=== PATIENT | male | born 1970 | race Caucasian/White ===

== ENCOUNTER 2020-01-17 08:08 | Outpatient (REF) | payer MEDICARE, OTHER, SELFPAY ==
[2020-01-17 09:21] LABS: MANUAL DIFF FLAG NO
[2020-01-17 09:27] LABS: Basophils Absolute Auto 0.1 X10*3/uL (0.0-0.2); Basophils Percent Auto 0.7 % (0-2); Eosinophils Absolute Auto 0.1 X10*3/uL (0.0-0.4); Eosinophils Percent Auto 1.2 % (0-4); Hematocrit 45.5 % (42-52); Hemoglobin 14.3 g/dl (14.0-18.0); Imm Gran Abs Auto 0.02 X10*3/uL (0.00-0.03); Imm Gran Pct Auto 0.3 % (0.0-0.4); Lymphocytes Absolute Auto 2.5 X10*3/uL (1.2-4.9); Mean Corpuscular HGB Conc 31.4 g/dl (31.0-36.0); Mean Corpuscular Hemoglobin 23.9 pg (27.0-33.0); Mean Corpuscular Volume 76.1 fL (80-98); Mean Platelet Volume 11.8 fL (9.4-12.4); Monocytes Absolute Auto 0.7 X10*3/uL (0.1-1.2); Monocytes Percent Auto 9.2 % (2-11); Neutrophils Absolute Auto 4.1 X10*3/uL (2.0-8.3); Neutrophils Percent Auto 55.6 % (45-73); Platelet Count 148 X10*3/uL (160-400); Red Blood Count 5.98 X10*6/uL (4.60-5.80); Red Cell Distribution Width 14.4 % (11.0-16.0); White Blood Count 7.4 X10*3/uL (4.8-10.8)
[2020-01-17 09:39] LABS: Estimated Average Glucose 146 mg/dL; Hemoglobin A1c % 6.7 %
[2020-01-17 10:05] LABS: Alanine Aminotransferase 26 U/L (0-40); Albumin Level 3.7 g/dL (3.5-5.0); Alkaline Phosphatase 98 U/L (39-117); Anion Gap 10 (12-20); Aspartate Amino Transferase 21 U/L (5-37); Bilirubin Total 0.4 mg/dL (0.0-1.0); Blood Urea Nitrogen 13 mg/dL (9-16); Calcium 8.3 mg/dL (8.4-10.2); Carbon Dioxide 27 mmol/L (22-29); Chloride 106 mmol/L (96-108); Cholesterol 117 mg/dL; Estimated Glomerular Filt Rate > 60; Glucose Fasting 132 mg/dL (60-99); HDL Cholesterol 18 mg/dL; Potassium 4.2 mmol/l (3.3-5.1); Sodium 139 mmol/L (135-145); Triglycerides 527 mg/dL
[2020-01-17 10:10] LABS: Creatinine Urine 151.75 mg/dL; Microalbumin Urine < 5.0 mg/L
[2020-01-17 10:22] LABS: TSH reflex Free T4 < 0.01 mIU/mL (0.32-4.0)
[2020-01-17 11:30] LABS: Free T4 (Free Thyroxine) 1.37 ng/dL (0.71-1.85)
== END 2020-01-17 08:09 | disposition home or self-care (01) ==
LOC: HO.LAB 08:08
PROVIDERS: PCP Physician Assistant; Visit Provider Physician Assistant
DX: E03.9 Hypothyroidism, unspecified (principal); E78.5 Hyperlipidemia, unspecified; I10 Essential (primary) hypertension
CPT/HCPCS: 36415; 80053; 80061; 82043; 83036; 84439; 84443; 85025

== ENCOUNTER 2020-01-28 01:08 | Emergency (ER) | payer MEDICARE, OTHER, SELFPAY ==
--- NOTE | 2020-01-28 | XR_ITS ---
EXAMINATION: XR CHEST CLINICAL INFORMATION: Fever. Cough. COMPARISON: 04/21/2019 TECHNIQUE: Frontal view of the chest was obtained. FINDINGS: The lungs are well expanded. There is no focal consolidation, edema, or effusion. Bronchial wall thickening noted. No pneumothorax. The cardiomediastinal silhouette is within normal limits. No acute osseous abnormality. XR/XR chest 1V IMPRESSION: No dense consolidation. Bronchial wall thickening can be seen with a small airways process such as asthma or atypical/viral infection.
[2020-01-28 01:20] VITALS: BP 151/68; PULSE 98; RESP 20; TEMP 38.8; O2SAT 96; BMI 46.2
[2020-01-28] MEDS: Ibuprofen 600 MG TABLET PO (01:54)
[2020-01-28] MEDS: Benzonatate 100 MG CAPSULE PO (01:55)
[2020-01-28] MEDS: Acetaminophen 325 MG TABLET 650 MG PO (01:55)
[2020-01-28 02:01] LABS: Eosinophils Percent Auto 0.2 % (0-4); Imm Gran Abs Auto 0.01 X10*3/uL (0.00-0.03); Imm Gran Pct Auto 0.2 % (0.0-0.4); MANUAL DIFF FLAG SCAN; PLT CLUMP 1; SCAN SMEAR FLAG 1
[2020-01-28 02:03] LABS: Basophils Percent Auto 0.3 % (0-2); Hematocrit 46.1 % (42-52); Lymphocytes Absolute Auto 1.1 X10*3/uL (1.2-4.9); Lymphocytes Percent Auto 18.6 % (20-40); Mean Corpuscular HGB Conc 32.5 g/dl (31.0-36.0); Mean Corpuscular Hemoglobin 24.6 pg (27.0-33.0); Mean Corpuscular Volume 75.6 fL (80-98); Monocytes Absolute Auto 0.4 X10*3/uL (0.1-1.2); Monocytes Percent Auto 7.6 % (2-11); Neutrophils Absolute Auto 4.2 X10*3/uL (2.0-8.3); Neutrophils Percent Auto 73.1 % (45-73); Red Cell Distribution Width 14.2 % (11.0-16.0); White Blood Count 5.8 X10*3/uL (4.8-10.8)
[2020-01-28 02:19] LABS: Platelet Count 95 X10*3/uL (160-400); SLIDE REVIEW VERIFIED
--- NOTE | 2020-01-28 02:19 | ED.URI ---
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 In addition, this patient denies any recent travel and states that he has felt a little short of breath but denies any chest pain / palpitations. Related Data Home Medications Medication Instructions Recorded Confirmed oxygen-air delivery systems #1 01/10/20 01/10/20 alcohol swabs pad TOPICAL 01/25/20 blood sugar diagnostic #10 ea 01/25/20 blood-glucose meter #1 ea 01/25/20 lancets 28 gauge #100 ea 01/25/20 Previous Rx's Medication Instructions Recorded atorvastatin 40 mg tablet 40 mg PO DAILY 90 Days #90 tab 01/10/20 gabapentin 600 mg tablet 600 mg PO TID 90 Days #270 tab 01/10/20 levothyroxine 200 mcg tablet 200 mcg PO DAILY 90 Days #90 tab 01/10/20 losartan 50 mg tablet 50 mg PO DAILY 90 Days #90 tab 01/10/20 meclizine 25 mg tablet 25 mg PO DAILY PRN 30 Days #30 tab 01/10/20 sertraline 100 mg tablet 100 mg PO DAILY 90 Days #90 tab 01/10/20 levothyroxine 137 mcg tablet 137 mcg PO DAILY 30 Days #30 tab 01/26/20 Allergies Allergy/AdvReac Type Severity Reaction Status Date / Time penicillin G Allergy Unknown PENICILLIN Verified 01/28/20 01:27 Penicillins [PCN] Allergy Unknown UNKNOWN Verified 01/28/20 01:27 Review of Systems Review of Systems: Pertinent positives and negatives as stated in HPI and 10 point review of systems is otherwise negative. [facility] Past Medical History Source: nursing notes reviewed Medical History HTN (hypertension) Hypothyroid Surgical History History of cholecystectomy History of hemorrhoidectomy Family History Family History Mother Diabetes Hypertension Father Diabetes Hypertension Maternal Uncle Cancer Maternal Grandmother Stroke Social History Social History Alcohol intake: never Smoking Status: Never smoker Smoked in Last 30 Days: No Use of substances other than those prescribed or required for medical reasons: No Advance Directives: No Advance Directives Information Provided: No Physical Exam Vital Signs: Vital Signs: Vital Signs Temp Pulse Resp BP Pulse Ox 01/28/20 03:03 99.7 F 88 16 100/69 96 01/28/20 01:20 101.8 F H 98 20 151/68 H 96 Body Mass Index 46.2 VITAL SIGNS: Reviewed. GENERAL: Well developed, well nourished, in no acute distress. HEAD: Normocephalic/atraumatic, EYES: PERRLA, EOMI intact without pain, no nystagmus/pallor/icterus noted EARS: Ext canals without abnormality, TMs non-bulging and non-erythematous NOSE: Nares patent bilateral OROPHARYNX: no oral lesions noted, posterior pharynx clear and non-erythematous without noted tonsillar enlargement/erythema/exudates NECK: Supple, no adenopathy LUNGS: Normal breath sounds. No adventitious sounds or accessory muscle use. SpO2<96> CARDIOVASCULAR: Regular rate and rhythm without noted murmurs, no JVD or lower extremity edema. ABDOMEN: Soft, non-tender, non-distended with bowel sounds. No rigidity. No guarding. No palpable masses or hernias noted MUSCULOSKELETAL: No tenderness, deformities, or effusions noted on gross inspection. EXTREMITIES: No cyanosis, clubbing or edema. SKIN: Inspection of the skin reveals no rashes, ulcerations, jaundice, pallor, or petechiae. NEUROLOGIC: Alert and oriented x 4. Strength and sensation to light touch were grossly intact x 4. Course Course Course Narrative: This is a 49-year-old male with history and clinical presentation most consistent with likely viral syndrome highly suspicious on review of lab work and imaging that this may be COVID-19 in etiology. Patient had complete resolution of his fever as well as remaining without evidence of hypoxia. Patient will be instructed to self quarantine until the results of his COVID-19 test are resulted with instructions on appropriate fever control and hydration. MDM - URI/Sore Throat Lab Data Result diagrams: 01/28/20 01:53 01/28/20 01:53 Labs: Lab Results 01/28/20 01/28/20 Range/Units 01:53 01:53 WBC 5.8 (4.8-10.8) X10*3/uL RBC 6.10 H (4.60-5.80) X10*6/uL Hgb 15.0 (14.0-18.0) g/dl Hct 46.1 (42-52) % MCV 75.6 L (80-98) fL MCH 24.6 L (27.0-33.0) pg MCHC 32.5 (31.0-36.0) g/dl RDW 14.2 (11.0-16.0) % Plt Count 95 L D (160-400) X10*3/uL MPV 12.0 (9.4-12.4) fL Immature Gran % (Auto) 0.2 (0.0-0.4) % Neut % (Auto) 73.1 H (45-73) % Lymph % (Auto) 18.6 L (20-40) % [place] % (Auto) 7.6 (2-11) % Eos % (Auto) 0.2 (0-4) % Baso % (Auto) 0.3 (0-2) % Lymph # (Auto) 1.1 L (1.2-4.9) X10*3/uL [place] # (Auto) 0.4 (0.1-1.2) X10*3/uL Eos # (Auto) 0.0 (0.0-0.4) X10*3/uL Baso # (Auto) 0.0 (0.0-0.2) X10*3/uL Abs Immat Gran (auto) 0.01 (0.00-0.03) X10*3/uL Absolute Neuts (auto) 4.2 (2.0-8.3) X10*3/uL Absolute Nucleated RBC 0.000 (0.0-0.012) X10*3/uL Nucleated RBC % (auto) 0.0 (0.0-0.2) /100WBC Smear Tech's Comments VERIFIED Sodium 136 (135-145) mmol/L Potassium 3.9 (3.3-5.1) mmol/l Chloride 104 (96-108) mmol/L Carbon Dioxide 21 L (22-29) mmol/L Anion Gap 15 (12-20) BUN 13 (9-16) mg/dL Creatinine 1.35 (0.5-1.4) mg/dL Estim Creat Clear Calc 80.8 Estimated GFR 56 Random Glucose 183 H (60-115) mg/dL Calcium 7.4 L (8.4-10.2) mg/dL Total Bilirubin 0.7 (0.0-1.0) mg/dL AST 41 H D (5-37) U/L ALT 46 H (0-40) U/L Alkaline Phosphatase 89 (39-117) U/L Total Protein 7.0 (6.5-8.0) g/dL Albumin 3.6 (3.5-5.0) g/dL Discharge Plan Discharge Clinical Impression: Viral illness Patient Disposition: Home, Self-Care Instructions: Viral Syndrome (ED), COVID-19 (Coronavirus Disease 2019) (ED) Additional Instructions: 1. Tylenol 1000 mg, por v?a oral, cada 6 horas seg?n sea necesario para la fiebre y los donnell corporales. No exceda los 4000 mg en 24 horas. 2. ibuprofeno 400 mg, por v?a oral con leche o comida cada 6 horas seg?n sea necesario para la fiebre y los donnell corporales. 3. debe permanecer en cuarentena hasta que le llamen los resultados de la prueba de COVID-19. 4. Utilice quach m?quina para dormir por la noche arron se indica. 5. No dude en volver al servicio de urgencias si experimenta un empeoramiento de la dificultad para respirar. El paciente y / o la christiano reconocen halina comprendido los resultados (seg?n corresponda), el diagn?stico, el plan de tratamiento, la necesidad de seguimiento y los s?ntomas que deber?an impulsar el regreso a la flavio de emergencias. Prescriptions: No Action (DME) blood-glucose meter [FreeStyle Lite Meter] Kit See Rx Instructions .ROUTE .MEDSUPPLY Qty: 1 RF: 0 (DME) FreeStyle Lite Strips Strip See Rx Instructions .ROUTE .MEDSUPPLY Qty: 10 RF: 0 (DME) lancets [FreeStyle Lancets] 28 gauge misc See Rx Instructions .ROUTE .MEDSUPPLY Qty: 100 RF: 0 alcohol swabs [Alcohol Prep Pads] Pads, Medicated topical RF: 0 levothyroxine 137 mcg tablet 137 mcg PO DAILY 30 Days Qty: 30 RF: 2 (DME) oxygen-air delivery systems Device See Rx Instructions .ROUTE .MEDSUPPLY Qty: 1 RF: 0 sertraline 100 mg tablet 100 mg PO DAILY 90 Days Qty: 90 RF: 1 gabapentin 600 mg tablet 600 mg PO TID 90 Days Qty: 270 RF: 0 levothyroxine 200 mcg tablet 200 mcg PO DAILY 90 Days Qty: 90 RF: 1 losartan 50 mg tablet 50 mg PO DAILY 90 Days Qty: 90 RF: 1 atorvastatin 40 mg tablet 40 mg PO DAILY 90 Days Qty: 90 RF: 1 meclizine 25 mg tablet 25 mg PO DAILY PRN (Reason: motion sickness) 30 Days Qty: 30 RF: 1 Referrals: Physician,Unknown [Primary Care Provider] - 2 days (Follow-up for viral syndrome)
[2020-01-28 02:24] LABS: Alanine Aminotransferase 46 U/L (0-40); Albumin Level 3.6 g/dL (3.5-5.0); Alkaline Phosphatase 89 U/L (39-117); Anion Gap 15 (12-20); Aspartate Amino Transferase 41 U/L (5-37); Bilirubin Total 0.7 mg/dL (0.0-1.0); Blood Urea Nitrogen 13 mg/dL (9-16); Calcium 7.4 mg/dL (8.4-10.2); Carbon Dioxide 21 mmol/L (22-29); Chloride 104 mmol/L (96-108); Creatinine Clr Calc Pharmacy 80.8; Estimated Glomerular Filt Rate 56; Glucose Random 183 mg/dL (60-115); Potassium 3.9 mmol/l (3.3-5.1); Sodium 136 mmol/L (135-145)
[2020-01-28 03:03] VITALS: BP 100/69; PULSE 88; RESP 16; TEMP 37.6; O2SAT 96
== END 2020-01-28 03:51 | disposition home or self-care (01) ==
PROVIDERS: Emergency Provider Student in an Organized Health Care Education/Training Program
DX: U07.1 COVID-19 (principal); R50.9 Fever, unspecified; M79.10 Myalgia, unspecified site; Z79.899 Other long term (current) drug therapy
CPT/HCPCS: 36415; 71045; 80053; 85025; 99283; 99284; U0003

== ENCOUNTER 2020-01-30 12:56 | Emergency (ER) | payer MEDICARE, OTHER, SELFPAY ==
[2020-01-30 13:13] VITALS: BP 119/78; BP 160/110; PULSE 76; PULSE 85; RESP 18; TEMP 36.6; O2SAT 97; BMI 46.2
--- NOTE | 2020-01-30 13:19 | ED.URI ---
HPI - URI/Sore Throat General Chief Complaint: Upper Respiratory Symptoms Stated Complaint: WEAK,N/V/D, COVID TEST THURSDAY W/NO RESULT Time Seen by Provider: 01/30/20 13:17 Source: patient Mode of arrival: ambulatory Limitations: no limitations History of Present Illness HPI Narrative: patient was seen with fever and cough 2 days ago but has been sick for the past 4 days. Now with N/V/D. Covid test still pending cxr was normal MD elicited complaint: fever, cough and sore throat Onset (ago): day(s) Severity: mild Associated symptoms: nausea, vomiting and diarrhea Related Data Home Medications Medication Instructions Recorded Confirmed oxygen-air delivery systems #1 01/10/20 01/10/20 alcohol swabs pad TOPICAL 01/25/20 blood sugar diagnostic #10 ea 01/25/20 blood-glucose meter #1 ea 01/25/20 lancets 28 gauge #100 ea 01/25/20 Previous Rx's Medication Instructions Recorded atorvastatin 40 mg tablet 40 mg PO DAILY 90 Days #90 tab 01/10/20 gabapentin 600 mg tablet 600 mg PO TID 90 Days #270 tab 01/10/20 levothyroxine 200 mcg tablet 200 mcg PO DAILY 90 Days #90 tab 01/10/20 losartan 50 mg tablet 50 mg PO DAILY 90 Days #90 tab 01/10/20 meclizine 25 mg tablet 25 mg PO DAILY PRN 30 Days #30 tab 01/10/20 sertraline 100 mg tablet 100 mg PO DAILY 90 Days #90 tab 01/10/20 levothyroxine 137 mcg tablet 137 mcg PO DAILY 30 Days #30 tab 01/26/20 ondansetron HCl [Zofran] 4 mg PO Q8H PRN #20 tab 01/30/20 Allergies Allergy/AdvReac Type Severity Reaction Status Date / Time penicillin G Allergy Unknown PENICILLIN Verified 01/28/20 01:27 Penicillins [PCN] Allergy Unknown UNKNOWN Verified 01/28/20 01:27 Review of Systems Constitutional: Constitutional: Reports no additional constitutional complaints Eyes: Eyes: Reports no additional eye complaints ENT: Denies dizziness Cardiovascular: Cardiovascular: Reports no additional cardiovascular complaints Respiratory: Respiratory: Reports as per HPI Gastrointestinal: Gastrointestinal: Reports no additional gastrointestinal complaints Musculoskeletal: Musculoskeletal: Reports no additional musculoskeletal complaints Integumentary/Breasts: Skin/Breast: Denies rash Neurologic: Reports system reviewed and no additional complaints, except as documented, Denies dizziness and Denies Sensory deficit (Neuro) Psychiatric: Psychiatric: Denies anxiety REPLACED BY [facility] Past Medical History Medical History HTN (hypertension) Hypothyroid Surgical History History of cholecystectomy History of hemorrhoidectomy Family History Family History Mother Diabetes Hypertension Father Diabetes Hypertension Maternal Uncle Cancer Maternal Grandmother Stroke Social History Social History Alcohol intake: never Smoking Status: Never smoker Smoked in Last 30 Days: No Use of substances other than those prescribed or required for medical reasons: No Advance Directives: No Advance Directives Information Provided: Yes Physical Exam Vital Signs: Vital Signs: Vital Signs Temp Pulse Resp BP Pulse Ox 01/30/20 14:07 98.4 F 77 15 120/79 96 01/30/20 13:13 98 F 76 18 119/78 97 Body Mass Index 46.2 Const: General: healthy appearing Nutritional Appearance: average body habitus Orientation/consciousness: oriented to person and patient oriented x3 Limitations: no limitations HENMT: Head: Yes normal to inspection Ears: external ears normal General nose exam: Normal external nose present Mouth: Normal oral and palatal mucosa present and oropharynx normal Throat: Yes posterior oropharynx normal Eyes: General: appearance normal, both eyes and all related structures Neck: Other: supple Neck: Yes normal visual inspection Chest: Chest palpation & inspection: normal inspection of the chest Resp: Other: coughing Auscultation: clear to auscultation bilaterally Cardio: Jugular venous distension: no JVD Rate: regular rate Rhythm: regular rhythm Heart sounds: S1 normal heart sound present and S2 normal heart sound present GI: Inspection: Yes normal to inspection Palpation (GI): Soft to palpation, nontender and No hepatosplenomegaly present Auscultation: normal bowel sounds : General: Yes no CVA tenderness Back/Spine/Pelvis: Back: no CVA tenderness Skin: General skin exam: no rashes or lesions noted Neuro: General: oriented to person and patient oriented x3 Cranial nerves: Yes CN's II-XII intact bilaterally Motor exam (neuro): 5/5 motor strength present throughout Sensory Exam: No Sensory deficit (Neuro) Extrem: General: Yes normal to inspection Psych: Appearance: grossly normal Course Course Course Narrative: tolerated fluids and meds will dc home MDM - URI/Sore Throat MDM Narrative Medical decision making narrative: patient with sequela of coronavirus Discharge Plan Discharge Clinical Impression: 2019 novel coronavirus disease (COVID-19) Patient Disposition: Home, Self-Care Instructions: COVID-19 (Coronavirus Disease 2019) (ED) Additional Instructions: fluids as tolerated, motrin and tylenol for fever and pain, return for worsening shortness of breath Prescriptions: New ondansetron HCl [Zofran] 4 mg tablet 4 mg PO Q8H PRN (Reason: nausea and vomiting) Qty: 20 RF: 0 No Action (DME) blood-glucose meter [FreeStyle Lite Meter] Kit See Rx Instructions .ROUTE .MEDSUPPLY Qty: 1 RF: 0 (DME) FreeStyle Lite Strips Strip See Rx Instructions .ROUTE .MEDSUPPLY Qty: 10 RF: 0 (DME) lancets [FreeStyle Lancets] 28 gauge misc See Rx Instructions .ROUTE .MEDSUPPLY Qty: 100 RF: 0 alcohol swabs [Alcohol Prep Pads] Pads, Medicated topical RF: 0 levothyroxine 137 mcg tablet 137 mcg PO DAILY 30 Days Qty: 30 RF: 2 (DME) oxygen-air delivery systems Device See Rx Instructions .ROUTE .MEDSUPPLY Qty: 1 RF: 0 sertraline 100 mg tablet 100 mg PO DAILY 90 Days Qty: 90 RF: 1 gabapentin 600 mg tablet 600 mg PO TID 90 Days Qty: 270 RF: 0 levothyroxine 200 mcg tablet 200 mcg PO DAILY 90 Days Qty: 90 RF: 1 losartan 50 mg tablet 50 mg PO DAILY 90 Days Qty: 90 RF: 1 atorvastatin 40 mg tablet 40 mg PO DAILY 90 Days Qty: 90 RF: 1 meclizine 25 mg tablet 25 mg PO DAILY PRN (Reason: motion sickness) 30 Days Qty: 30 RF: 1 Referrals: Physician,Unknown [Primary Care Provider] - 2 days
[2020-01-30 14:07] VITALS: BP 120/79; PULSE 77; PULSE 80; RESP 15; TEMP 36.9; O2SAT 96; O2SAT 97
[2020-01-30] MEDS: Ibuprofen 800 MG TABLET PO (14:20)
== END 2020-01-30 15:30 | disposition home or self-care (01) ==
PROVIDERS: Emergency Provider Emergency Medicine
DX: U07.1 COVID-19 (principal); R05 Cough; Z20.828 Contact with and (suspected) exposure to other viral communicable diseases; Z79.899 Other long term (current) drug therapy
CPT/HCPCS: 99283; 99284

== ENCOUNTER 2020-02-08 13:57 | Outpatient (REF) | payer MEDICARE, OTHER, SELFPAY ==
--- NOTE | 2020-02-08 14:01 | MM_ITS ---
EXAMINATION: MM DIAGNOSTIC DIGITAL BREAST TOMOSYNTHESIS, BILATERAL US DIAGNOSTIC ULTRASOUND BREAST, RIGHT CLINICAL INFORMATION: 49-year-old male with right breast pain and palpable nodularity anterior breast. No prior breast imaging. No nipple discharge. COMPARISON: None (current study represents initial baseline exam). TECHNIQUE: Digital breast tomosynthesis is performed in both the craniocaudal and mediolateral oblique views along with computer-aided detection (CAD). Synthesized 2D images are generated from the tomosynthesis. Symptom markers placed over area of patient symptoms. Ultrasound right breast is targeted to the area of clinical concern anterior breasts. Grayscale imaging and color Doppler are performed without and with harmonics. FINDINGS: There are scattered areas of fibroglandular density (ACR BI-RADS breast composition Category b). The left breast is predominantly fatty with unremarkable stromal markings. There is some mild gynecomastia central right breast in area of patient symptoms. There is no mass or architectural abnormality. No abnormal calcifications. Incidental intramammary node is present posterior upper outer right breast. There is no skin thickening or coarsening of the stromal markings. Ultrasound right breast demonstrates no cystic or solid mass or architectural abnormality. There is no focal duct ectasia. No skin thickening or edema tracking in the soft tissue planes. Results are discussed with the patient at time of visit using an principal solutions architect. MM/MM diagnostic mammo BI IMPRESSION: 1. Mild asymmetric gynecomastia on right. Left breast unremarkable. 2. Unremarkable targeted right breast ultrasound. ASSESSMENT: BI-RADS 2: Benign RECOMMENDATION: Patient should be managed based on the clinical impression. If clinically indicated, further evaluation may be considered with surgical consult. Decision to proceed with biopsy should be based on clinical grounds and degree of clinical concern.
--- NOTE | 2020-02-08 15:06 | US_ITS ---
EXAMINATION: MM DIAGNOSTIC DIGITAL BREAST TOMOSYNTHESIS, BILATERAL US DIAGNOSTIC ULTRASOUND BREAST, RIGHT CLINICAL INFORMATION: 49-year-old male with right breast pain and palpable nodularity anterior breast. No prior breast imaging. No nipple discharge. COMPARISON: None (current study represents initial baseline exam). TECHNIQUE: Digital breast tomosynthesis is performed in both the craniocaudal and mediolateral oblique views along with computer-aided detection (CAD). Synthesized 2D images are generated from the tomosynthesis. Symptom markers placed over area of patient symptoms. Ultrasound right breast is targeted to the area of clinical concern anterior breasts. Grayscale imaging and color Doppler are performed without and with harmonics. FINDINGS: There are scattered areas of fibroglandular density (ACR BI-RADS breast composition Category b). The left breast is predominantly fatty with unremarkable stromal markings. There is some mild gynecomastia central right breast in area of patient symptoms. There is no mass or architectural abnormality. No abnormal calcifications. Incidental intramammary node is present posterior upper outer right breast. There is no skin thickening or coarsening of the stromal markings. Ultrasound right breast demonstrates no cystic or solid mass or architectural abnormality. There is no focal duct ectasia. No skin thickening or edema tracking in the soft tissue planes. Results are discussed with the patient at time of visit using an bilingual interpreter. US/US breast RT limited IMPRESSION: 1. Mild asymmetric gynecomastia on right. Left breast unremarkable. 2. Unremarkable targeted right breast ultrasound. ASSESSMENT: BI-RADS 2: Benign RECOMMENDATION: Patient should be managed based on the clinical impression. If clinically indicated, further evaluation may be considered with surgical consult. Decision to proceed with biopsy should be based on clinical grounds and degree of clinical concern.
== END 2020-02-08 13:58 | disposition home or self-care (01) ==
LOC: HO.MAMMO 13:57
PROVIDERS: Visit Provider Physician Assistant
DX: N64.4 Mastodynia (principal)
CPT/HCPCS: 76642; 77066

== ENCOUNTER → 2020-02-28 08:36 | Outpatient (BNVA) | payer MEDICARE, OTHER, SELFPAY | PROVIDERS: PCP Physician Assistant; Visit Provider Internal Medicine Gastroenterology | DX: K59.09 Other constipation (principal); Z12.11 Encounter for screening for malignant neoplasm of colon; Z86.010 Personal history of colon polyps; Z79.899 Other long term (current) drug therapy | CPT/HCPCS: 99202 ==

== ENCOUNTER 2020-04-05 10:29 | Outpatient (REF) | payer MEDICARE, SELFPAY ==
--- NOTE | 2020-04-05 10:42 | XR_ITS ---
EXAMINATION: XR CHEST CLINICAL INFORMATION: R53.83 - Other fatigue COMPARISON: Chest radiographs 01/28/2020, 04/21/2019 TECHNIQUE: 2 views of the chest were obtained. FINDINGS: The lungs are clear. The heart is normal in size. There is no vascular congestion, airspace consolidation, groundglass opacity, or effusion. The hilar and mediastinal contours are normal. No visible acute bony abnormality. XR/XR chest 2V IMPRESSION: Unremarkable examination.
[2020-04-05 10:52] LABS: PLT CLUMP 1
[2020-04-05 10:54] LABS: Hematocrit 46.7 % (42-52); Hemoglobin 15.1 g/dl (14.0-18.0); Mean Corpuscular HGB Conc 32.3 g/dl (31.0-36.0); Mean Corpuscular Hemoglobin 25.5 pg (27.0-33.0); Mean Corpuscular Volume 78.8 fL (80-98); Mean Platelet Volume 11.8 fL (9.4-12.4); Platelet Count 127 X10*3/uL (160-400); Red Blood Count 5.93 X10*6/uL (4.60-5.80); Red Cell Distribution Width 16.7 % (11.0-16.0); White Blood Count 7.7 X10*3/uL (4.8-10.8)
[2020-04-05 11:14] LABS: Anion Gap 11 (12-20); Blood Urea Nitrogen 13 mg/dL (9-16); Calcium 8.6 mg/dL (8.4-10.2); Carbon Dioxide 28 mmol/L (22-29); Chloride 105 mmol/L (96-108); Estimated Glomerular Filt Rate 59; Glucose Random 156 mg/dL (60-115); Iron 67 mcg/dL (45-160); Percent Iron Saturation 25 % (15-50); Potassium 4.5 mmol/l (3.3-5.1); Sodium 139 mmol/L (135-145); Total Iron Binding Capacity 273 mcg/dL (228-428); Unsaturated Iron Binding 206 ug/dL
== END 2020-04-05 10:30 | disposition home or self-care (01) ==
LOC: HO.LAB 10:29
PROVIDERS: Visit Provider Physician Assistant
DX: G93.3 Postviral and related fatigue syndromes (principal); I10 Essential (primary) hypertension; D50.9 Iron deficiency anemia, unspecified; R53.83 Other fatigue; R06.02 Shortness of breath
CPT/HCPCS: 36415; 71046; 80048; 83540; 85027

== ENCOUNTER 2020-04-19 08:28 | Outpatient (REF) | payer MEDICARE, OTHER, SELFPAY ==
--- NOTE | 2020-04-19 08:53 | XR_ITS ---
EXAMINATION: XR LUMBOSACRAL SPINE CLINICAL INFORMATION: M54.16 - Radiculopathy, lumbar region COMPARISON: None TECHNIQUE: Three views of the lumbosacral spine. FINDINGS: There is normal lumbar segmentation with 5 nonrib-bearing lumbar vertebrae of normal height and normal lumbar lordosis. There is no lumbar vertebral compression, spondylolisthesis, or destructive process. There are partially bridging anterior osteophytes L2-L3 and L4-L5. Borderline degenerative disc changes L4-L5. The SI joints and visualized sacrum are unremarkable. XR/XR lumbar spine 2-3V IMPRESSION: 1. Borderline degenerative disc changes L4-L5 with partially bridging anterior osteophyte. 2. Partially bridging anterior osteophyte L2-L3.
[2020-04-19 09:43] LABS: Alanine Aminotransferase 27 U/L (0-40); Albumin Level 4.1 g/dL (3.5-5.0); Alkaline Phosphatase 106 U/L (39-117); Anion Gap 11 (12-20); Aspartate Amino Transferase 21 U/L (5-37); Bilirubin Total 0.5 mg/dL (0.0-1.0); Blood Urea Nitrogen 11 mg/dL (9-16); Calcium 8.4 mg/dL (8.4-10.2); Carbon Dioxide 28 mmol/L (22-29); Chloride 104 mmol/L (96-108); Cholesterol 130 mg/dL; Estimated Glomerular Filt Rate 59; Glucose Fasting 138 mg/dL (60-99); HDL Cholesterol 20 mg/dL; Potassium 4.4 mmol/l (3.3-5.1); Sodium 139 mmol/L (135-145); TSH reflex Free T4 0.07 mIU/mL (0.32-4.0); Triglycerides 538 mg/dL
[2020-04-19 10:52] LABS: Free T4 (Free Thyroxine) 1.22 ng/dL (0.71-1.85); Prostate Specific Antigen Scr 1.23 ng/mL (<0.05-4.0)
[2020-04-19 11:18] LABS: Estimated Average Glucose 154 mg/dL
== END 2020-04-19 08:29 | disposition home or self-care (01) ==
LOC: HO.LAB 08:28
PROVIDERS: PCP Physician Assistant; Visit Provider Physician Assistant
DX: M54.16 Radiculopathy, lumbar region (principal); E78.2 Mixed hyperlipidemia; E03.9 Hypothyroidism, unspecified; Z12.5 Encounter for screening for malignant neoplasm of prostate
CPT/HCPCS: 36415; 72100; 80053; 80061; 83036; 84153; 84439; 84443

== ENCOUNTER 2020-04-20 09:21 | Day surgery (SDC) | payer MEDICARE, OTHER, SELFPAY ==
[2020-04-11 20:15] VITALS: BMI 47.4
--- NOTE | 2020-04-19 09:50 | P.CONAN_ITS ---
Documented by User: Rula Portillo 04/19/20 09:54 HPI - Anesthesia Eval Consult details Narrative: 50yo M for Colonoscopy [facility] Past Medical History Medical History HTN (hypertension) Hypothyroid Pre-diabetes Sleep apnea with use of continuous positive airway pressure (CPAP) Family History Family History Mother Diabetes Hypertension Father Diabetes Hypertension Maternal Uncle Cancer Maternal Grandmother Stroke Surgical History Surgical History History of cholecystectomy History of colonoscopy History of hemorrhoidectomy Hx of endoscopy Social History Social History Alcohol intake: never Smoking Status: Never smoker Use of substances other than those prescribed or required for medical reasons: No Advance Directives: No Advance Directives Information Provided: No Advance Directives on File: No Meds Allergies Allergy/AdvReac Type Severity Reaction Status Date / Time Penicillins Allergy Unknown Rash Verified 04/17/20 17:36 Home Medications Medication Instructions Recorded Confirmed Type oxygen-air delivery systems #1 01/10/20 04/17/20 History alcohol swabs pad TOPICAL 01/25/20 04/17/20 History blood sugar diagnostic #10 ea 01/25/20 04/17/20 History blood-glucose meter #1 ea 01/25/20 04/17/20 History lancets 28 gauge #100 ea 01/25/20 04/17/20 History gabapentin 600 mg tablet 600 mg PO DAILY 04/17/20 04/17/20 History Exam Exam Date and Time: April 19, 2020 0951 Height,Weight and Vital Signs: Height 5 ft 5 in Weight 129.274 kg Pertinent Lab Results Pertinent Lab Results: Laboratory Tests 04/05/20 04/19/20 10:40 08:37 WBC 7.7 Hgb 15.1 Hct 46.7 Plt Count 127 L D Sodium 139 Potassium 4.4 Chloride 104 Carbon Dioxide 28 BUN 11 Creatinine 1.29 Assessment and Plan Assessment Anesthesia Assessment: Chart Reviewed Documented by User: Sharon Alan 04/20/20 09:46 [facility] Past Medical History Medical History HTN (hypertension) Hypothyroid Pre-diabetes Sleep apnea with use of continuous positive airway pressure (CPAP) Family History Family History Mother Diabetes Hypertension Father Diabetes Hypertension Maternal Uncle Cancer Maternal Grandmother Stroke Surgical History Surgical History History of cholecystectomy History of colonoscopy History of hemorrhoidectomy Hx of endoscopy Social History Social History Alcohol intake: never Smoking Status: Never smoker Use of substances other than those prescribed or required for medical reasons: No Advance Directives: No Advance Directives Information Provided: No Advance Directives on File: No Meds Allergies Allergy/AdvReac Type Severity Reaction Status Date / Time Penicillins Allergy Unknown Rash Verified 04/17/20 17:36 Home Medications Medication Instructions Recorded Confirmed Type oxygen-air delivery systems #1 01/10/20 04/17/20 History alcohol swabs pad TOPICAL 01/25/20 04/17/20 History blood sugar diagnostic #10 ea 01/25/20 04/17/20 History blood-glucose meter #1 ea 01/25/20 04/17/20 History lancets 28 gauge #100 ea 01/25/20 04/17/20 History gabapentin 600 mg tablet 600 mg PO DAILY 04/17/20 04/17/20 History Exam Airway Mallampati Class: III (Very full neck) TM Dist: >3cm Neck ROM: Full Loose/Missing/Broken Teeth: No Heart: RRR Lungs: CTA Assessment and Plan Assessment Anesthesia Assessment: Anesthesia Plan Discussed Final Anesthetic Review NPO: Yes ASA Class: III Final Preanesthetic Review: Meds/Allgs Chart Reviewed, Consent Obtained/Reviewed and Anes Risks/Benef Reviewed Patient Risk: Intermediate Procedure Risk: Low Anesthetic Plan Anesthetic Plan: MAC: Disposition: Standard PACU
[2020-04-20 09:28] VITALS: BP 132/85; PULSE 79; RESP 18; TEMP 36.6; O2SAT 97
[2020-04-20] MEDS: Lactated Ringers 1,000 ML 100 ML IVCONT (09:57)
--- NOTE | 2020-04-20 11:27 | P.OP_ITS ---
Operative Note Operative Note Date of Service: 04/20/20 Narrative: Pre-op diagnosis: Colon cancer screening, chronic constipation, history of colon polyps Post-op diagnosis: other (Colon polyps, cecal nodule, diverticulosis, hemorrhoids) Procedure: COLONOSCOPY TILL CECUM WITH BIOPSIES AND SNARE POLYPECTOMY Consent: Indications for the procedure and potential complications of bleeding, perforation, reaction to medications and missed diagnosis were discussed with the patient and informed consent was obtained. Instrument: Olympus PCF H 190 L variable stiffness pediatric colonoscope Monitoring: Vital signs and clinical assessment, intermittent blood pressure monitoring, continuous EKG monitoring, Pulse oximetry and Carbon Dioxide monitoring were done throughout the procedure. Colon withdrawl time was 25 minutes. Procedure: The patient was placed in the left lateral decubitis position and pre-procedure medications were administered. After a digital rectal examination of the ano-rectum, the video colonoscope was inserted into the rectum and advanced through the colon to the cecum. The colonoscope was slowly withdrawn in a retrograde panoramic fashion and the colon mucosa was carefully examined including a retroflexed view of the rectum. Findings and interventions are described below. Procedure Difficulty: Without difficulty - colon was long and tortuous and there was some loop formation. Findings: Terminal Ileum: Not evaluated Cecum: A 1.5 cms benign appearing nodule in the area of the appendicular orifice - biopsied. Ascending Colon: Normal Transverse Colon: 10-12 mm sessile polyp removed with a cold snare and a 5-6 mm sessile polyp removed with a cold biopsy. Descending Colon: Moderate diverticulosis Sigmoid Colon: Moderate diverticulosis Rectum: Normal Ano-rectum: Moderate internal hemorrhoids Colon preparation: Good after some irrigation Impression and Post Procedure Diagnosis: Colonoscopy Findings: Two polyps removed A 1.5 cms benign appearing nodule in the area of appendicular orifice - biopsied. Moderate diverticulosis seen in the left colon Moderate hemorrhoids on retroflexed exam. Plan: Await pathology results Patient has an appointment on 05/07/20 in the GI Clinic with JACOB Hannah. Repeat Colonoscopy interval based on path results - in 3-5 years if polyps are adenomatous and 10 years if polyps are hyperplastic. Above findings were reviewed with the patient and colon polyps and diverticulosis handouts were given in the discharge area Surgeon: Marcos Alvarenga MD Anesthesia: MAC (PUBLIC SAFETY TELECOMMUNICATOR [place]) Project/Production Manager Imaging: Prabhjot Mills Estimated blood loss (mL): 0 Pathology: other (A. Cecal nodule, B. TC polyps x 2) Condition: stable Disposition: PACU
--- NOTE | 2020-04-20 11:28 | P.HPSUR_ITS ---
Pre-Procedural Eval Section B Chief Complaint: hx of colonic polyps Details of Present Illness: Colon cancer screening, history of colon polyps, chronic constipation Relevant Family History (Specify if Yes): No Relevant Social History: None Present Medications: see Short Stay Collaborative assessment Medical History: Significant History (HTN (hypertension) Hypothyroid Pre- diabetes Sleep apnea with use of continuous positive airway pressure (CPAP)) History of Previous Operations: Relevant previous surgery/procedure and date(s) (Upper endoscopy, colonoscopy, cholecystectomy) Allergies: Allergies Allergy/AdvReac Type Severity Reaction Status Date / Time Penicillins Allergy Unknown Rash Verified 04/17/20 17:36 Review of Systems Sugical H&P ROS: Negative: Constitution, Cardiovascular and Gastrointestinal and Yes, Specify: Respiratory (sleep apnea) Exam Surgical H&P Exam: Normal: Heart, Normal: Lungs and Normal: Extremities and Significant Findings: Abdomen (obese) Plan Diagnosis/Plan: Unchanged I have reviewed the history and physical and performed a pertinent physical examination on my patient. No changes have occurred unless specified.
[2020-04-20 12:20] VITALS: BP 120/64; PULSE 92; RESP 20; TEMP 36.4; O2SAT 95
[2020-04-20 12:35] VITALS: BP 109/72; PULSE 79; RESP 20; TEMP 36.4; O2SAT 98
== END 2020-04-20 13:32 | disposition home or self-care (01) ==
PROVIDERS: PCP Physician Assistant; Visit Provider Internal Medicine Gastroenterology
PROC: 0DJD8ZZ Inspection of Lower Intestinal Tract, Via Natural or Artificial Opening Endoscopic (ICD-10-PCS; CPT 45378; principal; 2020-04-20 12:50)
DX: Z12.11 Encounter for screening for malignant neoplasm of colon (principal); Z86.010 Personal history of colon polyps; D12.0 Benign neoplasm of cecum; K63.5 Polyp of colon; K57.30 Diverticulosis of large intestine without perforation or abscess without bleeding; K64.8 Other hemorrhoids; K59.00 Constipation, unspecified; I10 Essential (primary) hypertension; G47.30 Sleep apnea, unspecified; Z79.899 Other long term (current) drug therapy; Z99.89 Dependence on other enabling machines and devices; Z90.49 Acquired absence of other specified parts of digestive tract; Z88.0 Allergy status to penicillin
CPT/HCPCS: 45385; 45380; 88305; J2765

== ENCOUNTER → 2020-05-03 09:35 | Outpatient (BNVA) | payer MEDICARE, OTHER, SELFPAY | PROVIDERS: PCP Physician Assistant; Visit Provider Physician Assistant | DX: Z13.89 Encounter for screening for other disorder (principal) | CPT/HCPCS: Q3014 ==

== ENCOUNTER 2020-06-18 10:00 | Outpatient (RCR) | payer MEDICARE, OTHER, SELFPAY ==
--- NOTE | 2020-05-24 13:24 | MHC.PT.EP ---
[facility] [place] Office [place] Office [place] Office [address] Megan Joel [address] [phone] F: [phone] F: [phone] F: [phone] F: [phone] Physical Therapy Plan of Care Date of Evaluation: 05/24/20 Date of Surgery: Diagnosis: THORACIC INTERVERTEBRAL DISC DISORDER Assessment: 50 YO MALE REF TO PT W EXACERBATION OF CHRONIC THORACOLUMBAR PAIN. Pt NOTES HE IS DISABLED AND HAS INCR PAIN W PROLONGED WALKING/ SITTING/ LIFTING. OBJECTIVELY, Pt HAS LIMITED FLEXIB/ MOBILITY IN SHELIA HIPS AND HS; (+) TISSUE TENSION AND OVERUSE OF SHELIA LUMBAR PS MM, PAIN IN THORACOLUMB SPINE AND BILAT LS BAND/ CURRENTLY (-) SENSORIMOTOR DEFICITS - HE HAS DECR POSTURAL AWARENESS W HYPERLORDOTIC LUMBAR REGION AND WEAK ABDOMINALS W VALSALVA TENDENCIES. Frequency and Duration: The patient will be seen 2x WK x 5 WKS Short Term Goals: DECR Pt'S MID/LBP TO 2-3/10 IN 2 WKS Pt DEMON PROPER TAC AND SELF CORRECT OF HYPERLORDOTIC LUMBAR REGION-> NEUTRAL SPINE, W/O HABITUAL VALSALVA EFFECT, W EXER AND SIMUL POSTURES IN 2 WKS Pt DEMON PROPER BODY MECH W 3:3 SIMUL ADLs IN 3 WKS Mcc Goals: Pt INDEP W HEP FOR HIP/ ABDOM STRENGTHENING AND HIP FLEXIB WELL SELF-SX MGMT STRATEGIES IN 5 WKS Pt DEMON IMPROVED FUNCT MOB WON EVIDENT W IMPROVED OSWESTRY SCORE BY 10 POINTS (33/50 AT EVAL) IN 5 WKS Treatment Plan: Modalities to reduce pain, spasms and effusion. Manual therapy to restore motion and function. Therapeutic exercise to improve strength and flexibility. Neuromuscular re-education for posture and balance. Therapeutic activities to return to functional activities of daily living. Electronically signed by: Susan BradleyPT Please sign and return to therapist. Thank you for your referral.
--- NOTE | 2020-06-25 10:40 | MHC.PT.DC ---
[facility] [place] Office [place] Office [place] Office [address] Megan Joel [address] [phone] F: [phone] F: [phone] F: [phone] F: [phone] Physical Therapy Discharge Report Diagnosis: THORACIC INTERVERTEBRAL DISC DISORDER Date of Surgery: Date of Evaluation: 05/24/20 Date of Discharge: 06/25/20 Treatments to Date: 7 Cancellations to Date: 0 No Shows to Date: 3 Discharge Status: Improved Function Independent with HEP Visit Non-compliance Discharge Summary: Pt WAS PROGRESSING WELL IN PT- HE MADE GAINS WITH OVERALL TRUNK AND LEs FLEXIBLITY, EASED SOFT TISSUE TIGHTNESS, IMPROVED CORE STAB/ PELVIC SYMMETRY, AND IMPROVED STRENGTH. WE EDUC Pt RE IMPROVED NBODY MECH AND POSTURE AND HE DEMON GOOD CARRYOVER W/O ADVERSE EFFECT. HE HAS A THOROUGH HEP- Pt'S SUBJECTIVE PAIN HAS REMAINED ELEV AT 6/10 DESPITE OBJECTIVE PROGRESS. Electronically signed by: Susan Bradley, PT Please sign and return to therapist. Thank you for your referral.
== END 2020-06-25 10:41 | disposition other institution (70) ==
LOC: HO.PTCHIC 10:00
PROVIDERS: PCP Physician Assistant; Visit Provider Physician Assistant
DX: M51.9 Unspecified thoracic, thoracolumbar and lumbosacral intervertebral disc disorder (principal)
CPT/HCPCS: 97110; 97112; 97140; 97162; 97530

== ENCOUNTER 2020-09-18 07:33 | Outpatient (REF) | payer MEDICARE, OTHER, SELFPAY ==
--- NOTE | ~2020-09-18 | XR_ITS ---
EXAMINATION: XR SHOULDER, RIGHT CLINICAL INFORMATION: Right shoulder pain. COMPARISON: Chest radiographs 04/05/2020. TECHNIQUE: Right shoulder is imaged in 4 views. FINDINGS: No fracture, dislocation, or destructive process. The glenohumeral joint appears normal. There are no visible rotator cuff calcifications. There are degenerative changes acromioclavicular joint with joint narrowing and spurring. The acromioclavicular alignment is normal. XR/XR shoulder RT min 2V IMPRESSION: Osteoarthritis acromioclavicular joint. No visible rotator cuff calcifications.
[2020-09-18 08:11] LABS: Hematocrit 45.9 % (42-52); Hemoglobin 14.9 g/dl (14.0-18.0); Mean Corpuscular HGB Conc 32.5 g/dl (31.0-36.0); Mean Corpuscular Hemoglobin 25.8 pg (27.0-33.0); Mean Corpuscular Volume 79.5 fL (80-98); Mean Platelet Volume 12.2 fL (9.4-12.4); Platelet Count 145 X10*3/uL (160-400); Red Blood Count 5.77 X10*6/uL (4.60-5.80); White Blood Count 7.5 X10*3/uL (4.8-10.8)
[2020-09-18 08:45] LABS: Creatinine Urine 129.23 mg/dL; Microalbum/Creatinine Ratio Ur 4.6 ug/mg cr
[2020-09-18 08:56] LABS: Alanine Aminotransferase 27 U/L (0-40); Albumin Level 3.8 g/dL (3.5-5.0); Alkaline Phosphatase 119 U/L (39-117); Anion Gap 12 (12-20); Aspartate Amino Transferase 17 U/L (5-37); Bilirubin Total 0.6 mg/dL (0.0-1.0); Blood Urea Nitrogen 15 mg/dL (9-16); Calcium 8.5 mg/dL (8.4-10.2); Carbon Dioxide 25 mmol/L (22-29); Chloride 102 mmol/L (96-108); Cholesterol 239 mg/dL; Estimated Glomerular Filt Rate 54; Glucose Fasting 350 mg/dL (60-99); HDL Cholesterol 16 mg/dL; Potassium 4.3 mmol/L (3.3-5.1); Sodium 135 mmol/L (135-145); Total Protein 7.1 g/dL (6.5-8.0)
[2020-09-18 09:00] LABS: Triglycerides 1360 mg/dL
[2020-09-18 09:05] LABS: Estimated Average Glucose 269 mg/dL
[2020-09-18 10:23] LABS: Prostate Specific Antigen Scr 1.39 ng/mL (<0.05-4.0)
== END 2020-09-18 07:34 | disposition home or self-care (01) ==
LOC: HO.LAB 07:33
PROVIDERS: PCP Physician Assistant; Visit Provider Physician Assistant
DX: Z12.5 Encounter for screening for malignant neoplasm of prostate (principal); M25.511 Pain in right shoulder; E11.9 Type 2 diabetes mellitus without complications; E78.5 Hyperlipidemia, unspecified; I10 Essential (primary) hypertension; D64.9 Anemia, unspecified; E03.9 Hypothyroidism, unspecified; E55.9 Vitamin D deficiency, unspecified
CPT/HCPCS: 36415; 73030; 80053; 80061; 82043; 83036; 84153; 84443; 85027

== ENCOUNTER 2020-11-14 16:28 | Observation (INO) | payer MEDICARE, OTHER, SELFPAY ==
--- NOTE | ~2020-11-14 | CT_ITS ---
EXAMINATION: CT ABDOMEN AND PELVIS WITH CONTRAST CLINICAL INFORMATION: Periumbilical abdominal pain, erythema, hard warm lump COMPARISON: None TECHNIQUE: Multidetector volumetric images were obtained from the superior aspect of the liver through the pubic symphysis following administration 85 mL of Omnipaque 350 intravenous contrast. Sagittal and coronal reformatted images were obtained on the technologist's workstation. Oral contrast: No This CT examination was performed using dose optimization techniques as appropriate, variously including the following: *Automated exposure control *Adjustment of mA and/or kV according to patient size (this includes techniques or standardized protocols for targeted exams where dose is matched to indication/reason for exam; i.e. extremities or head) *Use of iterative reconstruction technique DLP: 1082 mGy-cm FINDINGS: LUNG BASES: The visualized lung bases are unremarkable. LIVER, GALLBLADDER, AND BILIARY TREE: The liver is enlarged measuring over 22 cm in greatest length and demonstrates decreased attenuation consistent with hepatic steatosis. No focal hepatic lesion or biliary ductal dilatation is present. The gallbladder has been surgically moved. PANCREAS: Unremarkable. SPLEEN: Unremarkable. ADRENAL GLANDS: Unremarkable. KIDNEYS AND URETERS: The kidneys are normal in size, shape, and attenuation. No hydronephrosis, hydroureter, or calculi seen. No perinephric stranding. BLADDER: Unremarkable. GASTROINTESTINAL TRACT: The small and large bowel are unremarkable. The appendix is unremarkable. ABDOMINAL WALL: There is a periumbilical hernia present containing inflamed fat. The defect measures 1.3 cm in length and the herniated greater omentum with inflammatory changes measures 7.0 x 6.5 x 6.6 cm. This is undoubtedly the cause of the hardware performed 1. LYMPH NODES: No retroperitoneal lymphadenopathy. VASCULAR: Unremarkable. PELVIC VISCERA: Prostate and seminal vesicles appear normal OSSEOUS STRUCTURES: Unremarkable. CT/CT abdomen pelvis w con IMPRESSION: 1. Enlarged fatty liver 2. Large periumbilical hernia containing fat which appears inflamed.
[2020-11-14 18:07] VITALS: BP 158/99; PULSE 84; RESP 18; TEMP 37; O2SAT 98; BMI 47.2
[2020-11-14 20:10] VITALS: BP 126/76; PULSE 105; RESP 20; TEMP 36.8; O2SAT 94
[2020-11-14 21:14] VITALS: BP 145/83; PULSE 85; RESP 19; TEMP 36.9; O2SAT 96
[2020-11-14 22:28] LABS: MANUAL DIFF FLAG NO
[2020-11-14 22:29] LABS: Basophils Absolute Auto 0.1 X10*3/uL (0.0-0.2); Basophils Percent Auto 0.6 % (0-2); Eosinophils Absolute Auto 0.1 X10*3/uL (0.0-0.4); Eosinophils Percent Auto 0.6 % (0-4); Hematocrit 43.3 % (42-52); Hemoglobin 13.9 g/dl (14.0-18.0); Imm Gran Abs Auto 0.03 X10*3/uL (0.00-0.03); Imm Gran Pct Auto 0.3 % (0.0-0.4); Lymphocytes Absolute Auto 2.6 X10*3/uL (1.2-4.9); Lymphocytes Percent Auto 24.2 % (20-40); Mean Corpuscular HGB Conc 32.1 g/dl (31.0-36.0); Mean Corpuscular Hemoglobin 25.5 pg (27.0-33.0); Mean Corpuscular Volume 79.3 fL (80-98); Monocytes Absolute Auto 0.7 X10*3/uL (0.1-1.2); Monocytes Percent Auto 6.7 % (2-11); Neutrophils Absolute Auto 7.4 X10*3/uL (2.0-8.3); Neutrophils Percent Auto 67.6 % (45-73); Platelet Count 145 X10*3/uL (160-400); Red Blood Count 5.46 X10*6/uL (4.60-5.80); Red Cell Distribution Width 13.8 % (11.0-16.0); White Blood Count 10.9 X10*3/uL (4.8-10.8)
--- NOTE | 2020-11-14 22:31 | ED_ITS ---
HPI - General Adult General Chief complaint: General Medical Stated complaint: INFECTION Time Seen by Provider: 11/14/20 20:29 Source: patient History of Present Illness HPI narrative: 50-year-old male with a past medical history of hypothyroid, prediabetes, sleep apnea on CPAP, HTN s/p cholecystectomy and hernia repair presenting to the ED complaining of periumbilical abdominal pain, erythema, and palpable hard lump s/p doing the dishes to days ago. Reports erythema spreading. Admits area is warm to touch. Denies direct trauma/falls or injury, nausea, vomiting, diarrhea/constipation, dysuria/hematuria, fever Onset (ago): day(s) Related Data Home Medications Medication Instructions Recorded Confirmed oxygen-air delivery systems #1 01/10/20 11/14/20 Previous Rx's Medication Instructions Recorded atorvastatin 40 mg tablet 40 mg PO DAILY 90 Days #90 tab 06/05/20 gabapentin 600 mg tablet 600 mg PO BID 90 Days #180 tab 06/05/20 losartan 50 mg-hydrochlorothiazide 1 tab PO DAILY #60 tab 09/16/20 12.5 mg tablet docusate sodium 100 mg capsule 100 mg PO BID 15 Days #30 cap 09/17/20 (Colace) levothyroxine 100 mcg tablet 100 mcg PO DAILY 30 Days #30 tab 09/17/20 metformin 500 mg tablet 500 mg PO BID 30 Days #60 tab 09/17/20 Allergies Allergy/AdvReac Type Severity Reaction Status Date / Time Penicillins Allergy Unknown Rash Verified 11/14/20 19:22 Review of Systems Review of Systems: Constitutional: No Fever, No Chills, No Fatigue, No Malaise ENT/Mouth: No Ear Pain, No Nasal Congestion, No sore throat, No Rhinorrhea, No Swallowing Difficulty Eyes: No Eye Pain, No Swelling, No Vision Changes Cardiovascular: No Chest Pain, No SOB Respiratory: No Cough, No Sputum, No Dyspnea Gastrointestinal: No Nausea, No Vomiting, No Diarrhea, No Constipation, + Abdominal pain Genitourinary: No Dysuria, No Urinary Frequency, No Hematuria, No Urgency, No Flank Pain, Skin: No Skin Lesions, No rash Neuro: No Weakness, No Numbness, No Headache Yes all other systems are reviewed and are negative PMFSH Past Medical History Attestation statement: The following information was validated with the patient. Medical History Abdominal pain HTN (hypertension) Hypothyroid Pre-diabetes Sleep apnea with use of continuous positive airway pressure (CPAP) Surgical History History of cholecystectomy History of colonoscopy History of hemorrhoidectomy Hx of endoscopy Family History Family History Mother Diabetes Hypertension Father Diabetes Hypertension Maternal Uncle Cancer Maternal Grandmother Stroke Social History Social History Household Members: Spouse and Children Housing: Apartment Alcohol intake: never Patient Tobacco Use Status: Never used Tobacco e-Cigarette/Vaping Use: Never Used Second Hand Smoke Exposure: No Use of substances other than those prescribed or required for medical reasons: No Advance Directives: No Advance Directives Information Provided: Yes service: No Current occupational status: disabled Physical Exam Vital Signs: Vital Signs: Last Vital Signs Temp 98.4 F 11/14/20 23:07 Pulse 84 11/14/20 23:07 Resp 17 11/14/20 23:07 BP 120/82 11/14/20 23:07 Pulse Ox 96 11/14/20 23:07 Body Mass Index 47.2 Const: General: cooperative and healthy appearing Orientation/consc iousness: patient oriented x3 Limitations: no limitations HENMT: Head: Yes normal to inspection Ears: hearing grossly normal bilaterally General nose exam: Normal external nose present Face and sinus: Yes normal facial exam Eyes: General: appearance normal, both eyes and all related structures EOM: EOMs intact bilaterally Neck: Neck: Yes normal visual inspection Resp: Effort & Inspection: normal respiratory effort and no respiratory distress Cardio: Rate: regular rate GI: Other: + erythema and warmth noted periumbilically with palpable hard mass/lump. No fluctuance/induration. No streaking Inspection: Yes normal to inspection Palpation (GI): Soft to palpation, Tenderness to palpation present (GI) (Periumbilical), no guarding and not rigid : General: Yes no CVA tenderness Back/Spine/Pelvis: Back: no CVA tenderness Skin: Rashes: no rashes Wounds: no wounds Neuro: General: patient oriented x3 Gait exam (Neuro): Normal gait present Extrem: General: Yes normal to inspection Course Course Course Narrative: -2305--mild leukocytosis of 10.9, lactic negative, lower suspicion for incarcerated/strangulated hernia > lipase elevated to 1089 >> ethanol & additional L IVF ordered, patient denies being ETOH user -0027--ethanol negative CT abdomen pelvis w con IMPRESSION: 1.? Enlarged fatty liver 2.? Large periumbilical hernia containing fat which appears inflamed.? >> IV Doxycycline ordered to treat abdominal cellulitis Medical Decision Making [facility] Narrative Medical decision making narrative: 50-year-old male with a past medical history of hypothyroid, prediabetes, sleep apnea on CPAP, HTN s/p cholecystectomy and hernia repair presenting to the ED complaining of periumbilical abdominal pain, erythema, and palpable hard lump s/p doing the dishes to days ago. On exam VSS, NAD, abdomen soft with periumbilical tenderness with palpable lump and erythema/warmth. Concern for intra-abdominal abscess vs ?hernia vs cellulitis. Rule out other infectious etiology Plan: Labs, UA, CT AP, IVF, reassess Lab Data Result diagrams: 11/14/20 22:21 11/14/20 22:21 Labs: Lab Results 11/14/20 11/14/20 11/14/20 Range/Units 22:21 22:21 22:21 WBC 10.9 H (4.8-10.8) X10*3/uL RBC 5.46 (4.60-5.80) X10*6/uL Hgb 13.9 L (14.0-18.0) g/dl Hct 43.3 (42-52) % MCV 79.3 L (80-98) fL MCH 25.5 L (27.0-33.0) pg MCHC 32.1 (31.0-36.0) g/dl RDW 13.8 (11.0-16.0) % Plt Count 145 L (160-400) X10*3/uL MPV 11.0 (9.4-12.4) fL Immature Gran % (Auto) 0.3 (0.0-0.4) % Neut % (Auto) 67.6 (45-73) % Lymph % (Auto) 24.2 (20-40) % [place] % (Auto) 6.7 (2-11) % Eos % (Auto) 0.6 (0-4) % Baso % (Auto) 0.6 (0-2) % Lymph # (Auto) 2.6 (1.2-4.9) X10*3/uL [place] # (Auto) 0.7 (0.1-1.2) X10*3/uL Eos # (Auto) 0.1 (0.0-0.4) X10*3/uL Baso # (Auto) 0.1 (0.0-0.2) X10*3/uL Abs Immat Gran (auto) 0.03 (0.00-0.03) X10*3/uL Absolute Neuts (auto) 7.4 (2.0-8.3) X10*3/uL Absolute Nucleated RBC 0.000 (0.0-0.012) X10*3/uL Nucleated RBC % (auto) 0.0 (0.0-0.2) /100WBC Sodium 140 (135-145) mmol/L Potassium 4.0 (3.3-5.1) mmol/L Chloride 105 (96-108) mmol/L Carbon Dioxide 29 (22-29) mmol/L Anion Gap 10 L (12-20) BUN 19 H (9-16) mg/dL Creatinine 1.38 (0.5-1.4) mg/dL Estim Creat Clear Calc 79.2 Estimated GFR 54 Random Glucose 201 H (60-115) mg/dL Lactic Acid 1.3 (0.5-2.0) mmol/L Calcium 8.7 (8.4-10.2) mg/dL Magnesium 2.0 (1.6-2.6) mg/dL Total Bilirubin 0.6 (0.0-1.0) mg/dL Direct Bilirubin 0.2 (0.0-0.5) mg/dL AST 15 (5-37) U/L ALT 26 (0-40) U/L Alkaline Phosphatase 85 D (39-117) U/L Total Protein 7.0 (6.5-8.0) g/dL Albumin 3.8 (3.5-5.0) g/dL Lipase 1089 H (8-78) U/L Urine Color Urine Appearance Urine pH (5.0-8.0) Ur Specific [place] (1.005-1.025) Urine Protein (NEG-TRACE) MG/DL Urine Glucose (UA) (NEG) MG/DL Urine Ketones (NEG) MG/DL Urine Blood (NEG) Urine Nitrite (NEG) Ur Leukocyte Esterase (NEG) Ethyl Alcohol mg/dL COVID-19 (CARLOS) (Negative) COVID-19 Clin Com 11/14/20 11/14/20 11/14/20 Range/Units 22:21 22:21 23:36 WBC (4.8-10.8) X10*3/uL RBC (4.60-5.80) X10*6/uL Hgb (14.0-18.0) g/dl Hct (42-52) % MCV (80-98) fL MCH (27.0-33.0) pg MCHC (31.0-36.0) g/dl RDW (11.0-16.0) % Plt Count (160-400) X10*3/uL MPV (9.4-12.4) fL Immature Gran % (Auto) (0.0-0.4) % Neut % (Auto) (45-73) % Lymph % (Auto) (20-40) % [place] % (Auto) (2-11) % Eos % (Auto) (0-4) % Baso % (Auto) (0-2) % Lymph # (Auto) (1.2-4.9) X10*3/uL [place] # (Auto) (0.1-1.2) X10*3/uL Eos # (Auto) (0.0-0.4) X10*3/uL Baso # (Auto) (0.0-0.2) X10*3/uL Abs Immat Gran (auto) (0.00-0.03) X10*3/uL Absolute Neuts (auto) (2.0-8.3) X10*3/uL Absolute Nucleated RBC (0.0-0.012) X10*3/uL Nucleated RBC % (auto) (0.0-0.2) /100WBC Sodium (135-145) mmol/L Potassium (3.3-5.1) mmol/L Chloride (96-108) mmol/L Carbon Dioxide (22-29) mmol/L Anion Gap (12-20) BUN (9-16) mg/dL Creatinine (0.5-1.4) mg/dL Estim Creat Clear Calc Estimated GFR Random Glucose (60-115) mg/dL Lactic Acid (0.5-2.0) mmol/L Calcium (8.4-10.2) mg/dL Magnesium (1.6-2.6) mg/dL Total Bilirubin (0.0-1.0) mg/dL Direct Bilirubin (0.0-0.5) mg/dL AST (5-37) U/L ALT (0-40) U/L Alkaline Phosphatase (39-117) U/L Total Protein (6.5-8.0) g/dL Albumin (3.5-5.0) g/dL Lipase (8-78) U/L Urine Color YELLOW Urine Appearance CLEAR Urine pH 6.0 (5.0-8.0) Ur Specific [place] >= 1.030 H (1.005-1.025) Urine Protein NEG (NEG-TRACE) MG/DL Urine Glucose (UA) NEG (NEG) MG/DL Urine Ketones NEG (NEG) MG/DL Urine Blood NEG (NEG) Urine Nitrite NEG (NEG) Ur Leukocyte Esterase NEG (NEG) Ethyl Alcohol < 10 mg/dL COVID-19 (CARLOS) Negative (Negative) COVID-19 Clin Com See Note Discharge Plan Discharge Clinical Impression: Abdominal wall cellulitis Acute pancreatitis Qualifiers: Pancreatitis type: unspecified pancreatitis type Acute pancreatitis complication: unspecified Qualified Code(s): K85.90 - Acute pancreatitis without necrosis or infection, unspecified Patient Disposition: Admitted As Inpatient
[2020-11-14] MEDS: 0.9 % Sodium Chloride 1,000 ML 999 ML IVCONT (22:37)
[2020-11-14] MEDS: Ketorolac Tromethamine 15 MG/ML VIAL IVPUSH (22:38)
[2020-11-14] MEDS: ondansetron HCL 4 MG/2 ML VIAL IVPUSH (22:38)
--- NOTE | 2020-11-14 22:40 | PC.NURSE ---
ivf hung per order, pt medicated for pain and nausea
[2020-11-14 22:42] LABS: Glucose Urine UA NEG (NEG); Leukocyte Esterase Urine NEG (NEG); Nitrite Urine NEG (NEG); Specific Gravity - Urine >= 1.030 (1.005-1.025); Urine Blood NEG (NEG); Urine Ketones NEG (NEG); Urine Protein NEG (NEG-TRACE)
[2020-11-14 22:44] LABS: Appearance Urine CLEAR; Color Urine YELLOW
[2020-11-14 22:59] LABS: Lactic Acid 1.3 mmol/L (0.5-2.0)
[2020-11-14 23:03] LABS: Alanine Aminotransferase 26 U/L (0-40); Albumin Level 3.8 g/dL (3.5-5.0); Alkaline Phosphatase 85 U/L (39-117); Anion Gap 10 (12-20); Aspartate Amino Transferase 15 U/L (5-37); Bilirubin Direct 0.2 mg/dL (0.0-0.5); Bilirubin Total 0.6 mg/dL (0.0-1.0); Blood Urea Nitrogen 19 mg/dL (9-16); Calcium 8.7 mg/dL (8.4-10.2); Carbon Dioxide 29 mmol/L (22-29); Chloride 105 mmol/L (96-108); Creatinine Clr Calc Pharmacy 79.2; Estimated Glomerular Filt Rate 54; Glucose Random 201 mg/dL (60-115); Lipase 1089 U/L (8-78); Sodium 140 mmol/L (135-145)
[2020-11-14 23:07] VITALS: BP 120/82; PULSE 84; RESP 17; TEMP 36.9; O2SAT 96
[2020-11-14] MEDS: iohexoL 350 MG/ML 100 ML INFUS..BTL 85 ML IV (23:32)
[2020-11-14 23:37] LABS: Ethanol < 10 mg/dL
[2020-11-14 23:59] LABS: COVID-19 Test Negative (Negative)
[2020-11-15] VITALS (8 sets, daily range): BP systolic 113–149; BP diastolic 69–90; PULSE 73–83; RESP 16–19; TEMP 36.2–36.7; O2SAT 95–98
[2020-11-15] MEDS: 0.9 % Sodium Chloride 1,000 ML 999 ML IVCONT (00:56)
[2020-11-15] MEDS: Doxycycline Hyclate 100 MG in 0.9 % Sodium Chloride 250 ML 166.67 MG IV ×3 (00:58→21:10)
--- NOTE | 2020-11-15 01:39 | PM.IMHP ---
History of Present Illness Date of Service: 11/15/20 Chief Complaint: Abdominal pain 50-year-old male with history of diabetes mellitus, hypothyroidism, obstructive sleep apnea (uses CPAP), who presented with abdominal pain. History is from the patient, patient's (at bedside), as well as ED notes. Patient endorses that he started having abdominal pain 3 nights ago. Two days ago, the abdominal pain worsened, and he could not sleep well. Yesterday, he noticed that there was a hard area in the middle of his abdomen, with redness that seemed to be worsened. Subsequently, he came to the ED. Otherwise, he denied fever, chills, nausea, vomiting, chest pain, shortness of breath, diarrhea. He denies any trauma to the abdomen. He denies pain with eating. Review of Systems Constitutional: Constitutional: Denies chills, Denies fatigue, Denies fever(s), Denies headache(s), Denies weakness and Denies weight loss Eyes: Eyes: Denies blurry vision, Denies change in vision, Denies diplopia and Denies loss of vision ENT: Denies dysphagia, Denies vertigo, Denies dizziness, Denies headache(s), Denies hearing loss, Denies lip swelling and Denies sore throat Cardiovascular: Cardiovascular: Denies chest pain, Denies leg edema, Denies lightheadedness, Denies palpitations and Denies dyspnea Respiratory: Respiratory: Denies no additional respiratory complaints, Denies cough, Denies dyspnea and Denies wheezing Gastrointestinal: Gastrointestinal: Denies coffee ground emesis, Denies constipation, Denies dysphagia, Denies diarrhea, Denies nausea, Denies vomiting and Reports other (Abdominal wall pain) Genitourinary: Genitourinary: Denies dysuria Musculoskeletal: Musculoskeletal: Denies arthralgias, Denies muscle weakness, Denies numbness and Denies tingling Integumentary/Breasts: Skin/Breast: Denies bleeding lesions, Denies new lesions, Reports erythema (On abdominal wall near umbilicus) and Denies rash Neurologic: Denies vertigo, Denies dizziness, Denies headache(s), Denies loss of vision, Denies numbness, Denies tingling and Denies weakness Psychiatric: Psychiatric: Denies anxiety and Denies depression Endocrine: Endocrine: Denies cold intolerance, Denies fatigue, Denies heat intolerance and Denies palpitations Hematologic/Lymphatic: Hematologic/Lymphatic: Denies easy bleeding, Denies easy bruising and Denies lymphadenopathy Allergic/Immunologic: Allergic/Immunologic: Denies lip swelling and Denies wheezing [facility] Medical History (Updated 11/15/20 @ 01:43 by Agustin Pham MD) Abdominal pain DM2 (diabetes mellitus, type 2) HTN (hypertension) Hypothyroid Pre-diabetes Sleep apnea with use of continuous positive airway pressure (CPAP) Family History Mother Diabetes Hypertension Father Diabetes Hypertension Maternal Uncle Cancer Maternal Grandmother Stroke Family history: reviewed and not pertinent Surgical History History of cholecystectomy History of colonoscopy History of hemorrhoidectomy Hx of endoscopy Social History Household Members: Spouse and Children Housing: Apartment Alcohol intake: never Patient Tobacco Use Status: Never used Tobacco e-Cigarette/Vaping Use: Never Used Second Hand Smoke Exposure: No Use of substances other than those prescribed or required for medical reasons: No Advance Directives: No Advance Directives Information Provided: Yes service: No Current occupational status: disabled Meds Allergies Allergy/AdvReac Type Severity Reaction Status Date / Time Penicillins Allergy Unknown Rash Verified 11/14/20 19:22 Active Medications: Current Medications Generic Name Dose Route Start Last Admin Trade Name Freq PRN Reason Stop Dose Admin Doxycycline Hyclate 100 mg/ 250 mls @ 166.67 mls/hr 11/15/20 00:26 11/15/20 00:58 Sodium Chloride IV 11/15/20 01:55 166.67 mls/hr ONCE ONE Administration Pharmacy Consult 1 each 11/14/20 23:06 Consult Rx Perform Med Rec MISCELLANE ONCE PRN Consult order Home Medications Medication Instructions Recorded Confirmed Last Taken Type oxygen-air delivery systems #1 01/10/20 11/15/20 11/14/20 History Physical Exam Vital Signs and Narrative: Vital Signs: Last Vital Signs Temp 98.4 F 11/14/20 23:07 Pulse 84 11/14/20 23:07 Resp 17 11/14/20 23:07 BP 120/82 11/14/20 23:07 Pulse Ox 96 11/14/20 23:07 Body Mass Index 47.2 Const: General: no acute distress, well developed and alert HENMT: Face and sinus: Yes normal facial exam and Yes face symmetric Mouth: Normal oral and palatal mucosa present and moist mucous membranes Throat: Yes posterior oropharynx normal and Yes tonsils normal Eyes: General: appearance normal, both eyes and all related structures Alignment and Position: alignment normal and position normal Sclerae: sclerae normal Pupils: Equal, round and reactive pupils present EOM: EOMs intact bilaterally Neck: Yes normal visual inspection, Yes full ROM and Yes no lymphadenopathy Lymphatic: no lymphadenopathy noted Resp: Effort & Inspection: normal respiratory effort and able to speak in complete sentences Auscultation: clear to auscultation bilaterally, no crackles, no rales, no rhonchi and no wheezes Cardio: Rate: regular rate Rhythm: regular rhythm Heart sounds: S1 normal heart sound present, S2 normal heart sound present, no murmurs and no rubs GI: Other: There is a 10 -15 cm area on the abdomen(near the umbilicus) that is with erythema, tenderness to palpation, and some calor. Inspection: No distended Palpation (GI): Soft to palpation and nontender Percussion: No tympanic to percussion Auscultation: normal bowel sounds Skin: Other: There is a 10 -15 cm area on the abdomen(near the umbilicus) that is with erythema, tenderness to palpation, and some calor. Trauma: no lacerations or abrasions Wounds: no wounds Neuro: Cranial nerves: Yes CN's II-XII intact bilaterally, Yes Equal, round and reactive pupils present and Yes Bilaterally intact EOM present Extrem: General: Yes full ROM and Yes no pedal edema Psych: Appearance: grossly normal Mental Status: mental status grossly normal Speech and movement: Normal speech and movement present Affect: normal affect Thought process: Normal thought process present Results Labs CBC and Chem 7: 11/14/20 22:21 11/14/20 22:21 Labs: Laboratory Results - last 24 hr 11/14/20 11/14/20 11/14/20 22: 22: 22: MCV 79.3 L MCH 25.5 L MCHC 32.1 RDW 13.8 Plt Count 145 L MPV 11.0 Immature Gran % (Auto) 0.3 Neut % (Auto) 67.6 Lymph % (Auto) 24.2 Carver % (Auto) 6.7 Eos % (Auto) 0.6 Baso % (Auto) 0.6 Lymph # (Auto) 2.6 Carver # (Auto) 0.7 Eos # (Auto) 0.1 Baso # (Auto) 0.1 Abs Immat Gran (auto) 0.03 Absolute Neuts (auto) 7.4 Absolute Nucleated RBC 0.000 Nucleated RBC % (auto) 0.0 Anion Gap 10 L Estim Creat Clear Calc 79.2 Estimated GFR 54 Random Glucose 201 H Lactic Acid 1.3 Calcium 8.7 Magnesium 2.0 Total Bilirubin 0.6 Direct Bilirubin 0.2 AST 15 ALT 26 Alkaline Phosphatase 85 D Total Protein 7.0 Albumin 3.8 Lipase 1089 H Urine Color Urine Appearance Urine pH Ur Specific [place] Urine Protein Urine Glucose (UA) Urine Ketones Urine Blood Urine Nitrite Ur Leukocyte Esterase Ethyl Alcohol COVID-19 (CARLOS) COVID-19 [employer] 11/14/20 11/14/20 11/14/20 22:21 22:21 23:36 MCV MCH MCHC RDW Plt Count MPV Immature Gran % (Auto) Neut % (Auto) Lymph % (Auto) [place]ver % (Auto) Eos % (Auto) Baso % (Auto) Lymph # (Auto) [place]ver # (Auto) Eos # (Auto) Baso # (Auto) Abs Immat Gran (auto) Absolute Neuts (auto) Absolute Nucleated RBC Nucleated RBC % (auto) Anion Gap Estim Creat Clear Calc Estimated GFR Random Glucose Lactic Acid Calcium Magnesium Total Bilirubin Direct Bilirubin AST ALT Alkaline Phosphatase Total Protein Albumin Lipase Urine Color YELLOW Urine Appearance CLEAR Urine pH 6.0 Ur Specific [place] >= 1.030 H Urine Protein NEG Urine Glucose (UA) NEG Urine Ketones NEG Urine Blood NEG Urine Nitrite NEG Ur Leukocyte Esterase NEG Ethyl Alcohol < 10 COVID-19 (CARLOS) Negative COVID-19 Clin Com See Note Imaging Radiologist's Impressions: Impressions Abdomen/Pelvis CT 11/14/20 21:50 IMPRESSION: 1. Enlarged fatty liver 2. Large periumbilical hernia containing fat which appears inflamed. Assessment and Plan (1) Abdominal wall cellulitis: Status: Acute (2) Elevated lipase: Status: Acute (3) Hypothyroidism: Qualifiers: Hypothyroidism type: unspecified Qualified Code(s): E03.9 - Hypothyroidism, unspecified Status: Acute (4) DM2 (diabetes mellitus, type 2): Status: Acute (5) HTN (hypertension): Qualifiers: Hypertension type: essential hypertension Qualified Code(s): I10 - Essential (primary) hypertension Status: Acute (6) HLD (hyperlipidemia): Qualifiers: Hyperlipidemia type: mixed hyperlipidemia Qualified Code(s): E78.2 - Mixed hyperlipidemia Status: Acute (7) Sleep apnea with use of continuous positive airway pressure (CPAP): Status: Acute Abdominal wall cellulitis: -the patient is nontoxic, not septic -continue IV doxycycline 100 mg q.12 hours -the borders of the wall all erythemic area on his abdomen was marked; therefore tomorrow if the patient's erythema is continuing to grow, may need to switch antibiotics to something more potent. Otherwise, if erythema is stable/regressing, can consider transitioning to oral doxycycline and discharging patient Elevated lipase: -patient without symptoms of acute pancreatitis (no pain with eating) -continue diet, if patient starts to exhibit pain with eating, then will need to keep patient NPO Hypothyroidism: -continue home medications Diabetes mellitus type 2: -continue home medications, including metformin Hypertension: -continue home medications Hyperlipidemia: -Continue home medications Obstructive sleep apnea on CPAP: -continue CPAP FEN: Cardiac diet CODE STATUS: FULL CODE DISPO: Admit to Observation Quality Stroke Does the patient have a stroke diagnosis?: No VTE Prior VTE?: No VTE Risk Level:: Medical - moderate - high VTE Device Contraindication: N/A - Device Ordered VTE Drug Contraindication: Treatment Not Indicated
[2020-11-15 07:00] LABS: MANUAL DIFF FLAG NO
[2020-11-15 07:17] LABS: Basophils Absolute Auto 0.1 X10*3/uL (0.0-0.2); Basophils Percent Auto 0.6 % (0-2); Eosinophils Absolute Auto 0.1 X10*3/uL (0.0-0.4); Hemoglobin 13.1 g/dl (14.0-18.0); Imm Gran Abs Auto 0.03 X10*3/uL (0.00-0.03); Imm Gran Pct Auto 0.3 % (0.0-0.4); Lymphocytes Absolute Auto 2.4 X10*3/uL (1.2-4.9); Lymphocytes Percent Auto 25.7 % (20-40); Mean Corpuscular Hemoglobin 25.4 pg (27.0-33.0); Mean Corpuscular Volume 79.5 fL (80-98); Mean Platelet Volume 11.2 fL (9.4-12.4); Monocytes Absolute Auto 0.8 X10*3/uL (0.1-1.2); Monocytes Percent Auto 8.4 % (2-11); Platelet Count 146 X10*3/uL (160-400); Red Blood Count 5.16 X10*6/uL (4.60-5.80); Red Cell Distribution Width 13.7 % (11.0-16.0); White Blood Count 9.3 X10*3/uL (4.8-10.8)
[2020-11-15 07:48] LABS: Anion Gap 10 (12-20); Blood Urea Nitrogen 18 mg/dL (9-16); Calcium 7.8 mg/dL (8.4-10.2); Carbon Dioxide 22 mmol/L (22-29); Chloride 110 mmol/L (96-108); Creatinine Clr Calc Pharmacy 100.2; Estimated Glomerular Filt Rate > 60; Glucose Random 160 mg/dL (60-115); Sodium 138 mmol/L (135-145)
[2020-11-15] MEDS: Losartan Potassium 50 MG TABLET PO (10:09)
[2020-11-15] MEDS: Atorvastatin Calcium 40 MG TABLET PO (10:09)
[2020-11-15] MEDS: Gabapentin 600 MG TABLET PO ×2 (10:09→21:05)
[2020-11-15] MEDS: hydroCHLOROthiazide 12.5 MG TABLET PO (10:09)
[2020-11-15] MEDS: Levothyroxine Sodium 100 MCG TABLET PO (10:09)
[2020-11-15] MEDS: Docusate Sodium 100 MG CAPSULE PO ×2 (10:11→21:05)
--- NOTE | 2020-11-15 12:19 | PC.NURSE ---
report given to floor, pt to transport to unit with tech
[2020-11-15 12:41] LABS: Glucose, Whole Blood 148 mg/dL (60-115)
--- NOTE | 2020-11-15 12:41 | P.CONGS_ITS ---
History of Present Illness Consult details Consult date: 11/15/20 Narrative: 50-year-old male patient with a previous history of diabetes, hypothyroidism, JORGE, hypertension, presenting with complaints of redness above the umbilicus with associated pain and palpable hard lump. He feels the started several days ago after doing the dishes. He now feels the redness is increasing in size and is warm to the touch. He denies a previous history of surgery in this location although he has previously undergone a laparoscopic cholecystectomy with an umbilical incision. He also developed an incisional hernia in a right upper quadrant Mary incision following cholecystectomy. This was repaired at [facility]. Evaluation in the emergency department revealed a mildly elevated WBC. Lipase was noted to be markedly elevated but lactate was normal. CT of the abdomen and pelvis revealed a inflamed umbilical hernia containing fat with no bowel within the hernia. The bowel pattern was normal without evidence of obstruction. Surgical consultation is requested for treatment of the umbilical hernia. Review of Systems Review of Systems: Yes all other systems are reviewed and are negative ENT: Denies dysphagia Gastrointestinal: Gastrointestinal: Reports as per HPI, Reports abdominal pain, Denies bloating, Denies dysphagia, Denies nausea and Denies vomiting Integumentary/Breasts: Skin/Breast: Reports as per HPI [facility] Past Medical History Medical History Abdominal pain DM2 (diabetes mellitus, type 2) HTN (hypertension) Hypothyroid Pre-diabetes Sleep apnea with use of continuous positive airway pressure (CPAP) Family History Family History Mother Diabetes Hypertension Father Diabetes Hypertension Maternal Uncle Cancer Maternal Grandmother Stroke Family history: reviewed and not pertinent Surgical History Surgical History History of cholecystectomy History of colonoscopy History of hemorrhoidectomy Hx of endoscopy Social History Social History Household Members: Spouse and Children Housing: Apartment Alcohol intake: never Patient Tobacco Use Status: Never used Tobacco e-Cigarette/Vaping Use: Never Used Second Hand Smoke Exposure: No Use of substances other than those prescribed or required for medical reasons: No Advance Directives: No Advance Directives Information Provided: Yes service: No Current occupational status: disabled Meds Allergies Allergy/AdvReac Type Severity Reaction Status Date / Time Penicillins Allergy Unknown Rash Verified 11/14/20 19:22 Active Medications: Current Medications Generic Name Dose Route Start Last Admin Trade Name Freq PRN Reason Stop Dose Admin Acetaminophen 650 mg 11/15/20 01:49 Acetaminophen 325 Mg Tablet PO Q6H PRN Pain, Mild (Pain Scale 1-3) Atorvastatin Calcium 40 mg 11/15/20 09:00 11/15/20 10:09 Atorvastatin Calcium 40 Mg Tablet PO 40 mg DAILY TIGIST Administration Dextrose 25 gm 11/15/20 12:16 Dextrose 50 % 25 Gm/50 Ml Vial IVPUSH Q15M PRN per Hypoglycemia Standing Ord. Protocol Docusate Sodium 100 mg 11/15/20 09:00 11/15/20 10:11 Docusate Sodium 100 Mg Capsule PO 100 mg BID TIGIST Administration Gabapentin 600 mg 11/15/20 09:00 11/15/20 10:09 Gabapentin 600 Mg Tablet PO 600 mg BID TIGIST Administration Glucose 15 gm 11/15/20 12:16 Glucose Gel 15 Gm Gel..Gram. PO Q15M PRN per Hypoglycemia Standing Ord. Protocol Hydrochlorothiazide 12.5 mg 11/15/20 09:00 11/15/20 10:09 Hydrochlorothiazide 12.5 Mg Tablet PO 12.5 mg DAILY TIGIST Administration Doxycycline Hyclate 100 mg/ 250 mls @ 166.67 mls/hr 11/15/20 09:00 11/15/20 10:14 Sodium Chloride IV 166.67 mls/hr BID TIGIST Administration Insulin Human Lispro 0 unit 11/15/20 16:30 Insulin Lispro 100 Unit/Ml 3 Ml Vial SUBCUT QIDACHS [facility] Protocol Levothyroxine Sodium 100 mcg 11/15/20 09:00 11/15/20 10:09 Levothyroxine Sodium 100 Mcg Tablet PO 100 mcg DAILY TIGIST Administration Losartan Potassium 50 mg 11/15/20 09:00 11/15/20 10:09 Losartan Potassium 50 Mg Tablet PO 50 mg DAILY TIGIST Administration Pharmacy Consult 1 each 11/14/20 23:06 Consult Rx Perform Med Rec MISCELLANE ONCE PRN Consult order Sodium Chloride 3 ml 11/15/20 08:00 11/15/20 10:14 0.9 % Sodium Chloride Flush 3 Ml Syringe IVFLUSH Not Given QSHIFT [facility] Home Medications Medication Instructions Recorded Confirmed Last Taken Type oxygen-air delivery systems #1 01/10/20 11/15/20 11/14/20 History Physical Exam Vital Signs: Vital Signs: Last Vital Signs Temp 97.6 F 11/15/20 12:30 Pulse 82 11/15/20 12:30 Resp 19 11/15/20 12:30 BP 147/77 H 11/15/20 12:30 Pulse Ox 98 11/15/20 12:30 Body Mass Index 47.2 Const: General: no acute distress and well developed Nutritional Appearance: obese Orientation/consciousness: patient oriented x3 Limitations: no limitations Resp: Effort & Inspection: normal respiratory effort, no audible wheezes and no cough Cardio: Jugular venous distension: no JVD Rate: regular rate Rhythm: regular rhythm GI: Inspection: Yes normal to inspection Palpation (GI): Soft to palpation and Tenderness to palpation present (GI) (Supraumbilical with redness in the skin) Percussion: Yes normal to percussion Auscultation: normal bowel sounds Rectal Exam - Male: Yes deferred Abdomen image: 1. Area of redness and tenderness. No fluctuance 2. Previous umbilical incision 3. Mary incision right upper quadrant Skin: Other: Abdominal redness as noted above General skin exam: no rashes or lesions noted Neuro: General: patient oriented x3 Extrem: General: Yes no clubbing, cyanosis or edema Results Labs Result diagrams: 11/15/20 06:50 11/15/20 06:50 Labs: Abnormal lab results 11/14/20 11/14/20 11/14/20 Range/Units 22:21 22:21 22:21 WBC 10.9 H (4.8-10.8) X10*3/uL Hgb 13.9 L (14.0-18.0) g/dl Hct (42-52) % MCV 79.3 L (80-98) fL MCH 25.5 L (27.0-33.0) pg Plt Count 145 L (160-400) X10*3/uL Chloride (96-108) mmol/L Anion Gap 10 L (12-20) BUN 19 H (9-16) mg/dL Random Glucose 201 H (60-115) mg/dL Calcium (8.4-10.2) mg/dL Lipase 1089 H (8-78) U/L Ur Specific [place] >= 1.030 H (1.005-1.025) 11/15/20 11/15/20 Range/Units 06:50 06:50 WBC (4.8-10.8) X10*3/uL Hgb 13.1 L (14.0-18.0) g/dl Hct 41.0 L (42-52) % MCV 79.5 L (80-98) fL MCH 25.4 L (27.0-33.0) pg Plt Count 146 L (160-400) X10*3/uL Chloride 110 H (96-108) mmol/L Anion Gap 10 L (12-20) BUN 18 H (9-16) mg/dL Random Glucose 160 H (60-115) mg/dL Calcium 7.8 L D (8.4-10.2) mg/dL Lipase (8-78) U/L Ur Specific [place] (1.005-1.025) Short CBC 11/14/20 11/15/20 Range/Units 22:21 06:50 WBC 10.9 H 9.3 (4.8-10.8) X10*3/uL Hgb 13.9 L 13.1 L (14.0-18.0) g/dl Hct 43.3 41.0 L (42-52) % Plt Count 145 L 146 L (160-400) X10*3/uL BMP 11/14/20 11/15/20 22:21 06:50 Sodium 140 138 Potassium 4.0 4.0 Chloride 105 110 H Carbon Dioxide 29 22 BUN 19 H 18 H Creatinine 1.38 1.09 Calcium 8.7 7.8 L D Liver Function 11/14/20 Range/Units 22:21 Total Bilirubin 0.6 (0.0-1.0) mg/dL Direct Bilirubin 0.2 (0.0-0.5) mg/dL AST 15 (5-37) U/L ALT 26 (0-40) U/L Alkaline Phosphatase 85 D (39-117) U/L Albumin 3.8 (3.5-5.0) g/dL Urine 11/14/20 Range/Units 22:21 Urine Color YELLOW Urine Appearance CLEAR Urine pH 6.0 (5.0-8.0) Ur Specific [place] >= 1.030 H (1.005-1.025) Urine Protein NEG (NEG-TRACE) MG/DL Urine Glucose (UA) NEG (NEG) MG/DL All other labs normal. Assessment and Plan (1) Umbilical hernia: Status: Acute 50-year-old male patient with previous abdominal surgeries presenting with an area of redness above the umbilicus found to have a palpable mass in this location and a CT of the abdomen and pelvis which indicate a fat containing umbilical hernia with surrounding inflammation. Patient will require repair of this umbilical hernia possibly with mesh. He would be best to pre treat him with antibiotics to decrease the surrounding erythema prior to placing mesh to decrease the risks of mesh infection. There is no evidence of bowel incarceration at this time. Procedure could either be performed during this admission or as an elective procedure once erythema is improved. Procedures Date of Service Date of Service: 11/15/20
--- NOTE | 2020-11-15 14:39 | P.EN_ITS ---
Event Note Date of Service: 11/15/20 Event Note: This is a 50 year old male Admitted overnight for abdominal wall c ellulitis and umbilical hernia with surrounding inflammation Patient denies any abdominal pain, nausea or vomiting. He has pain with palpation just above umbilicus, palpable mass in this location, no epigastric tenderness Abdominal wall cellulitis: -continue IV doxycycline 100 mg q.[address] showing large periumbilical hernia containing fat which appears inflamed -seen by surgery, will require repair of umbilical hernia inpatient vs elective as outpatient once erythema has improved -recommend to continue IV abx for now Elevated lipase: patient without symptoms of acute pancreatitis (no pain with eating). CT with contrast showing no inflammation of pancreas. ?r/t inflammation from umbilical hernia -continue diet for now -trend lipase Hypothyroidism: -continue home medications Diabetes mellitus type 2: -hold metformin due to recent ct with contrast -SSI, POCs Hypertension: -continue HCTZ, losartan Hyperlipidemia: -Continue statin hypothyroidism -continue Synthroid Obstructive sleep apnea on CPAP: -continue CPAP attending: dr ramirez
[2020-11-15 16:39] LABS: Glucose, Whole Blood 155 mg/dL (60-115)
[2020-11-15] MEDS: Insulin Lispro 100 UNIT/ML 3 ML VIAL SUBCUT ×2 (16:59→21:05)
[2020-11-15] MEDS: 0.9 % Sodium Chloride Flush 3 ML SYRINGE IVFLUSH ×2 (17:00→21:10)
[2020-11-15 20:06] LABS: Glucose, Whole Blood 175 mg/dL (60-115)
[2020-11-16] VITALS: BP 144/76; PULSE 79; RESP 18; TEMP 37.1; O2SAT 98
[2020-11-16 04:00] VITALS: BP 133/60; PULSE 70; RESP 18; TEMP 35.7; O2SAT 97
[2020-11-16 06:44] LABS: Hemoglobin 13.9 g/dl (14.0-18.0); Mean Corpuscular HGB Conc 32.6 g/dl (31.0-36.0); Mean Corpuscular Hemoglobin 25.8 pg (27.0-33.0); Mean Corpuscular Volume 79.2 fL (80-98); PLT CLUMP 1
[2020-11-16 06:45] LABS: Hematocrit 42.6 % (42-52); Mean Platelet Volume 11.4 fL (9.4-12.4); Platelet Count 142 X10*3/uL (160-400); Red Blood Count 5.38 X10*6/uL (4.60-5.80); Red Cell Distribution Width 13.6 % (11.0-16.0); White Blood Count 8.5 X10*3/uL (4.8-10.8)
[2020-11-16 07:17] LABS: Anion Gap 11 (12-20); Blood Urea Nitrogen 17 mg/dL (9-16); Calcium 8.4 mg/dL (8.4-10.2); Carbon Dioxide 23 mmol/L (22-29); Chloride 108 mmol/L (96-108); Creatinine Clr Calc Pharmacy 103.1; Estimated Glomerular Filt Rate > 60; Glucose Random 169 mg/dL (60-115); Lipase 217 U/L (8-78); Potassium 4.1 mmol/L (3.3-5.1); Sodium 138 mmol/L (135-145)
[2020-11-16 08:00] VITALS: BP 114/74; PULSE 69; RESP 17; TEMP 36.9; O2SAT 96
[2020-11-16 08:05] LABS: Glucose, Whole Blood 176 mg/dL (60-115)
[2020-11-16] MEDS: Doxycycline Hyclate 100 MG in 0.9 % Sodium Chloride 250 ML 166.67 MG IV (08:06)
[2020-11-16] MEDS: Insulin Lispro 100 UNIT/ML 3 ML VIAL SUBCUT (08:07)
[2020-11-16 08:08] VITALS: BP 133/60; PULSE 70
[2020-11-16] MEDS: hydroCHLOROthiazide 12.5 MG TABLET PO (08:08)
[2020-11-16] MEDS: Atorvastatin Calcium 40 MG TABLET PO (08:08)
[2020-11-16] MEDS: Levothyroxine Sodium 100 MCG TABLET PO (08:08)
[2020-11-16] MEDS: Losartan Potassium 50 MG TABLET PO (08:08)
[2020-11-16] MEDS: Docusate Sodium 100 MG CAPSULE PO (08:08)
[2020-11-16] MEDS: Gabapentin 600 MG TABLET PO (08:08)
[2020-11-16] MEDS: 0.9 % Sodium Chloride Flush 3 ML SYRINGE IVFLUSH (08:08)
--- NOTE | 2020-11-16 08:49 | P.PNGS_ITS ---
Subjective Subjective Date of Service: 11/16/20 <Kely Vo PA-C - Last Filed: 11/16/20 08:56> 11/16/20 <Larry Jiménez MD - Last Filed: 11/16/20 15:30> Interval history: Pain is a little better this morning but site still sore. <Kely Vo PA-C - Last Filed: 11/16/20 08:56> Physical Exam Vital Signs: Vital Signs: Last Vital Signs Temp 98.5 F 11/16/20 08:00 Pulse 70 11/16/20 08:08 Resp 17 11/16/20 08:00 BP 133/60 11/16/20 08:08 Pulse Ox 96 11/16/20 08:00 Body Mass Index 47.2 <Kely Vo PA-C - Last Filed: 11/16/20 08:56> Const: General: comfortable and no acute distress <CECIL Mancini - Last Filed: 11/16/20 08:56> Orientation/consciousness: patient oriented x3 <Kely Vo PA-C - Last Filed: 11/16/20 08:56> GI: Other: erythema of supraumbilical region essentially resolved, area remains soft but tender; no fluctuance or palpable mass appreciated <Kely Vo PA-C - Last Filed: 11/16/20 08:56> Skin: Other: normal color, warm and dry <Kely Vo PA-C - Last Filed: 11/16/20 08:56> Neuro: General: patient oriented x3 <Kely Vo PA-C - Last Filed: 11/16/20 08:56> Procedures Date of Service Date of Service: 11/16/20 <GRADY Mancini Last Filed: 11/16/20 08:56> Progress Note: A&P Assessment and plan (1) Umbilical hernia: Status: Acute <GRADY Mancini Last Filed: 11/16/20 08:56> (2) Abdominal wall cellulitis: Status: Acute <GRADY Mancini Last Filed: 11/16/20 08:56> Assessment and Plan: 50 year old male admitted with supraumbilical redness associated with palpable lump. He was found to have a large periumbilical fat containing hernia on CT scan and admitted for treatment of the abdominal wall cellulitis, periumbilical hernia. This morning, he feels improved and the erythema has essentially resolved. No palpable fluctuance or mass remains. He is stable for discharge to home with follow up with Dr. Jiménez in office for outpatient hernia repair with mesh. <Kely Vo PA-C - Last Filed: 11/16/20 08:56> 50 year old male admitted with supraumbilical redness associated with palpable lump. He was found to have a large periumbilical fat containing hernia on CT scan and admitted for treatment of the abdominal wall cellulitis, periumbilical hernia. This morning, he feels improved and the erythema has essentially resolved. No palpable fluctuance or mass remains. He is stable for discharge to home with follow up with Dr. Jiménez in office for outpatient hernia repair with mesh. Agree with the above assessment and plan. Patient is much improved with minimal to no residual erythema on examination. He is no longer tender to palpation. He should follow up in the office next week to make arrangements for repair of the incisional hernia. <Larry Jiménez MD - Last Filed: 11/16/20 15:30> Fall Risk Details Current Medications: Current Medications Generic Name Dose Route Start Last Admin Trade Name Freq PRN Reason Stop Dose Admin Acetaminophen 650 mg 11/15/20 01:49 Acetaminophen 325 Mg Tablet PO Q6H PRN Pain, Mild (Pain Scale 1-3) Atorvastatin Calcium 40 mg 11/15/20 09:00 11/16/20 08:08 Atorvastatin Calcium 40 Mg Tablet PO 40 mg DAILY TIGIST Administration Dextrose 25 gm 11/15/20 12:16 Dextrose 50 % 25 Gm/50 Ml Vial IVPUSH Q15M PRN per Hypoglycemia Standing Ord. Protocol Docusate Sodium 100 mg 11/15/20 09:00 11/16/20 08:08 Docusate Sodium 100 Mg Capsule PO 100 mg BID TIGIST Administration Gabapentin 600 mg 11/15/20 09:00 11/16/20 08:08 Gabapentin 600 Mg Tablet PO 600 mg BID TIGIST Administration Glucose 15 gm 11/15/20 12:16 Glucose Gel 15 Gm Gel..Gram. PO Q15M PRN per Hypoglycemia Standing Ord. Protocol Hydrochlorothiazide 12.5 mg 11/15/20 09:00 11/16/20 08:08 Hydrochlorothiazide 12.5 Mg Tablet PO 12.5 mg DAILY TIGIST Administration Doxycycline Hyclate 100 mg/ 250 mls @ 166.67 mls/hr 11/15/20 09:00 11/16/20 08:06 Sodium Chloride IV 166.67 mls/hr BID TIGIST Administration Insulin Human Lispro 0 unit 11/15/20 16:30 11/16/20 08:07 Insulin Lispro 100 Unit/Ml 3 Ml Vial SUBCUT 2 unit QIDACHS TIGSIT Administration Protocol Levothyroxine Sodium 100 mcg 11/15/20 09:00 11/16/20 08:08 Levothyroxine Sodium 100 Mcg Tablet PO 100 mcg DAILY TIGIST Administration Losartan Potassium 50 mg 11/15/20 09:00 11/16/20 08:08 Losartan Potassium 50 Mg Tablet PO 50 mg DAILY TIGIST Administration Pharmacy Consult 1 each 11/14/20 23:06 Consult Rx Perform Med Rec MISCELLANE ONCE PRN Consult order Sodium Chloride 3 ml 11/15/20 08:00 11/16/20 08:08 0.9 % Sodium Chloride Flush 3 Ml Syringe IVFLUSH 3 ml QSHIFT TIGIST Administration <Kely Vo PA-C - Last Filed: 11/16/20 08:56> Time Spent With Patient Time: Total time spent is greater than 50% in coordination of care (as documented) at patient's floor/unit and/or counseling patient: <Kely Vo PA-C - Last Filed: 11/16/20 08:56> Time with patient: less than 15 minutes <GRADY Mancini Last Filed: 11/16/20 08:56> Quality Stroke Does the patient have a stroke diagnosis?: No <Kely Vo PA-C - Last Filed: 11/16/20 08:56> VTE Prior VTE?: No <GRADY Mancini Last Filed: 11/16/20 08:56> VTE Risk Level:: Medical - moderate - high <GRADY Mancini Last Filed: 11/16/20 08:56> VTE Device Contraindication: N/A - Device Ordered <Kely Vo PA-C - Last Filed: 11/16/20 08:56> VTE Drug Contraindication: Treatment Not Indicated <Kely Vo PA-C - Last Filed: 11/16/20 08:56>
--- NOTE | 2020-11-16 10:51 | PM.DS ---
DS: Providers Provider Date of Service: 11/16/20 Date of admission: 11/15/20 01:49 Primary care physician: Gurdeep Bruce PA-C Consults: 11/15/20 10:35 Consult to General Surgery Routine Consulting Provider: Larry Jiménez Reason for consultation: large periumbilical hernia containing fat which appears inflamed Has provider been notified: No DS: Diagnosis Discharge Diagnosis (1) Umbilical hernia: Status: Acute (2) Abdominal wall cellulitis: Status: Acute DS: Medications Discharge Medications Home Medications: Home Medications Medication Instructions Recorded Confirmed oxygen-air delivery systems #1 01/10/20 11/15/20 Previous Rx's Medication Instructions Recorded atorvastatin 40 mg tablet 40 mg PO DAILY 90 Days #90 tab 06/05/20 gabapentin 600 mg tablet 600 mg PO BID 90 Days #180 tab 06/05/20 docusate sodium 100 mg capsule 100 mg PO BID 15 Days #30 cap 09/17/20 (Colace) levothyroxine 100 mcg tablet 100 mcg PO DAILY 30 Days #30 tab 09/17/20 metformin 500 mg tablet 500 mg PO BID 30 Days #60 tab 09/17/20 losartan 50 mg-hydrochlorothiazide 1 tab PO DAILY #60 tab 11/15/20 12.5 mg tablet doxycycline monohydrate 100 mg 100 mg PO BID #14 cap 11/16/20 capsule DS: Summary Hospital Course Hospital Course: Final discharge diagnosis 1. Cellulitis of the abdominal wall 2. Hernia, 3. Elevated lipase 4. Morbid obesity 5. Diabetes mellitus Patient was admitted for cellulitis of the abdominal wall. He was treated with IV doxycycline with basic resolution of his erythema and tenderness. He will be transitioned to oral doxycycline for 7 more days at the time of discharge. Of note patient did have a large ventral hernia without any signs of incarceration/strangulation. He was evaluated by General surgery with whom he will be following up as an outpatient for hernia repair. Lastly, patient had an incidental elevation in lipase but no evidence of pancreatitis on his CT scan. Lipase is down trending at the time of discharge. Time Spent with Patient Time attestation: Total time spent providing and/or coordinating discharge services: Discharge coordination time: Greater than 30 minutes Quality: Stroke Does the patient have a stroke diagnosis?: No Physical Exam Vital Signs: Vital Signs: Last Vital Signs Temp 98.5 F 11/16/20 08:00 Pulse 70 11/16/20 08:08 Resp 17 11/16/20 08:00 BP 133/60 11/16/20 08:08 Pulse Ox 96 11/16/20 08:00 Body Mass Index 47.2 Const: Other: General - no acute distress, appears comfortable Cardiovascular - regular rate and rhythm, S1-S2 Lungs - normal respiratory effort, clear to auscultation bilaterally, no wheezing Abdomen - soft, nontender, no rebound or guarding; erythema resolved Extremities - no edema bilaterally Neuro - awake and alert, no focal deficits DS: Data Data Completed and Pending Labs on day of discharge: Laboratory Results - last 24 hr 11/15/20 11/15/20 11/15/20 12:32 16:35 19:59 WBC RBC Hgb Hct MCV MCH MCHC RDW Plt Count MPV Absolute Nucleated RBC Nucleated RBC % (auto) Sodium Potassium Chloride Carbon Dioxide Anion Gap BUN Creatinine Estim Creat Clear Calc Estimated GFR POC Glucose 148 H 155 H 175 H Random Glucose Calcium Lipase 11/16/20 11/16/20 11/16/20 05:56 05:56 07:46 WBC 8.5 RBC 5.38 Hgb 13.9 L Hct 42.6 MCV 79.2 L MCH 25.8 L MCHC 32.6 RDW 13.6 Plt Count 142 L MPV 11.4 Absolute Nucleated RBC 0.000 Nucleated RBC % (auto) 0.0 Sodium 138 Potassium 4.1 Chloride 108 Carbon Dioxide 23 Anion Gap 11 L BUN 17 H Creatinine 1.06 Estim Creat Clear Calc 103.1 Estimated GFR > 60 POC Glucose 176 H Random Glucose 169 H Calcium 8.4 D Lipase 217 H Discharge Plan Discharge Patient Disposition: Home, Self-Care Referrals: Gurdeep Bruce PA-C [Primary Care Provider] - 1 Week Larry Jiménez MD [Physician] - 1 Week Discharge Medications: New doxycycline monohydrate 100 mg capsule 100 mg PO BID Qty: 14 RF: 0 Continued levothyroxine 100 mcg tablet 100 mcg PO DAILY 30 Days Qty: 30 RF: 2 metformin 500 mg tablet 500 mg PO BID 30 Days Qty: 60 RF: 2 losartan-hydrochlorothiazide 50-12.5 mg tablet 1 tab PO DAILY Qty: 60 RF: 3 (DME) oxygen-air delivery systems Device See Rx Instructions .ROUTE .MEDSUPPLY Qty: 1 RF: 0 gabapentin 600 mg tablet 600 mg PO BID 90 Days Qty: 180 RF: 0 atorvastatin 40 mg tablet 40 mg PO DAILY 90 Days Qty: 90 RF: 1 docusate sodium [Colace] 100 mg capsule 100 mg PO BID 15 Days Qty: 30 RF: 1 Discharge Orders: Discharge Order (Routine); Ordered 11/16/20 Ordered By: Hair Alvarez Diet: advance to usual diet Activity on Discharge: As tolerated Stand Alone Forms: Patient Portal Discharge page Care Plan Goals: To stay healthy and out of the hospital. Health Concerns: Cellulitis Hernia ELevated lipase Plan of Treatment: Take doxycycline for 7 more days follow up with Dr. Jiménez for hernia repair Assessment: 50 yo M admitted for celluitis, hernia. Treated with IV doxy and improved. Has a hernia for which he will f/u in the Gen surg clinic.
[2020-11-16 11:09] VITALS: BP 147/88; PULSE 80; RESP 20; TEMP 36.4; O2SAT 97
--- NOTE | 2020-11-16 11:20 | MHC.CM.PN ---
pt lives c his in their home. he reports that he is independent in his care. his can help him c his needs if he needs it. this will include a ride home at dc. pt denies the need for vna at dc. dc plan is home c no additional svcs. cm to cont. to follow.
== END 2020-11-16 11:25 | disposition home or self-care (01) ==
LOC: HO.ED 11-15 00:37 → HO.EDOVER 11-15 01:56 → HO.S3 11-15 11:26
PROVIDERS: Physician Assistant; Physician Assistant Medical; Admitting Provider Internal Medicine; Emergency Provider Emergency Medicine; PCP Physician Assistant; Visit Provider Family Medicine
DX: L03.311 Cellulitis of abdominal wall (principal); K42.9 Umbilical hernia without obstruction or gangrene; K85.90 Acute pancreatitis without necrosis or infection, unspecified; R74.8 Abnormal levels of other serum enzymes; D72.829 Elevated white blood cell count, unspecified; E11.9 Type 2 diabetes mellitus without complications; I10 Essential (primary) hypertension; E03.9 Hypothyroidism, unspecified; G47.33 Obstructive sleep apnea (adult) (pediatric); E66.01 Morbid (severe) obesity due to excess calories; Z68.42 Body mass index [BMI] 45.0-49.9, adult; Z99.89 Dependence on other enabling machines and devices; Z90.49 Acquired absence of other specified parts of digestive tract; Z88.0 Allergy status to penicillin; Z79.4 Long term (current) use of insulin; Z79.899 Other long term (current) drug therapy
CPT/HCPCS: 36415; 74177; 80048; 80076; 81003; 82077; 82947; 83605; 83690; 83735; 85025; 85027; 87635; 96361; 96365; 96366; 96375; 99218; 99220; 99285; J1885; J2405; Q9967

== ENCOUNTER 2020-11-30 15:25 | Emergency (ER) | payer MEDICARE, OTHER, SELFPAY ==
[2020-11-30 15:34] VITALS: BP 155/88; PULSE 82; RESP 18; TEMP 36.1; O2SAT 97; BMI 46.5
[2020-11-30] MEDS: predniSONE 10 MG TABLET 50 MG PO (17:04)
[2020-11-30] MEDS: Ketorolac Tromethamine 60 MG/2 ML VIAL IM (17:04)
[2020-11-30 17:17] VITALS: BP 146/96; PULSE 69; RESP 18; TEMP 36.4; O2SAT 98
--- NOTE | 2020-11-30 17:45 | ED_ITS ---
HPI - Back Pain/Injury General Chief Complaint: Back Pain/Injury Stated Complaint: back pain Time Seen by Provider: 11/30/20 16:41 Source: patient Mode of arrival: ambulatory Limitations: language barrier ([employer] used) History of Present Illness HPI Narrative: Patient is a 50-year-old [place]an-speaking male a past medical history of diabetes, hypothyroidism, HTN and H LD who presents with low back pain. Patient states he has gotten this pain before, this time it started 4 days ago, denies any trauma which initiated the pain, he states the pain is in his low back that radiates down to his left buttock and down his left leg, he describes the pain as a sharp shooting pain. He denies any loss of control of his bladder or bowels. He did try taking Tylenol with no relief. Related Data Home Medications Medication Instructions Recorded Confirmed oxygen-air delivery systems #1 01/10/20 11/15/20 Previous Rx's Medication Instructions Recorded atorvastatin 40 mg tablet 40 mg PO DAILY 90 Days #90 tab 06/05/20 gabapentin 600 mg tablet 600 mg PO BID 90 Days #180 tab 06/05/20 docusate sodium 100 mg capsule 100 mg PO BID 15 Days #30 cap 09/17/20 (Colace) levothyroxine 100 mcg tablet 100 mcg PO DAILY 30 Days #30 tab 09/17/20 metformin 500 mg tablet 500 mg PO BID 30 Days #60 tab 09/17/20 losartan 50 mg-hydrochlorothiazide 1 tab PO DAILY #60 tab 11/15/20 12.5 mg tablet doxycycline monohydrate 100 mg 100 mg PO BID #14 cap 11/16/20 capsule prednisone 50 mg tablet 50 mg PO DAILY 4 Days #4 tab 11/30/20 Allergies Allergy/AdvReac Type Severity Reaction Status Date / Time Penicillins Allergy Unknown Rash Verified 11/14/20 19:22 Review of Systems Review of Systems: Yes all other systems are reviewed and are negative PMFSH Past Medical History Medical History Abdominal pain DM2 (diabetes mellitus, type 2) HLD (hyperlipidemia) HTN (hypertension) HTN (hypertension) Hypothyroid Hypothyroidism Pre-diabetes Sleep apnea with use of continuous positive airway pressure (CPAP) Umbilical hernia Surgical History History of cholecystectomy History of colonoscopy History of hemorrhoidectomy Hx of endoscopy Family History Family History Mother Diabetes Hypertension Father Diabetes Hypertension Maternal Uncle Cancer Maternal Grandmother Stroke Social History Social History Household Members: Spouse and Children Housing: Apartment Alcohol intake: never Patient Tobacco Use Status: Never used Tobacco e-Cigarette/Vaping Use: Never Used Second Hand Smoke Exposure: No Advance Directives: No Advance Directives Information Provided: No service: No Current occupational status: disabled Physical Exam Vital Signs: Vital Signs: Last Vital Signs Temp 97.6 F 11/30/20 17:17 Pulse 69 11/30/20 17:17 Resp 18 11/30/20 17:17 BP 146/96 H 11/30/20 17:17 Pulse Ox 98 11/30/20 17:17 Body Mass Index 46.5 Const: General: cooperative, healthy appearing, comfortable, no acute distress and well developed Orientation/consciousness: patient oriented x3 Limitations: no limitations HENMT: Head: Yes normal to inspection Eyes: General: appearance normal, both eyes and all related structures Neck: Neck: Yes normal visual inspection and Yes full ROM Resp: Effort & Inspection: normal respiratory effort and able to speak in complete sentences Back/Spine/Pelvis: Thoracic/Lumbar Spine: straight leg raise positive (left side ) Skin: General skin exam: no rashes or lesions noted Neuro: General: patient oriented x3 Extrem: General: Yes normal to inspection Course Course Course Narrative: Patient is a 50-year-old [place]an-speaking male a past medical history of diabetes, hypothyroidism, HTN and H LD who presents with low back pain that radiates down his left leg, sharp shooting pain. Will start patient with 60 mg IM Toradol and 50 mg p.o. prednisone. Reevaluation(s) Reevaluation #1: Patient states the pain is a little bit better but still very painful. Will add lidocaine patches and Tylenol PO then reassess. Time: 17:49 Reevaluation #2: Patient states he has good pain control, will discharge wears Time: 18:59 Discharge Plan Discharge Clinical Impression: Sciatica Patient Disposition: Home, Self-Care Instructions: Sciatica (ED) Additional Instructions: As discussed, I am sending a prescriptions to her pharmacy for prednisone, it will make her blood sugars go up so please eat low sugar and low carb for the next 4 days while you are taking this medication. You lose control of her bladder or bowels, please return to the emergency department as soon as possible. Otherwise, please follow-up with your primary care doctor next week as you may need some physical therapy or further imaging. René se mencion?, estoy enviando roxy receta a quach farmacia de prednisona, jordyn? que quach nivel de az?car en la ferny aumente, as? que coma bajo en az?car y bajo en carbohidratos leisa los pr?ximos 4 d?as mientras livan silvina medicamento. Si pierde el control de quach vejiga o andree intestinos, regrese al departamento de emergencias lo antes posible. De lo contrario, consulte con quach m?dico de atenci?n primaria la pr?xima semana, ya que es posible que necesite fisioterapia o m?s im?genes. Prescriptions: New prednisone 50 mg tablet 50 mg PO DAILY 4 Days Qty: 4 RF: 0 No Action levothyroxine 100 mcg tablet 100 mcg PO DAILY 30 Days Qty: 30 RF: 2 metformin 500 mg tablet 500 mg PO BID 30 Days Qty: 60 RF: 2 losartan-hydrochlorothiazide 50-12.5 mg tablet 1 tab PO DAILY Qty: 60 RF: 3 doxycycline monohydrate 100 mg capsule 100 mg PO BID Qty: 14 RF: 0 (DME) oxygen-air delivery systems Device See Rx Instructions .ROUTE .MEDSUPPLY Qty: 1 RF: 0 gabapentin 600 mg tablet 600 mg PO BID 90 Days Qty: 180 RF: 0 atorvastatin 40 mg tablet 40 mg PO DAILY 90 Days Qty: 90 RF: 1 docusate sodium [Colace] 100 mg capsule 100 mg PO BID 15 Days Qty: 30 RF: 1 Print Language: [place]
[2020-11-30] MEDS: Lidocaine 4 % Patch ADH..PATCH 2 PATCH TRANSDERMA (18:10)
[2020-11-30] MEDS: Acetaminophen 325 MG TABLET 650 MG PO (18:11)
== END 2020-11-30 19:50 | disposition home or self-care (01) ==
PROVIDERS: Emergency Provider Emergency Medicine; PCP Physician Assistant
DX: M54.42 Lumbago with sciatica, left side (principal); E11.9 Type 2 diabetes mellitus without complications; I10 Essential (primary) hypertension; E78.5 Hyperlipidemia, unspecified; Z79.02 Long term (current) use of antithrombotics/antiplatelets; Z79.899 Other long term (current) drug therapy
CPT/HCPCS: 96372; 99284; J1885

== ENCOUNTER 2020-12-10 18:08 | Emergency (ER) | payer MEDICARE, OTHER, SELFPAY ==
--- NOTE | ~2020-12-10 | XR_ITS ---
EXAMINATION: XR LUMBOSACRAL SPINE CLINICAL INFORMATION: Back pain. COMPARISON: 04/19/2020 lumbar spine radiographs., CT scan of the abdomen and pelvis dated 11/14/2020. TECHNIQUE: Three views of the lumbosacral spine. FINDINGS: There is normal lumbar lordosis and spinal alignment. Mild anterior osteophyte formation is again seen at L2-L3 and L4-L5. This is seen to a lesser extent at L3-L4. The vertebral bodies are intact. There is no acute fracture. The facet joints are unremarkable. Surgical clips overlie the right upper quadrant. XR/XR lumbar spine 2-3V IMPRESSION: Mild degenerative changes without significant interval change.
[2020-12-10 19:57] VITALS: BP 145/98; PULSE 81; RESP 16; TEMP 36.6; O2SAT 98; BMI 47.5
[2020-12-10 21:39] VITALS: BP 166/106; PULSE 77; RESP 24; O2SAT 99
[2020-12-10] MEDS: Cyclobenzaprine HCl 10 MG TABLET PO (22:19)
[2020-12-10] MEDS: Ketorolac Tromethamine 15 MG/ML VIAL 30 MG IM (22:19)
[2020-12-10] MEDS: Acetaminophen 325 MG TABLET 650 MG PO (22:19)
--- NOTE | 2020-12-10 22:29 | ED.BACK ---
HPI - Back Pain/Injury General Chief Complaint: Back Pain/Injury Stated Complaint: Back pain Time Seen by Provider: 12/10/20 21:54 Source: patient Mode of arrival: ambulatory History of Present Illness HPI Narrative: 50-year-old male with a past medical history of DM, HLD, HTN, hypothyroid, sleep apnea, umbilical hernia, to the ED complaining of acute on chronic low back pain radiating down left lower extremity x a few weeks. Denies known injury/trauma or falls. Admits was seen and treated in our ED on 11/30 for similar symptoms, reports no improvement in pain. Reports associated numbness/tingling down LLE. Denies urinary incontinence/retention, weakness, fever MD elicited complaint: back pain Related Data Home Medications Medication Instructions Recorded Confirmed oxygen-air delivery systems #1 01/10/20 11/15/20 Previous Rx's Medication Instructions Recorded atorvastatin 40 mg tablet 40 mg PO DAILY 90 Days #90 tab 06/05/20 gabapentin 600 mg tablet 600 mg PO BID 90 Days #180 tab 06/05/20 docusate sodium 100 mg capsule 100 mg PO BID 15 Days #30 cap 09/17/20 (Colace) levothyroxine 100 mcg tablet 100 mcg PO DAILY 30 Days #30 tab 09/17/20 metformin 500 mg tablet 500 mg PO BID 30 Days #60 tab 09/17/20 losartan 50 mg-hydrochlorothiazide 1 tab PO DAILY #60 tab 11/15/20 12.5 mg tablet doxycycline monohydrate 100 mg 100 mg PO BID #14 cap 11/16/20 capsule prednisone 50 mg tablet 50 mg PO DAILY 4 Days #4 tab 11/30/20 diclofenac sodium 50 mg 50 mg PO BID PRN 10 Days #20 tab 12/10/20 tablet,delayed release duloxetine 30 mg capsule,delayed 30 mg PO DAILY 30 Days #30 cap 12/10/20 release (Cymbalta) cyclobenzaprine 5 mg tablet 5 mg PO Q8H PRN 5 Days #14 tab 12/11/20 hydrocodone 5 mg-acetaminophen 325 1 tab PO Q8H PRN 3 Days #9 tab 12/11/20 mg tablet lidocaine 5 % topical patch 1 patch TOPICAL DAILY PRN #30 ea 12/11/20 (Lidoderm) MDD remove after 12 hours naproxen 500 mg tablet 500 mg PO BID PRN 10 Days #20 tab 12/11/20 Allergies Allergy/AdvReac Type Severity Reaction Status Date / Time Penicillins Allergy Unknown Rash Verified 11/14/20 19:22 Review of Systems Review of Systems: Constitutional: No Fever, No Chills ENT/Mouth: No Ear Pain,No Hoarseness, No sore throat Cardiovascular: No Chest Pain, No SOB Respiratory: No Cough Gastrointestinal: No Nausea, No Vomiting, No Abdominal pain Genitourinary: No Dysuria, No Urinary Incontinence/retention Musculoskeletal: + joint pain, No Myalgias, No Joint Swelling Skin: No Skin Lesions, No rash Neuro: No Weakness, No Numbness, No Paresthesias Yes all other systems are reviewed and are negative Neurologic: Denies Sensory deficit (Neuro) [facility] Past Medical History Attestation statement: The following information was validated with the patient. Medical History Abdominal pain DM2 (diabetes mellitus, type 2) HLD (hyperlipidemia) HTN (hypertension) HTN (hypertension) Hypothyroid Hypothyroidism Pre-diabetes Sleep apnea with use of continuous positive airway pressure (CPAP) Umbilical hernia Surgical History History of cholecystectomy History of colonoscopy History of hemorrhoidectomy Hx of endoscopy Family History Family History Mother Diabetes Hypertension Father Diabetes Hypertension Maternal Uncle Cancer Maternal Grandmother Stroke Social History Social History Household Members: Spouse and Children Housing: Apartment Alcohol intake: never Patient Tobacco Use Status: Never used Tobacco e-Cigarette/Vaping Use: Never Used Second Hand Smoke Exposure: No Advance Directives: No service: No Current occupational status: disabled Physical Exam Vital Signs: Vital Signs: Last Vital Signs Temp 97.8 F 12/10/20 19:57 Pulse 88 12/10/20 22:51 Resp 17 12/10/20 22:51 BP 147/92 H 12/10/20 22:51 Pulse Ox 96 12/10/20 22:51 Body Mass Index 47.5 Const: General: cooperative, healthy appearing and no acute distress Orientation/consciousness: patient oriented x3 Limitations: no limitations HENMT: Head: Yes normal to inspection Ears: hearing grossly normal bilaterally General nose exam: Normal external nose present Face and sinus: Yes normal facial exam Eyes: General: appearance normal, both eyes and all related structures EOM: EOMs intact bilaterally Neck: Other: No midline cervical spinous tenderness Neck: Yes normal visual inspection Resp: Effort & Inspection: normal respiratory effort and no respiratory distress Cardio: Rate: regular rate GI: Inspection: Yes normal to inspection Palpation (GI): Soft to palpation, nontender, no guarding and not rigid Back/Spine/Pelvis: Other: No midline thoracic/lumbar spinous tenderness. + left-sided paraspinal/lumbar MSK tenderness to palpation reproducing subjective complaint Skin: Rashes: no rashes Wounds: no wounds Neuro: Other: No saddle anesthesia General: patient oriented x3, gait normal, tone normal and moves all extremities Gait exam (Neuro): Normal gait present Motor exam (neuro): 5/5 motor strength present throughout Sensory Exam: No Sensory deficit (Neuro) Extrem: General: Yes normal to inspection Course Reevaluation(s) Reevaluation #1: XR lumbar spine 2-3V IMPRESSION: Mild degenerative changes without significant interval change >> results discussed with patient with japanese interpreter. Patient denies symptomatic improvement after medications. Will give additional 10 mg Oxycodone and Lidoderm patch prior to discharge Time: 23:17 MDM - Back Pain/Injury MDM Narrative Medical decision making narrative: 50-year-old male with a past medical history of DM, HLD, HTN, hypothyroid, sleep apnea, umbilical hernia, to the ED complaining of acute on chronic low back pain radiating down left lower extremity x a few weeks. On exam hypertensive, tachycardic likely from pain, physical exam as above. No midline spinous tenderness throughout. No red flag symptoms. Patient was previously discharged with prednisone without improvement. Resting x-rays at this time Plan: X-rays, IM Toradol, Flexeril, Tylenol Discharge Plan Discharge Clinical Impression: Sciatica Qualifiers: Laterality: left Qualified Code(s): M54.32 - Sciatica, left side Patient Disposition: Home, Self-Care Instructions: Sciatica (ED), Back Pain (ED) Additional Instructions: Your pain is likely musculoskeletal Flexeril is a muscle relaxer, take at night as it makes you drowsy, do not drive, drink alcohol, or operate machinery while taking it Naproxen as an anti-inflammatory / pain medication, take with food Lidoderm patches are numbing patches, apply to painful area [place] as an opiate pain medication, take only when pain is severe for the next 3 days In addition take Tylenol at home If symptoms persist or worsen, pain becomes unbearable, you developed urinary retention or incontinence, or weakness return to the ED Es probable que quach dolor sea musculoesquel?tonie Flexeril es un relajante muscular, t?peres por la noche ya que le produce somnolencia, no conduzca, no shelley alcohol ni utilice maquinaria mientras lo livan. Naproxeno arron medicamento antiinflamatorio / analg?sico, bibi con alimentos. 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 Si los s?ntomas persisten o empeoran, el dolor se vuelve insoportable, desarroll? retenci?n urinaria o incontinencia o debilidad, regrese al servicio de urgencias Prescriptions: New hydrocodone-acetaminophen 5-325 mg tablet 1 tab PO Q8H PRN (Reason: pain, severe) 3 Days Qty: 9 RF: 0 lidocaine [Lidoderm] 5 % adhesive patch,medicated 1 patch topical DAILY MDD remove after 12 hours PRN (Reason: pain) Qty: 30 RF: 0 naproxen 500 mg tablet 500 mg PO BID PRN (Reason: pain) 10 Days Qty: 20 RF: 0 cyclobenzaprine 5 mg tablet 5 mg PO Q8H PRN (Reason: pain (scale score 7-10)) 5 Days Qty: 14 RF: 0 No Action levothyroxine 100 mcg tablet 100 mcg PO DAILY 30 Days Qty: 30 RF: 2 metformin 500 mg tablet 500 mg PO BID 30 Days Qty: 60 RF: 2 losartan-hydrochlorothiazide 50-12.5 mg tablet 1 tab PO DAILY Qty: 60 RF: 3 diclofenac sodium 50 mg tablet,delayed release (DR/EC) 50 mg PO BID PRN (Reason: pain) 10 Days Qty: 20 RF: 0 duloxetine [Cymbalta] 30 mg capsule,delayed release(DR/EC) 30 mg PO DAILY 30 Days Qty: 30 RF: 0 doxycycline monohydrate 100 mg capsule 100 mg PO BID Qty: 14 RF: 0 prednisone 50 mg tablet 50 mg PO DAILY 4 Days Qty: 4 RF: 0 (DME) oxygen-air delivery systems Device See Rx Instructions .ROUTE .MEDSUPPLY Qty: 1 RF: 0 gabapentin 600 mg tablet 600 mg PO BID 90 Days Qty: 180 RF: 0 atorvastatin 40 mg tablet 40 mg PO DAILY 90 Days Qty: 90 RF: 1 docusate sodium [Colace] 100 mg capsule 100 mg PO BID 15 Days Qty: 30 RF: 1 Referrals: Gurdeep Bruce PA-C [Primary Care Provider] - 2 days Print Language: Khmer
[2020-12-10 22:48] VITALS: RESP 17
[2020-12-10 22:49] VITALS: RESP 17
[2020-12-10 22:51] VITALS: BP 147/92; PULSE 88; RESP 17; O2SAT 96
[2020-12-10] MEDS: oxyCODONE HCl Immed Release 5 MG TABLET 10 MG PO (23:39)
[2020-12-10] MEDS: Lidocaine 4 % Patch ADH..PATCH 1 PATCH TRANSDERMA (23:39)
[2020-12-11 01:03] VITALS: RESP 17
== END 2020-12-11 01:07 | disposition home or self-care (01) ==
PROVIDERS: Emergency Provider Student in an Organized Health Care Education/Training Program; PCP Physician Assistant
DX: M54.32 Sciatica, left side (principal); M54.5 Low back pain; I10 Essential (primary) hypertension; Z79.899 Other long term (current) drug therapy
CPT/HCPCS: 72100; 96372; 99284; J1885

== ENCOUNTER 2021-01-04 11:13 | Outpatient (REF) | payer MEDICARE, OTHER, SELFPAY ==
--- NOTE | ~2021-01-04 | MR_ITS ---
EXAMINATION: MR LUMBAR SPINE WITHOUT CONTRAST CLINICAL INFORMATION: Left leg pain, numbness, weakness. Low back pain. COMPARISON: Lumbar spine radiographs dated 12/10/[address] abdomen/pelvis dated 11/14/2020. TECHNIQUE: MRI of the lumbar spine was obtained using routine sequences without contrast. FINDINGS: VERTEBRAL BODIES AND PARASPINAL STRUCTURES: Normal vertebral body alignment. The lumbar lordosis is maintained. No acute fracture or subluxation. No loss of vertebral body height. Mild loss of intervertebral disc height with disc desiccation at L3-L4 and L4-L5. The remaining intervertebral disks are well hydrated. Tiny endplate osteophytes at L2-L3 through L4-L5. No abnormal marrow signal. No evidence of acute osseous injury. The visualized paraspinal soft tissues are unremarkable. CONUS MEDULLARIS AND CAUDA EQUINA: Normal, terminating at the level of L1. SPINAL LEVELS: T12-L1: No significant disc bulge. No central canal or neural foraminal stenosis. L1-L2: No significant disc bulge. No central canal or neural foraminal stenosis. L2-L3: No significant disc bulge. Bilateral facet arthropathy. No central canal or neural foraminal stenosis. L3-L4: Minimal disc bulge with a shallow right subarticular/extraforaminal disc protrusion with annular fissuring. The protrusion abuts the exiting right L3 nerve root. Bilateral facet arthropathy and thickening of the ligamentum flavum with minimal central canal stenosis as well as mild bilateral neural foraminal stenosis. L4-L5: Shallow disc bulge with a superimposed left subarticular/extraforaminal disc protrusion which contacts and displaces the exiting left L4 nerve root in the neural foramen and extraforaminal space. Associated annular fissuring. Bilateral facet arthropathy and thickening of the ligamentum flavum with mild central canal stenosis as well as [id number] left and mild right neural foraminal stenosis. L5-S1: Minimal disc bulge with bilateral facet arthropathy causing minimal bilateral neural foraminal stenosis. MR/MR lumbar spine wo con IMPRESSION: 1. Shallow disc bulge at L4-L5 with a left subarticular/extraforaminal disc protrusion which contacts and displaces the exiting left L4 nerve root. Bilateral facet arthropathy and thickening of the ligamentum flavum causing [id number] left and mild right neural foraminal stenosis as well as mild central canal stenosis. 2. Minimal disc bulge at L3-L4 with a shallow right subarticular/extraforaminal disc protrusion abutting the exiting right L3 nerve root. Bilateral facet arthropathy and thickening of the ligamentum flavum with minimal central canal stenosis as well as mild bilateral neural foraminal stenosis. 3. Minimal disc bulge at L5-S1 with bilateral facet arthropathy causing minimal bilateral neural foraminal stenosis.
== END 2021-01-04 11:14 | disposition home or self-care (01) ==
LOC: HO.MRI 11:13
PROVIDERS: Visit Provider Physician Assistant
DX: M48.061 Spinal stenosis, lumbar region without neurogenic claudication (principal)
CPT/HCPCS: 72148

== ENCOUNTER → 2021-01-11 10:43 | Outpatient (BNVA) | payer MEDICARE, OTHER, SELFPAY | PROVIDERS: Visit Provider Physician Assistant | DX: M19.011 Primary osteoarthritis, right shoulder (principal) | CPT/HCPCS: 20610; 99202; J1040 ==

== ENCOUNTER → 2021-01-21 15:10 | Outpatient (BNVA) | payer MEDICARE, OTHER, SELFPAY | PROVIDERS: PCP Physician Assistant; Referring Provider Physician Assistant; Visit Provider Surgery | DX: K43.9 Ventral hernia without obstruction or gangrene (principal) | CPT/HCPCS: 99202 ==

== ENCOUNTER 2021-02-18 09:56 | Outpatient (REF) | payer MEDICARE, OTHER, SELFPAY ==
[2021-02-18 10:36] LABS: Hematocrit 43.9 % (42.0-52.0); Hemoglobin 14.3 g/dl (14.0-18.0); Mean Corpuscular HGB Conc 32.6 g/dl (31.0-36.0); Mean Corpuscular Hemoglobin 25.7 pg (27.0-33.0); Mean Corpuscular Volume 78.8 fL (80.0-98.0); Mean Platelet Volume 11.5 fL (9.4-12.4); Platelet Count 165 X10*3/uL (160-400); Red Blood Count 5.57 X10*6/uL (4.60-5.80); Red Cell Distribution Width 14.6 % (11.0-16.0); White Blood Count 8.6 X10*3/uL (4.8-10.8)
[2021-02-18 10:59] LABS: Alanine Aminotransferase 29 U/L (0-40); Alkaline Phosphatase 80 U/L (39-117); Anion Gap 12 (12-20); Aspartate Amino Transferase 17 U/L (5-37); Bilirubin Total 0.5 mg/dL (0.0-1.0); Blood Urea Nitrogen 19 mg/dL (9-16); Calcium 8.9 mg/dL (8.4-10.2); Carbon Dioxide 26 mmol/L (22-29); Chloride 107 mmol/L (96-108); Cholesterol 138 mg/dL; Estimated Glomerular Filt Rate 60; Glucose Fasting 127 mg/dL (60-99); HDL Cholesterol 22 mg/dL; LDL Cholesterol Calculated 39 mg/dl; Potassium 4.4 mmol/L (3.3-5.1); Sodium 141 mmol/L (135-145); Total Protein 7.1 g/dL (6.5-8.0); Triglycerides 386 mg/dL
[2021-02-18 11:04] LABS: Estimated Average Glucose 160 mg/dL; Hemoglobin A1c % 7.2 %
[2021-02-18 11:17] LABS: Creatinine Urine 200.38 mg/dL; Microalbum/Creatinine Ratio Ur 4.4 ug/mg cr
[2021-02-18 11:17] LABS: TSH reflex Free T4 2.45 uIU/mL (0.32-4.0)
== END 2021-02-18 09:57 | disposition home or self-care (01) ==
LOC: HO.LAB 09:56
PROVIDERS: PCP Physician Assistant; Visit Provider Physician Assistant
DX: E11.9 Type 2 diabetes mellitus without complications (principal); I10 Essential (primary) hypertension; M75.101 Unspecified rotator cuff tear or rupture of right shoulder, not specified as traumatic; M12.811 Other specific arthropathies, not elsewhere classified, right shoulder
CPT/HCPCS: 36415; 80053; 80061; 82043; 83036; 84443; 85027

== ENCOUNTER 2021-02-19 08:42 | Emergency (ER) | payer MEDICARE, OTHER, SELFPAY ==
--- NOTE | ~2021-02-19 | CT_ITS ---
EXAMINATION: CT ABDOMEN AND PELVIS WITH CONTRAST CLINICAL INFORMATION: Right lower quadrant pain COMPARISON: None TECHNIQUE: Multidetector volumetric images were obtained from the superior aspect of the liver through the pubic symphysis following administration 85 mL of Omnipaque 350 intravenous contrast. Sagittal and coronal reformatted images were obtained on the technologist's workstation. Oral contrast: No This CT examination was performed using dose optimization techniques as appropriate, variously including the following: *Automated exposure control *Adjustment of mA and/or kV according to patient size (this includes techniques or standardized protocols for targeted exams where dose is matched to indication/reason for exam; i.e. extremities or head) *Use of iterative reconstruction technique DLP: 1333 mGy-cm FINDINGS: LUNG BASES: There is bibasilar dependent atelectasis. LIVER, GALLBLADDER, AND BILIARY TREE: The liver is normal in size, shape, and views attenuation. No focal hepatic lesion or biliary ductal dilatation is present. The gallbladder has been surgically removed. PANCREAS: Unremarkable. SPLEEN: Unremarkable. ADRENAL GLANDS: There are small 1.4 cm enhancing lesion right adrenal gland measuring 81 Hounsfield units. The left adrenal gland is unremarkable. KIDNEYS AND URETERS: The kidneys are normal in size, shape, and attenuation. No hydronephrosis, hydroureter, or calculi seen. No perinephric stranding. BLADDER: The bladder is distended and appears unremarkable. GASTROINTESTINAL TRACT: There is scattered stool and gas seen throughout the colon without distention. The appendix is normal caliber however there is fat stranding seen at the tip of the appendix and adjacent proximal terminal ileum. No mural thickening is seen. Rest the small bowel loops and the colon appears unremarkable. No free air seen. ABDOMINAL WALL: There is small umbilical hernia containing fat with neck 2.8 cm wide. LYMPH NODES: Normal. VASCULAR: Unremarkable. PELVIC VISCERA: No focal abnormality seen. There is no free fluid. No abnormal lymph nodes. OSSEOUS STRUCTURES: There is moderate spondylosis lower dorsal spine spine. CT/CT abdomen pelvis w con IMPRESSION: Mild fat stranding at the tip of the appendix and adjacent terminal ileum. No mural thickening is seen involving terminal ileum. The majority of the appendix appears normal caliber measuring 5 mm in diameter. inflammatory process at the tip of the appendix is suspected. There is no free air or collection seen in the right lower quadrant. Correlate with clinical exam. Small to moderate size umbilical hernia containing fat. Fleischner guidelines were followed.
[2021-02-19 09:04] VITALS: BP 137/71; PULSE 84; RESP 18; TEMP 36.7; O2SAT 96; BMI 46.5
--- NOTE | 2021-02-19 11:23 | ED.ABDPAIN ---
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 Mode of arrival: ambulatory Limitations: no limitations History of Present Illness MD elicited complaint: abdominal pain Pertinent past history: constipation Onset (ago): day(s) (yesterday ) Pain Consistency: constant Location: RLQ Severity: moderate Quality: sharp Radiation: none Migration to: no migration Exacerbating factors: movement Relieving factors: nothing Associated symptoms: denies other symptoms Related Data Home Medications Medication Instructions Recorded Confirmed oxygen-air delivery systems #1 01/10/20 02/18/21 Previous Rx's Medication Instructions Recorded gabapentin 600 mg tablet 600 mg PO BID 90 Days #180 tab 06/05/20 docusate sodium 100 mg capsule 100 mg PO BID 15 Days #30 cap 09/17/20 (Colace) losartan 50 mg-hydrochlorothiazide 1 tab PO DAILY #60 tab 11/15/20 12.5 mg tablet doxycycline monohydrate 100 mg 100 mg PO BID #14 cap 11/16/20 capsule diclofenac sodium 50 mg 50 mg PO BID PRN 10 Days #20 tab 12/10/20 tablet,delayed release cyclobenzaprine 5 mg tablet 5 mg PO Q8H PRN 5 Days #14 tab 12/11/20 hydrocodone 5 mg-acetaminophen 325 1 tab PO Q8H PRN 3 Days #9 tab 12/11/20 mg tablet lidocaine 5 % topical patch 1 patch TOPICAL DAILY PRN #30 ea 12/11/20 (Lidoderm) MDD remove after 12 hours naproxen 500 mg tablet 500 mg PO BID PRN 10 Days #20 tab 12/11/20 atorvastatin 40 mg tablet 40 mg PO DAILY 90 Days #90 tab 02/18/21 duloxetine 30 mg capsule,delayed 30 mg PO DAILY 30 Days #30 cap 02/18/21 release (Cymbalta) hydroxyzine HCl 10 mg tablet 10 mg PO BID PRN 10 Days #20 tab 02/18/21 levothyroxine 100 mcg tablet 100 mcg PO DAILY 30 Days #30 tab 02/18/21 metformin 500 mg tablet 500 mg PO BID 30 Days #60 tab 02/18/21 levofloxacin 500 mg tablet 500 mg PO DAILY 6 Days #6 tab 02/19/21 metronidazole 500 mg tablet 500 mg PO BID 7 Days #14 tab 02/19/21 Allergies Allergy/AdvReac Type Severity Reaction Status Date / Time Penicillins Allergy Unknown Rash Verified 02/19/21 09:04 Review of Systems Review of Systems Constitutional : No Weight loss, No Fever, No Chills ENT/Mouth : No sore throat, No Rhinorrhea Eyes: No Swelling, No Redness Cardiovascular : No Chest Pain, No SOB, NoEdema Respiratory : No Cough, No Sputum, No Wheezing Gastrointestinal : no Nausea, no Vomiting, no Diarrhea, positive abdominal Pain, No Hematochezia, No Melena Genitourinary : No Dysuria, No Urinary Frequency, No Hematuria, No Urgency Musculoskeletal : No joint pain, No Myalgias, No Joint Swelling Skin : No Skin Lesions, No rash Neuro : No Weakness, No Numbness, No Dizziness, No Headache Psych : No Anxiety/Panic, No Depression Heme/Lymph: No Bruising, No Lymphadenopathy Endocrine : No Polyuria, No Polydipsia All other systems reviewed and are negative. Physical Exam Vital Signs: Vital Signs: Last Vital Signs Temp 98.1 F 02/19/21 09:04 Pulse 84 02/19/21 09:04 Resp 18 02/19/21 09:04 BP 137/71 02/19/21 09:04 Pulse Ox 96 02/19/21 09:04 Body Mass Index 46.5 Appearance: Alert. Oriented X3. No acute distress. Eyes: Pupils equal, round and reactive to light. ENT: Pharynx normal. Neck: Normal inspection. Neck supple. CVS: Normal heart rate and rhythm. Pulses normal. Respiratory: No respiratory distress. Breath sounds normal. Abdomen: Soft and obese, moderate RLQ ttp no rebound or guarding Skin: Skin warm and dry. Normal skin color. Normal skin turgor. Extremities: No lower extremity edema. No calf ttp Neuro: Oriented X 3. No motor deficit. No sensory deficit. Course Course Course Narrative: message sent to surgery given RLQ and CT scan Dr. Jiménez to admit pateint has childcare issues plan to DC home after IV abx MDM - Abdominal Pain MDM Narrative Medical decision making narrative: 50 yo male with hx of arthritis, back pain, constipation, DM, constipation here with onset of RLQ pain with no associated symptoms at this time will need labs, UA, IV morphine for pain CT scan for to evaluate for appendicitis/SBO/renal colic. Dispo per results and findings. Differential Diagnosis Differential diagnosis: Likely abdominal pain, acute appendicitis, calculus of kidney, constipation, diverticulitis and small bowel obstruction; Unlikely bowel perforation or mesenteric ischemia Lab Data Result diagrams: 02/19/21 11:59 02/19/21 11:59 Labs: Lab Results 02/19/21 02/19/21 02/19/21 Range/Units 11:22 11:59 11:59 WBC 8.6 (4.8-10.8) X10*3/uL RBC 5.45 (4.60-5.80) X10*6/uL Hgb 14.0 (14.0-18.0) g/dl Hct 43.1 (42.0-52.0) % MCV 79.1 L (80.0-98.0) fL MCH 25.7 L (27.0-33.0) pg MCHC 32.5 (31.0-36.0) g/dl RDW 14.7 (11.0-16.0) % Plt Count 184 (160-400) X10*3/uL MPV 11.2 (9.4-12.4) fL Immature Gran % (Auto) 0.5 H (0.0-0.4) % Neut % (Auto) 63.1 (45-73) % Lymph % (Auto) 26.2 (20-40) % [place] % (Auto) 9.2 (2-11) % Eos % (Auto) 0.5 (0-4) % Baso % (Auto) 0.5 (0-2) % Lymph # (Auto) 2.2 (1.2-4.9) X10*3/uL [place] # (Auto) 0.8 (0.1-1.2) X10*3/uL Eos # (Auto) 0.0 (0.0-0.4) X10*3/uL Baso # (Auto) 0.0 (0.0-0.2) X10*3/uL Abs Immat Gran (auto) 0.04 H (0.00-0.03) X10*3/uL Absolute Neuts (auto) 5.4 (2.0-8.3) x10*3/uL Absolute Nucleated RBC 0.000 (0.0-0.012) X10*3/uL Nucleated RBC % (auto) 0.0 (0.0-0.2) /100WBC Sodium 137 (135-145) mmol/L Potassium 4.1 (3.3-5.1) mmol/L Chloride 106 (96-108) mmol/L Carbon Dioxide 23 (22-29) mmol/L Anion Gap 12 (12-20) BUN 12 (9-16) mg/dL Creatinine 1.11 (0.5-1.4) mg/dL Estim Creat Clear Calc 97.6 Estimated GFR > 60 POC Glucose (60-115) mg/dL Random Glucose 114 (60-115) mg/dL Calcium 8.3 L D (8.4-10.2) mg/dL Magnesium 2.0 (1.6-2.6) mg/dL Total Bilirubin 0.6 (0.0-1.0) mg/dL Direct Bilirubin 0.2 (0.0-0.5) mg/dL AST 18 (5-37) U/L ALT 29 (0-40) U/L Alkaline Phosphatase 71 (39-117) U/L Total Protein 6.7 (6.5-8.0) g/dL Albumin 3.8 (3.5-5.0) g/dL Lipase 21 (8-78) U/L Urine Color YELLOW Urine Appearance CLEAR Urine pH 5.5 (5.0-8.0) Ur Specific [place] >= 1.030 H (1.005-1.025) Urine Protein NEG (NEG-TRACE) MG/DL Urine Glucose (UA) NEG (NEG) MG/DL Urine Ketones NEG (NEG) MG/DL Urine Blood NEG (NEG) Urine Nitrite NEG (NEG) Ur Leukocyte Esterase NEG (NEG) COVID-19 (CARLOS) (Negative) COVID-19 Clin Com 02/19/21 02/19/21 Range/Units 11:59 12:32 WBC (4.8-10.8) X10*3/uL RBC (4.60-5.80) X10*6/uL Hgb (14.0-18.0) g/dl Hct (42.0-52.0) % MCV (80.0-98.0) fL MCH (27.0-33.0) pg MCHC (31.0-36.0) g/dl RDW (11.0-16.0) % Plt Count (160-400) X10*3/uL MPV (9.4-12.4) fL Immature Gran % (Auto) (0.0-0.4) % Neut % (Auto) (45-73) % Lymph % (Auto) (20-40) % [place] % (Auto) (2-11) % Eos % (Auto) (0-4) % Baso % (Auto) (0-2) % Lymph # (Auto) (1.2-4.9) X10*3/uL [place] # (Auto) (0.1-1.2) X10*3/uL Eos # (Auto) (0.0-0.4) X10*3/uL Baso # (Auto) (0.0-0.2) X10*3/uL Abs Immat Gran (auto) (0.00-0.03) X10*3/uL Absolute Neuts (auto) (2.0-8.3) x10*3/uL Absolute Nucleated RBC (0.0-0.012) X10*3/uL Nucleated RBC % (auto) (0.0-0.2) /100WBC Sodium (135-145) mmol/L Potassium (3.3-5.1) mmol/L Chloride (96-108) mmol/L Carbon Dioxide (22-29) mmol/L Anion Gap (12-20) BUN (9-16) mg/dL Creatinine (0.5-1.4) mg/dL Estim Creat Clear Calc Estimated GFR POC Glucose 100 (60-115) mg/dL Random Glucose (60-115) mg/dL Calcium (8.4-10.2) mg/dL Magnesium (1.6-2.6) mg/dL Total Bilirubin (0.0-1.0) mg/dL Direct Bilirubin (0.0-0.5) mg/dL AST (5-37) U/L ALT (0-40) U/L Alkaline Phosphatase (39-117) U/L Total Protein (6.5-8.0) g/dL Albumin (3.5-5.0) g/dL Lipase (8-78) U/L Urine Color Urine Appearance Urine pH (5.0-8.0) Ur Specific [place] (1.005-1.025) Urine Protein (NEG-TRACE) MG/DL Urine Glucose (UA) (NEG) MG/DL Urine Ketones (NEG) MG/DL Urine Blood (NEG) Urine Nitrite (NEG) Ur Leukocyte Esterase (NEG) COVID-19 (CARLOS) Negative (Negative) COVID-19 Clin Com See Note Discharge Plan Discharge Clinical Impression: Abdominal pain Qualifiers: Abdominal location: right lower quadrant Qualified Code(s): R10.31 - Right lower quadrant pain Acute appendicitis Qualifiers: Acute appendicitis type: unspecified acute appendicitis type Qualified Code(s): K35.80 - Unspecified acute appendicitis Patient Disposition: Home, Self-Care Instructions: Abdominal Pain (ED) Additional Instructions: return to ED for any worsening symptoms or concerns Prescriptions: New levofloxacin 500 mg tablet 500 mg PO DAILY 6 Days Qty: 6 RF: 0 metronidazole 500 mg tablet 500 mg PO BID 7 Days Qty: 14 RF: 0 No Action losartan-hydrochlorothiazide 50-12.5 mg tablet 1 tab PO DAILY Qty: 60 RF: 3 diclofenac sodium 50 mg tablet,delayed release (DR/EC) 50 mg PO BID PRN (Reason: pain) 10 Days Qty: 20 RF: 0 hydrocodone-acetaminophen 5-325 mg tablet 1 tab PO Q8H PRN (Reason: pain, severe) 3 Days Qty: 9 RF: 0 lidocaine [Lidoderm] 5 % adhesive patch,medicated 1 patch topical DAILY MDD remove after 12 hours PRN (Reason: pain) Qty: 30 RF: 0 naproxen 500 mg tablet 500 mg PO BID PRN (Reason: pain) 10 Days Qty: 20 RF: 0 cyclobenzaprine 5 mg tablet 5 mg PO Q8H PRN (Reason: pain (scale score 7-10)) 5 Days Qty: 14 RF: 0 doxycycline monohydrate 100 mg capsule 100 mg PO BID Qty: 14 RF: 0 (DME) oxygen-air delivery systems Device See Rx Instructions .ROUTE .MEDSUPPLY Qty: 1 RF: 0 gabapentin 600 mg tablet 600 mg PO BID 90 Days Qty: 180 RF: 0 docusate sodium [Colace] 100 mg capsule 100 mg PO BID 15 Days Qty: 30 RF: 1 hydroxyzine HCl 10 mg tablet 10 mg PO BID PRN (Reason: anxiety ) 10 Days Qty: 20 RF: 1 atorvastatin 40 mg tablet 40 mg PO DAILY 90 Days Qty: 90 RF: 1 duloxetine [Cymbalta] 30 mg capsule,delayed release(DR/EC) 30 mg PO DAILY 30 Days Qty: 30 RF: 3 levothyroxine 100 mcg tablet 100 mcg PO DAILY 30 Days Qty: 30 RF: 2 metformin 500 mg tablet 500 mg PO BID 30 Days Qty: 60 RF: 3 Referrals: Larry Jiménez MD [Physician] - 1 week Stand Alone Forms: Work/School Release Print Language: Cook Islander [facility] Past Medical History Attestation statement: The following information was validated with the patient. Medical History Abdominal pain DM2 (diabetes mellitus, type 2) HLD (hyperlipidemia) HTN (hypertension) HTN (hypertension) Hypothyroid Hypothyroidism Pre-diabetes Sleep apnea with use of continuous positive airway pressure (CPAP) Supraumbilical hernia Umbilical hernia Surgical History History of cholecystectomy History of colonoscopy History of hemorrhoidectomy Hx of endoscopy Family History Family History Mother Diabetes Hypertension Father Diabetes Hypertension Maternal Uncle Cancer Maternal Grandmother Stroke Social History Social History Household Members: Spouse and Children Housing: Apartment Alcohol intake: never Patient Tobacco Use Status: Never used Tobacco e-Cigarette/Vaping Use: Never Used Second Hand Smoke Exposure: No Advance Directives: No service: No Current occupational status: disabled Current occupation: rt handed
[2021-02-19 11:27] LABS: Appearance Urine CLEAR; Color Urine YELLOW; Glucose Urine UA NEG (NEG); Leukocyte Esterase Urine NEG (NEG); Nitrite Urine NEG (NEG); PH 5.5 (5.0-8.0); Specific Gravity - Urine >= 1.030 (1.005-1.025); Urine Blood NEG (NEG); Urine Ketones NEG (NEG); Urine Protein NEG (NEG-TRACE)
[2021-02-19] MEDS: Morphine Sulfate 4 MG/ML CARTRIDGE IVPUSH (12:03)
[2021-02-19] MEDS: ondansetron HCL 4 MG/2 ML VIAL IVPUSH (12:03)
[2021-02-19] MEDS: 0.9 % Sodium Chloride 500 ML IV (12:04)
[2021-02-19 12:08] LABS: MANUAL DIFF FLAG NO
[2021-02-19 12:11] LABS: Basophils Percent Auto 0.5 % (0-2); Eosinophils Percent Auto 0.5 % (0-4); Hematocrit 43.1 % (42.0-52.0); Imm Gran Abs Auto 0.04 X10*3/uL (0.00-0.03); Imm Gran Pct Auto 0.5 % (0.0-0.4); Lymphocytes Absolute Auto 2.2 X10*3/uL (1.2-4.9); Lymphocytes Percent Auto 26.2 % (20-40); Mean Corpuscular HGB Conc 32.5 g/dl (31.0-36.0); Mean Corpuscular Hemoglobin 25.7 pg (27.0-33.0); Mean Corpuscular Volume 79.1 fL (80.0-98.0); Mean Platelet Volume 11.2 fL (9.4-12.4); Monocytes Absolute Auto 0.8 X10*3/uL (0.1-1.2); Monocytes Percent Auto 9.2 % (2-11); Neutrophils Absolute Auto 5.4 x10*3/uL (2.0-8.3); Neutrophils Percent Auto 63.1 % (45-73); Platelet Count 184 X10*3/uL (160-400); Red Blood Count 5.45 X10*6/uL (4.60-5.80); Red Cell Distribution Width 14.7 % (11.0-16.0); White Blood Count 8.6 X10*3/uL (4.8-10.8)
[2021-02-19 12:23] LABS: COVID-19 Test Negative (Negative)
[2021-02-19 12:36] LABS: Glucose, Whole Blood 100 mg/dL (60-115)
[2021-02-19 12:36] LABS: Alanine Aminotransferase 29 U/L (0-40); Albumin Level 3.8 g/dL (3.5-5.0); Alkaline Phosphatase 71 U/L (39-117); Anion Gap 12 (12-20); Aspartate Amino Transferase 18 U/L (5-37); Bilirubin Direct 0.2 mg/dL (0.0-0.5); Bilirubin Total 0.6 mg/dL (0.0-1.0); Blood Urea Nitrogen 12 mg/dL (9-16); Calcium 8.3 mg/dL (8.4-10.2); Carbon Dioxide 23 mmol/L (22-29); Chloride 106 mmol/L (96-108); Creatinine Clr Calc Pharmacy 97.6; Estimated Glomerular Filt Rate > 60; Glucose Random 114 mg/dL (60-115); Lipase 21 U/L (8-78); Potassium 4.1 mmol/L (3.3-5.1); Sodium 137 mmol/L (135-145); Total Protein 6.7 g/dL (6.5-8.0)
[2021-02-19] MEDS: iohexoL 350 MG/ML 100 ML INFUS..BTL IV (13:26)
--- NOTE | 2021-02-19 15:03 | P.CONGS_ITS ---
History of Present Illness Consult details Consult date: 02/19/21 Requesting physician: Kylee Voss Narrative: 50-year-old male patient presenting with complaints of abdominal pain in the right lower quadrant. The pain began yesterday and has persisted in the right lower quadrant. He denies any radiation of the abdominal pain. The pain is associated without nausea or vomiting. He reports a previous history of acute cholecystitis treated in [place] with a week's worth of antibiotics prior to surgery. He apparently had peritonitis associated with the acute cholecystitis. He was fine until yesterday when he began to have the abdominal pain. The pain seems increased with motion. There are no relieving factors. Workup revealed a normal WBC however CT of the abdomen and pelvis revealed a mildly inflamed appendix suggestive of early appendicitis. Review of Systems Constitutional: Constitutional: Denies chills, Denies fever(s), Denies heada dawood(s) and Denies poor appetite ENT: Denies dizziness and Denies headache(s) Cardiovascular: Cardiovascular: Denies chest pain, Denies rapid heart rate, Denies palpitations and Denies slow heart rate Respiratory: Respiratory: Denies chest congestion, Denies cough, Denies pain on inspiration and Denies wheezing Gastrointestinal: Gastrointestinal: Reports abdominal pain, Denies bloating, Denies change in stool character, Denies constipation, Denies diarrhea, Denies nausea, Denies vomiting and Denies hematemesis Musculoskeletal: Musculoskeletal: Denies back pain, Denies arthralgias, Denies joint swelling and Denies numbness Integumentary/Breasts: Skin/Breast: Denies change in pigmentation, Denies erythema and Denies rash Neurologic: Denies dizziness, Denies headache(s) and Denies numbness Psychiatric: Psychiatric: Denies anxiety and Denies depression Endocrine: Endocrine: Denies palpitations Hematologic/Lymphatic: Hematologic/Lymphatic: Denies easy bleeding, Denies easy bruising and Denies lymphadenopathy Allergic/Immunologic: Allergic/Immunologic: Denies wheezing PMFSH Past Medical History Medical History Abdominal pain DM2 (diabetes mellitus, type 2) HLD (hyperlipidemia) HTN (hypertension) HTN (hypertension) Hypothyroid Hypothyroidism Pre-diabetes Sleep apnea with use of continuous positive airway pressure (CPAP) Supraumbilical hernia Umbilical hernia Family History Family History Mother Diabetes Hypertension Father Diabetes Hypertension Maternal Uncle Cancer Maternal Grandmother Stroke Surgical History Surgical History History of cholecystectomy History of colonoscopy History of hemorrhoidectomy Hx of endoscopy Social History Social History Household Members: Spouse and Children Housing: Apartment Alcohol intake: never Patient Tobacco Use Status: Never used Tobacco e-Cigarette/Vaping Use: Never Used Second Hand Smoke Exposure: No Advance Directives: No service: No Current occupational status: disabled Current occupation: rt handed Meds Allergies Allergy/AdvReac Type Severity Reaction Status Date / Time Penicillins Allergy Unknown Rash Verified 02/19/21 09:04 Active Medications: Current Medications Pharmacy Consult (Consult Rx Perform Med Rec) 1 each MISCELLANE ONCE PRN PRN Reason: Consult order Home Medications Medication Instructions Recorded Confirmed Last Taken Type oxygen-air delivery systems #1 01/10/20 02/18/21 11/14/20 History Physical Exam Vital Signs: Vital Signs: Last Vital Signs Temp 98.1 F 02/19/21 09:04 Pulse 84 02/19/21 09:04 Resp 18 02/19/21 09:04 BP 137/71 02/19/21 09:04 Pulse Ox 96 02/19/21 09:04 Body Mass Index 46.5 Const: General: comfortable and no acute distress Nutritional Appearance: well nourished Orientation/consciousness: patient oriented x3 Limitations: no limitations HENMT: Head: Yes normocephalic and Yes atraumatic Ears: hearing grossly normal bilaterally Resp: Effort & Inspection: normal respiratory effort, no audible wheezes, no cough and no respiratory distress GI: Inspection: Yes normal to inspection Palpation (GI): Soft to palpation, Tenderness to palpation present (GI) in the RLQ, no guarding, not rigid and No Rebound tenderness present Percussion: Yes normal to percussion A uscultation: normal bowel sounds Rectal Exam - Male: Yes deferred Skin: General skin exam: no rashes or lesions noted Trauma: no lacerations or abrasions Neuro: General: patient oriented x3 Extrem: General: Yes no clubbing, cyanosis or edema Results Labs Result diagrams: 11/23/21 11:59 02/19/21 11:59 Labs: Abnormal lab results 02/19/21 02/19/21 02/19/21 Range/Units 11:22 11:59 11:59 MCV 79.1 L (80.0-98.0) fL MCH 25.7 L (27.0-33.0) pg Immature Gran % (Auto) 0.5 H (0.0-0.4) % Abs Immat Gran (auto) 0.04 H (0.00-0.03) X10*3/uL Calcium 8.3 L D (8.4-10.2) mg/dL Ur Specific [place] >= 1.030 H (1.005-1.025) Short CBC 02/19/21 Range/Units 11:59 WBC 8.6 (4.8-10.8) X10*3/uL Hgb 14.0 (14.0-18.0) g/dl Hct 43.1 (42.0-52.0) % Plt Count 184 (160-400) X10*3/uL BMP 02/19/21 11:59 Sodium 137 Potassium 4.1 Chloride 106 Carbon Dioxide 23 BUN 12 Creatinine 1.11 Calcium 8.3 L D Liver Function 02/19/21 Range/Units 11:59 Total Bilirubin 0.6 (0.0-1.0) mg/dL Direct Bilirubin 0.2 (0.0-0.5) mg/dL AST 18 (5-37) U/L ALT 29 (0-40) U/L Alkaline Phosphatase 71 (39-117) U/L Albumin 3.8 (3.5-5.0) g/dL Urine 02/19/21 Range/Units 11:22 Urine Color YELLOW Urine Appearance CLEAR Urine pH 5.5 (5.0-8.0) Ur Specific [place] >= 1.030 H (1.005-1.025) Urine Protein NEG (NEG-TRACE) MG/DL Urine Glucose (UA) NEG (NEG) MG/DL All other labs normal. Imaging Abdomen CT scan report/results: image reviewed CT scan - pelvis: image reviewed Assessment and Plan (1) Acute appendicitis: Qualifiers: Acute appendicitis type: unspecified acute appendicitis type Qualified Code(s): K35.80 - Unspecified acute appendicitis Status: Acute 50-year-old male patient presenting with complaints of abdominal pain in the right lower quadrant found to have early appendicitis. The patient is concerned about his 2 daughters at home by themselves and would like to be discharged home. We discussed non operative management of appendicitis including intravenous antibiotics verses surgery (appendectomy). After discussion of the procedure risks and alternatives the patient wishes to try antibiotics. Would like to be discharged home if possible. I suggested receiving dose of antibiotics now and then starting oral antibiotics. He should follow up my office in approximately 1 week. Procedures Date of Service Date of Service: 02/19/21
[2021-02-19] MEDS: levoFLOXacin 500 MG TABLET PO (15:24)
[2021-02-19] MEDS: metroNIDAZOLE 500 MG TABLET PO (15:24)
== END 2021-02-19 15:27 | disposition home or self-care (01) ==
PROVIDERS: Emergency Provider Emergency Medicine; PCP Physician Assistant
DX: K35.80 Unspecified acute appendicitis (principal); R10.31 Right lower quadrant pain; Z79.899 Other long term (current) drug therapy; Z20.822 Contact with and (suspected) exposure to COVID-19
CPT/HCPCS: 36415; 74177; 80048; 80076; 81003; 82947; 83690; 83735; 85025; 87635; 96361; 96374; 96375; 99284; J2270; J2405; Q9967

== ENCOUNTER → 2021-02-28 13:02 | Outpatient (BNVA) | payer MEDICARE, OTHER, SELFPAY | PROVIDERS: PCP Physician Assistant; Visit Provider Physician Assistant | DX: M19.011 Primary osteoarthritis, right shoulder (principal) | CPT/HCPCS: 20605; 99212; J1100 ==

== ENCOUNTER → 2021-04-02 12:50 | Outpatient (BNVA) | payer MEDICARE, SELFPAY | PROVIDERS: PCP Physician Assistant; Visit Provider Nurse Practitioner Family | DX: M47.26 Other spondylosis with radiculopathy, lumbar region (principal) | CPT/HCPCS: 99202 ==

== ENCOUNTER → 2021-06-04 15:20 | Outpatient (BNVA) | payer MEDICARE, SELFPAY | PROVIDERS: PCP Physician Assistant; Visit Provider Physician Assistant | DX: M25.511 Pain in right shoulder (principal); M67.911 Unspecified disorder of synovium and tendon, right shoulder; M75.101 Unspecified rotator cuff tear or rupture of right shoulder, not specified as traumatic; E11.9 Type 2 diabetes mellitus without complications; I10 Essential (primary) hypertension; E03.9 Hypothyroidism, unspecified; E78.5 Hyperlipidemia, unspecified; G47.33 Obstructive sleep apnea (adult) (pediatric); Z88.0 Allergy status to penicillin; Z99.89 Dependence on other enabling machines and devices | CPT/HCPCS: 99212 ==

== ENCOUNTER 2021-07-03 06:23 | Outpatient (REF) | payer MEDICARE, OTHER, SELFPAY | END 2021-07-03 06:24 | disposition home or self-care (01) | LOC: HO.RADIR 06:23 | PROVIDERS: Visit Provider Internal Medicine | DX: Z13.89 Encounter for screening for other disorder (principal) ==

== ENCOUNTER 2021-07-10 18:39 | Emergency (ER) | payer OTHER, MEDICARE, SELFPAY ==
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
--- NOTE | 2021-07-10 20:02 | PC.NURSE ---
no response to triage call at this time
[2021-07-10 20:53] VITALS: BP 153/100; PULSE 77; RESP 18; TEMP 36.3; O2SAT 98; BMI 41.8
[2021-07-11 01:47] VITALS: BP 147/90; PULSE 77; RESP 20; O2SAT 95
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
[2021-07-11] MEDS: Lidocaine 4 % Patch ADH..PATCH 1 PATCH TRANSDERMA (01:56)
[2021-07-11] MEDS: Acetaminophen 325 MG TABLET 975 MG PO (01:56)
[2021-07-11] MEDS: Ketorolac Tromethamine 15 MG/ML VIAL IM (01:58)
[2021-07-11 02:35] VITALS: BP 128/76; PULSE 69; RESP 18; O2SAT 97
== END 2021-07-11 03:51 | disposition home or self-care (01) ==
PROVIDERS: Emergency Provider Student in an Organized Health Care Education/Training Program; PCP Physician Assistant
DX: Z04.1 Encounter for examination and observation following transport accident (principal); M54.2 Cervicalgia; M25.512 Pain in left shoulder; M25.511 Pain in right shoulder
CPT/HCPCS: 71046; 93005; 96372; 99283; 99284; 99285; J1885

== ENCOUNTER 2021-08-15 09:00 | Outpatient (RCR) | payer MEDICARE, OTHER, SELFPAY ==
--- NOTE | 2021-06-13 17:23 | MHC.PT.EP ---
[facility] [place] Office [place] Office [place] Office [address] [phone] F: [phone] F: [phone] F: [phone] F: [phone] Physical Therapy Plan of Care Date of Evaluation: Date of Surgery: Diagnosis: tendonopathy of R shoulder Assessment: Pt is a 51 y/o RHD male referred to PT for tendonopathy of R shoulder who presents with signs and sx consistent with R shoulder dysfunction resulting in decreased tolerance and ability to perform reaching a high shelf, dressing pullovers, reaching neck and back for hygiene/ dressing and carrying objects of weight as well as disturbed sleep secondary to decreased UE strength and ROM, decreased posture, increased tissue tension, TTP of anterior R shoulder, and pain. Pt is deemed an appropriate candidate to receive skilled PT in order to address his physical limitations to improve his functional ability. Frequency and Duration: The patient will be seen 2 x / wk x 6 wks. Short Term Goals: Initiate HEP with evidence of complkiance. Fpc Goals: I with HEP. Treatment Plan: Modalities to reduce pain, spasms and effusion. Manual therapy to restore motion and function. Therapeutic exercise to improve strength and flexibility. Neuromuscular re-education for posture and balance. Therapeutic activities to return to functional activities of daily living. Electronically signed by: Eudardo Miramontes PT, DPT. Please sign and return to therapist. Thank you for your referral.
--- NOTE | 2021-08-15 09:54 | MHC.PT.DC ---
[facility] [place] Office [place] Office [place] Office [address] [phone] F: [phone] F: [phone] F: [phone] F: [phone] Physical Therapy Discharge Report Diagnosis: tendonopathy of R shoulder Date of Surgery: Date of Evaluation: 06/13/21 Date of Discharge: 08/15/21 Treatments to Date: 14 Cancellations to Date: No Shows to Date: Discharge Status: Improved Function Independent with HEP Recommend MD Follow-up Discharge Summary: Juan has been an active participant in his therapy in the clinic with noted home program compliance who reports continued shoulder pain and though improved persists with limited ROM globally. He is DC'd to his home program which he demonstrates independence and is recommended to f/u with his MD. SPADI outcome measure improved from 120/130 to 95/130. Electronically signed by: Eduardo Miramontes PT. Please sign and return to therapist. Thank you for your referral.
== END 2021-08-15 09:54 | disposition home or self-care (01) ==
LOC: HO.PTCHIC 09:00
PROVIDERS: PCP Physician Assistant; Visit Provider Physician Assistant
DX: M67.911 Unspecified disorder of synovium and tendon, right shoulder (principal)
CPT/HCPCS: 97014; 97110; 97140; 97161

== ENCOUNTER 2021-08-21 08:18 | Emergency (ER) | payer MEDICARE, OTHER, SELFPAY ==
--- NOTE | ~2021-08-21 | CT_ITS ---
EXAMINATION: CT ABDOMEN AND PELVIS WITHOUT CONTRAST CLINICAL INFORMATION: Right-sided abdominal pain COMPARISON: Previous CT of the abdomen and pelvis January 2021 TECHNIQUE: Multidetector volumetric imaging was performed from the superior aspect of the liver through the pubic symphysis. Sagittal and coronal reformatted images were obtained on the technologist's workstation. This CT examination was performed using dose optimization techniques as appropriate, variously including the following: *Automated exposure control *Adjustment of mA and/or kV according to patient size (this includes techniques or standardized protocols for targeted exams where dose is matched to indication/reason for exam; i.e. extremities or head) *Use of iterative reconstruction technique DLP: 1000 mGy-cm FINDINGS: LUNG BASES: The visualized lung bases are unremarkable. LIVER, GALLBLADDER, AND BILIARY TREE: The liver is low in attenuation suggestive of fatty infiltration. The gallbladder is been removed. No focal liver lesion or biliary duct dilatation. PANCREAS: Unremarkable. SPLEEN: Unremarkable ADRENAL GLANDS: Stable 1 cm right adrenal lesion. Normal left adrenal gland. KIDNEYS AND URETERS: The kidneys are normal in size, shape, and attenuation. No hydronephrosis, hydroureter, or calculi seen. No perinephric stranding. BLADDER: Not optimally distended but appears unremarkable. GASTROINTESTINAL TRACT: The small and large bowel are unremarkable. The appendix is unremarkable. ABDOMINAL WALL: There is a large umbilical hernia containing fat. There is evidence of previous right lateral abdominal wall or spigelian hernia repair. LYMPH NODES: Normal. VASCULAR: Unremarkable. PELVIC VISCERA: Prostate gland is slightly enlarged measuring 4 x 5.4 cm in AP and transverse dimension. OSSEOUS STRUCTURES: There are degenerative changes of the spine and hip joints. CT/CT abdomen pelvis wo con IMPRESSION: Fatty liver. Large umbilical hernia containing fat. Fleischner guidelines were followed.
[2021-08-21 08:26] VITALS: BP 124/79; PULSE 105; RESP 20; TEMP 36.3; O2SAT 96; BMI 46.5
--- NOTE | 2021-08-21 08:30 | ECG_ITS ---
Test Reason : dizziness Blood Pressure : / mmHG Vent. Rate : 104 BPM Atrial Rate : 104 BPM P-R Int : 126 ms QRS Dur : 074 ms QT Int : 330 ms P-R-T Axes : 021 035 024 degrees QTc Int : 433 ms Sinus tachycardia Low voltage QRS Borderline ECG When compared with ECG of 10-JUL-2021 21:35, No significant change was found Referred By: Generic ED Physician Electronically Signed By:Rodger Covington
[2021-08-21 08:43] LABS: MANUAL DIFF FLAG NO
[2021-08-21 08:44] LABS: Basophils Percent Auto 0.5 % (0-2); Eosinophils Percent Auto 0.4 % (0-4); Hematocrit 45.9 % (42.0-52.0); Imm Gran Abs Auto 0.01 X10*3/uL (0.00-0.03); Imm Gran Pct Auto 0.1 % (0.0-0.4); Lymphocytes Percent Auto 11.8 % (20-40); Mean Corpuscular HGB Conc 32.7 g/dl (31.0-36.0); Mean Corpuscular Hemoglobin 25.8 pg (27.0-33.0); Mean Corpuscular Volume 78.9 fL (80.0-98.0); Mean Platelet Volume 11.5 fL (9.4-12.4); Monocytes Absolute Auto 0.8 X10*3/uL (0.1-1.2); Monocytes Percent Auto 10.1 % (2-11); Neutrophils Absolute Auto 6.3 x10*3/uL (2.0-8.3); Neutrophils Percent Auto 77.1 % (45-73); Platelet Count 151 X10*3/uL (160-400); Red Blood Count 5.82 X10*6/uL (4.60-5.80); Red Cell Distribution Width 14.6 % (11.0-16.0); White Blood Count 8.2 X10*3/uL (4.8-10.8)
[2021-08-21 09:12] LABS: Appearance Urine CLEAR; Color Urine YELLOW; Glucose Urine UA NEG (NEG); Leukocyte Esterase Urine NEG (NEG); Nitrite Urine NEG (NEG); PH 5.5 (5.0-8.0); Specific Gravity - Urine >= 1.030 (1.005-1.025); Urine Blood NEG (NEG); Urine Ketones 5 MG/DL (NEG); Urine Protein NEG (NEG-TRACE)
[2021-08-21 09:13] LABS: Alanine Aminotransferase 36 U/L (0-40); Albumin Level 3.9 g/dL (3.5-5.0); Alkaline Phosphatase 88 U/L (39-117); Anion Gap 13 (12-20); Aspartate Amino Transferase 17 U/L (5-37); Bilirubin Total 0.7 mg/dL (0.0-1.0); Blood Urea Nitrogen 18 mg/dL (9-16); Carbon Dioxide 23 mmol/L (22-29); Chloride 108 mmol/L (96-108); Creatinine Clr Calc Pharmacy 73.9; Estimated Glomerular Filt Rate 51; Glucose Random 140 mg/dL (60-115); Potassium 4.6 mmol/L (3.3-5.1); Sodium 139 mmol/L (135-145); Total Protein 7.1 g/dL (6.5-8.0)
[2021-08-21] MEDS: 0.9 % Sodium Chloride 1,000 ML 999 ML IV (11:04)
[2021-08-21] MEDS: Morphine Sulfate 4 MG/ML CARTRIDGE IVPUSH (11:05)
[2021-08-21] MEDS: ondansetron HCL 4 MG/2 ML VIAL IVPUSH (11:05)
[2021-08-21 11:06] VITALS: BP 121/75; PULSE 91; RESP 18; O2SAT 98
--- NOTE | 2021-08-21 11:23 | ED.GENADULT ---
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 Patient reports last night feeling right upper quadrant abdominal pain radiating to the right back/ flank, and that at 03:00 this morning he woke up from sleep feeling very nauseous and vomited. Was febrile at that time. Intermittent dizziness. Patient reports that he has had his gallbladder removed and has had to hernias to the right upper abdomen that have required surgical repair. States that this pain does not feel similar to prior hernias, does not believe he has felt any bulge. Prior to this morning he reports that he has been feeling well. Denies any known sick contacts. Denies upper respiratory symptoms, chest pain, palpitations, shortness of breath, dyspnea on exertion, lower abdominal pain, diarrhea, constipation, bloody or dark stools, dysuria, urinary frequency, urinary retention, hematuria, pedal edema, lower extremity pain or swelling Onset (ago): day(s) Location: abdomen Radiation: flank Severity: moderate Severity scale (1-10): 7 Pain Consistency: intermittent Relieving factors: none Exacerbating factors: none Related Data Home Medications Medication Instructions Recorded Confirmed oxygen-air delivery systems #1 01/10/20 06/05/21 sertraline 50 mg tablet 50 mg PO DAILY 04/23/21 06/05/21 Previous Rx's Medication Instructions Recorded atorvastatin 40 mg tablet 40 mg PO DAILY 90 Days #90 tab 04/02/21 duloxetine 30 mg capsule,delayed 30 mg PO DAILY 90 Days #90 cap 04/02/21 release (Cymbalta) gabapentin 600 mg tablet 600 mg PO BID 90 Days #180 tab 04/02/21 lidocaine 5 % topical patch 1 patch TOPICAL DAILY PRN #30 ea 04/02/21 (Lidoderm) MDD remove after 12 hours acetaminophen 300 mg-codeine 30 mg 1 tab PO Q8H PRN 4 Days #12 tab 04/23/21 tablet docusate sodium 100 mg capsule 100 mg PO BID 15 Days #30 cap 04/23/21 (Colace) polyethylene glycol 3350 17 gram 17 g PO DAILY 30 Days #30 ea 04/23/21 oral powder packet (Miralax) diclofenac sodium 75 mg 75 mg PO BID 30 Days #60 tab 06/05/21 tablet,delayed release losartan 50 mg-hydrochlorothiazide 1 tab PO DAILY 90 Days #90 tab 06/19/21 12.5 mg tablet metformin 1,000 mg tablet 1,000 mg PO BID 90 Days #180 tab 06/19/21 levothyroxine 100 mcg tablet 100 mcg PO DAILY 90 Days #90 tab 07/10/21 topiramate 25 mg tablet (Topamax) 25 mg PO DAILY #30 tab 07/11/21 ondansetron 4 mg disintegrating 4 mg PO Q8H PRN #7 tab 08/21/21 tablet Allergies Allergy/AdvReac Type Severity Reaction Status Date / Time Penicillins Allergy Unknown Rash Verified 07/10/21 20:58 Review of Systems Review of Systems: Constitutional : No Weight loss, No Fever, No Chills ENT/Mouth :? No sore throat, No Rhinorrhea Eyes: No Swelling, No Redness Cardiovascular : No Chest Pain, No SOB, No Edema Respiratory : No Cough, No Sputum, No Wheezing Gastrointestinal : Positive Nausea, Positive Vomiting, no Diarrhea, positive abdominal pain, No Hematochezia, No Melena Genitourinary : No Dysuria, No Urinary Frequency, No Hematuria, No Urgency? Musculoskeletal : No joint pain, No Myalgias, No Joint Swelling Skin : No Skin Lesions, No rash Neuro : No Weakness, No Numbness, No Dizziness, No Headache Psych : No Anxiety/Panic, No Depression Heme/Lymph: No Bruising, No Lymphadenopathy Endocrine : No Polyuria, No Polydipsia Yes all other systems are reviewed and are negative [facility], [facility] Past Medical History Attestation statement: The following information was validated with the patient. Source: old records reviewed Medical History Abdominal pain DM2 (diabetes mellitus, type 2) HLD (hyperlipidemia) HTN (hypertension) Hx of appendicitis Hypothyroidism Pre-diabetes Sleep apnea with use of continuous positive airway pressure (CPAP) Supraumbilical hernia Umbilical hernia Surgical History History of cholecystectomy History of colonoscopy History of hemorrhoidectomy Hx of endoscopy Family History Family History Mother Diabetes Hypertension Father Diabetes Hypertension Maternal Uncle Cancer Maternal Grandmother Stroke Social History Social History Household Members: Spouse and Children Housing: Apartment Alcohol intake: never Patient Tobacco Use Status: Never used Tobacco e-Cigarette/Vaping Use: Never Used Second Hand Smoke Exposure: No Use of substances other than those prescribed or required for medical reasons: No Advance Directives: No Advance Directives Information Provided: No service: No Current occupational status: disabled Current occupation: rt handed Physical Exam ED Vital Signs: Vital Signs - 24 hr 08/21/21 08:26 08/21/21 11:06 08/21/21 14:27 Temperature 97.4 F 98.8 F Pulse Rate 105 H 91 83 Respiratory Rate 20 18 14 Blood Pressure 124/79 121/75 95/52 L Pulse Oximetry 96 98 97 BMI result Body Mass Index 46.5 Vital signs have been reviewed as normal and appeared to be correct. Blood pressure normal.? Heart rate normal.? Respiration rate normal. Temperature normal.? Oxygen saturation normal. Appearance: Alert.?Oriented to person, place and time. No acute distress.?Normal affect. Eyes: Pupils equal, round and reactive to light.? ENT: Pharynx normal.?? Neck: Normal inspection.? Neck supple.?? CVS: Heart sounds normal. Normal heart rate and rhythm.? Pulses normal.?? Respiratory: No respiratory distress.? Lung sounds clear to auscultation bilaterally?? Abdomen: Soft and non-tender. no rigidity. No guarding. Normoactive bowel sounds. No pulsatile mass.?? Skin: Skin warm and dry.? Normal skin color.? Extremities: No lower extremity edema.? Neuro: Moves all extremities spontaneously. Sensation intact bilaterally. CN II-XII intact. No focal neuro deficits. Ambulates with normal steady gait. Course Course Course Narrative: Patient is a 51-year-old male with past medical history of obesity, type 2 diabetes, hypertension, sleep apnea on CPAP, hyperlipidemia, hypothyroidism, history of appendectomy, history of cholecystectomy presenting for evaluation of sudden onset of right upper abdominal pain radiating to the right back/ flank with associated nausea and vomiting this morning and tactile fever. He began to feel dizzy earlier while at home therefore he contacted his significant other at work and was brought to the emergency department. Abdominal exam is benign. No upper respiratory symptoms, shortness of breath or difficulty breathing, no hypoxia or tachypnea and lung sounds are clear. Patient declines having COVID- 19 or influenza testing. He is overall well-appearing, hemodynamically stable. Will obtain CBC to evaluate for leukocytosis/ anemia, CMP to evaluate for abnormal electrolytes /abnormal renal function/ abnormal hepatic function, Chest x-ray to evaluate for consolidation/ infiltrate/ mass/ pulmonary congestion. Urinalysis to evaluate for infection Reevaluation(s) Reevaluation #1: CBC is overall unremarkable. Noted to have NACHO BUN 18, creatinine 1.45, transaminases normal, Patient received 1 L normal saline IV fluids, will repeat BMP. Urinalysis without sign of infection microscopic hematuria. CT Reveals a fatty liver, no biliary duct dilation, no hydronephrosis or renal calculi seen, and a large umbilical hernia containing fat. prior CT from January 2021 reveals a small umbilical hernia containing fat as well. Patient received normal saline 1 L IV fluids, Zofran 4 mg IV, morphine 4 mg IV. At this time is without any abdominal pain. He is requesting to be discharged. Time: 11:56 Reevaluation #2: Repeat BMP is normal, BUN creatinine 16 and 1.2 for more consistent with baseline labs. Discussed findings with patient, advised outpatient follow-up with primary care provider within 1-2 days, discussed reasons that he should return back to the emergency department, all questions were answered, he was discharged home in stable condition. Time: 14:30 Medical Decision Making Medical Records Medical records reviewed: Yes I reviewed the patient's medical records. Lab Data Lab results reviewed: Yes I reviewed the patient's lab results. Result diagrams: 08/21/21 08:37 08/21/21 13:47 Labs: Lab Results 08/21/21 08/21/21 08/21/21 Range/Units 08:37 08:37 09:03 WBC 8.2 (4.8-10.8) X10*3/uL RBC 5.82 H (4.60-5.80) X10*6/uL Hgb 15.0 (14.0-18.0) g/dl Hct 45.9 (42.0-52.0) % MCV 78.9 L (80.0-98.0) fL MCH 25.8 L (27.0-33.0) pg MCHC 32.7 (31.0-36.0) g/dl RDW 14.6 (11.0-16.0) % Plt Count 151 L (160-400) X10*3/uL MPV 11.5 (9.4-12.4) fL Immature Gran % (Auto) 0.1 (0.0-0.4) % Neut % (Auto) 77.1 H (45-73) % Lymph % (Auto) 11.8 L (20-40) % [place] % (Auto) 10.1 (2-11) % Eos % (Auto) 0.4 (0-4) % Baso % (Auto) 0.5 (0-2) % Lymph # (Auto) 1.0 L (1.2-4.9) X10*3/uL [place] # (Auto) 0.8 (0.1-1.2) X10*3/uL Eos # (Auto) 0.0 (0.0-0.4) X10*3/uL Baso # (Auto) 0.0 (0.0-0.2) X10*3/uL Abs Immat Gran (auto) 0.01 (0.00-0.03) X10*3/uL Absolute Neuts (auto) 6.3 (2.0-8.3) x10*3/uL Absolute Nucleated RBC 0.000 (0.0-0.012) X10*3/uL Nucleated RBC % (auto) 0.0 (0.0-0.2) /100WBC Sodium 139 (135-145) mmol/L Potassium 4.6 (3.3-5.1) mmol/L Chloride 108 (96-108) mmol/L Carbon Dioxide 23 (22-29) mmol/L Anion Gap 13 (12-20) BUN 18 H (9-16) mg/dL Creatinine 1.45 H (0.5-1.4) mg/dL Estim Creat Clear Calc 73.9 Estimated GFR 51 Random Glucose 140 H (60-115) mg/dL Calcium 9.0 D (8.4-10.2) mg/dL Total Bilirubin 0.7 (0.0-1.0) mg/dL AST 17 (5-37) U/L ALT 36 (0-40) U/L Alkaline Phosphatase 88 D (39-117) U/L Total Protein 7.1 (6.5-8.0) g/dL Albumin 3.9 (3.5-5.0) g/dL Urine Color YELLOW Urine Appearance CLEAR Urine pH 5.5 (5.0-8.0) Ur Specific [place] >= 1.030 H (1.005-1.025) Urine Protein NEG (NEG-TRACE) MG/DL Urine Glucose (UA) NEG (NEG) MG/DL Urine Ketones 5 (NEG) MG/DL Urine Blood NEG (NEG) Urine Nitrite NEG (NEG) Ur Leukocyte Esterase NEG (NEG) 08/21/21 Range/Units 13:47 WBC (4.8-10.8) X10*3/uL RBC (4.60-5.80) X10*6/uL Hgb (14.0-18.0) g/dl Hct (42.0-52.0) % MCV (80.0-98.0) fL MCH (27.0-33.0) pg MCHC (31.0-36.0) g/dl RDW (11.0-16.0) % Plt Count (160-400) X10*3/uL MPV (9.4-12.4) fL Immature Gran % (Auto) (0.0-0.4) % Neut % (Auto) (45-73) % Lymph % (Auto) (20-40) % [place] % (Auto) (2-11) % Eos % (Auto) (0-4) % Baso % (Auto) (0-2) % Lymph # (Auto) (1.2-4.9) X10*3/uL [place] # (Auto) (0.1-1.2) X10*3/uL Eos # (Auto) (0.0-0.4) X10*3/uL Baso # (Auto) (0.0-0.2) X10*3/uL Abs Immat Gran (auto) (0.00-0.03) X10*3/uL Absolute Neuts (auto) (2.0-8.3) x10*3/uL Absolute Nucleated RBC (0.0-0.012) X10*3/uL Nucleated RBC % (auto) (0.0-0.2) /100WBC Sodium 140 (135-145) mmol/L Potassium 4.1 (3.3-5.1) mmol/L Chloride 112 H (96-108) mmol/L Carbon Dioxide 22 (22-29) mmol/L Anion Gap 10 L (12-20) BUN 16 (9-16) mg/dL Creatinine 1.24 (0.5-1.4) mg/dL Estim Creat Clear Calc 86.4 Estimated GFR > 60 Random Glucose 93 (60-115) mg/dL Calcium 7.9 L D (8.4-10.2) mg/dL Total Bilirubin (0.0-1.0) mg/dL AST (5-37) U/L ALT (0-40) U/L Alkaline Phosphatase (39-117) U/L Total Protein (6.5-8.0) g/dL Albumin (3.5-5.0) g/dL Urine Color Urine Appearance Urine pH (5.0-8.0) Ur Specific [place] (1.005-1.025) Urine Protein (NEG-TRACE) MG/DL Urine Glucose (UA) (NEG) MG/DL Urine Ketones (NEG) MG/DL Urine Blood (NEG) Urine Nitrite (NEG) Ur Leukocyte Esterase (NEG) Imaging Data CT scan - abdomen: Radiologist's impression: FINDINGS: LUNG BASES: The visualized lung bases are unremarkable.? LIVER, GALLBLADDER, AND BILIARY TREE: The liver is low in attenuation suggestive of fatty infiltration. The gallbladder is been removed. No focal liver lesion or biliary duct dilatation. PANCREAS: Unremarkable.? SPLEEN: Unremarkable? ADRENAL GLANDS: Stable 1 cm right adrenal lesion. Normal left adrenal gland. KIDNEYS AND URETERS: The kidneys are normal in size, shape, and attenuation. No hydronephrosis, hydroureter, or calculi seen. No perinephric stranding. ? BLADDER: Not optimally distended but appears unremarkable.? GASTROINTESTINAL TRACT: The small and large bowel are unremarkable. The appendix is unremarkable.? ABDOMINAL WALL: There is a large umbilical hernia containing fat. There is evidence of previous right lateral abdominal wall or spigelian hernia repair.? LYMPH NODES: Normal. VASCULAR: Unremarkable. PELVIC VISCERA: Prostate gland is slightly enlarged measuring 4 x 5.4 cm in AP and transverse dimension. OSSEOUS STRUCTURES: There are degenerative changes of the spine and hip joints.? CT/CT abdomen pelvis wo con IMPRESSION: Fatty liver. Large umbilical hernia containing fat.? Discharge Plan Discharge Clinical Impression: Abdominal pain Patient Disposition: Home, Self-Care Instructions: Abdominal Pain (ED) Additional Instructions: you had a CT scan of your abdomen today which was normal. Your urine does not show any sign of infection. Given given a new prescription for Zofran to use as needed for nausea. Please contact your primary care provider to schedule a follow-up visit within 1-2 days regarding pain. Return to the emergency department any new or worsening symptoms or concerns. usted tuvo roxy tomograf?a computarizada de dunn abdomen hoy que fue normal. Dunn orina no muestra krystyna?n signo de infecci?n. Se le parisa roxy nueva receta para que Zofran la use seg?n sea necesario para las n?useas. Comun?quese con dunn proveedor de atenci?n primaria para programar roxy visita de seguimiento dentro de 1 a 2 d?as con respecto al dolor. Devuelva al departamento de emergencias cualquier s?ntoma o inquietud nueva o que empeore. Prescriptions: New ondansetron 4 mg tablet,disintegrating 4 mg PO Q8H PRN (Reason: nausea and vomiting) Qty: 7 0RF No Action atorvastatin 40 mg tablet 40 mg PO DAILY 90 Days Qty: 90 1RF duloxetine [Cymbalta] 30 mg capsule,delayed release(DR/EC) 30 mg PO DAILY 90 Days Qty: 90 1RF gabapentin 600 mg tablet 600 mg PO BID 90 Days Qty: 180 1RF lidocaine [Lidoderm] 5 % adhesive patch,medicated 1 patch topical DAILY MDD remove after 12 hours PRN (Reason: pain) Qty: 30 0RF Rx Instructions: leave on most painful area for up to 12 hrs losartan-hydrochlorothiazide 50-12.5 mg tablet 1 tab PO DAILY 90 Days Qty: 90 1RF metformin 1,000 mg tablet 1,000 mg PO BID 90 Days Qty: 180 1RF levothyroxine 100 mcg tablet 100 mcg PO DAILY 90 Days Qty: 90 1RF topiramate [Topamax] 25 mg tablet 25 mg PO DAILY Qty: 30 3RF (DME) oxygen-air delivery systems Device See Rx Instructions .ROUTE .MEDSUPPLY Qty: 1 0RF Rx Instructions: As directed sertraline 50 mg tablet 50 mg PO DAILY 0RF acetaminophen-codeine 300-30 mg tablet 1 tab PO Q8H PRN (Reason: pain) 4 Days Qty: 12 0RF docusate sodium [Colace] 100 mg capsule 100 mg PO BID 15 Days Qty: 30 1RF polyethylene glycol 3350 [Miralax] 17 gram powder in packet 17 g PO DAILY 30 Days Qty: 30 0RF diclofenac sodium 75 mg tablet,delayed release (DR/EC) 75 mg PO BID 30 Days Qty: 60 0RF Referrals: Gurdeep Bruce PA-C [Primary Care Provider] - 2 days Interventions: ED Discharge Assessment Last Done: 08/21/21 15:12 Discharge Date/Time: 08/21/21 15:13 Print Language: Maori
[2021-08-21 14:16] LABS: Anion Gap 10 (12-20); Blood Urea Nitrogen 16 mg/dL (9-16); Calcium 7.9 mg/dL (8.4-10.2); Carbon Dioxide 22 mmol/L (22-29); Chloride 112 mmol/L (96-108); Creatinine Clr Calc Pharmacy 86.4; Estimated Glomerular Filt Rate > 60; Glucose Random 93 mg/dL (60-115); Potassium 4.1 mmol/L (3.3-5.1); Sodium 140 mmol/L (135-145)
[2021-08-21 14:27] VITALS: BP 95/52; PULSE 83; RESP 14; TEMP 37.1; O2SAT 97
--- NOTE | 2021-08-21 15:10 | PC.NURSE ---
call brother carlos @ [phone]
== END 2021-08-21 15:13 | disposition home or self-care (01) ==
PROVIDERS: Nurse Practitioner Family; Emergency Provider Emergency Medicine Emergency Medical Services; PCP Physician Assistant
DX: R10.11 Right upper quadrant pain (principal); R42 Dizziness and giddiness; R11.2 Nausea with vomiting, unspecified; R50.9 Fever, unspecified; M54.50 Low back pain, unspecified; Z79.899 Other long term (current) drug therapy
CPT/HCPCS: 36415; 74176; 80048; 80053; 81003; 85025; 93005; 96361; 96374; 96375; 99284; J2270; J2405

== ENCOUNTER 2021-09-16 11:19 | Outpatient (REF) | payer MEDICARE, OTHER, SELFPAY ==
[2021-09-16 12:40] LABS: Alanine Aminotransferase 20 U/L (0-40); Albumin Level 4.1 g/dL (3.5-5.0); Alkaline Phosphatase 84 U/L (39-117); Anion Gap 11 (12-20); Aspartate Amino Transferase 14 U/L (5-37); Bilirubin Total 0.6 mg/dL (0.0-1.0); Blood Urea Nitrogen 25 mg/dL (9-16); Calcium 8.8 mg/dL (8.4-10.2); Carbon Dioxide 25 mmol/L (22-29); Chloride 109 mmol/L (96-108); Cholesterol 161 mg/dL; Estimated Glomerular Filt Rate 45; Glucose Fasting 123 mg/dL (60-99); HDL Cholesterol 23 mg/dL; Potassium 4.5 mmol/L (3.3-5.1); Sodium 140 mmol/L (135-145); Total Protein 7.1 g/dL (6.5-8.0); Triglycerides 416 mg/dL
[2021-09-16 12:51] LABS: Prostate Specific Antigen Scr 1.56 ng/mL (<0.05-4.0); TSH reflex Free T4 6.27 uIU/mL (0.32-4.0)
[2021-09-16 12:58] LABS: Creatinine Urine 194.96 mg/dL; Microalbum/Creatinine Ratio Ur 2.5 ug/mg cr
[2021-09-16 13:52] LABS: Free T4 (Free Thyroxine) 0.85 ng/dL (0.71-1.85)
== END 2021-09-16 11:20 | disposition home or self-care (01) ==
LOC: HO.LAB 11:19
PROVIDERS: PCP Physician Assistant; Visit Provider Physician Assistant
DX: Z12.5 Encounter for screening for malignant neoplasm of prostate (principal); E11.9 Type 2 diabetes mellitus without complications
CPT/HCPCS: 36415; 80053; 80061; 82043; 84153; 84439; 84443

== ENCOUNTER 2021-10-23 07:05 | Outpatient (REF) | payer MEDICARE, OTHER, SELFPAY ==
[2021-10-23 07:41] LABS: Hematocrit 43.7 % (42.0-52.0); Hemoglobin 13.7 g/dl (14.0-18.0); Mean Corpuscular HGB Conc 31.4 g/dl (31.0-36.0); Mean Corpuscular Hemoglobin 25.3 pg (27.0-33.0); Mean Corpuscular Volume 80.6 fL (80.0-98.0); Mean Platelet Volume 11.7 fL (9.4-12.4); Platelet Count 153 X10*3/uL (160-400); Red Blood Count 5.42 X10*6/uL (4.60-5.80); Red Cell Distribution Width 14.5 % (11.0-16.0); White Blood Count 7.7 X10*3/uL (4.8-10.8)
[2021-10-23 07:59] LABS: Estimated Average Glucose 128 mg/dL; Hemoglobin A1c % 6.1 %
[2021-10-23 08:22] LABS: Alanine Aminotransferase 32 U/L (0-40); Albumin Level 3.9 g/dL (3.5-5.0); Alkaline Phosphatase 81 U/L (39-117); Anion Gap 11 (12-20); Aspartate Amino Transferase 20 U/L (5-37); Bilirubin Total 0.3 mg/dL (0.0-1.0); Blood Urea Nitrogen 27 mg/dL (9-16); Calcium 8.6 mg/dL (8.4-10.2); Carbon Dioxide 26 mmol/L (22-29); Chloride 109 mmol/L (96-108); Cholesterol 126 mg/dL; Estimated Glomerular Filt Rate 48; Glucose Fasting 106 mg/dL (60-99); HDL Cholesterol 24 mg/dL; Potassium 4.1 mmol/L (3.3-5.1); Sodium 142 mmol/L (135-145); Total Protein 6.8 g/dL (6.5-8.0); Triglycerides 402 mg/dL
[2021-10-23 08:41] LABS: Prostate Specific Antigen Scr 1.54 ng/mL (<0.05-4.0); TSH reflex Free T4 3.71 uIU/mL (0.32-4.0)
[2021-10-23 12:19] LABS: Microalbum/Creatinine Ratio Ur 4.6 ug/mg cr
[2021-10-29 13:16] LABS: Triiodothyronine T3 Reverse 16 ng/dL (8-25)
== END 2021-10-23 07:06 | disposition home or self-care (01) ==
LOC: HO.LAB 07:05
PROVIDERS: PCP Physician Assistant; Visit Provider Physician Assistant
DX: Z12.5 Encounter for screening for malignant neoplasm of prostate (principal); E03.9 Hypothyroidism, unspecified; R79.89 Other specified abnormal findings of blood chemistry; E11.9 Type 2 diabetes mellitus without complications
CPT/HCPCS: 36415; 80048; 80053; 80061; 82043; 83036; 84153; 84443; 84482; 85027

== ENCOUNTER 2022-02-03 06:30 | Inpatient (IN) | payer MEDICARE, OTHER, SELFPAY ==
--- NOTE | ~2022-02-03 | CT_ITS ---
EXAMINATION: CT ABDOMEN AND PELVIS WITHOUT CONTRAST CLINICAL INFORMATION: Abdominal pain COMPARISON: 08/21/2021 and 11/14/2020 TECHNIQUE: Multidetector volumetric imaging was performed from the superior aspect of the liver through the pubic symphysis. Sagittal and coronal reformatted images were obtained on the technologist's workstation. This CT examination was performed using dose optimization techniques as appropriate, variously including the following: *Automated exposure control *Adjustment of mA and/or kV according to patient size (this includes techniques or standardized protocols for targeted exams where dose is matched to indication/reason for exam; i.e. extremities or head) *Use of iterative reconstruction technique DLP: 1451 mGy-cm FINDINGS: LUNG BASES: The visualized lung bases are unremarkable. LIVER, GALLBLADDER, AND BILIARY TREE: The liver is normal in size and shape. Diffuse hepatic steatosis. No focal hepatic lesion or biliary ductal dilatation is present. Cholecystectomy. PANCREAS: Unremarkable. SPLEEN: Unremarkable. ADRENAL GLANDS: No change in size of a 1 cm right adrenal nodule. No follow-up required. Left adrenal gland is normal. KIDNEYS AND URETERS: The kidneys are normal in size, shape, and attenuation. No hydronephrosis, hydroureter, or calculi seen. No perinephric stranding. BLADDER: Unremarkable. GASTROINTESTINAL TRACT: The small and large bowel are unremarkable. The appendix is unremarkable. ABDOMINAL WALL: Unchanged omental fat-containing umbilical/paraumbilical hernia. No associated inflammation. Previous right abdominal wall hernia repair. LYMPH NODES: Normal. VASCULAR: Aorta atherosclerotic but normal caliber. PELVIC VISCERA: Mild prostatomegaly. Seminal vesicles unremarkable. OSSEOUS STRUCTURES: No acute or suspicious osseous abnormalities. CT/CT abdomen pelvis wo IV con IMPRESSION: * No acute findings within the abdomen or pelvis to explain the patient's symptomatology. * Diffuse hepatic steatosis. * Unchanged umbilical/periumbilical hernia, without associated inflammation. Fleischner guidelines were followed.
[2022-02-03 06:58] VITALS: BP 126/73; PULSE 82; RESP 18; TEMP 36.6; O2SAT 96; BMI 46.9
[2022-02-03 07:40] VITALS: BP 129/78; PULSE 74; RESP 19; TEMP 36.6; O2SAT 97
--- NOTE | 2022-02-03 07:45 | ED_ITS ---
HPI - General Adult General Chief complaint: General Medical Stated complaint: diarrhea, dizzy Time Seen by Provider: 02/03/22 07:44 Source: patient Mode of arrival: ambulatory Limitations: language barrier History of Present Illness HPI narrative: History obtained by academic affairs specialist. Patient feels lightheaded. In the past he has had vertigo but this feels differently. Patient felt this way for 5 hours. This morning he had vomiting, diarrhea and abdominal pain. After the diarrhea and vomiting he was dizzy and diaphoretic at home. denies fever. No one sick at home, he does not work. No sick contacts. Onset (ago): hour(s) Severity: mild Quality: burning Pain Consistency: intermittent Associated symptoms: diaphoresis, nausea/vomiting and other (diarrhea) Related Data Home Medications Medication Instructions Recorded Confirmed oxygen-air delivery systems ##1 01/10/20 12/18/21 meclizine 12.5 mg tablet 12.5 mg PO BID PRN Dizziness 02/03/22 02/03/22 naproxen 500 mg tablet 500 mg PO BID PRN Pain 02/03/22 02/03/22 sertraline 50 mg tablet 50 mg PO DAILY 02/03/22 02/03/22 Previous Rx's Medication Instructions Recorded atorvastatin 40 mg tablet 40 mg PO DAILY 90 days #90 tabs 04/02/21 duloxetine 30 mg capsule,delayed 30 mg PO DAILY 90 days #90 caps 04/02/21 release (Cymbalta) gabapentin 600 mg tablet 600 mg PO BID 90 days #180 tabs 04/02/21 levothyroxine 125 mcg tablet 125 mcg PO DAILY 90 days #90 tabs 12/18/21 metformin 1,000 mg tablet 1,000 mg PO DAILY 90 days #90 tabs 12/18/21 losartan 50 mg-hydrochlorothiazide 1 tab PO DAILY #30 tabs 02/04/22 12.5 mg tablet Allergies Allergy/AdvReac Type Severity Reaction Status Date / Time Penicillins Allergy Unknown Rash Verified 12/18/21 10:46 Review of Systems Constitutional: Constitutional: Reports no additional constitutional complaints Eyes: Eyes: Reports no additional eye complaints ENT: Denies dizziness Cardiovascular: Cardiovascular: Reports no additional cardiovascular complaints Respiratory: Respiratory: Reports as per HPI Gastrointestinal: Gastrointestinal: Reports no additional gastrointestinal complaints Musculoskeletal: Musculoskeletal: Reports no additional musculoskeletal complaints Integumentary/Breasts: Skin/Breast: Denies rash Neurologic: Reports system reviewed and no additional complaints, except as documented, Denies dizziness and Denies Sensory deficit (Neuro) Psychiatric: Psychiatric: Denies anxiety PMFSH Past Medical History Medical History Abdominal pain DM2 (diabetes mellitus, type 2) HLD (hyperlipidemia) HTN (hypertension) Hx of appendicitis Hypothyroidism Pre-diabetes Sleep apnea with use of continuous positive airway pressure (CPAP) Supraumbilical hernia Umbilical hernia Surgical History History of cholecystectomy History of colonoscopy History of hemorrhoidectomy Hx of endoscopy Family History Family History Mother Diabetes Hypertension Father Diabetes Hypertension Maternal Uncle Cancer Maternal Grandmother Stroke Social History Social History Household Members: Spouse and Children Housing: Apartment Alcohol intake: unknown Patient Tobacco Use Status: Never used Tobacco e-Cigarette/Vaping Use: Never Used Second Hand Smoke Exposure: No Advance Directives Date on File: 02/03/22 service: No Current occupational status: disabled Current occupation: rt handed Cognitive needs: No Hearing needs: No Vision needs: Yes Physical Exam ED Vital Signs: Vital Signs - 24 hr 02/03/22 06:58 02/03/22 07:40 Temperature 97.9 F 98 F Pulse Rate 82 74 Respiratory Rate 18 19 Blood Pressure 126/73 129/78 Pulse Oximetry 96 97 Oxygen Delivery Method Room Air Room Air BMI result Body Mass Index 46.9 Const Other: obese male chronically ill Orientation/consciousness: oriented to person and patient oriented x3 Limitations: language barrier HENMT Head: Yes normal to inspection Ears: external ears normal General nose exam: Normal external nose present Mouth: Normal oral and palatal mucosa present and oropharynx normal Throat: Yes posterior oropharynx normal Eyes General: appearance normal, both eyes and all related structures Neck Neck: Yes normal visual inspection Chest Chest palpation & inspection: normal inspection of the chest Resp Auscultation: clear to auscultation bilaterally Cardio Jugular venous distension: no JVD Rate: regular rate Rhythm: regular rhythm Heart sounds: S1 normal heart sound present and S2 normal heart sound present GI Other: obese diffuse tenderness but soft Palpation (GI): Soft to palpation Auscultation: normal bowel sounds General: Yes no CVA tenderness Back/Spine/Pelvis Back: no CVA tenderness Skin General skin exam: no rashes or lesions noted Neuro General: oriented to person and patient oriented x3 Cranial nerves: Yes CN's II-XII intact bilaterally Motor exam (neuro): 5/5 motor strength present throughout Sensory Exam: No Sensory deficit (Neuro) Extrem General: Yes normal to inspection Psych Appearance: grossly normal Course Course Course Narrative: On the day of admission patient had multiple electrolyte abnormalities and needed admission Medical Decision Making Lab Data Result diagrams: 02/03/22 08:09 02/04/22 07:21 Labs: Lab Results 02/03/22 02/03/22 02/03/22 Range/Units 08:09 08:51 09:51 WBC 12.5 H (4.8-10.8) X10*3/uL RBC 6.51 H D (4.60-5.80) X10*6/uL Hgb 16.5 D (14.0-18.0) g/dl Hct 51.3 (42.0-52.0) % MCV 78.8 L (80.0-98.0) fL MCH 25.3 L (27.0-33.0) pg MCHC 32.2 (31.0-36.0) g/dl RDW 15.2 (11.0-16.0) % Plt Count 154 L (160-400) X10*3/uL MPV 11.8 (9.4-12.4) fL Immature Gran % (Auto) 0.2 (0.0-0.4) % Neut % (Auto) 87.7 H (45-73) % Lymph % (Auto) 5.2 L (20-40) % [place] % (Auto) 6.4 (2-11) % Eos % (Auto) 0.1 (0-4) % Baso % (Auto) 0.4 (0-2) % Lymph # (Auto) 0.7 L (1.2-4.9) X10*3/uL [place] # (Auto) 0.8 (0.1-1.2) X10*3/uL Eos # (Auto) 0.0 (0.0-0.4) X10*3/uL Baso # (Auto) 0.1 (0.0-0.2) X10*3/uL Abs Immat Gran (auto) 0.03 (0.00-0.03) X10*3/uL Absolute Neuts (auto) 10.9 H (2.0-8.3) x10*3/uL Absolute Nucleated RBC 0.000 (0.0-0.012) X10*3/uL Nucleated RBC % (auto) 0.0 (0.0-0.2) /100WBC Sodium TNP Potassium TNP Chloride TNP Carbon Dioxide TNP Anion Gap TNP BUN TNP Creatinine TNP Estim Creat Clear Calc TNP Estimated GFR TNP Random Glucose TNP Calcium TNP Magnesium TNP Total Bilirubin TNP AST TNP ALT TNP Alkaline Phosphatase TNP Total Protein TNP Albumin TNP Lipase TNP Urine Color Yellow Urine Appearance Clear Urine pH 5.5 (5.0-9.0) Ur Specific [place] 1.025 (1.005-1.025) Urine Protein 30 (1+) H (Neg-Trace) mg/dL Urine Glucose (UA) Negative (Negative) mg/dL Urine Ketones Trace (Negative) mg/dL Urine Blood Negative (Negative) Urine Nitrite Negative (Negative) Ur Leukocyte Esterase Small (1+) H (Negative) Urine RBC 0-2 (0-2) /HPF Urine WBC 11-20 H (0-5) /HPF Ur Squamous Epith Cells 0-2 (0-2) /HPF Urine Bacteria None Seen (None Seen) Hyaline Casts 0-2 (0-2) /LPF COVID-19 (CARLOS) (Negative) COVID-19 Clin Com 02/03/22 Range/Units 09:51 WBC (4.8-10.8) X10*3/uL RBC (4.60-5.80) X10*6/uL Hgb (14.0-18.0) g/dl Hct (42.0-52.0) % MCV (80.0-98.0) fL MCH (27.0-33.0) pg MCHC (31.0-36.0) g/dl RDW (11.0-16.0) % Plt Count (160-400) X10*3/uL MPV (9.4-12.4) fL Immature Gran % (Auto) (0.0-0.4) % Neut % (Auto) (45-73) % Lymph % (Auto) (20-40) % [place] % (Auto) (2-11) % Eos % (Auto) (0-4) % Baso % (Auto) (0-2) % Lymph # (Auto) (1.2-4.9) X10*3/uL [place] # (Auto) (0.1-1.2) X10*3/uL Eos # (Auto) (0.0-0.4) X10*3/uL Baso # (Auto) (0.0-0.2) X10*3/uL Abs Immat Gran (auto) (0.00-0.03) X10*3/uL Absolute Neuts (auto) (2.0-8.3) x10*3/uL Absolute Nucleated RBC (0.0-0.012) X10*3/uL Nucleated RBC % (auto) (0.0-0.2) /100WBC Sodium Potassium Chloride Carbon Dioxide Anion Gap BUN Creatinine Estim Creat Clear Calc Estimated GFR Random Glucose Calcium Magnesium Total Bilirubin AST ALT Alkaline Phosphatase Total Protein Albumin Lipase Urine Color Urine Appearance Urine pH (5.0-9.0) Ur Specific [place] (1.005-1.025) Urine Protein (Neg-Trace) mg/dL Urine Glucose (UA) (Negative) mg/dL Urine Ketones (Negative) mg/dL Urine Blood (Negative) Urine Nitrite (Negative) Ur Leukocyte Esterase (Negative) Urine RBC (0-2) /HPF Urine WBC (0-5) /HPF Ur Squamous Epith Cells (0-2) /HPF Urine Bacteria (None Seen) Hyaline Casts (0-2) /LPF COVID-19 (CARLOS) Negative (Negative) COVID-19 Clin Com See Note Discharge Plan Discharge Clinical Impression: Vomiting, Diarrhea, Acute hypokalemia, Hypocalcemia Patient Disposition: Home, Self-Care Interventions: ED Discharge Assessment Last Done: 02/04/22 12:47 Discharge Date/Time: 02/04/22 13:08
[2022-02-03 08:13] LABS: MANUAL DIFF FLAG NO
[2022-02-03 08:14] LABS: Basophils Absolute Auto 0.1 X10*3/uL (0.0-0.2); Basophils Percent Auto 0.4 % (0-2); Eosinophils Percent Auto 0.1 % (0-4); Hematocrit 51.3 % (42.0-52.0); Hemoglobin 16.5 g/dl (14.0-18.0); Imm Gran Abs Auto 0.03 X10*3/uL (0.00-0.03); Imm Gran Pct Auto 0.2 % (0.0-0.4); Lymphocytes Absolute Auto 0.7 X10*3/uL (1.2-4.9); Lymphocytes Percent Auto 5.2 % (20-40); Mean Corpuscular HGB Conc 32.2 g/dl (31.0-36.0); Mean Corpuscular Hemoglobin 25.3 pg (27.0-33.0); Mean Corpuscular Volume 78.8 fL (80.0-98.0); Mean Platelet Volume 11.8 fL (9.4-12.4); Monocytes Absolute Auto 0.8 X10*3/uL (0.1-1.2); Monocytes Percent Auto 6.4 % (2-11); Neutrophils Absolute Auto 10.9 x10*3/uL (2.0-8.3); Neutrophils Percent Auto 87.7 % (45-73); Platelet Count 154 X10*3/uL (160-400); Red Blood Count 6.51 X10*6/uL (4.60-5.80); Red Cell Distribution Width 15.2 % (11.0-16.0); White Blood Count 12.5 X10*3/uL (4.8-10.8)
[2022-02-03] MEDS: 0.9 % Sodium Chloride 500 ML 999 ML IV (08:14)
[2022-02-03] MEDS: Pantoprazole Sodium 40 MG/10 ML VIAL IVPUSH (08:38)
[2022-02-03 09:57] LABS: Appearance Urine Clear; Color Urine Yellow; Glucose Urine UA Negative (Negative); Leukocyte Esterase Urine Small (1+) (Negative); Nitrite Urine Negative (Negative); PH 5.5 (5.0-9.0); Specific Gravity - Urine 1.025 (1.005-1.025); UMIC TRIGGER UACC YES; Urine Blood Negative (Negative); Urine Ketones Trace mg/dL (Negative); Urine Protein 30 (1+) mg/dL (Neg-Trace)
[2022-02-03 09:59] LABS: Bacteria Urine None Seen (None Seen); Hyaline Casts Urine 0-2 /LPF (0-2); RBC Urine 0-2 /HPF (0-2); Squamous Epithelial Cell Urine 0-2 /HPF (0-2); UACC Culture Trigger YES
[2022-02-03] MEDS: Calcium Chloride 1 GM/10 ML SYRINGE IVPUSH (10:05)
[2022-02-03] MEDS: Potassium Chloride/H20 10 MEQ/100 ML PIGGYBACK 100 MEQ IV (10:06)
[2022-02-03 10:11] VITALS: BP 133/70; PULSE 96; RESP 17; O2SAT 97
[2022-02-03 10:14] LABS: COVID-19 Test Negative (Negative); IDNOW Serial# 16C4AD1C
--- NOTE | 2022-02-03 11:35 | PHA.MEDREC ---
Pharmacy Consult ? Medication Reconciliation Pharmacy has completed the medication reconciliation. Med rec was done using an rayon winder. Patient was able to tell me most of his medications with the help of his spouse who was also present. He did note that his losartan/hctz dose was increased to 100/12.5 mg recently.
[2022-02-03] MEDS: Magnesium Sulfate/H2O 2 GM/50 ML PIGGYBACK IV (11:45)
[2022-02-03] MEDS: KCl 20 mEq in 5 % Dex/Lact Rin 20 MEQ/1,000 ML IV.SOLN 125 MEQ IVCONT (11:50)
[2022-02-03 13:10] LABS: Anion Gap 16 (12-20); Blood Urea Nitrogen 21 mg/dL (9-16); Calcium 9.1 mg/dL (8.4-10.2); Carbon Dioxide 20 mmol/L (22-29); Chloride 107 mmol/L (96-108); Creatinine Clr Calc Pharmacy 81.5; Estimated Glomerular Filt Rate 57; Glucose Random 147 mg/dL (60-115); Potassium 4.2 mmol/L (3.3-5.1); Sodium 139 mmol/L (135-145)
--- NOTE | 2022-02-03 13:38 | P.HPHOSP_ITS ---
History of Present Illness Date of Service: 02/03/22 Attending physician on admission: Michelle Henry Chief Complaint: Acute abdominal pain nausea vomiting and diarrhea 51-year-old gentleman with past medical history significant for type 2 diabetes mellitus, hypertension, obstructive sleep apnea status post cholecystectomy history of umbilical hernia presented to [facility] with acute onset of nausea vomiting abdominal pain and diarrhea cord to patient he was doing fine when he went to bed last night had home made beef stew, this morning he woke up with nausea vomiting mostly bilious vomiting with no blood, associated with diffuse mid abdominal pain, with no radiation, and loose watery diarrhea without hematochezia or melena denies associated fever chills he lives at home with and 2 daughters, no family member with similar symptoms he denied recent travel no outside food, no similar symptoms in the past, denies no recent use of antibiotics, no new medications, he is compliant with his home medications in the emergency room workup showed hypokalemia, hypo magnesemia with a magnesium of 0.9, metabolic acidosis, low calcium and low albumin with corrected calcium of 6.4, WBC of 12.5 patient treated in the emergency room with IV magnesium 2 g, IV potassium 10 mEq and IV fluid and admission was called in for electrolyte abnormality and persistent abdominal pain. 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 CVS no chest pain, no palpitation Respiratory no cough, no shortness of breath no urinary frequency, no urgency Yes all other systems are reviewed and are negative [facility] Medical History Abdominal pain DM2 (diabetes mellitus, type 2) HLD (hyperlipidemia) HTN (hypertension) Hx of appendicitis Hypothyroidism Pre-diabetes Sleep apnea with use of continuous positive airway pressure (CPAP) Supraumbilical hernia Umbilical hernia Family History Mother Diabetes Hypertension Father Diabetes Hypertension Maternal Uncle Cancer Maternal Grandmother Stroke Surgical History History of cholecystectomy History of colonoscopy History of hemorrhoidectomy Hx of endoscopy Social History Household Members: Spouse and Children Housing: Apartment Alcohol intake: never Patient Tobacco Use Status: Never used Tobacco Smoked in Last 30 Days: No e-Cigarette/Vaping Use: Never Used Second Hand Smoke Exposure: No Use of substances other than those prescribed or required for medical reasons: No Advance Directives: No Advance Directives Information Provided: Yes service: No Current occupational status: disabled Current occupation: rt handed Cognitive needs: No Hearing needs: No Vision needs: Yes Meds Allergies Allergy/AdvReac Type Severity Reaction Status Date / Time Penicillins Allergy Unknown Rash Verified 12/18/21 10:46 Active Medications: Current Medications Acetaminophen (Acetaminophen 325 Mg Tablet) 650 mg PO Q6H PRN PRN Reason: Pain, Mild (Pain Scale 1-3) Potassium Cl/Dextrose/Lact Ringer's (Kcl 20 Meq In 5 % Dex/Lact Rin) 20 meq in 1,000 mls @ 125 mls/hr IVCONT .Q8H [facility] Last Admin: 02/03/22 11:50 Dose: 125 mls/hr Melatonin (Melatonin 3 Mg Tablet) 6 mg PO BEDTIME PRN PRN Reason: Insomnia Ondansetron HCl (Ondansetron Hcl 4 Mg/2 Ml Vial) 4 mg IVPUSH Q8H PRN PRN Reason: Nausea and Vomiting Pharmacy Consult (Consult Rx Perform Med Rec) 1 each MISCELLANE ONCE PRN PRN Reason: Consult order Sodium Chloride (0.9 % Sodium Chloride Flush 3 Ml Syringe) [facility] Home Medications Medication Instructions Recorded Confirmed Last Taken Type oxygen-air delivery systems ##1 01/10/20 12/18/21 11/14/20 History losartan 100 1 tab PO DAILY 02/03/22 02/03/22 02/02/22 History mg-hydrochlorothiazide 12.5 mg tablet meclizine 12.5 mg tablet 12.5 mg PO BID PRN Dizziness 02/03/22 02/03/22 Unknown History naproxen 500 mg tablet 500 mg PO BID PRN Pain 02/03/22 02/03/22 Unknown History sertraline 50 mg tablet 50 mg PO DAILY 02/03/22 02/03/22 02/02/22 History Physical Exam Vital Signs and Narrative: Vital Signs: Last Vital Signs Temp 98 F 02/03/22 07:40 Pulse 96 02/03/22 10:11 Resp 17 02/03/22 10:11 BP 133/70 02/03/22 10:11 Pulse Ox 97 02/03/22 10:11 O2 Del Method 02/03/22 10:11 BMI result Body Mass Index 46.9 Const: Other: General awake alert x3, in no acute distress. Anicteric sclera Neck supple no JVD. CVS regular rate rhythm, Respiratory lungs clear to auscultation, no respiratory distress, no wheeze, no rhonchi. Gastrointestinal abdomen distended, diffuse mid abdominal tenderness, no rebound, no rigidity, no palpable mass, no hernia Extremities no edema. Neuro nonfocal Skin no rash Psych appropriate affect Results Labs CBC and Chem 7: 02/03/22 08:09 02/03/22 12:45 Labs: Laboratory Results - last 24 hr 02/03/22 02/03/22 02/03/22 08:09 08:51 09:51 MCV 78.8 L MCH 25.3 L MCHC 32.2 RDW 15.2 Plt Count 154 L MPV 11.8 Immature Gran % (Auto) 0.2 Neut % (Auto) 87.7 H Lymph % (Auto) 5.2 L [place] % (Auto) 6.4 Eos % (Auto) 0.1 Baso % (Auto) 0.4 Lymph # (Auto) 0.7 L [place] # (Auto) 0.8 Eos # (Auto) 0.0 Baso # (Auto) 0.1 Abs Immat Gran (auto) 0.03 Absolute Neuts (auto) 10.9 H Absolute Nucleated RBC 0.000 Nucleated RBC % (auto) 0.0 Anion Gap TNP Estim Creat Clear Calc TNP Estimated GFR TNP Random Glucose TNP Calcium TNP Magnesium TNP Total Bilirubin TNP AST TNP ALT TNP Alkaline Phosphatase TNP Total Protein TNP Albumin TNP Lipase TNP Urine Color Yellow Urine Appearance Clear Urine pH 5.5 Ur Specific [place] 1.025 Urine Protein 30 (1+) H Urine Glucose (UA) Negative Urine Ketones Trace Urine Blood Negative Urine Nitrite Negative Ur Leukocyte Esterase Small (1+) H Urine RBC 0-2 Urine WBC 11-20 H Ur Squamous Epith Cells 0-2 Urine Bacteria None Seen Hyaline Casts 0-2 COVID-19 (CARLOS) COVID-19 Clin Com 02/03/22 02/03/22 09:51 12:45 MCV MCH MCHC RDW Plt Count MPV Immature Gran % (Auto) Neut % (Auto) Lymph % (Auto) [place] % (Auto) Eos % (Auto) Baso % (Auto) Lymph # (Auto) [place] # (Auto) Eos # (Auto) Baso # (Auto) Abs Immat Gran (auto) Absolute Neuts (auto) Absolute Nucleated RBC Nucleated RBC % (auto) Anion Gap 16 Estim Creat Clear Calc 81.5 Estimated GFR 57 Random Glucose 147 H D Calcium 9.1 Magnesium Total Bilirubin AST ALT Alkaline Phosphatase Total Protein Albumin Lipase Urine Color Urine Appearance Urine pH Ur Specific [place] Urine Protein Urine Glucose (UA) Urine Ketones Urine Blood Urine Nitrite Ur Leukocyte Esterase Urine RBC Urine WBC Ur Squamous Epith Cells Urine Bacteria Hyaline Casts COVID-19 (CARLOS) Negative COVID-19 Clin Com See Note Imaging Radiologist's Impressions: Impressions Abdomen/Pelvis CT 02/03/22 11:48 IMPRESSION: * No acute findings within the abdomen or pelvis to explain the patient's symptomatology. * Diffuse hepatic steatosis. * Unchanged umbilical/periumbilical hernia, without associated inflammation. Fleischner guidelines were followed. Assessment and Plan (1) Vomiting: Status: Acute (2) Acute hypokalemia: Status: Acute (3) Diarrhea: Status: Acute (4) Hypocalcemia: Status: Acute (5) Hypothyroidism: Qualifiers: Hypothyroidism type: unspecified Qualified Code(s): E03.9 - Hypothyroidism, unspecified Status: Acute (6) Hypomagnesemia: Status: Acute (7) Acidosis: Status: Acute Plan 51-year-old gentleman with past medical history significant for diabetes mellitus type 2, hypothyroidism, hypertension, obstructive sleep apnea, a status post cholecystectomy, hemorrhoidectomy presented to [facility] with acute onset of nausea vomiting abdominal pain and watery diarrhea, associated with multiple electrolyte abnormalities including hypokalemia, hypomagnesemia, elevated chloride, low calcium and low albumin Abdominal pain nausea vomiting and diarrhea Question related to viral gastroenteritis CT abdomen and pelvis obtained that showed no acute pathology, unchanged umbilical hernia, showed diffuse hepatic steatosis Will treat with antiemetics, IV Pepcid, analgesics and IV fluids, keep him NPO except for medications, will gradually advance diet once symptoms improve Multiple electrolyte abnormality including hypokalemia, hypomagnesemia, and hypocalcemia Likely due to GI loss Will replete and repeat labs Hold hydrochlorothiazide Hypocalcemia Corrected calcium 6.4 received 1 dose of calcium in emergency room will repeat calcium level Acidosis With vomiting expect patient to have alkalosis, will repeat labs, if acidemia persist will obtain ABGs, renal function is stable Mood disorder continue home medications Hypothyroidism continue levothyroxine Diabetes Mellitus type 2 Hold metformin patient NPO follow blood sugars and insulin sliding scale Code status full code DVT prophylaxis with compression boots In my clinical opinion patient made to inpatient night stay due to significant electrolyte abnormality associated with nausea vomiting and abdominal pain currently on IV fluids NPO Quality Stroke Does the patient have a stroke diagnosis?: No VTE Prior VTE?: No VTE Risk Level:: Medical - moderate - high VTE Device Contraindication: N/A - Device Ordered VTE Drug Contraindication: Treatment Not Indicated
[2022-02-03 14:11] LABS: Glucose, Whole Blood 153 mg/dL (60-115)
[2022-02-03] MEDS: Lactated Ringers 1,000 ML 100 ML IVCONT (14:32)
[2022-02-03 16:55] VITALS: BP 110/69; PULSE 99; RESP 18; TEMP 36.6; O2SAT 95
[2022-02-03 17:59] LABS: Glucose, Whole Blood 127 mg/dL (60-115)
[2022-02-03 20:23] VITALS: BP 117/62; PULSE 88; RESP 17; TEMP 37.7; O2SAT 95
[2022-02-03 20:58] LABS: Glucose, Whole Blood 151 mg/dL (60-115)
[2022-02-03] MEDS: Gabapentin 600 MG TABLET PO (20:59)
--- NOTE | 2022-02-03 21:50 | MHC.CM.PN ---
IMM 02/03. Met with admitted patient in ED Overflow with bed assignment pending. Pt is Faroese speaking. Appraisal Analyst used. Pt lives with and 2 daughters. Is disabled. Uses CPAP. Has glucometer, but no testing supplies. Encouraged pt to call PCP for refills. Has no services. Medical record states pt had 3 Pfizer vaccinations, pt both patient and state patient only received only 2 Pfizer and no booster. HCP is on file. HCP/ Dominga Hinkle ([phone]). D/C plan: home w/o services. will transport home. CM will follow for discharge planning.
[2022-02-04] MEDS: Lactated Ringers 1,000 ML 100 ML IVCONT ×2 (00:05→09:26)
[2022-02-04 01:25] VITALS: BP 104/63; PULSE 86; RESP 16; TEMP 37; O2SAT 92
[2022-02-04] MEDS: Acetaminophen 325 MG TABLET 650 MG PO (01:47)
[2022-02-04 07:22] LABS: Glucose, Whole Blood 143 mg/dL (60-115)
[2022-02-04 07:34] VITALS: BP 114/73; PULSE 85; RESP 16; TEMP 37.1; O2SAT 98
[2022-02-04] MEDS: 0.9 % Sodium Chloride Flush 3 ML SYRINGE IVFLUSH (08:21)
[2022-02-04] MEDS: Atorvastatin Calcium 40 MG TABLET PO (08:21)
[2022-02-04] MEDS: DULoxetine HCl 30 MG CAPSULE.DR PO (08:22)
[2022-02-04] MEDS: Levothyroxine Sodium 125 MCG TABLET PO (08:22)
[2022-02-04] MEDS: Gabapentin 600 MG TABLET PO (08:22)
[2022-02-04] MEDS: Sertraline HCL 50 MG TABLET PO (08:22)
[2022-02-04] MEDS: Famotidine/PF 20 MG/2 ML VIAL IVPUSH (08:23)
[2022-02-04 11:18] LABS: Anion Gap 15 (12-20); Blood Urea Nitrogen 16 mg/dL (9-16); Calcium 8.3 mg/dL (8.4-10.2); Carbon Dioxide 22 mmol/L (22-29); Chloride 107 mmol/L (96-108); Creatinine Clr Calc Pharmacy 81.5; Estimated Glomerular Filt Rate 57; Glucose Random 144 mg/dL (60-115); Potassium 3.9 mmol/L (3.3-5.1); Sodium 140 mmol/L (135-145)
[2022-02-04 11:50] LABS: Glucose, Whole Blood 133 mg/dL (60-115)
[2022-02-04 11:56] VITALS: BP 124/78; PULSE 80; RESP 16; TEMP 36.6; O2SAT 96
[2022-02-04 12:11] VITALS: BP 118/64; PULSE 71; RESP 16; TEMP 36.8; O2SAT 98
--- NOTE | 2022-02-04 12:22 | MHC.CM.PN ---
pt dcd home no skilled services ordered by
--- NOTE | 2022-02-04 13:39 | PM.DS ---
DS: Providers Provider Date of Service: 02/04/22 Date of admission: 02/03/22 11:30 Primary care physician: Gurdeep Bruce PA-C DS: Diagnosis Discharge Diagnosis (1) Vomiting: Status: Acute (2) Acute hypokalemia: Status: Acute (3) Diarrhea: Status: Acute (4) Hypocalcemia: Status: Acute (5) Hypothyroidism: Status: Acute (6) Hypomagnesemia: Status: Acute (7) Acidosis: Status: Acute DS: Summary Hospital Course Hospital Course: History of presenting illness Date of Service: 02/03/22 Attending physician on admission: Michelle Henry Chief Complaint: Acute abdominal pain nausea vomiting and diarrhea 51-year-old gentleman with past medical history significant for type 2 diabetes mellitus, hypertension, obstructive sleep apnea status post cholecystectomy history of umbilical hernia presented to [facility] with acute onset of nausea vomiting abdominal pain and diarrhea cord to patient he was doing fine when he went to bed last night had home made beef stew, this morning he woke up with nausea vomiting mostly bilious vomiting with no blood, associated with diffuse mid abdominal pain, with no radiation, and loose watery diarrhea without hematochezia or melena denies associated fever chills he lives at home with and 2 daughters, no family member with similar symptoms he denied recent travel no outside food, no similar symptoms in the past, denies no recent use of antibiotics, no new medications, he is compliant with his home medications in the emergency room workup showed hypokalemia, hypo magnesemia with a magnesium of 0.9, metabolic acidosis, low calcium and low albumin with corrected calcium of 6.4, WBC of 12.5 patient treated in the emergency room with IV magnesium 2 g, IV potassium 10 mEq and IV fluid and admission was called in for electrolyte abnormality and persistent abdominal pain. Hospital course 51-year-old gentleman with past medical history significant for diabetes mellitus type 2, hypothyroidism, hypertension, obstructive sleep apnea, a status post cholecystectomy, hemorrhoidectomy presented to [facility] with acute onset of nausea vomiting abdominal pain and watery diarrhea, associated with multiple electrolyte abnormalities including hypokalemia, hypomagnesemia, elevated chloride, low calcium and low albumin Abdominal pain nausea vomiting and diarrhea, patient admitted to medical floor placed on IV fluids, analgesics, antiemetics and was made NPO CT scan of the abdomen and pelvis without contrast showed no acute abnormality likely patient had of viral gastroenteritis, all symptoms resolved patient diet advanced, that he is tolerating well with no recurrent symptoms , he is recommended low-fat, low-calorie diet to reduce weight due to history of umbilical hernia and status post cholecystectomy patient at risk for recurrent abdominal pain. Multiple electrolyte abnormality including hypokalemia, hypomagnesemia, and hypocalcemia, initially felt to be related to GI loss and use of diuretics however repeat lab showed complete normalization, on reviewing With RN, labs were drawn from above this site of IV line therefore blood was diluted and the labs were abnormal so patient did not have electrolytes abnormality Mood disorder continue home medications Hypothyroidism continue levothyroxine Diabetes Mellitus type 2 recommend low-calorie diet, continue home medication Time Spent with Patient Time attestation: Total time spent providing and/or coordinating discharge services: Discharge coordination time: Greater than 30 minutes Quality: Safe Use of Opioids Does Pt have an Active Cancer Diagnosis on the Problem List?: No Quality: Stroke Does the patient have a stroke diagnosis?: No Physical Exam Vital Signs: Vital Signs: Last Vital Signs Temp 98.3 F 02/04/22 12:11 Pulse 71 02/04/22 12:11 Resp 16 02/04/22 12:11 BP 118/64 02/04/22 12:11 Pulse Ox 98 02/04/22 12:11 O2 Del Method 02/04/22 12:11 BMI result Body Mass Index 46.9 DS: Data Data Completed and Pending Labs on day of discharge: Laboratory Results - last 24 hr 02/03/22 02/03/22 02/03/22 14:07 17:55 20:49 Sodium Potassium Chloride Carbon Dioxide Anion Gap BUN Creatinine Estim Creat Clear Calc Estimated GFR POC Glucose 153 H 127 H 151 H Random Glucose Calcium 02/04/22 02/04/22 02/04/22 07:17 07:21 11:45 Sodium 140 Potassium 3.9 Chloride 107 Carbon Dioxide 22 Anion Gap 15 BUN 16 Creatinine 1.32 Estim Creat Clear Calc 81.5 Estimated GFR 57 POC Glucose 143 H 133 H Random Glucose 144 H Calcium 8.3 L D Discharge Plan Discharge Anticipated Discharge Date/Time: 02/04/22 12:06 Patient Disposition: Home, Self-Care Discharge Diagnosis: Nausea vomiting and abdominal pain Referrals: Gurdeep Bruce PA-C [Primary Care Provider] - 1 Week Discharge Medications: New losartan-hydrochlorothiazide 50-12.5 mg tablet 1 tab PO DAILY Qty: 30 0RF Continued atorvastatin 40 mg tablet 40 mg PO DAILY 90 Days Qty: 90 1RF duloxetine [Cymbalta] 30 mg capsule,delayed release(DR/EC) 30 mg PO DAILY 90 Days Qty: 90 1RF gabapentin 600 mg tablet 600 mg PO BID 90 Days Qty: 180 1RF sertraline 50 mg tablet 50 mg PO DAILY meclizine 12.5 mg tablet 12.5 mg PO BID PRN (Reason: Dizziness) naproxen 500 mg Tablet 500 mg PO BID PRN (Reason: Pain) (DME) oxygen-air delivery systems Device See Rx Instructions .ROUTE .MEDSUPPLY Qty: 1 Rx Instructions: As directed metformin 1,000 mg tablet 1,000 mg PO DAILY 90 Days Qty: 90 1RF levothyroxine 125 mcg tablet 125 mcg PO DAILY 90 Days Qty: 90 1RF Discontinued losartan-hydrochlorothiazide 100-12.5 mg Tablet 1 tab PO DAILY Discharge Orders: Discharge Order (Routine); Ordered 02/04/22 Ordered By: Michelle Henry Diet: Diabetic diet Activity on Discharge: As tolerated Stand Alone Forms: Patient Portal Discharge page Care Plan Goals: Abdominal pain nausea vomiting diarrhea resolved history of recurrent episodes of abdominal pain recommended to follow low fat/ low-calorie diet with history of cholecystectomy as well as umbilical hernia strongly recommend to lose weight Health Concerns: Hypertension noted to have soft blood pressure therefore dose losartan/hydrochlorothiazide reduced to 50/12.5 mg recommend to follow blood pressure as outpatient Take all home medications as before Plan of Treatment: Outpatient follow-up with primary care physician call to make an appointment Assessment: As per discharge summary Discharge Date/Time: 02/04/22 12:45
== END 2022-02-04 12:45 | disposition home or self-care (01) | DRG 392 ==
LOC: HO.ED 10:07 → HO.EDOVER 11:38
PROVIDERS: Admitting Provider Hospitalist; Emergency Provider Emergency Medicine; PCP Physician Assistant; Visit Provider Hospitalist
DX: A08.4 Viral intestinal infection, unspecified (principal); E87.20 Acidosis, unspecified; Z68.42 Body mass index [BMI] 45.0-49.9, adult; G47.33 Obstructive sleep apnea (adult) (pediatric); E03.9 Hypothyroidism, unspecified; E83.51 Hypocalcemia; E83.42 Hypomagnesemia; E66.01 Morbid (severe) obesity due to excess calories; I10 Essential (primary) hypertension; E87.6 Hypokalemia; Z20.822 Contact with and (suspected) exposure to COVID-19; Z90.49 Acquired absence of other specified parts of digestive tract; Z88.0 Allergy status to penicillin; Z79.899 Other long term (current) drug therapy
CPT/HCPCS: 36415; 74176; 80048; 80053; 81001; 82947; 83690; 83735; 85025; 87086; 87635; 99285; J3475

== ENCOUNTER 2022-03-05 08:44 | Outpatient (REF) | payer MEDICARE, SELFPAY ==
[2022-03-05 10:03] LABS: Hematocrit 45.6 % (42.0-52.0); Hemoglobin 14.7 g/dl (14.0-18.0); Mean Corpuscular HGB Conc 32.2 g/dl (31.0-36.0); Mean Corpuscular Hemoglobin 25.7 pg (27.0-33.0); Mean Corpuscular Volume 79.6 fL (80.0-98.0); Mean Platelet Volume 12.2 fL (9.4-12.4); Platelet Count 161 X10*3/uL (160-400); Red Blood Count 5.73 X10*6/uL (4.60-5.80); Red Cell Distribution Width 13.9 % (11.0-16.0); White Blood Count 8.7 X10*3/uL (4.8-10.8)
[2022-03-05 10:59] LABS: Alanine Aminotransferase 38 U/L (0-40); Alkaline Phosphatase 94 U/L (39-117); Anion Gap 11 (12-20); Aspartate Amino Transferase 17 U/L (5-37); Bilirubin Total 0.5 mg/dL (0.0-1.0); Blood Urea Nitrogen 24 mg/dL (9-16); Calcium 9.3 mg/dL (8.4-10.2); Carbon Dioxide 29 mmol/L (22-29); Chloride 103 mmol/L (96-108); Cholesterol 208 mg/dL; Estimated Glomerular Filt Rate 52; Glucose Random 159 mg/dL (60-115); HDL Cholesterol 18 mg/dL; Magnesium 1.9 mg/dL (1.6-2.6); Potassium 4.5 mmol/L (3.3-5.1); Sodium 138 mmol/L (135-145); TSH reflex Free T4 3.51 uIU/mL (0.32-4.0); Total Protein 7.2 g/dL (6.5-8.0); Triglycerides 1062 mg/dL
[2022-03-05 11:09] LABS: Creatinine Urine 197.93 mg/dL; Microalbum/Creatinine Ratio Ur 3.5 ug/mg cr
== END 2022-03-05 08:45 | disposition home or self-care (01) ==
LOC: HO.LAB 08:44
PROVIDERS: PCP Physician Assistant; Visit Provider Physician Assistant
DX: E11.9 Type 2 diabetes mellitus without complications (principal); E03.9 Hypothyroidism, unspecified
CPT/HCPCS: 36415; 80053; 80061; 82043; 83735; 84443; 85027

== ENCOUNTER 2022-03-19 12:11 | Outpatient (REF) | payer MEDICARE, SELFPAY ==
[2022-03-19 13:29] LABS: Hematocrit 45.7 % (42.0-52.0); Hemoglobin 14.3 g/dl (14.0-18.0); Mean Corpuscular HGB Conc 31.3 g/dl (31.0-36.0); Mean Corpuscular Volume 79.9 fL (80.0-98.0); Mean Platelet Volume 12.2 fL (9.4-12.4); Platelet Count 170 X10*3/uL (160-400); Red Blood Count 5.72 X10*6/uL (4.60-5.80); Red Cell Distribution Width 14.3 % (11.0-16.0); White Blood Count 7.9 X10*3/uL (4.8-10.8)
[2022-03-19 13:43] LABS: Creatinine Urine 150.98 mg/dL; Microalbum/Creatinine Ratio Ur 3.9 ug/mg cr
[2022-03-19 14:07] LABS: Alanine Aminotransferase 37 U/L (0-40); Alkaline Phosphatase 86 U/L (39-117); Anion Gap 12 (12-20); Aspartate Amino Transferase 22 U/L (5-37); Bilirubin Total 0.7 mg/dL (0.0-1.0); Blood Urea Nitrogen 20 mg/dL (9-16); Calcium 9.6 mg/dL (8.4-10.2); Carbon Dioxide 30 mmol/L (22-29); Chloride 102 mmol/L (96-108); Cholesterol 141 mg/dL; Estimated Glomerular Filt Rate 41; Glucose Fasting 135 mg/dL (60-99); HDL Cholesterol 23 mg/dL; Lipase 21 U/L (8-78); Potassium 3.9 mmol/L (3.3-5.1); Prostate Specific Antigen Scr 3.06 ng/mL (<0.05-4.0); Sodium 140 mmol/L (135-145); TSH reflex Free T4 3.35 uIU/mL (0.32-4.0); Triglycerides 434 mg/dL
== END 2022-03-19 12:12 | disposition home or self-care (01) ==
LOC: HO.LAB 12:11
PROVIDERS: PCP Physician Assistant; Visit Provider Physician Assistant
DX: Z12.5 Encounter for screening for malignant neoplasm of prostate (principal); E78.1 Pure hyperglyceridemia; R79.89 Other specified abnormal findings of blood chemistry; M25.511 Pain in right shoulder; E11.9 Type 2 diabetes mellitus without complications
CPT/HCPCS: 36415; 80053; 80061; 82043; 83690; 84153; 84443; 85027

== ENCOUNTER 2022-06-16 07:33 | Outpatient (REF) | payer MEDICARE, SELFPAY ==
[2022-06-16 10:12] LABS: Anion Gap 13 (12-20); Calcium 8.9 mg/dL (8.4-10.2); Carbon Dioxide 29 mmol/L (22-29); Chloride 101 mmol/L (96-108); Estimated Glomerular Filt Rate 48; Glucose Random 196 mg/dL (60-115); Potassium 4.1 mmol/L (3.3-5.1); Sodium 139 mmol/L (135-145)
[2022-06-16 12:05] LABS: Blood Urea Nitrogen 22 mg/dL (9-16)
== END 2022-06-16 07:34 | disposition home or self-care (01) ==
LOC: HO.LAB 07:33
PROVIDERS: PCP Physician Assistant; Visit Provider Physician Assistant
DX: R79.89 Other specified abnormal findings of blood chemistry (principal)
CPT/HCPCS: 36415; 80048

== ENCOUNTER 2022-06-17 09:24 | Outpatient (REF) | payer MEDICARE, SELFPAY ==
--- NOTE | ~2022-06-17 | XR_ITS ---
EXAMINATION: XR ABDOMEN COMPLETE CLINICAL INDICATION: Diarrhea COMPARISON: None available. TECHNIQUE: 2 views of the abdomen. FINDINGS: The bowel gas pattern is normal with no evidence of ileus or obstruction. No unusual soft tissue calcifications are noted. The bones are unremarkable. There are surgical trell right upper quadrant probably prior hernia repair. Surgical clip in the right upper quadrant from prior cholecystectomy. XR/XR abdomen min 2V IMPRESSION: Nonobstructive bowel gas pattern.
[2022-06-17 10:33] LABS: Hematocrit 46.5 % (42.0-52.0); Mean Corpuscular HGB Conc 32.3 g/dl (31.0-36.0); Mean Corpuscular Hemoglobin 25.2 pg (27.0-33.0); Mean Platelet Volume 12.1 fL (9.4-12.4); Platelet Count 150 X10*3/uL (160-400); Red Blood Count 5.96 X10*6/uL (4.60-5.80); Red Cell Distribution Width 14.2 % (11.0-16.0); White Blood Count 6.8 X10*3/uL (4.8-10.8)
[2022-06-17 10:55] LABS: Appearance Urine Clear; Color Urine Yellow; Glucose Urine UA Negative (Negative); Leukocyte Esterase Urine Negative (Negative); Nitrite Urine Negative (Negative); Urine Blood Negative (Negative); Urine Ketones Negative (Negative); Urine Protein Negative (Neg-Trace)
[2022-06-17 11:53] LABS: Anion Gap 16 (12-20); Blood Urea Nitrogen 18 mg/dL (9-16); Carbon Dioxide 22 mmol/L (22-29); Chloride 105 mmol/L (96-108); Estimated Glomerular Filt Rate 59; Glucose Random 159 mg/dL (60-115); Iron 90 mcg/dL (45-160); Percent Iron Saturation 36 % (15-50); Potassium 4.2 mmol/L (3.3-5.1); Sodium 139 mmol/L (135-145); Total Iron Binding Capacity 253 mcg/dL (228-428); Unsaturated Iron Binding 163 ug/dL
[2022-06-17 12:09] LABS: Folate 10.8 ng/mL (> or = 4.0); Vitamin B12 204 pg/mL (200-900)
== END 2022-06-17 09:25 | disposition home or self-care (01) ==
LOC: HO.XRAY 09:24
PROVIDERS: PCP Physician Assistant; Visit Provider Physician Assistant
DX: R53.83 Other fatigue (principal); E53.8 Deficiency of other specified B group vitamins; R30.0 Dysuria; D50.9 Iron deficiency anemia, unspecified
CPT/HCPCS: 36415; 74019; 80048; 81003; 82607; 82746; 83540; 85027

== ENCOUNTER 2022-07-17 06:06 | Outpatient (REF) | payer MEDICARE, SELFPAY ==
--- NOTE | ~2022-07-17 | CT_ITS ---
EXAMINATION: CT ABDOMEN AND PELVIS WITH CONTRAST CLINICAL INFORMATION: Three-week history of right lower quadrant pain and diarrhea COMPARISON: Previous CT of the abdomen and pelvis most recent January 2022 and x-ray May 2022 TECHNIQUE: Multidetector volumetric images were obtained from the superior aspect of the liver through the pubic symphysis following administration 85 mL of Omnipaque 350 intravenous contrast. Sagittal and coronal reformatted images were obtained on the technologist's workstation. Oral contrast: Yes This CT examination was performed using dose optimization techniques as appropriate, variously including the following: *Automated exposure control *Adjustment of mA and/or kV according to patient size (this includes techniques or standardized protocols for targeted exams where dose is matched to indication/reason for exam; i.e. extremities or head) *Use of iterative reconstruction technique DLP: 1120 mGy-cm FINDINGS: LUNG BASES: The visualized lung bases are unremarkable. LIVER, GALLBLADDER, AND BILIARY TREE: Fatty liver. The gallbladder is been removed. No biliary duct dilatation. PANCREAS: Unremarkable. SPLEEN: Unremarkable. ADRENAL GLANDS: 1 cm enhancing right adrenal nodule. This is stable going back to October 2020 and therefore probably benign. The left adrenal gland is normal. KIDNEYS AND URETERS: The kidneys are normal in size, shape, and attenuation. No hydronephrosis, hydroureter, or calculi seen. No perinephric stranding. BLADDER: Unremarkable. GASTROINTESTINAL TRACT: There is stool throughout the colon questionable for mild constipation. No evidence of obstruction. The small and large bowel are otherwise unremarkable. The appendix is unremarkable. ABDOMINAL WALL: Adjacent umbilical and supraumbilical hernias containing fat. Together these measure 7 cm in sagittal AP and transverse dimension. Evidence of previous right lateral abdominal wall hernia repair with mesh. No recurrent right lateral abdominal wall hernia or fluid collection. LYMPH NODES: Normal. VASCULAR: Unremarkable. PELVIC VISCERA: Slightly enlarged prostate gland measuring 4.7 x 4.7 cm. OSSEOUS STRUCTURES: Degenerative changes of the spine. CT/CT abdomen pelvis w IV con IMPRESSION: Normal-appearing appendix. Mild constipation. Umbilical and supraumbilical hernias containing fat. Postoperative changes following right lateral abdominal wall hernia with mesh. Fatty liver. Fleischner guidelines were followed.
[2022-07-17] MEDS: iohexoL 350 MG/ML 100 ML INFUS..BTL 85 ML IV (10:45)
[2022-07-17] MEDS: Barium Sulfate Oral (Berry) 450 ML ORAL.SUSP 900 ML PO (10:46)
== END 2022-07-17 06:07 | disposition home or self-care (01) ==
LOC: HO.CT 06:06
PROVIDERS: PCP Physician Assistant; Visit Provider Physician Assistant
DX: R10.31 Right lower quadrant pain (principal); R19.7 Diarrhea, unspecified
CPT/HCPCS: 74177; Q9967

== ENCOUNTER 2022-08-20 21:03 | Emergency (ER) | payer MEDICARE, SELFPAY ==
--- NOTE | ~2022-08-20 | XR_ITS ---
EXAMINATION: XR HIP, RIGHT CLINICAL INFORMATION: Pain. COMPARISON: CT abdomen/pelvis 07/17/2022. TECHNIQUE: Two views of the right hip. FINDINGS: Bones and soft tissues are normal. No fracture. Alignment is anatomic. Hip joint space is maintained. XR/XR hip RT min 2V IMPRESSION: Normal right hip.
--- NOTE | ~2022-08-20 | XR_ITS ---
EXAMINATION: XR FEMUR, RIGHT CLINICAL INFORMATION: Pain. COMPARISON: None available. TECHNIQUE: AP and lateral views of the right femur were obtained. FINDINGS: No acute fractures or malalignment. Mild degenerative osteoarthritis of the medial compartment of the right knee. No joint effusion. No unexpected radiopaque foreign bodies. XR/XR femur RT 2V IMPRESSION: No acute fractures or malalignment. Mild degenerative osteoarthritis of the medial compartment of the right knee.
[2022-08-20 21:12] VITALS: BP 119/79; PULSE 84; RESP 18; TEMP 36.1; O2SAT 98; BMI 31.3
--- NOTE | 2022-08-20 23:43 | ED.EXTPRO ---
HPI - Extremity Problem General Chief complaint: Extremity Problem Stated complaint: R Hip and Knee pain/No Inj Time Seen by Provider: 08/20/22 23:03 Source: patient Mode of arrival: ambulatory Limitations: no limitations History of Present Illness HPI Narrative: Patient history of off and on pain in right knee for last few months comes here for similar pain started 2 days ago without any injury pain gets worse on ambulation with slight swelling Related Data Home Medications Medication Instructions Recorded Confirmed oxygen-air delivery systems ##1 01/10/20 06/17/22 Previous Rx's Medication Instructions Recorded atorvastatin 40 mg tablet 40 mg PO DAILY 90 days #90 tabs 04/02/21 duloxetine 30 mg capsule,delayed 30 mg PO DAILY 90 days #90 caps 04/02/21 release (Cymbalta) gabapentin 600 mg tablet 600 mg PO BID 90 days #180 tabs 03/12/22 metformin 1,000 mg tablet 1,000 mg PO DAILY 90 days #90 tabs 03/12/22 naproxen 500 mg tablet 500 mg PO BID PRN Pain 10 days #20 03/13/22 tabs famotidine 20 mg tablet 20 mg PO DAILY 60 days #60 tabs 03/20/22 meclizine 12.5 mg tablet 12.5 mg PO BID PRN Dizziness 30 05/05/22 days #60 tabs fenofibrate 54 mg tablet 54 mg PO DAILY #90 tabs 07/25/22 levothyroxine 125 mcg tablet 125 mcg PO DAILY 90 days #90 tabs 07/25/22 sertraline 50 mg tablet 50 mg PO DAILY 90 days #90 tabs 07/28/22 losartan 50 mg-hydrochlorothiazide 1 tab PO DAILY #30 tabs 08/14/22 12.5 mg tablet tramadol 50 mg tablet 50 mg PO Q6H PRN pain #20 tabs 08/20/22 Allergies Allergy/AdvReac Type Severity Reaction Status Date / Time Penicillins Allergy Unknown Rash Verified 06/17/22 08:41 Review of Systems Review of Systems: Yes all other systems are reviewed and are negative PMFSH Past Medical History Medical History Abdominal pain DM2 (diabetes mellitus, type 2) HLD (hyperlipidemia) HTN (hypertension) Hx of appendicitis Hypothyroidism Hypothyroidism Pre-diabetes Sleep apnea with use of continuous positive airway pressure (CPAP) Supraumbilical hernia Umbilical hernia Surgical History History of cholecystectomy History of colonoscopy History of hemorrhoidectomy Hx of endoscopy Family History Family History Mother Diabetes Hypertension Father Diabetes Hypertension Maternal Uncle Cancer Maternal Grandmother Stroke Social History Social History Household Members: Spouse and Children Housing: Apartment Alcohol intake: unknown Patient Tobacco Use Status: Never used Tobacco Smoked in Last 30 Days: No e-Cigarette/Vaping Use: Never Used Second Hand Smoke Exposure: No Use of substances other than those prescribed or required for medical reasons: No Advance Directives: Yes Advance Directives on File: Yes Advance Directives Date on File: 02/03/22 service: No Current occupational status: disabled Current occupation: rt handed Cognitive needs: No Hearing needs: No Vision needs: Yes Physical Exam Vital Signs: Vital Signs: Last Vital Signs Temp 97 F 08/20/22 21:12 Pulse 84 08/20/22 21:12 Resp 18 08/20/22 21:12 BP 119/79 08/20/22 21:12 Pulse Ox 98 08/20/22 21:12 O2 Del Method Room Air 08/20/22 21:12 BMI result Body Mass Index 31.3 Extrem: Knee images: 1. Diffuse tenderness no effusion good range of movement with pain on extremes of movement Medications Administered Discontinued Medications Generic Name Dose Route Start Last Admin Trade Name Freq PRN Reason Stop Dose Admin Tramadol HCl 50 mg 08/20/22 23:48 08/21/22 00:03 Tramadol Hcl 50 Mg Tablet PO 08/20/22 23:49 50 mg ONCE ONE Administration Medical Decision Making Medical Decision Making MDM Narrative: Patient clinically with ARDS arthritis x-ray showed osteoarthritis of the medial compartment of the right knee Rikki wrap was applied patient was given tramadol advised to follow-up with orthopedics/PCP Discharge Plan Discharge Clinical Impression: Osteoarthritis of right knee Patient Disposition: Home, Self-Care Instructions: Osteoarthritis (ED) Additional Instructions: Wear the Rikki wrap for support Pain medicine as prescribed Follow with PCP Use la venda Rikki para apoyo Medicamentos para el dolor seg?n lo prescrito Seguir con PCP Prescriptions: New tramadol 50 mg tablet 50 mg PO Q6H PRN (Reason: pain) Qty: 20 0RF No Action atorvastatin 40 mg tablet 40 mg PO DAILY 90 Days Qty: 90 1RF duloxetine [Cymbalta] 30 mg capsule,delayed release(DR/EC) 30 mg PO DAILY 90 Days Qty: 90 1RF gabapentin 600 mg tablet 600 mg PO BID 90 Days Qty: 180 1RF metformin 1,000 mg tablet 1,000 mg PO DAILY 90 Days Qty: 90 1RF naproxen 500 mg tablet 500 mg PO BID PRN (Reason: Pain) 10 Days Qty: 20 1RF Hold Instructions: Doctor's Order meclizine 12.5 mg tablet 12.5 mg PO BID PRN (Reason: Dizziness) 30 Days Qty: 60 0RF fenofibrate 54 mg tablet 54 mg PO DAILY Qty: 90 1RF levothyroxine 125 mcg tablet 125 mcg PO DAILY 90 Days Qty: 90 1RF sertraline 50 mg tablet 50 mg PO DAILY 90 Days Qty: 90 2RF losartan-hydrochlorothiazide 50-12.5 mg tablet 1 tab PO DAILY Qty: 30 0RF (DME) oxygen-air delivery systems Device See Rx Instructions .ROUTE .MEDSUPPLY Qty: 1 Rx Instructions: As directed famotidine 20 mg tablet 20 mg PO DAILY 60 Days Qty: 60 0RF Interventions: ED Discharge Assessment Last Done: 08/21/22 00:05 Discharge Date/Time: 08/21/22 00:06 Print Language: Slovenian
[2022-08-21] MEDS: traMADoL HCL 50 MG TABLET PO (00:03)
== END 2022-08-21 00:06 | disposition home or self-care (01) ==
PROVIDERS: Emergency Provider Internal Medicine; PCP Physician Assistant
DX: M17.11 Unilateral primary osteoarthritis, right knee (principal); M25.561 Pain in right knee; E11.9 Type 2 diabetes mellitus without complications; I10 Essential (primary) hypertension; E78.5 Hyperlipidemia, unspecified; Z79.02 Long term (current) use of antithrombotics/antiplatelets; Z79.84 Long term (current) use of oral hypoglycemic drugs; Z79.899 Other long term (current) drug therapy
CPT/HCPCS: 73502; 73552; 99283; 99284

== ENCOUNTER 2022-09-05 23:08 | Emergency (ER) | payer MEDICARE, SELFPAY ==
[2022-09-05 23:09] VITALS: BP 122/64; PULSE 95; RESP 18; TEMP 36.3; O2SAT 95; BMI 46.6
[2022-09-06 00:11] LABS: Glucose, Whole Blood 232 mg/dL (60-115)
[2022-09-06 00:12] LABS: Basophils Absolute Auto 0.1 X10*3/uL (0.0-0.2); Basophils Percent Auto 1.1 % (0-2); Eosinophils Absolute Auto 0.1 X10*3/uL (0.0-0.4); Eosinophils Percent Auto 0.6 % (0-4); Hematocrit 45.1 % (42.0-52.0); Hemoglobin 15.3 g/dl (14.0-18.0); Imm Gran Abs Auto 0.01 X10*3/uL (0.00-0.03); Imm Gran Pct Auto 0.1 % (0.0-0.4); Lymphocytes Absolute Auto 2.9 X10*3/uL (1.2-4.9); MANUAL DIFF FLAG NO; Mean Corpuscular HGB Conc 33.9 g/dl (31.0-36.0); Mean Corpuscular Hemoglobin 25.8 pg (27.0-33.0); Mean Corpuscular Volume 76.2 fL (80.0-98.0); Monocytes Absolute Auto 0.6 X10*3/uL (0.1-1.2); Monocytes Percent Auto 7.4 % (2-11); Neutrophils Absolute Auto 4.9 x10*3/uL (2.0-8.3); Neutrophils Percent Auto 56.8 % (45-73); Platelet Count 152 X10*3/uL (160-400); Red Blood Count 5.92 X10*6/uL (4.60-5.80); Red Cell Distribution Width 13.9 % (11.0-16.0); White Blood Count 8.6 X10*3/uL (4.8-10.8)
--- NOTE | 2022-09-06 00:27 | ECG_ITS ---
Test Reason : DIABETIC Blood Pressure : / mmHG Vent. Rate : 082 BPM Atrial Rate : 082 BPM P-R Int : 124 ms QRS Dur : 076 ms QT Int : 368 ms P-R-T Axes : 025 032 028 degrees QTc Int : 429 ms Normal sinus rhythm Low voltage QRS Borderline ECG When compared with ECG of 21-AUG-2021 08:26, No significant change was found Referred By: Sharon Rosales Electronically Signed By:Rodger Covington
[2022-09-06 00:33] LABS: Anion Gap 13 (12-20); Blood Urea Nitrogen 28 mg/dL (9-16); Calcium 9.7 mg/dL (8.4-10.2); Carbon Dioxide 28 mmol/L (22-29); Chloride 100 mmol/L (96-108); Creatinine Clr Calc Pharmacy 45.6; Estimated Glomerular Filt Rate 30; Glucose Random 261 mg/dL (60-115); Potassium 4.5 mmol/L (3.3-5.1); Sodium 136 mmol/L (135-145)
[2022-09-06 00:35] LABS: Acetone, serum QL Negative (Negative)
--- NOTE | 2022-09-06 00:47 | ED.GENADULT ---
HPI - General Adult General Chief complaint: General Medical Stated complaint: High blood sugar Time Seen by Provider: 09/06/22 00:29 Source: patient, family and healthcare management consultant Mode of arrival: ambulatory History of Present Illness HPI narrative: This is a 52-year-old male with history of high blood pressure, diabetes who presents with concerns of high blood sugar levels for the past 3 days, some associated irritation to the skin fold of his abdomen as well as the tip of his penis, he is continue take his medication at home and endorses that he is had 5-6 nonbloody diarrheal episodes for the past 3 days but denies consuming any contaminated food. Patient denies any abdominal pain, fevers, chills and has been fasting in order to cause his blood sugar to come down. Related Data Home Medications Medication Instructions Recorded Confirmed oxygen-air delivery systems ##1 01/10/20 06/17/22 Previous Rx's Medication Instructions Recorded atorvastatin 40 mg tablet 40 mg PO DAILY 90 days #90 tabs 04/02/21 duloxetine 30 mg capsule,delayed 30 mg PO DAILY 90 days #90 caps 04/02/21 release (Cymbalta) gabapentin 600 mg tablet 600 mg PO BID 90 days #180 tabs 03/12/22 metformin 1,000 mg tablet 1,000 mg PO DAILY 90 days #90 tabs 03/12/22 naproxen 500 mg tablet 500 mg PO BID PRN Pain 10 days #20 03/13/22 tabs famotidine 20 mg tablet 20 mg PO DAILY 60 days #60 tabs 03/20/22 meclizine 12.5 mg tablet 12.5 mg PO BID PRN Dizziness 30 05/05/22 days #60 tabs fenofibrate 54 mg tablet 54 mg PO DAILY #90 tabs 07/25/22 levothyroxine 125 mcg tablet 125 mcg PO DAILY 90 days #90 tabs 07/25/22 sertraline 50 mg tablet 50 mg PO DAILY 90 days #90 tabs 07/28/22 losartan 50 mg-hydrochlorothiazide 1 tab PO DAILY #30 tabs 08/14/22 12.5 mg tablet tramadol 50 mg tablet 50 mg PO Q6H PRN pain #20 tabs 08/20/22 miconazole nitrate 2 % topical 1 appl topical BID #28 grams 09/06/22 cream nystatin 100,000 unit/gram topical 1 appl topical BID #60 grams 09/06/22 powder Allergies Allergy/AdvReac Type Severity Reaction Status Date / Time Penicillins Allergy Unknown Rash Verified 06/17/22 08:41 Review of Systems Review of Systems: Pertinent positives and negatives as stated in [facility] Past Medical History Source: nursing notes reviewed Medical History Abdominal pain DM2 (diabetes mellitus, type 2) HLD (hyperlipidemia) HTN (hypertension) Hx of appendicitis Hypothyroidism Hypothyroidism Pre-diabetes Sleep apnea with use of continuous positive airway pressure (CPAP) Supraumbilical hernia Umbilical hernia Surgical History History of cholecystectomy History of colonoscopy History of hemorrhoidectomy Hx of endoscopy Family History Family History Mother Diabetes Hypertension Father Diabetes Hypertension Maternal Uncle Cancer Maternal Grandmother Stroke Social History Social History Household Members: Spouse and Children Housing: Apartment Alcohol intake: unknown Patient Tobacco Use Status: Never used Tobacco e-Cigarette/Vaping Use: Never Used Second Hand Smoke Exposure: No Advance Directives Date on File: 02/03/22 service: No Current occupational status: disabled Current occupation: rt handed Cognitive needs: No Hearing needs: No Vision needs: Yes Physical Exam ED Vital Signs: Vital Signs - 24 hr 09/05/22 23:09 Temperature 97.3 F Pulse Rate 95 Respiratory Rate 18 Blood Pressure 122/64 Pulse Oximetry 95 Oxygen Delivery Method Room Air BMI result Body Mass Index 46.6 VITAL SIGNS: Reviewed. GENERAL: Well developed, well nourished, in no acute distress. HEAD: Normocephalic/atraumatic EYES: PERRLA, EOMI EARS: Ext canals without abnormality NOSE: Nares patent bilateral OROPHARYNX: no oral lesions noted, posterior pharynx clear NECK: Supple, no adenopathy LUNGS: Normal breath sounds. No adventitious sounds or accessory muscle use. SpO2<95> CARDIOVASCULAR: Regular rate and rhythm without noted murmurs ABDOMEN: Soft, non-tender, non-distended with bowel sounds, yeast infection abdominal pannus. MUSCULOSKELETAL: No tenderness, deformities, or effusions noted on gross inspection. EXTREMITIES: No cyanosis, clubbing or edema. SKIN: Inspection of the skin reveals no rashes NEUROLOGIC: Alert and oriented x 4. Strength and sensation to light touch were grossly intact x 4. Medical Decision Making Medical Decision Making MDM Narrative: 52-year-old male with history and clinical presentation consistent with poorly-controlled diabetes especially given the yeast infection of the abdominal pannus as well as balanitis. Otherwise, he is noted to have an NACHO and will receive 1 L of fluids and then re-evaluation of BMP. Otherwise, all other workup appears to be within normal limits. Given the diarrhea that the patient has and is history of thyroid dysfunction will proceed with obtaining TSH. I suspect that the NACHO his a combination of patient's fasting and 5-6 episodes of diarrhea. Differential Diagnosis Please see the discussion above Lab Data Please see the discussion above 09/06/22 00:06 09/06/22 00:06 Labs: Lab Results 09/06/22 09/06/22 09/06/22 Range/Units 00:02 00:06 00:06 WBC 8.6 (4.8-10.8) X10*3/uL RBC 5.92 H (4.60-5.80) X10*6/uL Hgb 15.3 (14.0-18.0) g/dl Hct 45.1 (42.0-52.0) % MCV 76.2 L (80.0-98.0) fL MCH 25.8 L (27.0-33.0) pg MCHC 33.9 (31.0-36.0) g/dl RDW 13.9 (11.0-16.0) % Plt Count 152 L (160-400) X10*3/uL MPV 12.0 (9.4-12.4) fL Immature Gran % (Auto) 0.1 (0.0-0.4) % Neut % (Auto) 56.8 (45-73) % Lymph % (Auto) 34.0 (20-40) % [place] % (Auto) 7.4 (2-11) % Eos % (Auto) 0.6 (0-4) % Baso % (Auto) 1.1 (0-2) % Lymph # (Auto) 2.9 (1.2-4.9) X10*3/uL [place] # (Auto) 0.6 (0.1-1.2) X10*3/uL Eos # (Auto) 0.1 (0.0-0.4) X10*3/uL Baso # (Auto) 0.1 (0.0-0.2) X10*3/uL Abs Immat Gran (auto) 0.01 (0.00-0.03) X10*3/uL Absolute Neuts (auto) 4.9 (2.0-8.3) x10*3/uL Absolute Nucleated RBC 0.000 (0.0-0.012) X10*3/uL Nucleated RBC % (auto) 0.0 (0.0-0.2) /100WBC Sodium 136 (135-145) mmol/L Potassium 4.5 (3.3-5.1) mmol/L Chloride 100 (96-108) mmol/L Carbon Dioxide 28 (22-29) mmol/L Anion Gap 13 (12-20) BUN 28 H (9-16) mg/dL Creatinine 2.32 H (0.5-1.4) mg/dL Estim Creat Clear Calc 45.6 Estimated GFR 30 POC Glucose 232 H (60-115) mg/dL Random Glucose 261 H (60-115) mg/dL Calcium 9.7 D (8.4-10.2) mg/dL Acetone, Qual Negative (Negative) Independent Interpretation I performed an independent interpretation of an: EKG Interpretation: Normal sinus rhythm, HR-82, no STEMI, WI/QRS/QTC is within normal limits. Discharge Plan Discharge Clinical Impression: Hyperglycemia due to diabetes mellitus, Balanitis, Candidiasis of skin, NACHO (acute kidney injury) Patient Disposition: Still a Patient Instructions: Balanitis (ED), Nutrition Tips for Relief of Diarrhea (ED), Skin Yeast Infection (ED) Additional Instructions: 1. Resume all home medications as prescribed. I strongly recommend you discuss initiating insulin with your primary care provider. 2. Please increase the amount of water that you drink and review the information regarding dietary changes to help firm up your stools. If this does not work please use [id number] Imodium. 3. All with your primary care provider on Thursday morning. Return to the ER for any worsening symptoms. Prescriptions: New nystatin 100,000 unit/gram powder 1 appl topical BID Qty: 60 0RF Rx Instructions: Apply to area on abdomen miconazole nitrate 2 % cream 1 appl topical BID Qty: 28 0RF Rx Instructions: Aplicar en la punta del pene (Apply to tip of penis) No Action atorvastatin 40 mg tablet 40 mg PO DAILY 90 Days Qty: 90 1RF duloxetine [Cymbalta] 30 mg capsule,delayed release(DR/EC) 30 mg PO DAILY 90 Days Qty: 90 1RF gabapentin 600 mg tablet 600 mg PO BID 90 Days Qty: 180 1RF metformin 1,000 mg tablet 1,000 mg PO DAILY 90 Days Qty: 90 1RF naproxen 500 mg tablet 500 mg PO BID PRN (Reason: Pain) 10 Days Qty: 20 1RF Hold Instructions: Doctor's Order meclizine 12.5 mg tablet 12.5 mg PO BID PRN (Reason: Dizziness) 30 Days Qty: 60 0RF fenofibrate 54 mg tablet 54 mg PO DAILY Qty: 90 1RF levothyroxine 125 mcg tablet 125 mcg PO DAILY 90 Days Qty: 90 1RF sertraline 50 mg tablet 50 mg PO DAILY 90 Days Qty: 90 2RF losartan-hydrochlorothiazide 50-12.5 mg tablet 1 tab PO DAILY Qty: 30 0RF tramadol 50 mg tablet 50 mg PO Q6H PRN (Reason: pain) Qty: 20 0RF (DME) oxygen-air delivery systems Device See Rx Instructions .ROUTE .MEDSUPPLY Qty: 1 Rx Instructions: As directed famotidine 20 mg tablet 20 mg PO DAILY 60 Days Qty: 60 0RF Referrals: Gurdeep Bruce PA-C [Primary Care Provider] -
[2022-09-06] MEDS: 0.9 % Sodium Chloride 1,000 ML 999 ML IV (01:12)
[2022-09-06 01:15] VITALS: BP 112/60; PULSE 78; RESP 14; TEMP 37.2; O2SAT 94
[2022-09-06 01:25] LABS: Appearance Urine Clear; Color Urine Yellow; Glucose Urine UA >=1000 mg/dL (Negative); Leukocyte Esterase Urine Negative (Negative); Nitrite Urine Negative (Negative); PH 6.5 (5.0-9.0); Specific Gravity - Urine >= 1.030 (1.005-1.025); UMIC TRIGGER UACC YES; Urine Blood Negative (Negative); Urine Ketones Trace mg/dL (Negative); Urine Protein Negative (Neg-Trace)
[2022-09-06 01:37] LABS: Thyroid Stimulating Hormone 2.73 uIU/mL (0.32-4.0)
[2022-09-06 01:38] LABS: Bacteria Urine None Seen (None Seen); Hyaline Casts Urine 0-2 /LPF (0-2); RBC Urine 0-2 /HPF (0-2); Squamous Epithelial Cell Urine 0-2 /HPF (0-2); WBC Urine 0-5 /HPF (0-5)
[2022-09-06 02:31] LABS: Anion Gap 13 (12-20); Blood Urea Nitrogen 30 mg/dL (9-16); Calcium 8.6 mg/dL (8.4-10.2); Carbon Dioxide 25 mmol/L (22-29); Chloride 103 mmol/L (96-108); Creatinine Clr Calc Pharmacy 52.9; Estimated Glomerular Filt Rate 35; Glucose Random 266 mg/dL (60-115); Potassium 3.8 mmol/L (3.3-5.1); Sodium 137 mmol/L (135-145)
[2022-09-06 05:02] VITALS: BP 114/68; PULSE 73; RESP 16; TEMP 37.2; O2SAT 97
[2022-09-06 06:32] LABS: Anion Gap 13 (12-20); Blood Urea Nitrogen 29 mg/dL (9-16); Carbon Dioxide 25 mmol/L (22-29); Chloride 102 mmol/L (96-108); Creatinine Clr Calc Pharmacy 54.9; Estimated Glomerular Filt Rate 37; Glucose Random 272 mg/dL (60-115); Potassium 4.5 mmol/L (3.3-5.1); Sodium 135 mmol/L (135-145)
[2022-09-06 07:14] VITALS: BP 103/50; PULSE 74; RESP 12; TEMP 36.6; O2SAT 94
--- NOTE | 2022-09-06 08:37 | PC.NURSE ---
IV patent, Pt resting and seems comfortable.
[2022-09-06 10:10] VITALS: BP 99/63; PULSE 71; RESP 12; TEMP 37.2; O2SAT 93
[2022-09-06 10:39] LABS: Glucose, Whole Blood 275 mg/dL (60-115)
== END 2022-09-06 11:12 | disposition home or self-care (01) ==
PROVIDERS: Emergency Medicine; Student in an Organized Health Care Education/Training Program; Emergency Provider Emergency Medicine; PCP Physician Assistant
DX: E11.65 Type 2 diabetes mellitus with hyperglycemia (principal); N48.1 Balanitis; B37.2 Candidiasis of skin and nail; N17.9 Acute kidney failure, unspecified; I10 Essential (primary) hypertension; E78.5 Hyperlipidemia, unspecified; Z79.02 Long term (current) use of antithrombotics/antiplatelets; Z79.899 Other long term (current) drug therapy; Z79.84 Long term (current) use of oral hypoglycemic drugs
CPT/HCPCS: 36415; 80048; 81001; 82009; 82947; 84443; 85025; 93005; 96360; 99284; 99285

== ENCOUNTER 2022-09-07 18:29 | Emergency (ER) | payer MEDICARE, MEDICAID, SELFPAY ==
[2022-09-07 18:30] VITALS: BP 141/87; PULSE 101; RESP 18; TEMP 36.7; O2SAT 99; BMI 45.8
--- NOTE | 2022-09-07 18:33 | ED.GENADULT ---
HPI - General Adult General Chief complaint: Skin/Abscess/Foreign Body Stated complaint: cyst on backside Time Seen by Provider: 09/07/22 22:15 Source: patient and foreign language interpreter Mode of arrival: ambulatory Limitations: language barrier History of Present Illness HPI narrative: 52 yo male with history of HTN, JORGE, DM, hypothyroidism here with complaints of redness and swelling to the mid back. Patient reports that he had a small cyst to his midback for a long time but now it has increased in size, is red and painful. His squeezed the area and got some pus out. No fevers, chills, body aches, vomiting, Related Data Previous Rx's Medication Instructions Recorded atorvastatin 40 mg tablet 40 mg PO DAILY 90 days #90 tabs 04/02/21 duloxetine 30 mg capsule,delayed 30 mg PO DAILY 90 days #90 caps 04/02/21 release (Cymbalta) naproxen 500 mg tablet 500 mg PO BID PRN Pain 10 days #20 03/13/22 tabs famotidine 20 mg tablet 20 mg PO DAILY 60 days #60 tabs 03/20/22 meclizine 12.5 mg tablet 12.5 mg PO BID PRN Dizziness 30 05/05/22 days #60 tabs fenofibrate 54 mg tablet 54 mg PO DAILY #90 tabs 07/25/22 levothyroxine 125 mcg tablet 125 mcg PO DAILY 90 days #90 tabs 07/25/22 sertraline 50 mg tablet 50 mg PO DAILY 90 days #90 tabs 07/28/22 losartan 50 mg-hydrochlorothiazide 1 tab PO DAILY #30 tabs 08/14/22 12.5 mg tablet miconazole nitrate 2 % topical 1 appl topical BID #28 grams 09/06/22 cream nystatin 100,000 unit/gram topical 1 appl topical BID #60 grams 09/06/22 powder clotrimazole 1 % topical cream 1 appl topical BID 30 days #30 09/08/22 grams doxycycline monohydrate 100 mg 100 mg PO BID 10 days #20 caps 09/08/22 capsule dulaglutide 0.75 mg/0.5 mL 0.75 mg (0.5 mL) subcut QWEEK 4 09/08/22 subcutaneous pen injector weeks #2 mL (Trulicity) tramadol 50 mg tablet 50 mg PO Q8H PRN pain 5 days #15 09/08/22 tabs metformin 1,000 mg tablet 1,000 mg PO DAILY 90 days #90 tabs 09/13/22 gabapentin 600 mg tablet 600 mg PO BID 90 days #180 tabs 09/16/22 Allergies Allergy/AdvReac Type Severity Reaction Status Date / Time Penicillins Allergy Unknown Rash Verified 09/08/22 11:12 Review of Systems Review of Systems: Yes all other systems are reviewed and are negative Constitutional: Constitutional: Reports no additional constitutional complaints, Denies body ache(s), Denies chills, Denies fever(s), Denies headache(s) and Denies weakness Eyes: Eyes: Reports no additional eye complaints and Denies change in vision ENT: Reports system reviewed and no additional complaints, except as documented, Denies dizziness, Denies headache(s), Denies nasal congestion, Denies nasal discharge and Denies neck pain Cardiovascular: Cardiovascular: Reports no additional cardiovascular complaints, Denies chest pain, Denies leg edema and Denies dyspnea Respiratory: Respiratory: Reports no additional respiratory complaints, Denies cough and Denies dyspnea Gastrointestinal: Gastrointestinal: Reports no additional gastrointestinal complaints, Denies abdominal pain, Denies diarrhea, Denies nausea and Denies vomiting Genitourinary: Genitourinary: Denies urinary incontinence Musculoskeletal: Musculoskeletal: Reports no additional musculoskeletal complaints, Denies back pain, Denies arthralgias, Denies joint swelling, Denies neck pain, Denies numbness and Denies tingling Integumentary/Breasts: Skin/Breast: Reports system reviewed and no additional complaints, except as docu, Reports swelling, Reports erythema and Denies rash Neurologic: Reports system reviewed and no additional complaints, except as documented, Denies dizziness, Denies headache(s), Denies numbness, Denies tingling and Denies weakness PMFSH Past Medical History Medical History Abdominal pain DM2 (diabetes mellitus, type 2) HLD (hyperlipidemia) HTN (hypertension) Hx of appendicitis Hypothyroidism Hypothyroidism Pre-diabetes Sleep apnea with use of continuous positive airway pressure (CPAP) Supraumbilical hernia Umbilical hernia Surgical History History of cholecystectomy History of colonoscopy History of hemorrhoidectomy Hx of endoscopy Family History Family History Mother Diabetes Hypertension Father Diabetes Hypertension Maternal Uncle Cancer Maternal Grandmother Stroke Social History Social History Household Members: Spouse and Children Housing: Apartment Alcohol intake: unknown Patient Tobacco Use Status: Never used Tobacco e-Cigarette/Vaping Use: Never Used Second Hand Smoke Exposure: No Advance Directives Date on File: 02/03/22 service: No Current occupational status: disabled Current occupation: rt handed Cognitive needs: No Hearing needs: No Vision needs: Yes Physical Exam ED Vital Signs: Vital Signs - 24 hr 09/07/22 18:30 09/07/22 22:59 Temperature 98.0 F Pulse Rate 101 H 97 Respiratory Rate 18 19 Blood Pressure 141/87 H 127/73 Pulse Oximetry 99 94 Oxygen Delivery Method Room Air Room Air BMI result Body Mass Index 45.8 Const General: cooperative, healthy appearing, comfortable and no acute distress Orientation/consciousness: patient oriented x3 Limitations: no limitations HENMT Head: Yes normal to inspection Ears: hearing grossly normal bilaterally Eyes General: appearance normal, both eyes and all related structures Pupils: Equal, round and reactive pupils present Neck Neck: Yes normal visual inspection Chest Chest palpation & inspection: normal inspection of the chest Resp Effort & Inspection: normal respiratory effort Auscultation: clear to auscultation bilaterally Cardio Rate: regular rate Rhythm: regular rhythm Peripheral pulses: Peripheral pulses 2+ throughout GI Inspection: Yes normal to inspection Palpation (GI): Soft to palpation and nontender Back/Spine/Pelvis Back/spine/pelvis image: 1. +medium sized area of induration with tenderness, erythema and warmth Neuro General: patient oriented x3 Cranial nerves: Yes Equal, round and reactive pupils present Course Course Course Narrative: RME: 52 yold male presents to the ED for back pain due to cysts on back. patient denies any trauma to back. has cysts on back that is tender and red. early abscess Medical Decision Making Medical Decision Making [facility] Narrative: 52-year-old male here with a abscess to the left mid back which is quite indurated on exam. Explained to patient it would not be conducive to incision and drainage I would recommend that he use warm compresses, and I will start him on oral antibiotics Differential Diagnosis Differential Diagnoses: The differential diagnosis associated with the presentation includes Abscess, cyst Discharge Plan Discharge Clinical Impression: Infected cyst of skin Patient Disposition: Home, Self-Care Instructions: Cyst (ED) Additional Instructions: warm compresses four times a day Prescriptions: No Action atorvastatin 40 mg tablet 40 mg PO DAILY 90 Days Qty: 90 1RF duloxetine [Cymbalta] 30 mg capsule,delayed release(DR/EC) 30 mg PO DAILY 90 Days Qty: 90 1RF naproxen 500 mg tablet 500 mg PO BID PRN (Reason: Pain) 10 Days Qty: 20 1RF Hold Instructions: Doctor's Order meclizine 12.5 mg tablet 12.5 mg PO BID PRN (Reason: Dizziness) 30 Days Qty: 60 0RF fenofibrate 54 mg tablet 54 mg PO DAILY Qty: 90 1RF levothyroxine 125 mcg tablet 125 mcg PO DAILY 90 Days Qty: 90 1RF sertraline 50 mg tablet 50 mg PO DAILY 90 Days Qty: 90 2RF losartan-hydrochlorothiazide 50-12.5 mg tablet 1 tab PO DAILY Qty: 30 0RF metformin 1,000 mg tablet 1,000 mg PO DAILY 90 Days Qty: 90 1RF gabapentin 600 mg tablet 600 mg PO BID 90 Days Qty: 180 2RF nystatin 100,000 unit/gram powder 1 appl topical BID Qty: 60 0RF Rx Instructions: Apply to area on abdomen miconazole nitrate 2 % cream 1 appl topical BID Qty: 28 0RF Rx Instructions: Aplicar en la punta del pene (Apply to tip of penis) famotidine 20 mg tablet 20 mg PO DAILY 60 Days Qty: 60 0RF doxycycline monohydrate 100 mg capsule 100 mg PO BID 10 Days Qty: 20 0RF tramadol 50 mg tablet 50 mg PO Q8H PRN (Reason: pain) 5 Days Qty: 15 0RF Trulicity 0.75 mg/0.5 mL pen injector 0.75 mg subcut QWEEK 28 Days Qty: 2 3RF clotrimazole 1 % cream 1 appl topical BID 30 Days Qty: 30 0RF Interventions: ED Discharge Assessment Last Done: 09/07/22 23:00 Discharge Date/Time: 09/07/22 23:00
[2022-09-07 22:59] VITALS: BP 127/73; PULSE 97; RESP 19; O2SAT 94
== END 2022-09-07 23:00 | disposition home or self-care (01) ==
PROVIDERS: Emergency Provider Internal Medicine; PCP Physician Assistant
DX: L02.212 Cutaneous abscess of back [any part, except buttock and flank] (principal); L72.8 Other follicular cysts of the skin and subcutaneous tissue; M54.50 Low back pain, unspecified; Z79.899 Other long term (current) drug therapy
CPT/HCPCS: 99282; 99283

== ENCOUNTER 2023-01-04 20:37 | Emergency (ER) | payer MEDICARE, SELFPAY ==
[2023-01-04 20:46] VITALS: BP 147/81; PULSE 89; RESP 16; TEMP 36.7; O2SAT 98; BMI 42.4
[2023-01-05 02:27] VITALS: BP 137/79; PULSE 73; RESP 18; TEMP 36.6; O2SAT 96
[2023-01-05 06:21] VITALS: BP 126/86; PULSE 67; RESP 19; TEMP 36.6; O2SAT 96
--- NOTE | 2023-01-05 06:25 | MHC.EDTECH ---
No order for urine put in. As a precaution, had patient give a simple when he had to go to the bathroom. Urine cup and tubes on cart labeled with Patient label.
--- NOTE | 2023-01-05 06:36 | ED.CHESTPAIN ---
HPI - Chest Pain General Chief Complaint: Chest Pain Stated Complaint: Back pain Time Seen by Provider: 01/05/23 06:36 Source: patient and RN notes reviewed Mode of arrival: ambulatory Limitations: no limitations History of Present Illness HPI narrative: 52 year old male with pmhx significant for HTN, hypothyroidism, GERD, JORGE, DDD, anxiety, DMT2 presenting to the ED today with substernal chest pain worse with breathing occurring suddenly while at rest yesterday. Pain described as a dull aching sensation that is more intense with deep breathing. No radiation. Currently rates it a 7/10. Additionally reports upper back pain to the mid-right back beginning yesterday. He rates this pain a 9/10. Pain radiates to his left lower extremity to the knee and is worse with movement of the back. Endorses chronic degenerative disc disease and states this feels similar. Additionally endorses a numbness/ weakness to LLE that begins in his left foot and extends to his left knee. Denies difficulty with ambulation. Denies fall, trauma, injury. Endorses diagnosis of diabetes 6 months ago. Currently managed with metformin a 1000 mg daily. Denies recent illness or sick contacts. Denies history of DVT. Denies personal or familial cardiac history. Denies history of renal stones. Denies recent car rides, travel, surgeries. Denies headache, fever, chills, cough, SOB, diaphoresis, N/V, abdominal pain, diarrhea, constipation, saddle paresthesias, bowel or bladder incontinence or retention, hematuria, dysuria or LE pain/swelling. Denies IVDU. Related Data Previous Rx's Medication Instructions Recorded atorvastatin 40 mg tablet 40 mg PO DAILY 90 days #90 tabs 04/02/21 duloxetine 30 mg capsule,delayed 30 mg PO DAILY 90 days #90 caps 04/02/21 release (Cymbalta) naproxen 500 mg tablet 500 mg PO BID PRN Pain 10 days #20 03/13/22 tabs famotidine 20 mg tablet 20 mg PO DAILY 60 days #60 tabs 03/20/22 meclizine 12.5 mg tablet 12.5 mg PO BID PRN Dizziness 30 05/05/22 days #60 tabs sertraline 50 mg tablet 50 mg PO DAILY 90 days #90 tabs 07/28/22 miconazole nitrate 2 % topical 1 appl topical BID #28 grams 09/06/22 cream nystatin 100,000 unit/gram topical 1 appl topical BID #60 grams 09/06/22 powder clotrimazole 1 % topical cream 1 appl topical BID 30 days #30 09/08/22 grams tramadol 50 mg tablet 50 mg PO Q8H PRN pain 5 days #15 09/08/22 tabs gabapentin 600 mg tablet 600 mg PO BID 90 days #180 tabs 09/16/22 semaglutide 0.25 mg or 0.5 mg (2 0.25 mg (0.368 mL) subcut QWEEK 4 09/24/22 mg/3 mL) subcutaneous pen injector weeks #1.6 mL (Ozempic) levothyroxine 125 mcg tablet 125 mcg PO DAILY 90 days #90 tabs 09/29/22 losartan 50 mg-hydrochlorothiazide 1 tab PO DAILY #30 tabs 10/23/22 12.5 mg tablet metformin 1,000 mg tablet 1,000 mg PO BID #200 tabs 11/04/22 fenofibrate 54 mg tablet 54 mg PO DAILY #100 tabs 12/27/22 cyclobenzaprine 10 mg tablet 10 mg PO BEDTIME PRN muscle spasm 01/05/23 #10 tabs lidocaine 5 % topical patch 1 patch topical DAILY #15 ea 01/05/23 (Lidoderm) Allergies Allergy/AdvReac Type Severity Reaction Status Date / Time Penicillins Allergy Unknown Rash Verified 09/24/22 10:11 Review of Systems Review of Systems: Constitutional: No fever, chills, fatigue, night sweats, weight changes ENT/Mouth: No ear pain, hearing loss, nasal congestion, sinus pain, rhinorrhea, sore throat Eyes: No eye pain, swelling, redness, vision changes, discharge Cardio: + chest pain, No palpitations, GARCIA, orthopnea, peripheral edema Pulm: No SOB, cough, sputum, wheezing, dyspnea, hemoptysis GI: No nausea, vomiting, hematemesis, abdominal pain, diarrhea, constipation, hematochezia, melena : No irregular bleeding, dysuria, frequency, urgency, hesitancy, hematuria, flank pain, urinary flow changes, urinary incontinence or retention MSK: + back pain, No neck pain, joint pain, myalgias Skin: No lesions, rashes Neuro: No weakness, + numbness, No paresthesias, LOC, dizziness, headache All other systems reviewed and are negative. [facility] Past Medical History Attestation statement: The following information was validated with the patient. Source: old records reviewed and nursing notes reviewed Medical History BPPV (benign paroxysmal positional vertigo) Hypothyroidism Hx of appendicitis Supraumbilical hernia Umbilical hernia Umbilical hernia DM2 (diabetes mellitus, type 2) Abdominal pain Pre-diabetes Sleep apnea with use of continuous positive airway pressure (CPAP) HLD (hyperlipidemia) HTN (hypertension) Hypothyroidism Surgical History Hx of endoscopy History of colonoscopy History of hemorrhoidectomy History of cholecystectomy Family History Family History Mother Diabetes Hypertension Father Diabetes Hypertension Maternal Uncle Cancer Maternal Grandmother Stroke Social History Social History Household Members: Spouse and Children Housing: Apartment Alcohol intake: unknown Patient Tobacco Use Status: Never used Tobacco Smoked in Last 30 Days: No e-Cigarette/Vaping Use: Never Used Second Hand Smoke Exposure: No Use of substances other than those prescribed or required for medical reasons: No Advance Directives: Yes Advance Directives on File: Yes Advance Directives Date on File: 02/03/22 service: No Current occupational status: disabled Current occupation: rt handed Cognitive needs: No Hearing needs: No Vision needs: Yes Physical Exam Vital Signs: Vital Signs: Last Vital Signs Temp 98.1 F 01/05/23 10:35 Pulse 80 01/05/23 10:35 Resp 13 01/05/23 10:35 BP 130/74 01/05/23 10:35 Pulse Ox 95 01/05/23 10:35 O2 Del Method Room Air 01/05/23 10:35 BMI result Body Mass Index 42.4 Vital signs stable Const: General: cooperative, comfortable, no acute distress, alert and awake; No anxious or diaphoretic Nutritional Appearance: obese Orientation/consciousness: patient oriented x3 Limitations: no limitations HEENT: Head: Yes normal to inspection Ears: hearing grossly normal bilaterally General nose exam: Normal external nose present Mouth: moist mucous membranes Eyes: General: appearance normal, both eyes and all related structures Conjunctivae: conjunctivae normal Sclerae: sclerae normal Corneas: corneas normal Pupils: Equal, round and reactive pupils present EOM: EOMs intact bilaterally Neck: Neck: Yes normal visual inspection, Yes no lymphadenopathy, Yes trachea midline and Yes no JVD Chest: Chest palpation & inspection: normal inspection of the chest, normal palpation of entire chest wall, no crepitus, no masses, no tenderness and No rash Resp: Effort & Inspection: normal respiratory effort, able to speak in complete sentences and no respiratory distress Auscultation: clear to auscultation bilaterally Cardio: Rate: regular rate Rhythm: regular rhythm Heart sounds: S1 normal heart sound present and S2 normal heart sound present Peripheral pulses: Peripheral pulses 2+ throughout GI: Inspection: Yes normal to inspection Palpation (GI): Soft to palpation, nontender, no guarding and No Rebound tenderness present : General: Yes no CVA tenderness Back/Spine/Pelvis: Other: No midline spinous tenderness. + right thoracic and lumbar paraspinous tenderness to palpation. No deformity or step-offs. Back: no CVA tenderness Skin: General skin exam: no rashes or lesions noted Neuro: Other: Strength 5/5 intact throughout.? No saddle anesthesia.? Sensation intact to light touch however slightly decreased over the left lower extremity from the anterior knee to the toes. PT/DP pulses 2+ bilaterally. 2+ patellar and Achilles tendon reflexes bilaterally. Neurovascularly intact distally.? Ambulating with steady gait. General: patient oriented x3, gait normal and moves all extremities Cranial nerves: Yes CN's II-XII intact bilaterally and Yes Equal, round and reactive pupils present Deep tendon reflexes (DTR's): Right patellar reflex intensity grade: 2+, Left patellar reflex intensity grade: 2+, Right ankle reflex intensity grade: 2+ and Left ankle reflex intensity grade: 2+ Extrem: General: Yes normal to inspection and Yes full ROM Course Course Course Narrative: 0716-- CBC without leukocytosis or anemia. Chronically elevated BUN appearing to be patient's baseline. Troponin negative x1. No acute electrolyte abnormalities requiring intervention. No urinary tract infection. Chest x-ray showing hypoexpanded lungs without consolidations or infiltrate > no pneumonia. EKG showing NRS with a rate of 75 BPM, with a low-voltage QRS (likely secondary to obesity), no ischemic changes, without significant change from previous EKG on 09/06/2022. > D-dimer has been ordered to rule out VTE. Lipase, BNP, CRP/ESR ordered. X-ray lumbar and thoracic spine ordered. > Lidoderm patch, Flexeril and Tylenol administered 935-- D-dimer negative > no VTE. CRP/ESR WNL. BNP WNL. Lipase WNL. X-ray thoracic and lumbar spine without acute fracture, showing mild-moderate chronic degenerative changes. > given pts unremarkable cardiac workup and reproducible chest wall tenderness, this is likely costochondritis. > back pain is most consistent with musculoskeletal pain + chronic degenerative changes > will send patient home with Flexeril and Lidoderm patches. 1000-- Patient reports improvement in back pain. Discussed unremarkable lab workup and imaging findings. Had a discussion with patient regarding disposition. States that he feels comfortable being discharged home with the medications that he received in the ED today + close PCP follow-up. Advised patient that his left lower extremity numbness is likely due to his diabetes and requires further f/u with PCP. Patient expresses understanding. Advised patient to take ibuprofen as needed at home to help with inflammation. > discussed strict return precautions. All questions answered at this time. Patient tells me that he will not be driving home and that his will be driving him home as he has taken Flexeril in ED. Patient agreeable with this disposition and ambulating with steady gait. Patient stable for discharge home. Medications Administered Discontinued Medications Generic Name Dose Route Start Last Admin Trade Name Freq PRN Reason Stop Dose Admin Acetaminophen 975 mg 01/05/23 07:17 01/05/23 09:41 Acetaminophen 325 Mg Tablet PO 01/05/23 07:18 975 mg ONCE ONE Administration Cyclobenzaprine HCl 5 mg 01/05/23 07:04 01/05/23 09:41 Cyclobenzaprine Hcl 5 Mg Tablet PO 01/05/23 07:05 5 mg ONCE ONE Administration Sodium Chloride 1,000 mls @ 999 mls/hr 01/05/23 07:15 01/05/23 09:42 Ns IV 01/05/23 08:15 Not Given .Q1H1M TIGIST Lidocaine 1 patch 01/05/23 07:04 01/05/23 09:41 Lidocaine 4 % Patch Adh..Patch TRANSDERMA 01/05/23 07:05 1 patch ONCE ONE Administration Protocol Medical Decision Making Medical Decision Making MDM Narrative: 52 year old male with pmhx signficiant for HTN, hypothyroidism, GERD, JORGE, DDD, anxiety, DMT2 presenting to the ED today with substernal chest pain worse with breathing and upper back pain x1 day. Nontoxic appearing, in NAD. VSS. RRR, lungs CTA b/l, reproducible anterior chest wall tenderness. No midline spinous or paraspinal muscle tenderness. No step-off or deformity. Strength 5/5 intact throughout.?Sensation intact to light touch however slightly decreased over the left lower leg from the knee to the toes. PT/DP pulses 2+ bilaterally. Patellar and Achilles tendon reflexes intact bilaterally. NV intact distally.?Clinical concern for costochondritis vs pleuritis vs anxiety vs MSK sprain/strain vs ACS vs PE vs GERD. Unlikely ACS, arrhythmia, pleural effusion, will pericarditis, pericardial effusion, cardiac etamponad, dissection, pancreatitis, gastritis. Suspicion for lumbar/ thoracic sprain/ strain vs acute on chronic DDD vs herniated disc, vs sciatic vs nephrolithiasis vs renal colic. Unlikely UTI, cauda equina, epidural abscess, or cord compression. Clinical concern for diabetic neuropathy. Unlikely guillain barre syndrome, NV compromise, arterial occlusion, DVT, osteoarthritis, threat to limb, or compartment syndrome. Labs, EKG, CXR, EKG, UA obtained by overnight provider. Will add D-dimer, x-ray thoracic/lumbar spine and pain control. Differential Diagnosis Differential Diagnoses: The differential diagnosis associated with the presentation includes As above. Admission/Observation Not indicated. Lab Data [facility] Lab Attestation statement: I reviewed the patient's lab results. As above. 01/04/23 21:01 01/04/23 21:01 Labs: Lab Results 01/04/23 01/05/23 01/05/23 Range/Units 21:01 06:37 07:03 WBC 8.0 (4.8-10.8) X10*3/uL RBC 5.50 (4.60-5.80) X10*6/uL Hgb 14.1 (14.0-18.0) g/dl Hct 43.9 (42.0-52.0) % MCV 79.8 L (80.0-98.0) fL MCH 25.6 L (27.0-33.0) pg MCHC 32.1 (31.0-36.0) g/dl RDW 14.1 (11.0-16.0) % Plt Count 150 L (160-400) X10*3/uL MPV 11.4 (9.4-12.4) fL Immature Gran % (Auto) 0.3 (0.0-0.4) % Neut % (Auto) 63.0 (45-73) % Lymph % (Auto) 26.9 (20-40) % Kemper % (Auto) 8.1 (2-11) % Eos % (Auto) 0.9 (0-4) % Baso % (Auto) 0.8 (0-2) % Lymph # (Auto) 2.2 (1.2-4.9) X10*3/uL Kemper # (Auto) 0.7 (0.1-1.2) X10*3/uL Eos # (Auto) 0.1 (0.0-0.4) X10*3/uL Baso # (Auto) 0.1 (0.0-0.2) X10*3/uL Abs Immat Gran (auto) 0.02 (0.00-0.03) X10*3/uL Absolute Neuts (auto) 5.0 (2.0-8.3) x10*3/uL Absolute Nucleated RBC 0.000 (0.0-0.012) X10*3/uL Nucleated RBC % (auto) 0.0 (0.0-0.2) /100WBC ESR (0-15) MM/HR D-Dimer High Sensitivty < 150 NG/ML Sodium 142 (135-145) mmol/L Potassium 4.5 (3.3-5.1) mmol/L Chloride 112 H (96-108) mmol/L Carbon Dioxide 19 L (22-29) mmol/L Anion Gap 16 (12-20) BUN 30 H (9-16) mg/dL Creatinine 1.36 (0.5-1.4) mg/dL Estim Creat Clear Calc 73.8 Estimated GFR 55 Random Glucose 94 (60-115) mg/dL Calcium 8.5 (8.4-10.2) mg/dL Magnesium (1.6-2.6) mg/dL Total Bilirubin 0.4 (0.0-1.0) mg/dL AST 18 (5-37) U/L ALT 28 (0-40) U/L Alkaline Phosphatase 71 (39-117) U/L Troponin I High Sens < 2.7 (<3.5-35.0) ng/L C-Reactive Protein (< or = 0.50) mg/dL B-Natriuretic Peptide (<100) pg/mL Total Protein 6.9 (6.5-8.0) g/dL Albumin 3.9 (3.5-5.0) g/dL Lipase (8-78) U/L Urine Color Yellow Urine Appearance Clear Urine pH 5.5 (5.0-9.0) Ur Specific Louann 1.025 (1.005-1.025) Urine Protein Negative (Neg-Trace) mg/dL Urine Glucose (UA) Negative (Negative) mg/dL Urine Ketones Negative (Negative) mg/dL Urine Blood Negative (Negative) Urine Nitrite Negative (Negative) Ur Leukocyte Esterase Negative (Negative) 01/05/23 Range/Units 08:37 WBC (4.8-10.8) X10*3/uL RBC (4.60-5.80) X10*6/uL Hgb (14.0-18.0) g/dl Hct (42.0-52.0) % MCV (80.0-98.0) fL MCH (27.0-33.0) pg MCHC (31.0-36.0) g/dl RDW (11.0-16.0) % Plt Count (160-400) X10*3/uL MPV (9.4-12.4) fL Immature Gran % (Auto) (0.0-0.4) % Neut % (Auto) (45-73) % Lymph % (Auto) (20-40) % Kemper % (Auto) (2-11) % Eos % (Auto) (0-4) % Baso % (Auto) (0-2) % Lymph # (Auto) (1.2-4.9) X10*3/uL Kemper # (Auto) (0.1-1.2) X10*3/uL Eos # (Auto) (0.0-0.4) X10*3/uL Baso # (Auto) (0.0-0.2) X10*3/uL Abs Immat Gran (auto) (0.00-0.03) X10*3/uL Absolute Neuts (auto) (2.0-8.3) x10*3/uL Absolute Nucleated RBC (0.0-0.012) X10*3/uL Nucleated RBC % (auto) (0.0-0.2) /100WBC ESR 5 (0-15) MM/HR D-Dimer High Sensitivty NG/ML Sodium (135-145) mmol/L Potassium (3.3-5.1) mmol/L Chloride (96-108) mmol/L Carbon Dioxide (22-29) mmol/L Anion Gap (12-20) BUN (9-16) mg/dL Creatinine (0.5-1.4) mg/dL Estim Creat Clear Calc Estimated GFR Random Glucose (60-115) mg/dL Calcium (8.4-10.2) mg/dL Magnesium 2.2 (1.6-2.6) mg/dL Total Bilirubin (0.0-1.0) mg/dL AST (5-37) U/L ALT (0-40) U/L Alkaline Phosphatase (39-117) U/L Troponin I High Sens (<3.5-35.0) ng/L C-Reactive Protein 0.31 (< or = 0.50) mg/dL B-Natriuretic Peptide 77 (<100) pg/mL Total Protein (6.5-8.0) g/dL Albumin (3.5-5.0) g/dL Lipase 16 (8-78) U/L Urine Color Urine Appearance Urine pH (5.0-9.0) Ur Specific Louann (1.005-1.025) Urine Protein (Neg-Trace) mg/dL Urine Glucose (UA) (Negative) mg/dL Urine Ketones (Negative) mg/dL Urine Blood (Negative) Urine Nitrite (Negative) Ur Leukocyte Esterase (Negative) Independent Interpretation I performed an independent interpretation of an: EKG (EKG showing NSR with a rate of 75 BPM and were with a low-voltage QRS, no ischemic changes, no significant change from previous EKG on 09/06/2022.) and Plain X-Ray Interpretation: Chest x-ray showing hypoexpanded lungs without consolidations or infiltrate. Thoracic and lumbar x-rays without acute fracture, agree with radiologist's interpretation. Radiology Impression Discussion of test interpretation with radiology: I have reviewed the radiologist's reading. (XR chest 1V IMPRESSION: Hypoexpanded lungs. No acute intrathoracic disease.) Radiologist Impression: XR chest 1V IMPRESSION: Hypoexpanded lungs. No acute intrathoracic disease. XR thoracic spine 3V IMPRESSION:Hypertrophic and spondylotic changes throughout the thoracic spine but no fracture or bone lesion. XR lumbar spine 2-3V IMPRESSION: No acute abnormality. No evidence of lumbar vertebral compression fracture. [id number] discovertebral degenerative change with mild right lateral listhesis at L4-L5. Otherwise, lumbar vertebra have normal alignment. External Record Review External record reviewed: Inpatient record Prescription Management I considered prescription management with: Pain Medication Chronic Conditions Patient?s care impacted by: Diabetes and Hypertension Critical Care Time Critical Care Time Critical Care Time: No Discharge Plan Discharge Clinical Impression: Musculoskeletal back pain, Diabetic neuropathy, Costochondritis Patient Disposition: Home, Self-Care Instructions: Costochondritis (ED), Diabetic Peripheral Neuropathy (ED), Back Pain (ED) Additional Instructions: Your cardiac workup today was normal. Your EKG was normal. The x-ray of your chest did not show pneumonia. The fact that your chest pain is worse with breathing and with touching the chest, your symptoms are consistent with costochondritis (inflammation of the cartilage within the ribs). You may take ibuprofen for this as needed. The x-ray of the lower thoracic and lumbar spine did not show acute fracture however did show degenerative changes within the spine. Your pain improved with medications today. Your pain is likely musculoskeletal. Avoid bending, lifting, or twisting. Use ice several times per day for 20 minutes at a time for the next 48 hours and then change to heat. Flexeril is a muscle relaxer. Take this at night as it makes you drowsy. Do not drive, drink alcohol, or operate machinery while taking it. Do not take this with tramadol. Lidoderm patches are numbing patches. Apply to painful areas. In addition you may take Tylenol at home. Follow up with your primary care provider as needed You have also been provided a referral to an orthopedic surgeon and pain management. You can call them to make a follow-up appointment. They will not call you. If your pain worsens, if you develop new numbness, tingling, weakness, loss of bowel or bladder function call 911 or return to the ER immediately for evaluation. The decreased sensation to your lower left leg/foot is likely diabetic neuropathy. Please follow-up with your primary care physician as this may warrant further workup. Dunn examen card?aco de hoy fue normal. Dunn electrocardiograma fue normal. La radiograf?a de dunn t?rax no mostr? neumon?a. El hecho de que dunn dolor en el pecho empeore al respirar y al tocarse el pecho, andree s?ntomas son consistentes con la costocondritis (inflamaci?n del cart?hannah dentro de las costillas). Puede bibi ibuprofeno para esto seg?n sea necesario. La radiograf?a de la columna tor?cica y lumbar inferior no mostr? fractura aguda, ceasar s? cambios degenerativos dentro de la columna. Dunn dolor mejor? con medicamentos hoy. Es probable que dunn dolor sea musculoesquel?tonie. Evite doblarse, levantarse o torcerse. Use hielo varias veces al d?a leisa 20 minutos a la vez leisa las siguientes 48 horas y luego c?mbielo a calor. Flexeril es un relajante muscular. T?peres por la noche ya que le produce rodríguez?o. No conduzca, shelley alcohol ni opere maquinaria mientras lo est? tomando. No tome esto con tramadol. Los parches de Lidoderm son parches adormecedores. Aplicar en las zonas dolorosas. Adem?s puede bibi Tylenol en casa. Gokul un seguimiento con dunn proveedor de atenci?n primaria seg?n sea necesario Tambi?n se le ryan proporcionado roxy derivaci?n a un cirujano ortop?dico y tratamiento del dolor. Puede llamarlos para programar roxy todd de seguimiento. No te llamar?n. Si dunn dolor empeora, si desarrolla nuevo entumecimiento, hormigueo, debilidad, p?rdida de la funci?n intestinal o vesical, llame al 911 o regrese a la flavio de emergencias de inmediato para roxy evaluaci?n. La disminuci?n de la sensaci?n en la parte inferior de la pierna/pie christofer probablemente se deba a roxy neuropat?a diab?surinder. Gokul un seguimiento con dunn m?dico de atenci?n primaria, ya que esto puede requerir m?s estudios. Prescriptions: New lidocaine [Lidoderm] 5 % adhesive patch,medicated 1 patch topical DAILY Qty: 15 0RF Rx Instructions: leave on most painful area for up to 12 hrs cyclobenzaprine 10 mg tablet 10 mg PO BEDTIME PRN (Reason: muscle spasm) Qty: 10 0RF No Action atorvastatin 40 mg tablet 40 mg PO DAILY 90 Days Qty: 90 1RF duloxetine [Cymbalta] 30 mg capsule,delayed release(DR/EC) 30 mg PO DAILY 90 Days Qty: 90 1RF naproxen 500 mg tablet 500 mg PO BID PRN (Reason: Pain) 10 Days Qty: 20 1RF Hold Instructions: Doctor's Order meclizine 12.5 mg tablet 12.5 mg PO BID PRN (Reason: Dizziness) 30 Days Qty: 60 0RF sertraline 50 mg tablet 50 mg PO DAILY 90 Days Qty: 90 2RF gabapentin 600 mg tablet 600 mg PO BID 90 Days Qty: 180 2RF levothyroxine 125 mcg tablet 125 mcg PO DAILY 90 Days Qty: 90 1RF losartan-hydrochlorothiazide 50-12.5 mg tablet 1 tab PO DAILY Qty: 30 0RF metformin 1,000 mg tablet 1,000 mg PO BID Qty: 200 2RF fenofibrate 54 mg tablet 54 mg PO DAILY Qty: 100 2RF nystatin 100,000 unit/gram powder 1 appl topical BID Qty: 60 0RF Rx Instructions: Apply to area on abdomen miconazole nitrate 2 % cream 1 appl topical BID Qty: 28 0RF Rx Instructions: Aplicar en la punta del pene (Apply to tip of penis) famotidine 20 mg tablet 20 mg PO DAILY 60 Days Qty: 60 0RF Ozempic 0.25 mg or 0.5 mg (2 mg/3 mL) pen injector 0.25 mg subcut QWEEK 28 Days Qty: 1.6 1RF Rx Instructions: for 4 weeks tramadol 50 mg tablet 50 mg PO Q8H PRN (Reason: pain) 5 Days Qty: 15 0RF clotrimazole 1 % cream 1 appl topical BID 30 Days Qty: 30 0RF Referrals: [facility]geons [Provider Group] [facility] Pain Management [Provider Group] Gurdeep Bruce PA-C [Primary Care Provider] - Stand Alone Forms: Work/School Release Interventions: LWBS Worksheet Last Done: 01/04/23 23:01 ED Discharge Assessment Last Done: 01/05/23 10:43 Discharge Date/Time: 01/05/23 10:52
[2023-01-05 08:42] VITALS: BP 110/72; PULSE 65; RESP 14; TEMP 36.5; O2SAT 96
[2023-01-05 10:35] VITALS: BP 130/74; PULSE 80; RESP 13; TEMP 36.7; O2SAT 95
== END 2023-01-05 10:52 | disposition home or self-care (01) ==
PROVIDERS: Emergency Provider Emergency Medicine; PCP Physician Assistant
DX: R07.89 Other chest pain (principal); M54.50 Low back pain, unspecified; R06.02 Shortness of breath; M54.6 Pain in thoracic spine; M94.0 Chondrocostal junction syndrome [Tietze]; E11.40 Type 2 diabetes mellitus with diabetic neuropathy, unspecified; Z79.899 Other long term (current) drug therapy
CPT/HCPCS: 36415; 71045; 72072; 72100; 80053; 81003; 83690; 83735; 83880; 84484; 85025; 85379; 85652; 86140; 93005; 99284; 99285

== ENCOUNTER 2023-01-23 22:55 | Emergency (ER) | payer MEDICARE, MEDICAID, SELFPAY ==
[2023-01-23 22:56] VITALS: BP 146/86; PULSE 105; RESP 16; TEMP 36.8; O2SAT 95; BMI 42.1
[2023-01-23 23:16] LABS: Basophils Absolute Auto 0.1 X10*3/uL (0.0-0.2); Basophils Percent Auto 0.6 % (0-2); Eosinophils Percent Auto 0.2 % (0-4); Hematocrit 47.8 % (42.0-52.0); Hemoglobin 15.4 g/dl (14.0-18.0); Imm Gran Abs Auto 0.03 X10*3/uL (0.00-0.03); Imm Gran Pct Auto 0.3 % (0.0-0.4); Lymphocytes Absolute Auto 1.3 X10*3/uL (1.2-4.9); Lymphocytes Percent Auto 11.7 % (20-40); MANUAL DIFF FLAG NO; Mean Corpuscular HGB Conc 32.2 g/dl (31.0-36.0); Mean Corpuscular Hemoglobin 25.2 pg (27.0-33.0); Mean Corpuscular Volume 78.1 fL (80.0-98.0); Mean Platelet Volume 11.9 fL (9.4-12.4); Monocytes Absolute Auto 1.1 X10*3/uL (0.1-1.2); Monocytes Percent Auto 9.6 % (2-11); Neutrophils Absolute Auto 8.9 x10*3/uL (2.0-8.3); Neutrophils Percent Auto 77.6 % (45-73); Platelet Count 166 X10*3/uL (160-400); Red Blood Count 6.12 X10*6/uL (4.60-5.80); White Blood Count 11.4 X10*3/uL (4.8-10.8)
--- NOTE | 2023-01-23 23:29 | ED_ITS ---
HPI - General Adult General Chief complaint: GI Bleed Stated complaint: Fever/Sore throat/Rectum pain Time Seen by Provider: 01/23/23 23:29 Source: patient, family and dough catcher History of Present Illness HPI narrative: A 50-year-old male Hypertension, GERD, hyperlipidemia, presents for evaluation of rectal pain. Patient has a history of hemorrhoids, status post surgical revision in 2012. Patient states over the past several days he was having difficulty moving his bowels. This in turn caused his hemorrhoids to flare up. He has tried preparation in the past. He has not tried any medications today. He denies any abdominal pain. He denies any diarrhea. In addition, the patient is complaining of sore throat which began earlier today. He denies any fevers chills vomiting. No sick contacts. He has not tried any medication for this. Related Data Previous Rx's Medication Instructions Recorded atorvastatin 40 mg tablet 40 mg PO DAILY 90 days #90 tabs 04/02/21 duloxetine 30 mg capsule,delayed 30 mg PO DAILY 90 days #90 caps 04/02/21 release (Cymbalta) naproxen 500 mg tablet 500 mg PO BID PRN Pain 10 days #20 03/13/22 tabs famotidine 20 mg tablet 20 mg PO DAILY 60 days #60 tabs 03/20/22 meclizine 12.5 mg tablet 12.5 mg PO BID PRN Dizziness 30 05/05/22 days #60 tabs sertraline 50 mg tablet 50 mg PO DAILY 90 days #90 tabs 07/28/22 miconazole nitrate 2 % topical 1 appl topical BID #28 grams 09/06/22 cream nystatin 100,000 unit/gram topical 1 appl topical BID #60 grams 09/06/22 powder clotrimazole 1 % topical cream 1 appl topical BID 30 days #30 09/08/22 grams tramadol 50 mg tablet 50 mg PO Q8H PRN pain 5 days #15 09/08/22 tabs gabapentin 600 mg tablet 600 mg PO BID 90 days #180 tabs 09/16/22 semaglutide 0.25 mg or 0.5 mg (2 0.25 mg (0.368 mL) subcut QWEEK 4 09/24/22 mg/3 mL) subcutaneous pen injector weeks #1.6 mL (Ozempic) levothyroxine 125 mcg tablet 125 mcg PO DAILY 90 days #90 tabs 09/29/22 losartan 50 mg-hydrochlorothiazide 1 tab PO DAILY #30 tabs 10/23/22 12.5 mg tablet metformin 1,000 mg tablet 1,000 mg PO BID #200 tabs 11/04/22 fenofibrate 54 mg tablet 54 mg PO DAILY #100 tabs 12/27/22 cyclobenzaprine 10 mg tablet 10 mg PO BEDTIME PRN muscle spasm 01/05/23 #10 tabs lidocaine 5 % topical patch 1 patch topical DAILY #15 ea 01/05/23 (Lidoderm) hydrocortisone 2.5 % topical cream 1 appl LA DAILY #30 grams 01/24/23 with perineal applicator (Proctosol HC) polyethylene glycol 3350 17 17 g PO DAILY #119 grams 01/24/23 gram/dose oral powder (Miralax) Allergies Allergy/AdvReac Type Severity Reaction Status Date / Time Penicillins Allergy Unknown Rash Verified 09/24/22 10:11 Review of Systems 2 Constitutional: Constitutional: Denies chills and Denies fatigue Respiratory: Respiratory: Denies cough Gastrointestinal: Gastrointestinal: Denies abdominal pain Genitourinary: Genitourinary: Denies flank pain Endocrine: Endocrine: Denies fatigue PMFSH Past Medical History Medical History BPPV (benign paroxysmal positional vertigo) Hypothyroidism Hx of appendicitis Supraumbilical hernia Umbilical hernia Umbilical hernia DM2 (diabetes mellitus, type 2) Abdominal pain Pre-diabetes Sleep apnea with use of continuous positive airway pressure (CPAP) HLD (hyperlipidemia) HTN (hypertension) Hypothyroidism Surgical History Hx of endoscopy History of colonoscopy History of hemorrhoidectomy History of cholecystectomy Family History Family History Mother Diabetes Hypertension Father Diabetes Hypertension Maternal Uncle Cancer Maternal Grandmother Stroke Social History Social History Household Members: Spouse and Children Housing: Apartment Alcohol intake: unknown Patient Tobacco Use Status: Never used Tobacco Smoked in Last 30 Days: No e-Cigarette/Vaping Use: Never Used Second Hand Smoke Exposure: No Use of substances other than those prescribed or required for medical reasons: No Advance Directives: Yes Advance Directives on File: Yes Advance Directives Date on File: 02/03/22 service: No Current occupational status: disabled Current occupation: rt handed Cognitive needs: No Hearing needs: No Vision needs: Yes Physical Exam ED Vital Signs: Vital Signs - 24 hr 01/23/23 22:56 01/23/23 23:35 Temperature 98.3 F 99.2 F Pulse Rate 105 H 101 H Respiratory Rate 16 16 Blood Pressure 146/86 H 128/77 Pulse Oximetry 95 97 Oxygen Delivery Method Room Air Room Air BMI result Body Mass Index 42.1 Const Other: Patient is awake alert, speaks full clear sentences. HENMT Other: Pupils are equal round reactive to light. Changes to the left sclera which are chronic in nature, unchanged. Nares are patent. Oropharynx is moist. There is no erythema. No COSMETIC DENTIST. Speaks full clear sentences Resp Effort & Inspection: normal respiratory effort Auscultation: clear to auscultation bilaterally Cardio Rate: regular rate Rhythm: regular rhythm GI Other: Rectal exam demonstrates multiple external hemorrhoids, non thrombosed. There is a single, 1 cm firm hemorrhoid at the 9 o'clock position. Normal rectal tone. No perianal tenderness or induration Medical Decision Making Medical Decision Making [facility] Narrative: 52-year-old male history of hypertension, hemorrhoids, GERD, presents with hemorrhoids. Hemodynamically stable. Will treat patient's hemorrhoids. Patient also reporting sore throat however no evidence on exam. Patient feels comfortable with discharge home. He will continue to monitor symptoms, and symptomatic treatment. MiraLax to help with bowel movements as well as Anusol. Differential Diagnosis Differential Diagnoses: The differential diagnosis associated with the presentation includes Perianal abscess Hemorrhoids Constipation Rectal fistula Viral syndrome Pharyngitis Sinusitis Dyspepsia Lab Data [facility] Lab Attestation statement: I reviewed the patient's lab results. Patient with known renal disease 01/23/23 23:11 01/23/23 23:11 Labs: Lab Results 01/23/23 Range/Units 23:11 WBC 11.4 H (4.8-10.8) X10*3/uL RBC 6.12 H (4.60-5.80) X10*6/uL Hgb 15.4 (14.0-18.0) g/dl Hct 47.8 (42.0-52.0) % MCV 78.1 L (80.0-98.0) fL MCH 25.2 L (27.0-33.0) pg MCHC 32.2 (31.0-36.0) g/dl RDW 14.0 (11.0-16.0) % Plt Count 166 (160-400) X10*3/uL MPV 11.9 (9.4-12.4) fL Immature Gran % (Auto) 0.3 (0.0-0.4) % Neut % (Auto) 77.6 H (45-73) % Lymph % (Auto) 11.7 L (20-40) % [place] % (Auto) 9.6 (2-11) % Eos % (Auto) 0.2 (0-4) % Baso % (Auto) 0.6 (0-2) % Lymph # (Auto) 1.3 (1.2-4.9) X10*3/uL [place] # (Auto) 1.1 (0.1-1.2) X10*3/uL Eos # (Auto) 0.0 (0.0-0.4) X10*3/uL Baso # (Auto) 0.1 (0.0-0.2) X10*3/uL Abs Immat Gran (auto) 0.03 (0.00-0.03) X10*3/uL Absolute Neuts (auto) 8.9 H (2.0-8.3) x10*3/uL Absolute Nucleated RBC 0.000 (0.0-0.012) X10*3/uL Nucleated RBC % (auto) 0.0 (0.0-0.2) /100WBC Sodium 140 (135-145) mmol/L Potassium 4.6 (3.3-5.1) mmol/L Chloride 105 (96-108) mmol/L Carbon Dioxide 25 (22-29) mmol/L Anion Gap 15 (12-20) BUN 25 H (9-16) mg/dL Creatinine 1.54 H (0.5-1.4) mg/dL Estim Creat Clear Calc 64.9 Estimated GFR 47 Random Glucose 107 (60-115) mg/dL Calcium 9.8 D (8.4-10.2) mg/dL Total Bilirubin 0.7 (0.0-1.0) mg/dL Direct Bilirubin 0.2 (0.0-0.5) mg/dL AST 171 H (5-37) U/L ALT 59 H (0-40) U/L Alkaline Phosphatase 70 (39-117) U/L Total Protein 7.5 (6.5-8.0) g/dL Albumin 4.2 (3.5-5.0) g/dL Lipase 23 (8-78) U/L Discharge Plan Discharge Clinical Impression: External hemorrhoids Patient Disposition: Home, Self-Care Instructions: Hemorrhoids (ED) Additional Instructions: Your liver tests were slightly elevated today. This should be rechecked by your primary care provider. Drink plenty of fluids. MiraLax as directed to help with bowel movements. Start with 1 tsp in 8 oz of water daily for several days. Increased to twice daily if no change in bowel movements. If you start to develop loose stools, began to decrease frequency. Anusol as directed. Follow-up with your primary care provider. Call this week to schedule a follow- up appointment. Return to the emergency department if you have any worsening of symptoms, or any concerns. Get well soon! Prescriptions: New hydrocortisone [Proctosol HC] 2.5 % cream with perineal applicator 1 appl LA DAILY Qty: 30 0RF polyethylene glycol 3350 [Miralax] 17 gram/dose powder 17 g PO DAILY Qty: 119 0RF No Action atorvastatin 40 mg tablet 40 mg PO DAILY 90 Days Qty: 90 1RF duloxetine [Cymbalta] 30 mg capsule,delayed release(DR/EC) 30 mg PO DAILY 90 Days Qty: 90 1RF naproxen 500 mg tablet 500 mg PO BID PRN (Reason: Pain) 10 Days Qty: 20 1RF Hold Instructions: Doctor's Order meclizine 12.5 mg tablet 12.5 mg PO BID PRN (Reason: Dizziness) 30 Days Qty: 60 0RF sertraline 50 mg tablet 50 mg PO DAILY 90 Days Qty: 90 2RF gabapentin 600 mg tablet 600 mg PO BID 90 Days Qty: 180 2RF levothyroxine 125 mcg tablet 125 mcg PO DAILY 90 Days Qty: 90 1RF losartan-hydrochlorothiazide 50-12.5 mg tablet 1 tab PO DAILY Qty: 30 0RF metformin 1,000 mg tablet 1,000 mg PO BID Qty: 200 2RF fenofibrate 54 mg tablet 54 mg PO DAILY Qty: 100 2RF nystatin 100,000 unit/gram powder 1 appl topical BID Qty: 60 0RF Rx Instructions: Apply to area on abdomen miconazole nitrate 2 % cream 1 appl topical BID Qty: 28 0RF Rx Instructions: Aplicar en la punta del pene (Apply to tip of penis) lidocaine [Lidoderm] 5 % adhesive patch,medicated 1 patch topical DAILY Qty: 15 0RF Rx Instructions: leave on most painful area for up to 12 hrs cyclobenzaprine 10 mg tablet 10 mg PO BEDTIME PRN (Reason: muscle spasm) Qty: 10 0RF famotidine 20 mg tablet 20 mg PO DAILY 60 Days Qty: 60 0RF Ozempic 0.25 mg or 0.5 mg (2 mg/3 mL) pen injector 0.25 mg subcut QWEEK 28 Days Qty: 1.6 1RF Rx Instructions: for 4 weeks tramadol 50 mg tablet 50 mg PO Q8H PRN (Reason: pain) 5 Days Qty: 15 0RF clotrimazole 1 % cream 1 appl topical BID 30 Days Qty: 30 0RF
[2023-01-23 23:33] LABS: Alanine Aminotransferase 59 U/L (0-40); Albumin Level 4.2 g/dL (3.5-5.0); Alkaline Phosphatase 70 U/L (39-117); Anion Gap 15 (12-20); Aspartate Amino Transferase 171 U/L (5-37); Bilirubin Direct 0.2 mg/dL (0.0-0.5); Bilirubin Total 0.7 mg/dL (0.0-1.0); Blood Urea Nitrogen 25 mg/dL (9-16); Calcium 9.8 mg/dL (8.4-10.2); Carbon Dioxide 25 mmol/L (22-29); Chloride 105 mmol/L (96-108); Creatinine Clr Calc Pharmacy 64.9; Estimated Glomerular Filt Rate 47; Glucose Random 107 mg/dL (60-115); Lipase 23 U/L (8-78); Potassium 4.6 mmol/L (3.3-5.1); Sodium 140 mmol/L (135-145); Total Protein 7.5 g/dL (6.5-8.0)
[2023-01-23 23:35] VITALS: BP 128/77; PULSE 101; RESP 16; TEMP 37.3; O2SAT 97
--- NOTE | 2023-01-23 23:36 | PC.NURSE ---
Pt ca&ox4, no signs of distress. Pt reports 10/10 rectal pain d/t hx of hemorrhoids. Pt reports small amounts of blood on toilet paper when he wipes. Pt reports a sore throat and cough that started today. Provider notified that pts temp is 99.2 and also c/o sore throat and cough. Provider cancelled UA. Plan of care ongoing.
== END 2023-01-24 00:25 | disposition home or self-care (01) ==
PROVIDERS: Emergency Provider Emergency Medicine; PCP Physician Assistant
DX: K64.4 Residual hemorrhoidal skin tags (principal); E11.9 Type 2 diabetes mellitus without complications; I10 Essential (primary) hypertension; E78.5 Hyperlipidemia, unspecified; Z79.02 Long term (current) use of antithrombotics/antiplatelets; Z79.899 Other long term (current) drug therapy; Z79.84 Long term (current) use of oral hypoglycemic drugs
CPT/HCPCS: 36415; 80048; 80076; 83690; 85025; 99283; 99284

== ENCOUNTER 2023-01-29 14:29 | Outpatient (AMB) | payer MEDICARE, SELFPAY ==
[2023-01-29 14:37] VITALS: BP 116/78; PULSE 84; O2SAT 98; BMI 41.9
--- NOTE | 2023-01-29 14:37 | MHC.PC.OV ---
Vital Signs 01/29/23 14:37 Height 5 ft 5 in Weight 252 lb BMI 41.9 BP 116/78 Blood Pressure Location Lt brachial Position Sitting Pulse 84 Pulse Oximetry (%) 98 Oxygen Delivery Method Room Air Intake Visit Reasons: 3 month f/u Medications Regulatory Affairs Internship Required: Yes Regulatory Affairs Internship Language: Slovak Accompanied by: Self / Same As Patient Allergies Penicillins Allergy (Unknown, Verified 09/24/22 10:11) Rash Tobacco use date assessed: 09/24/22 HPI 3 month f/u Medications HPI Details Patient is a 52-year-old male here today follow-up visit. Patient is Slovak-speaking only thus used a remote manager freelance. Past medical history significant for type 2 diabetes, obesity, lumbar disc disease. . Concern--> reports having rectal pain due to his hemorrhoids. Has small amount of bleeding. He recently went to the ER for this and was prescribed MiraLax. Has had hemorrhoidectomy surgery in the past, though unfortunately hemorrhoids had return.. Will give him Colace, advised on Sitz baths and using rectal cream. Will give him pain medication for temporary use due to his severe rectal pain. .. CHRONIC MEDICAL CONDITIONS--> Renal sufficiency:? Noted a decrease in GFR and elevation in creatinine since hospitalization? for dehydration. Advised to increase his water intake and avoid all nephrotoxins especially NSAIDs, patient agrees and understands.?? Will consider Nephrology evaluation. Diabetes:? Today's A1c of 5.9. Use on metformin a 1000 b.i.d.. Has been more active going to the gym several times a week. Reports he has not been able to afford Trulicity or Ozempic and has not met taking the medication. .. Obesity:? Has been able to lose weight since being more physically active at the gym. He does understand his BMI is well over 40..? .? He is willing to speak with weight service delivery management consultant . Fatty liver disease: Noted elevations in his liver enzymes likely related to his fatty liver disease. He denies any excessive aspirin use or excessive drinking. Will continue to follow consider decreasing atorvastatin if elevations in his liver enzymes continue. Hypertension:? Blood pressure acceptable today in office.? He reports that home blood pressures have been stable.? Continues on losartan -hydrochlorothiazide with good effect. .. Hypothyroidism: Patient continues on levothyroxine 125 mcg. Will recheck TSH to assure normal. .. Lumbar spine disc disease :? Patient continues to have lumbar spine pain to which she reports using a lumbar brace which has helped.? Otherwise has been using topical lidocaine, gabapentin without much relief.? He has done physical therapy in the past which helps somewhat. He did have a cortisone injections lumbar spine quite a while ago which was helpful. He would like to follow-up with a education manager about getting another cortisone injection in his lumbar spine. [facility] Medical History (Updated 02/02/23 @ 07:54 by Gurdeep Bruce PA-C) Tendinopathy of right shoulder Post viral syndrome BPPV (benign paroxysmal positional vertigo) Hypothyroidism Hx of appendicitis Supraumbilical hernia Umbilical hernia Umbilical hernia DM2 (diabetes mellitus, type 2) Abdominal pain Pre-diabetes Sleep apnea with use of continuous positive airway pressure (CPAP) HLD (hyperlipidemia) HTN (hypertension) Hypothyroidism Surgical History Hx of endoscopy History of colonoscopy History of hemorrhoidectomy History of cholecystectomy Family History Mother Diabetes Hypertension Father Diabetes Hypertension Maternal Uncle Cancer Maternal Grandmother Stroke Social History Household Members: Spouse and Children Housing: Apartment Alcohol intake: unknown Patient Tobacco Use Status: Never used Tobacco e-Cigarette/Vaping Use: Never Used Second Hand Smoke Exposure: No Advance Directives Date on File: 02/03/22 service: No Current occupational status: disabled Current occupation: rt handed Cognitive needs: No Hearing needs: No Vision needs: Yes Questionnaire Thrive Questionnaire Date Thrive assessed: 06/17/22 ZACHERY-7 AMB Questionnaire ZACHERY-7 Date ZACHERY - 7 assessed: 06/17/22 Source: Developed by Drs. Josue Arndt, Sneha Elias, Tarun Umana and colleagues, with an educational marissa from [employer]. Review of Systems Const Denies headache(s) Eyes Denies loss of vision ENT Denies vertigo, Denies dizziness, Denies headache(s) and Denies sore throat Card Denies chest pain, Denies leg edema and Denies lightheadedness Resp Denies cough, Denies hemoptysis and Denies wheezing GI Denies abdominal pain, Denies melena, Denies constipation, Denies diarrhea and Denies vomiting Denies dysuria, Denies urinary frequency and Denies urinary urgency Musc Denies arthralgias, Denies joint swelling, Denies numbness and Denies tingling Neuro Denies Abnormal speech present, Denies behavioral changes, Denies vertigo, Denies dizziness, Denies headache(s), Denies loss of vision, Denies memory loss, Denies numbness and Denies tingling Psych Denies anxiety, Denies behavioral changes, Denies depression, Denies memory loss and Denies panic attacks Luis/Lymph Denies easy bleeding and Denies easy bruising Aller/Immun Denies wheezing Physical exam (Primary Care) Vital Signs: Last Vital Signs Pulse 84 01/29/23 14:37 BP 116/78 01/29/23 14:37 Pulse Ox 98 01/29/23 14:37 Oxygen Delivery Method Room Air 01/29/23 14:37 BMI result Body Mass Index 41.9 BMI Assessment/Plan discussion: High Tobacco/Smoking Status: Tobacco use Status Tobacco use date assessed 09/24/22 01/29/23 14:41 Patient Tobacco Use Status Never used Tobacco 01/29/23 14:41 e-Cigarette/Vaping Use Never Used 01/29/23 14:41 Thrive Assessment: Date of Thrive Assessment Date Thrive assessed 06/17/22 01/29/23 14:41 Const Other: Obese General: no acute distress, alert and awake Nutritional Appearance: well nourished Orientation/consciousness: oriented to person, oriented to place and oriented to time HENMT Ears: TM's normal bilaterally General nose exam: Normal nasal mucous membranes and turbinates present Eyes Conjunctivae: conjunctivae normal Sclerae: sclerae normal Pupils: Equal, round and reactive pupils present Neck Neck: Yes no lymphadenopathy and Yes no JVD Thyroid: Thyroid normal Carotids: no bruits Resp Effort & Inspection: normal respiratory effort and not tachypneic Auscultation: no crackles, no rales, no rhonchi and no wheezes Cardio Rate: regular rate Rhythm: regular rhythm Heart sounds: no murmurs and normal S1 and S2 GI Palpation (GI): Soft to palpation, nontender, no hepatomegaly and no splenomegaly Auscultation: normal bowel sounds Skin General skin exam: no rashes or lesions noted and dry skin Neuro General: oriented to person, oriented to place and oriented to time Cranial nerves: Yes Equal, round and reactive pupils present Speech: No Abnormal speech present Gait exam (Neuro): Normal gait present Motor exam (neuro): no tremor noted Extrem Right upper extremity: full ROM Left upper extremity: full ROM Right lower extremity: full ROM; no edema Left lower extremity: full ROM; no edema Psych Mental Status: mental status grossly normal Speech and movement: Normal speech and movement present Affect: normal affect Attitude: cooperative Thought process: Normal thought process present Office Procedures Flu Questionnaire Does the patient have a severe egg allergy?: No Does the patient have severe life threatening allergies?: No Does the patient have a fever or illness today?: No Has the patient ever had Guillain-[place] Syndrome?: No Has the patient ever had any past reaction to a flu shot?: No Immunizations flu vacc [id number] 6mos up(PF) 60 mcg(15 mcgx4)/0.5 mL IM syringe Performing Provider: Gurdeep Bruce PA-C Performing Location: [facility] Administered by: FREDDY Melissa on 01/29/23 14:54 Dose Route Admin Location Dispensed Lot Number Expiration Date NDC Auto Suspension [employer] Steering Mechanic 0.5 mL IM Left Deltoid 0.5 mL [id number] 09/27/23 [id number] [employer] VIS Given Date VIS Provided VIS Publication Date 01/29/23 Single Vaccine 20 Eligibility Eligibility Date Funding Source Not [facility] Eligible 01/29/23 Private Assessment and Plan Assessment & Plan (1) DMII (diabetes mellitus, type 2): Code(s): E11.9 - Type 2 diabetes mellitus without complications Qualifiers: Diabetes mellitus complication detail: with nephropathy Diabetes mellitus complication status: with kidney complications Diabetes mellitus chcf insulin use: without buttermilk drier operator use Qualified Code(s): E11.21 - Type 2 diabetes mellitus with diabetic nephropathy Plan: Patient's type 2 diabetes well controlled Continues on metformin a 1000 b.i.d. Has not been able to afford Trulicity thus will transition to Ozempic. Goal A1c to be below 7.0 (2) Obese: Code(s): E66.9 - Obesity, unspecified Qualifiers: Body mass index: BMI 45.0-49.9 Obesity classification: adult class 3 (BMI >= 40) Obesity type: due to excess calories Serious obesity comorbidity presence: with serious comorbidity Qualified Code(s): E66.01 - Morbid (severe) obesity due to excess calories; Z68.42 - Body mass index [BMI] 45.0-49.9, adult Plan: Patient's BMI remains above 30 will work on being more physically active and adapting to better eating habits to reduce his weight (3) Acute hemorrhoid: Code(s): K64.9 - Unspecified hemorrhoids Plan: As per HPI patient has been suffering with symptomatic hemorrhoids. Has had a chronic history of this and he has even had a hemorrhoidectomy in the past which was unsuccessful. Advised on use stool softening agent, Sitz baths and rectal cream. Will supply patient with short-term use of pain medication for his severe rectal pain. (4) Hypertriglyceridemia: Code(s): E78.1 - Pure hyperglyceridemia Plan: Continues on statin therapy, most recent lipid panel showing elevated triglycerides though have been better since fibrate. Goal LDL to remain below 100 (5) HTN (hypertension): Code(s): I10 - Essential (primary) hypertension Qualifiers: Hypertension type: essential hypertension Qualified Code(s): I10 - Essential (primary) hypertension Plan: Patient's blood pressure acceptable today in office. Will continue current antihypertensive medication. Goal blood pressure be below 140/90 (6) Hypothyroidism: Code(s): E03.9 - Hypothyroidism, unspecified Qualifiers: Hypothyroidism type: unspecified Qualified Code(s): E03.9 - Hypothyroidism, unspecified Plan: Patient continues on levothyroxine 125 mcg. Most recent TSH has been stable. Will continue following TSH to assure normal. (7) JORGE (obstructive sleep apnea): Code(s): G47.33 - Obstructive sleep apnea (adult) (pediatric) Plan: Continues at night the CPAP machine with good effect on sleep. (8) Fatty liver: Code(s): K76.0 - Fatty (change of) liver, not elsewhere classified Plan: Patient's most recent liver enzymes elevated likely secondary to his fatty liver disease. Has been working on losing weight. Will continue to follow liver enzymes (9) Lumbar radiculopathy: Code(s): M54.16 - Radiculopathy, lumbar region Plan: Patient continues to have lower lumbar spine pain with radiculopathy. This has been existing condition that flares at time to time. He would like to see is back specialist for another cortisone injection which has helped him in the past. Does use tramadol on a p.r.n. basis for pain scales of 8-10. Orders: Orders Influenza [id number] Immunization 01/29/23 Z23 - Encounter for immunization Microalbumin, Random (w Creat) 01/29/23 I10 - Essential (primary) hypertension Comprehensive [place]. Panel Fast 01/29/23 E11.21 - Type 2 diabetes mellitus with diabetic nephropathy AMB Hemoglobin A1c 01/29/23 E11.9 - Type 2 diabetes mellitus without complications Lipid Panel 01/29/23 E78.1 - Pure hyperglyceridemia Referrals Physiatry Referral M54.16 - Radiculopathy, lumbar region Bariatric Surgery Referral E66.01 - Morbid (severe) obesity due to excess calories, Z68.42 - Body mass index [BMI] 45.0-49.9, adult Medications: New docusate sodium (Colace) 100 mg PO BID 30 days 60 caps 3RF K64.9 - Unspecified hemorrhoids Changed From famotidine 20 mg PO DAILY 60 days 60 tabs 0RF K21.9 - Gastro-esophageal reflux disease without esophagitis To famotidine 20 mg PO DAILY 90 days 90 tabs 1RF K21.9 - Gastro-esophageal reflux disease without esophagitis From metformin 1,000 mg PO BID 200 tabs 2RF E11.9 - Type 2 diabetes mellitus without complications To metformin 1,000 mg PO BID 90 days 180 tabs 1RF E11.9 - Type 2 diabetes mellitus without complications From losartan-hydrochlorothiazide 50-12.5 mg 1 tab PO DAILY 30 tabs 0RF I10 - Essential (primary) hypertension To losartan-hydrochlorothiazide 50-12.5 mg 1 tab PO DAILY 90 days 90 tabs 2RF I10 - Essential (primary) hypertension Refilled atorvastatin 40 mg PO DAILY 90 days 90 tabs 1RF E03.9 - Hypothyroidism, unspecified duloxetine (Cymbalta) 30 mg PO DAILY 90 days 90 caps 1RF M48.061 - Spinal stenosis, lumbar region without neurogenic claudication gabapentin 600 mg PO BID 90 days 180 tabs 2RF M54.16 - Radiculopathy, lumbar region sertraline 50 mg PO DAILY 90 days 90 tabs 2RF F41.9 - Anxiety disorder, unspecified tramadol 50 mg PO Q8H 5 days PRN 15 tabs 0RF pain L02.91 - Cutaneous abscess, unspecified levothyroxine 125 mcg PO DAILY 90 days 90 tabs 1RF E03.9 - Hypothyroidism, unspecified Coding Level of Care Code Est Pt Level 4 (93397) Diagnoses Type 2 diabetes mellitus with diabetic nephropathy, without long-term current use of insulin E11.21 Diabetes mellitus complication detail: with nephropathy Diabetes mellitus complication status: with kidney complications Diabetes mellitus chcf insulin use: without buttermilk drier operator use Class 3 severe obesity due to excess calories with serious comorbidity and body mass index (BMI) of 45.0 to 49.9 in adult E66.01; Z68.42 Body mass index: BMI 45.0-49.9 Obesity classification: adult class 3 (BMI >= 40) Obesity type: due to excess calories Serious obesity comorbidity presence: with serious comorbidity Acute hemorrhoid K64.9 Hypertriglyceridemia E78.1 Essential hypertension I10 Hypertension type: essential hypertension Hypothyroidism, unspecified type E03.9 Hypothyroidism type: unspecified JORGE (obstructive sleep apnea) G47.33 Fatty liver K76.0 Lumbar radiculopathy M54.16
== END 2023-01-29 15:12 | disposition home or self-care (01) ==
PROVIDERS: PCP Physician Assistant; Visit Provider Physician Assistant
DX: E11.9 Type 2 diabetes mellitus without complications (principal)
CPT/HCPCS: 83036; 90471; 90686; 99214

== ENCOUNTER 2023-03-10 09:02 | Outpatient (REF) | payer MEDICARE, SELFPAY ==
[2023-03-10 10:08] LABS: Alanine Aminotransferase 14 U/L (0-40); Alkaline Phosphatase 71 U/L (39-117); Anion Gap 14 (12-20); Aspartate Amino Transferase 15 U/L (5-37); Bilirubin Total 0.5 mg/dL (0.0-1.0); Blood Urea Nitrogen 24 mg/dL (9-16); Calcium 9.2 mg/dL (8.4-10.2); Carbon Dioxide 24 mmol/L (22-29); Chloride 109 mmol/L (96-108); Cholesterol 159 mg/dL (<200); Estimated Glomerular Filt Rate 47; Glucose Fasting 122 mg/dL (60-99); Glucose Random 121 mg/dL (60-115); HDL Cholesterol 27 mg/dL (>40); LDL Cholesterol Calculated 109 mg/dL (<100); Potassium 4.8 mmol/L (3.3-5.1); Sodium 142 mmol/L (135-145); Total Protein 7.5 g/dL (6.5-8.0); Triglycerides 119 mg/dL (<150)
[2023-03-10 12:16] LABS: Creatinine Urine 312.62 mg/dL; Microalbum/Creatinine Ratio Ur 2.2 ug/mg cr (<30)
[2023-03-17 13:39] LABS: Testosterone, Free 53.1 pg/mL (35.0-155.0); Testosterone, Total 374 ng/dL (250-1100)
== END 2023-03-10 09:03 | disposition home or self-care (01) ==
LOC: HO.LAB 09:02
PROVIDERS: PCP Physician Assistant; Visit Provider Physician Assistant
DX: R79.89 Other specified abnormal findings of blood chemistry (principal); E78.1 Pure hyperglyceridemia; I10 Essential (primary) hypertension; R68.82 Decreased libido
CPT/HCPCS: 36415; 80048; 80053; 80061; 82043; 82570; 84402; 84403

== ENCOUNTER 2023-05-04 10:58 | Outpatient (AMB) | payer MEDICARE, SELFPAY ==
[2023-05-04 11:12] VITALS: PULSE 65; O2SAT 98; BMI 40.9
--- NOTE | 2023-05-04 11:12 | MHC.PC.OV ---
Vital Signs 05/04/23 11:12 Height 5 ft 5 in Weight 246 lb BMI 40.9 Blood Pressure Location Lt brachial Position Sitting Pulse 65 Pulse Source Pulse Oximeter Pulse Oximetry (%) 98 Oxygen Delivery Method Room Air Intake Visit Reasons: f/u DMII- HLD- HTN Intake Note: The patient is present due to feeling dizzy and experiencing blurry vision. Blood pressure medications may need adjustment due to his new weight. Ana from [facility] is also suggesting a referral to Ophthalmology for the vision changes. Additionally, the patient mentioned needing a new glucometer as his current one is no longer functional. Credit Administrator Required: Yes Credit Administrator Language: French Accompanied by: Self / Same As Patient Allergies Penicillins Allergy (Unknown, Verified 05/04/23 11:33) Rash Medication List - Last Reconciled 05/04/23 by Gurdeep Bruce PA-C atorvastatin 80 mg PO DAILY 90 days clotrimazole 1% 1 appl topical BID 30 days cyclobenzaprine 10 mg PO BEDTIME PRN docusate sodium (Colace) 100 mg PO BID 30 days duloxetine (Cymbalta) 30 mg PO DAILY 90 days famotidine 20 mg PO DAILY 90 days fenofibrate 54 mg PO DAILY gabapentin 600 mg PO BID 90 days hydrocortisone 2.5% (Proctosol HC) 1 appl SC DAILY levothyroxine 125 mcg PO DAILY 90 days lidocaine 5% (Lidoderm) 1 patch topical DAILY losartan-hydrochlorothiazide 50-12.5 mg 1 tab PO DAILY 90 days meclizine 12.5 mg PO BID PRN 30 days metformin 1,000 mg PO BID 90 days miconazole nitrate 2% 1 appl topical BID naproxen 500 mg PO BID PRN 10 days nystatin 1 appl topical BID polyethylene glycol 3350 (Miralax) 17 grams PO DAILY semaglutide (Ozempic) 0.25 mg (0.368 mL) subcut QWEEK 4 weeks sertraline 50 mg PO DAILY 90 days tramadol 50 mg PO Q8H PRN 5 days Tobacco use date assessed: 05/04/23 Dental Screening Dental Screen Date: 05/04/23 Did you have a dental visit in the last 12 months?: Yes Did you have a dental problem in the last 6 months where you did not have access to dental care?: No Was dental information given to patient?: Patient has dentist HPI f/u DMII- HLD- HTN HPI Details Patient is a 53-year-old male here today follow-up visit. 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 Past medical history significant for type 2 diabetes, obesity, lumbar disc disease. . Concern--> reports over last several weeks feeling somewhat dizzy and lightheaded. Has lost significant amount weight intentionally and feels he may need an adjustment in his blood pressure medication. .. CHRONIC MEDICAL CONDITIONS--> Renal sufficiency:? Noted a decrease in GFR and elevation in creatinine since hospitalization? for dehydration. Advised to increase his water intake and avoid all nephrotoxins especially NSAIDs, patient agrees and understands.?? Will consider Nephrology evaluation. Diabetes:? Today's A1c of 5.8. Use on metformin a 1000 b.i.d.. Has been more active going to the gym several times a week. PLAN: Will decrease his metformin to 500 b.i.d to help reduce occurrence of hypoglycemia .. Obesity:? Has been able to lose weight since being more physically active at the gym. He does understand his BMI is well over 40..? .? He is willing to speak with weight configuration management analyst . Fatty liver disease: Noted elevations in his liver enzymes likely related to his fatty liver disease. He denies any excessive aspirin use or excessive drinking. Will continue to follow consider decreasing atorvastatin if elevations in his liver enzymes continue. Hypertension:? Blood pressure acceptable today in office.? He reports that home blood pressures have been stable.? PLAN: Will discontinue hydrochlorothiazide due to patient's reports of intermittent dizziness. .. Hypothyroidism: Patient continues on levothyroxine 125 mcg. Will recheck TSH to assure normal. Laboratory Tests 09/16/21 03/20/22 09/06/22 10:37 10:18 00:06 WBC RBC 5.92 H Hgb 15.3 Fasting Glucose Hgb A1c (Clinic) 6.7 H 6.7 H AST Cholesterol LDL Cholesterol, C alc Total Testosterone Urine Microalbumin 09/24/22 01/23/23 01/23/23 09:45 23:11 23:11 WBC 11.4 H RBC 6.12 H Hgb 15.4 Fasting Glucose Hgb A1c (Clinic) 10.5 H AST 171 H Cholesterol LDL Cholesterol, C alc Total Testosterone Urine Microalbumin 01/29/23 03/10/23 03/10/23 14:46 09:21 09:25 WBC RBC Hgb Fasting Glucose 122 H Hgb A1c (Clinic) 5.9 AST Cholesterol 159 LDL Cholesterol, C alc 109 H Total Testosterone 374 Urine Microalbumin 7.0 05/04/23 11:28 WBC RBC Hgb Fasting Glucose Hgb A1c (Clinic) 5.8 AST Cholesterol LDL Cholesterol, C alc Total Testosterone Urine Microalbumin PFSH Medical History (Updated 05/04/23 @ 11:46 by Gurdeep Bruce PA-C) Tendinopathy of right shoulder Post viral syndrome BPPV (benign paroxysmal positional vertigo) Hypothyroidism Hx of appendicitis Supraumbilical hernia Umbilical hernia Umbilical hernia DM2 (diabetes mellitus, type 2) Abdominal pain Pre-diabetes Sleep apnea with use of continuous positive airway pressure (CPAP) HLD (hyperlipidemia) HTN (hypertension) Hypothyroidism Surgical History Hx of endoscopy History of colonoscopy History of hemorrhoidectomy History of cholecystectomy Family History Mother Diabetes Hypertension Father Diabetes Hypertension Maternal Uncle Cancer Maternal Grandmother Stroke Social History Household Members: Spouse and Children Housing: Apartment Alcohol intake: unknown Patient Tobacco Use Status: Never used Tobacco e-Cigarette/Vaping Use: Never Used Second Hand Smoke Exposure: No Advance Directives Date on File: 02/03/22 service: No Current occupational status: disabled Current occupation: rt handed Cognitive needs: No Hearing needs: No Vision needs: Yes Questionnaire PHQ-9 Over the last 2 weeks, how often have you been bothered by any of the following problems? 1. Little interest or pleasure in doing things: several days 2. Feeling down, depressed, or hopeless: several days 3. Trouble falling or staying asleep, or sleeping too much: several days 4. Feeling tired or having little energy: nearly every day 5. Poor appetite or overeating: several days 6. Feeling bad about yourself - or that you are a failure or have let yourself or your family down: not at all 7. Trouble concentrating on things, such as reading the newspaper or watching television: several days 8. Moving or speaking so slowly that other people could have noticed. Or the opposite - being so fidgety or restless that you have been moving around a lot more than usual: several days 9. Thoughts that you would be better off or of hurting yourself in some way: not at all Total score: 9 Depression Screening Interpretation: Positive Depression Screening Follow-up: Existing condition and In treatment Depression Screening Done: Yes 41915 - PHQ-9 Billing: Yes Source: Developed by Drs. Josue Arndt, Sneha Elias, Tarun Umana and colleagues, with an educational marissa from [employer]. Thrive Questionnaire Date Thrive assessed: 05/04/23 I am a: Patient What is your living situation today?: I have a steady place to live Within the past 12 months, did the food you bought not last and you didn't have the money to get more?: Never true Within the past 12 months, did you worry whether your food would run out before you got money to buy more?: Never true Do you have trouble paying for medicines?: No Do you have trouble getting transportation to medical appointments?: No Do you have trouble paying your heating and electricity bill?: No Do you have trouble taking care of your child, family member or friend?: No Do you have trouble with day-to-day activities such as bathing, preparing meals, shopping, managing finances, etc.?: No Are you currently unemployed and looking for a job?: No Are you interested in more education?: No Please select the resources that you would like help with: None Currently or been in a relationship where the following occur: no concerns reported THRIVE Score: 0 AUDIT C Alcohol Use Questionnaire (AUDIT-C) 1. How often do you have a drink containing alcohol?: Never 3. How often do you have six or more drinks on one occasion?: Never Total Score: 0 ZACHERY-7 AMB Questionnaire ZACHERY-7 Date ZACHERY - 7 assessed: 05/04/23 Feeling nervous, anxious, or on edge: 0 = Not at all Not being able to stop or control worryin = Not at all Worrying too much about different things: 0 = Not at all Trouble relaxin = Not at all Being so restless that it is hard to sit still: 0 = Not at all Becoming easily annoyed or irritable: 0 = Not at all Feeling afraid as if something awful might happen: 0 = Not at all Total ZACHERY-7 score (0-4 normal; 5-9 mild; 10-14 moderate; 15-21 severe): 0 Source: Developed by Drs. Josue Arndt, Sneha Elias, Tarun Umana and colleagues, with an educational marissa from [employer]. ZACHERY-7 Assessment Billing ZACHERY-7 Assessment Tool: ZACHERY-7 Assessment 06403 Review of Systems Const Denies headache(s) Eyes Denies loss of vision ENT Denies vertigo, Denies dizziness, Denies headache(s) and Denies sore throat Card Denies chest pain, Denies leg edema and Denies lightheadedness Resp Denies cough, Denies hemoptysis and Denies wheezing GI Denies abdominal pain, Denies melena, Denies constipation, Denies diarrhea and Denies vomiting Denies dysuria, Denies urinary frequency and Denies urinary urgency Musc Denies arthralgias, Denies joint swelling, Denies numbness and Denies tingling Neuro Denies Abnormal speech present, Denies behavioral changes, Denies vertigo, Denies dizziness, Denies headache(s), Denies loss of vision, Denies memory loss, Denies numbness and Denies tingling Psych Denies anxiety, Denies behavioral changes, Denies depression, Denies memory loss and Denies panic attacks Luis/Lymph Denies easy bleeding and Denies easy bruising Aller/Immun Denies wheezing Physical exam (Primary Care) Vital Signs: Last Vital Signs Pulse 65 05/04/23 11:12 Pulse Ox 98 05/04/23 11:12 Oxygen Delivery Method Room Air 05/04/23 11:12 BMI result Body Mass Index 40.9 Tobacco/Smoking Status: Tobacco use Status Tobacco use date assessed 05/04/23 05/04/23 11:25 Patient Tobacco Use Status Never used Tobacco 05/04/23 11:13 e-Cigarette/Vaping Use Never Used 05/04/23 11:13 PHQ-9: PHQ-9 Score PHQ-9: Total score 9 05/04/23 11:37 Depression Screening Interpretation: Positive Depression Screening Follow-up: Existing condition and In treatment Thrive Assessment: Date of Thrive Assessment Date Thrive assessed 05/04/23 05/04/23 11:28 Currently or been in a relationship where the following occur: no concerns reported Const Other: Morbidly obese General: healthy appearing, no acute distress, alert and awake Nutritional Appearance: well nourished Orientation/consciousness: oriented to person, oriented to place and oriented to time HENMT Ears: TM's normal bilaterally General nose exam: Normal nasal mucous membranes and turbinates present Eyes Conjunctivae: conjunctivae normal Sclerae: sclerae normal Pupils: Equal, round and reactive pupils present Neck Neck: Yes no lymphadenopathy and Yes no JVD Thyroid: Thyroid normal Carotids: no bruits Resp Effort & Inspection: normal respiratory effort and not tachypneic Auscultation: no crackles, no rales, no rhonchi and no wheezes Cardio Rate: regular rate Rhythm: regular rhythm Heart sounds: no murmurs and normal S1 and S2 GI Palpation (GI): Soft to palpation, nontender, no hepatomegaly and no splenomegaly Auscultation: normal bowel sounds Skin General skin exam: no rashes or lesions noted and dry skin Neuro General: oriented to person, oriented to place and oriented to time Cranial nerves: Yes Equal, round and reactive pupils present Speech: No Abnormal speech present Gait exam (Neuro): Normal gait present Motor exam (neuro): no tremor noted Extrem Right upper extremity: full ROM Left upper extremity: full ROM Right lower extremity: full ROM; no edema Left lower extremity: full ROM; no edema Psych Mental Status: mental status grossly normal Speech and movement: Normal speech and movement present Affect: normal affect Attitude: cooperative Thought process: Normal thought process present Results AMB Hemoglobin A1c AMB Hemoglobin A1c 5.8 % Last Edit by FREDDY Melissa on 05/04/23 11:29 Results Reviewed Results Reviewed: Laboratory Last Values Hgb A1c (Clinic) 5.8 % (4.0-6.0) 05/04/23 11:28 Assessment and Plan Assessment & Plan (1) DMII (diabetes mellitus, type 2): Code(s): E11.9 - Type 2 diabetes mellitus without complications Qualifiers: Diabetes mellitus complication detail: with nephropathy Diabetes mellitus complication status: with kidney complications Diabetes mellitus prison insulin use: without prison use Qualified Code(s): E11.21 - Type 2 diabetes mellitus with diabetic nephropathy Plan: Patient's type 2 diabetes well controlled . Patient's A1c today at 5.8. Does report he needs a new glucometer has his has broken. Also has been having intermittent dizziness and lightheadedness and wonders if this is low blood sugars. Will reduce metformin to 500 b.i.d. to reduce hypoglycemic events. Goal A1c to be below 7.0 (2) Obese: Code(s): E66.9 - Obesity, unspecified Qualifiers: Body mass index: BMI 45.0-49.9 Obesity classification: adult class 3 (BMI >= 40) Obesity type: due to excess calories Serious obesity comorbidity presence: with serious comorbidity Qualified Code(s): E66.01 - Morbid (severe) obesity due to excess calories; Z68.42 - Body mass index [BMI] 45.0-49.9, adult Plan: Has been able to reduce his weight. Patient's BMI remains above 30 will work on being more physically active and adapting to better eating habits to reduce his weight (3) Hypertriglyceridemia: Code(s): E78.1 - Pure hyperglyceridemia Plan: Continues on statin therapy, most recent lipid panel showing elevated triglycerides though have been better since fibrate. Goal LDL to remain below 100 (4) HTN (hypertension): Code(s): I10 - Essential (primary) hypertension Qualifiers: Hypertension type: essential hypertension Qualified Code(s): I10 - Essential (primary) hypertension Plan: Patient's blood pressure acceptable today in office. Will discontinue hydrochlorothiazide due to patient's reports of dizziness and lightheadedness. Advised to continue monitoring blood pressure at home. Goal blood pressure be below 140/90 (5) Hypothyroidism: Code(s): E03.9 - Hypothyroidism, unspecified Qualifiers: Hypothyroidism type: unspecified Qualified Code(s): E03.9 - Hypothyroidism, unspecified Plan: Patient continues on levothyroxine 125 mcg. Most recent TSH has been stable. Will continue following TSH to assure normal. (6) JORGE (obstructive sleep apnea): Code(s): G47.33 - Obstructive sleep apnea (adult) (pediatric) Plan: Continues at night the CPAP machine with good effect on sleep. (7) Fatty liver: Code(s): K76.0 - Fatty (change of) liver, not elsewhere classified Plan: Patient's most recent liver enzymes elevated likely secondary to his fatty liver disease. Has been working on losing weight. Will continue to follow liver enzymes (8) Thoracic spine pain: Code(s): M54.6 - Pain in thoracic spine Plan: Reports bilateral paraspinous thoracic spine pain. Pain seems mostly musculoskeletal. Will supply patient with muscle relaxer (9) Tinea unguium: Code(s): B35.1 - Tinea unguium (10) Excess skin of abdomen: Code(s): L98.7 - Excessive and redundant skin and subcutaneous tissue Plan: Due to his weight loss he has noted excess skin over his abdomen and has fungal skin infections in his skin folds. Will supply patient with fungal powder. He is interested in seeing a plastic surgeon for an abdominoplasty though BMI still remains elevated. He will continue to work on weight loss Orders: Orders XR thoracic spine 3V 05/04/23 M54.6 - Pain in thoracic spine Comprehensive [place]. Panel Fast 3 Months E11.21 - Type 2 diabetes mellitus with diabetic nephropathy TSH reflex Free T4 3 Months E03.9 - Hypothyroidism, unspecified AMB Hemoglobin A1c 05/04/23 E11.9 - Type 2 diabetes mellitus without complications Complete Blood Count no Diff 3 Months E11.21 - Type 2 diabetes mellitus with diabetic nephropathy Prostate Specific Antigen Scr 3 Months E11.21 - Type 2 diabetes mellitus with diabetic nephropathy, Z12.5 - Encounter for screening for malignant neoplasm of prostate Microalbumin, Random (w Creat) 3 Months I10 - Essential (primary) hypertension Medications: New losartan 50 mg PO DAILY 90 days 90 tabs 1RF I10 - Essential (primary) hypertension baclofen 10 mg PO BEDTIME 14 days 14 tabs 0RF M54.6 - Pain in thoracic spine blood sugar diagnostic (FreeStyle Lite Strips) check blood ugar once per day 100 ea 3RF E11.21 - Type 2 diabetes mellitus with diabetic nephropathy, E11.9 - Type 2 diabetes mellitus without complications blood-glucose meter (FreeStyle Cropsey Lite kit) As directed 1 ea 0RF E11.21 - Type 2 diabetes mellitus with diabetic nephropathy lancets (FreeStyle Lancets) As directed 100 ea 3RF E11.21 - Type 2 diabetes mellitus with diabetic nephropathy, E11.9 - Type 2 diabetes mellitus without complications Changed From nystatin Apply to area on abdomen 1 appl topical BID 60 grams 0RF B35.1 - Tinea unguium To nystatin Apply to area on abdomen 1 appl topical BID 30 days 60 grams 3RF B35.1 - Tinea unguium From metformin 1,000 mg PO BID 90 days 180 tabs 1RF E11.9 - Type 2 diabetes mellitus without complications To metformin 500 mg (1/2 x 1,000 mg) PO BID 90 days 90 tabs 1RF E11.9 - Type 2 diabetes mellitus without complications From fenofibrate 54 mg PO DAILY 100 tabs 2RF E78.1 - Pure hyperglyceridemia To fenofibrate 54 mg PO DAILY 90 days 90 tabs 1RF E78.1 - Pure hyperglyceridemia Refilled clotrimazole 1% 1 appl topical BID 30 days 30 grams 0RF E11.9 - Type 2 diabetes mellitus without complications, N48.1 - Balanitis docusate sodium (Colace) 100 mg PO BID 30 days 60 caps 3RF K64.9 - Unspecified hemorrhoids atorvastatin 80 mg PO DAILY 90 days 90 tabs 1RF E78.1 - Pure hyperglyceridemia famotidine 20 mg PO DAILY 90 days 90 tabs 1RF K21.9 - Gastro-esophageal reflux disease without esophagitis duloxetine (Cymbalta) 30 mg PO DAILY 90 days 90 caps 1RF M48.061 - Spinal stenosis, lumbar region without neurogenic claudication gabapentin 600 mg PO BID 90 days 180 tabs 1RF M54.16 - Radiculopathy, lumbar region levothyroxine 125 mcg PO DAILY 90 days 90 tabs 1RF E03.9 - Hypothyroidism, unspecified metformin 1,000 mg PO BID 90 days 180 tabs 1RF E11.9 - Type 2 diabetes mellitus without complications sertraline 50 mg PO DAILY 90 days 90 tabs 2RF F41.9 - Anxiety disorder, unspecified Discontinued cyclobenzaprine Discontinued Reason: Doctor's Order 10 mg PO BEDTIME PRN 10 tabs 0RF muscle spasm semaglutide (Ozempic) for 4 weeks Discontinued Reason: Doctor's Order 0.25 mg (0.368 mL) subcut QWEEK 4 weeks 1.6 mL 1RF E11.9 - Type 2 diabetes mellitus without complications losartan-hydrochlorothiazide 50-12.5 mg Discontinued Reason: Doctor's Order 1 tab PO DAILY 90 days 90 tabs 2RF I10 - Essential (primary) hypertension Coding Level of Care Code Est Pt Level 4 (70095) Diagnoses Type 2 diabetes mellitus with diabetic nephropathy, without long-term current use of insulin E11.21 Diabetes mellitus complication detail: with nephropathy Diabetes mellitus complication status: with kidney complications Diabetes mellitus prison insulin use: without rn long term care use Class 3 severe obesity due to excess calories with serious comorbidity and body mass index (BMI) of 45.0 to 49.9 in adult E66.01; Z68.42 Body mass index: BMI 45.0-49.9 Obesity classification: adult class 3 (BMI >= 40) Obesity type: due to excess calories Serious obesity comorbidity presence: with serious comorbidity Hypertriglyceridemia E78.1 Essential hypertension I10 Hypertension type: essential hypertension Hypothyroidism, unspecified type E03.9 Hypothyroidism type: unspecified JORGE (obstructive sleep apnea) G47.33 Fatty liver K76.0 Thoracic spine pain M54.6 Tinea unguium B35.1 Excess skin of abdomen L98.7 Additional Codes ZACHERY-7 Assessment Billing - ZACHERY-7 Assessment Tool: ZACHERY-7 Assessment [id number] ([id number])
== END 2023-05-04 12:00 | disposition home or self-care (01) ==
PROVIDERS: PCP Physician Assistant; Visit Provider Physician Assistant
DX: E11.9 Type 2 diabetes mellitus without complications (principal)
CPT/HCPCS: 83036; 99214

== ENCOUNTER 2023-06-08 10:51 | Outpatient (AMB) | payer MEDICARE, MEDICAID, SELFPAY ==
--- NOTE | 2023-06-08 11:19 | A.OFFVIS_ITS ---
Intake Intake Visit Reasons: poor urinary stream Intake Note: NEW Patient presents today to established treatment for poor urinary stream Meds- None Allergies to Antibiotic- Penicillins Blood Thinner- None Post Void Residual: 21ml Lens Dotter Required: No Accompanied by: Self / Same As Patient Allergies Penicillins Allergy (Unknown, Verified 06/08/23 11:21) Rash Medication List - Last Reconciled 06/08/23 by Jimy Armenta MD atorvastatin 80 mg PO DAILY 90 days baclofen 10 mg PO BEDTIME 14 days blood sugar diagnostic (VivoTextTouch Ultra Test strips) Testing once a day as needed blood-glucose meter ([employer] Ultra2 Meter) As directed clotrimazole 1% 1 appl topical BID 30 days fenofibrate 54 mg PO DAILY 90 days gabapentin 600 mg PO BID 90 days hydrocortisone 2.5% (Proctosol HC) 1 appl [place] DAILY lancets (FreeStyle Lancets) As directed levothyroxine 125 mcg PO DAILY 90 days lidocaine 5% (Lidoderm) 1 patch topical DAILY losartan 50 mg PO DAILY 90 days meclizine 12.5 mg PO BID PRN 30 days metformin 500 mg (1/2 x 1,000 mg) PO BID 90 days naproxen 500 mg PO BID PRN 10 days polyethylene glycol 3350 (Miralax) 17 grams PO DAILY sertraline 50 mg PO DAILY 90 days tramadol 50 mg PO Q8H PRN 5 days HPI HPI Comments History of Present Illness Details 53-year-old male with history of diabete s. Here as a new patient evaluation with complaints Poor urinary stream. He denies dysuria or gross hematuria. Up 2-3 times at night to urinate. Urinalysis negative leukocytes negative blood. Bladder scan PVR [address] imaging 07/17/2022 kidneys within normal limits. Plan tamsulosin 0.4 mg daily. PSA screening. [facility] Medical History Tendinopathy of right shoulder Post viral syndrome BPPV (benign paroxysmal positional vertigo) Hypothyroidism Hx of appendicitis Supraumbilical hernia Umbilical hernia Umbilical hernia DM2 (diabetes mellitus, type 2) Abdominal pain Pre-diabetes Sleep apnea with use of continuous positive airway pressure (CPAP) HLD (hyperlipidemia) HTN (hypertension) Hypothyroidism Surgical History Hx of endoscopy History of colonoscopy History of hemorrhoidectomy History of cholecystectomy Family History Mother Diabetes Hypertension Father Diabetes Hypertension Maternal Uncle Cancer Maternal Grandmother Stroke Social History Household Members: Spouse and Children Housing: Apartment Alcohol intake: unknown Patient Tobacco Use Status: Never used Tobacco e-Cigarette/Vaping Use: Never Used Second Hand Smoke Exposure: No Advance Directives Date on File: 02/03/22 service: No Current occupational status: disabled Current occupation: rt handed Cognitive needs: No Hearing needs: No Vision needs: Yes Review of Systems Const All systems reviewed & are unremarkable except as noted in HPI and below Reports no additional complaints Eyes Reports no additional complaints ENT Reports no additional complaints Card Denies dyspnea Resp Denies cough and Denies dyspnea GI Reports no additional complaints Musc Reports no additional complaints Skin/Breast Denies rash and Denies unusual bruising Neuro Reports no additional complaints Psych Reports no additional complaints Endo Reports no additional complaints Luis/Lymph Reports no additional complaints Aller/Immun Reports no additional complaints Physical Exam Const General: healthy appearing, no acute distress and well developed Orientation/consciousness: patient oriented x3 HEENT Head: Yes normocephalic and Yes atraumatic Eyes Conjunctivae: conjunctivae normal Neck Neck: Yes normal visual inspection Chest Chest palpation & inspection: normal inspection of the chest Resp Effort & Inspection: normal respiratory effort Cardio Rate: regular rate GI Inspection: Yes normal to inspection Palpation (GI): Soft to palpation Skin General skin exam: no rashes or lesions noted Neuro General: patient oriented x3 Extrem General: No pedal edema Psych Appearance: grossly normal Affect: normal affect Office Procedures Post Void Residual Post Residual Void Post Void Residual (PVR): 21 38551-[id number] Void Residual by ultrasound Results AMB Urinalysis, Automated UA Leukoctes 0 Tatiana/uL Last Edit by Chitra Mancia, [facility] on 06/08/23 11 :25 UA Nitrite Negative Last Edit by Chitra Mancia, [facility] on 06/08/23 11: 25 UA Urobilinogen 0.2 mg/dL Last Edit by Chitra Mancia, [facility] on 4 11:25 UA Protein 0 mg/dL Last Edit by Chitra Mancia, [facility] on 06/08/23 11:25 UA pH 5.0 Last Edit by Chitra Mancia, [facility] on 06/08/23 11:25 UA Blood 0 Cesar/uL Last Edit by Chitra Mancia, [facility] on 06/08/23 11:25 UA Specific [place] 1.020 Last Edit by Chitra Mancia, [facility] on 11:25 UA Ketone Negative Last Edit by Chitra Mancia, [facility] on 06/08/23 11:2 5 UA Bilirubin 0 mg/dL Last Edit by Chitra Mancia, [facility] on 06/08/23 11: 25 UA Glucose 0 mg/dL Last Edit by Chitra Mancia, [facility] on 06/08/23 11:25 Results Reviewed Results Reviewed: Laboratory Last Values Urine pH (Auto) 5.0 06/08/23 11:24 Specific [place] (Auto) 1.020 06/08/23 11:24 Urine Protein (Auto) 0 mg/dL 06/08/23 11:24 Glucose (UA)(Auto) 0 mg/dL 06/08/23 11:24 Urine Ketones (Auto) Negative 06/08/23 11:24 Urine Blood (Auto) 0 Cesar/uL 06/08/23 11:24 Urine Nitrite (Auto) Negative 06/08/23 11:24 Urine Bilirubin (Auto) 0 mg/dL 06/08/23 11:24 Urine Urobilinogen (Auto) 0.2 mg/dL 06/08/23 11:24 Leukocyte Esterase (Auto) 0 Tatiana/uL 06/08/23 11:24 Date of Service: 07/17/22 EXAMINATION: CT ABDOMEN AND PELVIS WITH CONTRAST CLINICAL INFORMATION: Three-week history of right lower quadrant pain and diarrhea COMPARISON: Previous CT of the abdomen and pelvis most recent January 2022 and x-ray May 2022 TECHNIQUE: Multidetector volumetric images were obtained from the superior aspect of the liver through the pubic symphysis following administration 85 mL of Omnipaque 350 intravenous contrast. Sagittal and coronal reformatted images were obtained on the technologist's workstation. Oral contrast: Yes This CT examination was performed using dose optimization techniques as appropriate, variously including the following: *Automated exposure control *Adjustment of mA and/or kV according to patient size (this includes techniques or standardized protocols for targeted exams where dose is matched to indication/reason for exam; i.e. extremities or head) *Use of iterative reconstruction technique DLP: 1120 mGy-cm FINDINGS: LUNG BASES: The visualized lung bases are unremarkable. LIVER, GALLBLADDER, AND BILIARY TREE: Fatty liver. The gallbladder is been removed. No biliary duct dilatation. PANCREAS: Unremarkable. SPLEEN: Unremarkable. ADRENAL GLANDS: 1 cm enhancing right adrenal nodule. This is stable going back to October 2020 and therefore probably benign. The left adrenal gland is normal. KIDNEYS AND URETERS: The kidneys are normal in size, shape, and attenuation. No hydronephrosis, hydroureter, or calculi seen. No perinephric stranding. BLADDER: Unremarkable. GASTROINTESTINAL TRACT: There is stool throughout the colon questionable for mild constipation. No evidence of obstruction. The small and large bowel are otherwise unremarkable. The appendix is unremarkable. ABDOMINAL WALL: Adjacent umbilical and supraumbilical hernias containing fat. Together these measure 7 cm in sagittal AP and transverse dimension. Evidence of previous right lateral abdominal wall hernia repair with mesh. No recurrent right lateral abdominal wall hernia or fluid collection. LYMPH NODES: Normal. VASCULAR: Unremarkable. PELVIC VISCERA: Slightly enlarged prostate gland measuring 4.7 x 4.7 cm. OSSEOUS STRUCTURES: Degenerative changes of the spine. IMPRESSION: Normal-appearing appendix. Mild constipation. Umbilical and supraumbilical hernias containing fat. Postoperative changes following right lateral abdominal wall hernia with mesh. Fatty liver. Assessment & Plan Assessment & Plan (1) BPH loc w urin obs/LUTS: Code(s): N40.1 - Benign prostatic hyperplasia with lower urinary tract symptoms (2) Weak urine stream: Code(s): R39.12 - Poor urinary stream Plan Tamsulosin 0.4 mg at bedtime Orders: Orders AMB Post Void Residual by ultrasound 06/08/23 R33.9 - Retention of urine, unspecified PSA,Total (Free>4and<10) 08/24/23 Z12.5 - Encounter for screening for malignant neoplasm of prostate AMB Urinalysis Automated 06/08/23 R33.9 - Retention of urine, unspecified Patient Instructions: The patient had an opportunity to ask questions regarding treatment plan. All questions were answered. Imaging, Laboratory studies and physical exam results were discussed and reviewed in detail. No major barriers to understanding were identified. The patient expressed understanding and agreement with the above treatment plan. The patient is aware they should contact our office by phone for worsening of their current condition or the appearance of new symptoms. Compliance is encouraged with any medications and followup testing that is ordered. It is a privilege to be allowed the opportunity to participate in the urologic care of your patient. If you have any questions or concerns regarding treatment for the above conditions please do not hesitate to contact me. The office telephone contact is [phone]. This note is constructed in part using voice recognition software. While every effort has been made to ensure accuracy mathematician research errors may have been included. Yours sincerely, Jimy Armenta MD Coding Level of Care Code New Pt Level 3 (13950) Diagnoses BPH loc w urin obs/LUTS N40.1 Weak urine stream R39.12 CPT Codes Post Residual Void - PVR CPT Code: 62169-Jvdf Void Residual by ultrasound ([id number])
== END 2023-06-08 12:19 | disposition home or self-care (01) ==
PROVIDERS: PCP Physician Assistant; Visit Provider Urology
DX: N40.1 Benign prostatic hyperplasia with lower urinary tract symptoms (principal); R39.12 Poor urinary stream
CPT/HCPCS: 99203

== ENCOUNTER → 2023-06-08 10:51 | Outpatient (BNVA) | payer MEDICARE, OTHER, SELFPAY | PROVIDERS: PCP Physician Assistant; Visit Provider Urology | DX: N40.1 Benign prostatic hyperplasia with lower urinary tract symptoms (principal); R39.12 Poor urinary stream | CPT/HCPCS: 51798; 81003; 99202 ==

== ENCOUNTER 2023-08-03 06:54 | Outpatient (REF) | payer MEDICARE, MEDICAID, SELFPAY ==
[2023-08-03 07:52] LABS: Hematocrit 48.6 % (42.0-52.0); Hemoglobin 15.5 g/dl (14.0-18.0); Mean Corpuscular HGB Conc 31.9 g/dl (31.0-36.0); Mean Corpuscular Hemoglobin 25.1 pg (27.0-33.0); Mean Corpuscular Volume 78.6 fL (80.0-98.0); Mean Platelet Volume 11.4 fL (9.4-12.4); Platelet Count 143 X10*3/uL (160-400); Red Blood Count 6.18 X10*6/uL (4.60-5.80); Red Cell Distribution Width 15.2 % (11.0-16.0); White Blood Count 7.8 X10*3/uL (4.8-10.8)
[2023-08-03 08:28] LABS: Alanine Aminotransferase 22 U/L (0-40); Alkaline Phosphatase 70 U/L (39-117); Anion Gap 15 (12-20); Aspartate Amino Transferase 16 U/L (5-37); Bilirubin Total 0.5 mg/dL (0.0-1.0); Blood Urea Nitrogen 21 mg/dL (9-16); Calcium 9.6 mg/dL (8.4-10.2); Carbon Dioxide 26 mmol/L (22-29); Chloride 107 mmol/L (96-108); Cholesterol 168 mg/dL (<200); Estimated Glomerular Filt Rate 50; Glucose Fasting 114 mg/dL (60-99); Glucose Random 114 mg/dL (60-115); HDL Cholesterol 33 mg/dL (>40); LDL Cholesterol Calculated 110 mg/dL (<100); Potassium 4.6 mmol/L (3.3-5.1); Sodium 143 mmol/L (135-145); Total Protein 7.2 g/dL (6.5-8.0); Triglycerides 128 mg/dL (<150)
[2023-08-03 08:40] LABS: Creatinine Urine 217.67 mg/dL; Microalbumin Urine < 5.0 mg/L
[2023-08-03 08:46] LABS: TSH reflex Free T4 6.17 uIU/mL (0.32-4.0)
[2023-08-03 08:50] LABS: Prostate Specific Antigen Scr 2.71 ng/mL (<0.05-4.0)
[2023-08-03 09:58] LABS: Free T4 (Free Thyroxine) 1.05 ng/dL (0.71-1.85)
== END 2023-08-03 06:55 | disposition home or self-care (01) ==
LOC: HO.LAB 06:54
PROVIDERS: PCP Physician Assistant; Visit Provider Physician Assistant
DX: E11.21 Type 2 diabetes mellitus with diabetic nephropathy (principal); E78.1 Pure hyperglyceridemia; Z12.5 Encounter for screening for malignant neoplasm of prostate; R53.83 Other fatigue; I10 Essential (primary) hypertension; E03.9 Hypothyroidism, unspecified
CPT/HCPCS: 36415; 80048; 80053; 80061; 82043; 82570; 84153; 84439; 84443; 85027

== ENCOUNTER 2023-08-04 11:19 | Outpatient (AMB) | payer MEDICARE, OTHER, SELFPAY ==
[2023-08-04 11:32] VITALS: BP 102/78; PULSE 78; O2SAT 98; BMI 41.6
--- NOTE | 2023-08-04 11:32 | MHC.PC.OV ---
Vital Signs 08/04/23 11:32 Height 5 ft 5 in Weight 250 lb 4 oz BMI 41.6 BP 102/78 Blood Pressure Location Lt brachial Position Sitting Pulse 78 Pulse Source Pulse Oximeter Pulse Oximetry (%) 98 Oxygen Delivery Method Room Air Intake Visit Reasons: f/u DMII Senior Trial Attorney Required: Yes Senior Trial Attorney Language: Citizen Of [place] Accompanied by: Self / Same As Patient Allergies Penicillins Allergy (Unknown, Verified 08/04/23 11:44) Rash hydrochlorothiazide Adverse Reaction (Intermediate, Verified 08/05/23 07:22) Dizziness Medication List - Last Reconciled 08/04/23 by Gurdeep Bruce PA-C atorvastatin 80 mg PO DAILY baclofen 10 mg PO BEDTIME 14 days blood sugar diagnostic (vitaMedMDTouch Ultra Test strips) Testing once a day as needed blood-glucose meter ([employer] Ultra2 Meter) As directed clotrimazole 1% 1 appl topical BID 30 days fenofibrate 54 mg PO DAILY 90 days gabapentin 600 mg PO BID 90 days hydrocortisone 2.5% (Proctosol HC) 1 appl [place] DAILY lancets (FreeStyle Lancets) As directed levothyroxine 125 mcg PO DAILY 90 days lidocaine 5% (Lidoderm) 1 patch topical DAILY losartan 50 mg PO DAILY 90 days meclizine 12.5 mg PO BID PRN 30 days metformin 500 mg (1/2 x 1,000 mg) PO BID 90 days naproxen 500 mg PO BID PRN 10 days polyethylene glycol 3350 (Miralax) 17 grams PO DAILY sertraline 50 mg PO DAILY 90 days tamsulosin (Flomax) 0.4 mg PO BEDTIME tramadol 50 mg PO Q8H PRN 5 days Tobacco use date assessed: 05/04/23 Dental Screening Dental Screen Date: 05/04/23 HPI f/u DMII HPI Details Patient is a 53-year-old male here today follow-up visit. Patient is Citizen [place]-speaking only thus used a remote certified scrum master. Past medical history significant for type 2 diabetes, obesity, lumbar disc disease. . Concern--> patient reports he continues to have lower lumbar spine pain with sciatica. He is done physical therapy in the past which was somewhat helpful though continues to have pain. He does use lidocaine patches, and tramadol as a p.r.n.. He is interested in pain management referral for pain reduction modality. .. CHRONIC MEDICAL CONDITIONS--> CKD stage 3:? Noted a decrease in GFR and elevation in creatinine since hospitalization? for dehydration. Advised to increase his water intake and avoid all nephrotoxins especially NSAIDs, patient agrees and understands.?? Will consider Nephrology evaluation. Diabetes:? Today's A1c of 5.4. We have reduced his metformin to 500 b.i.d.. He denies any hypoglycemic events... Has been more active going to the gym several times a week. .. Obesity:? Has been able to lose weight since being more physically active at the gym. He does understand his BMI is well over 40..? . Fatty liver disease: Noted elevations in his liver enzymes likely related to his fatty liver disease. He denies any excessive aspirin use or excessive drinking. Will continue to follow consider decreasing atorvastatin if elevations in his liver enzymes continue. Hypertension:? Blood pressure acceptable today in office.? He reports that home blood pressures have been stable.? .. Hypothyroidism: Patient continues on levothyroxine 125 mcg. Most recent TSh elevated at 6.1 PLAN: Will increase his levothyroxine dose and recheck TSH in 6 weeks. Laboratory Tests 01/23/23 03/10/23 05/04/23 23:11 09:25 11:28 RBC Hgb Creatinine 1.54 H 1.54 H Fasting Glucose Hgb A1c (Clinic) 5.8 Cholesterol LDL Cholesterol, C alc TSH 08/03/23 07:13 RBC 6.18 H Hgb 15.5 Creatinine 1.46 H Fasting Glucose 114 H Hgb A1c (Clinic) Cholesterol 168 LDL Cholesterol, C alc 110 H TSH 6.17 H PFSH Medical History Tendinopathy of right shoulder Post viral syndrome BPPV (benign paroxysmal positional vertigo) Hypothyroidism Hx of appendicitis Supraumbilical hernia Umbilical hernia Umbilical hernia DM2 (diabetes mellitus, type 2) Abdominal pain Pre-diabetes Sleep apnea with use of continuous positive airway pressure (CPAP) HLD (hyperlipidemia) HTN (hypertension) Hypothyroidism Surgical History Hx of endoscopy History of colonoscopy History of hemorrhoidectomy History of cholecystectomy Family History Mother Diabetes Hypertension Father Diabetes Hypertension Maternal Uncle Cancer Maternal Grandmother Stroke Social History Household Members: Spouse and Children Housing: Apartment Alcohol intake: unknown Patient Tobacco Use Status: Never used Tobacco e-Cigarette/Vaping Use: Never Used Second Hand Smoke Exposure: No Advance Directives Date on File: 02/03/22 service: No Current occupational status: disabled Current occupation: rt handed Cognitive needs: No Hearing needs: No Vision needs: Yes Questionnaire Thrive Questionnaire Date Thrive assessed: 05/04/23 ZACHERY-7 AMB Questionnaire ZACHERY-7 Date ZACHERY - 7 assessed: 05/04/23 Source: Developed by Drs. Josue Arndt, Sneha Elias, Tarun Umana and colleagues, with an educational marissa from [employer]. Review of Systems Const Denies headache(s) Eyes Denies loss of vision ENT Denies vertigo, Denies dizziness, Denies headache(s) and Denies sore throat Card Denies chest pain, Denies leg edema and Denies lightheadedness Resp Denies cough, Denies hemoptysis and Denies wheezing GI Denies abdominal pain, Denies melena, Denies constipation, Denies diarrhea and Denies vomiting Denies dysuria, Denies urinary frequency and Denies urinary urgency Musc Denies arthralgias, Denies joint swelling, Denies numbness and Denies tingling Neuro Denies Abnormal speech present, Denies behavioral changes, Denies vertigo, Denies dizziness, Denies headache(s), Denies loss of vision, Denies memory loss, Denies numbness and Denies tingling Psych Denies anxiety, Denies behavioral changes, Denies depression, Denies memory loss and Denies panic attacks Luis/Lymph Denies easy bleeding and Denies easy bruising Aller/Immun Denies wheezing Physical exam (Primary Care) Vital Signs: Last Vital Signs Pulse 78 08/04/23 11:32 BP 102/78 08/04/23 11:32 Pulse Ox 98 08/04/23 11:32 Oxygen Delivery Method Room Air 08/04/23 11:32 BMI result Body Mass Index 41.6 Tobacco/Smoking Status: Tobacco use Status Tobacco use date assessed 05/04/23 08/04/23 11:33 Patient Tobacco Use Status Never used Tobacco 08/04/23 11:33 e-Cigarette/Vaping Use Never Used 08/04/23 11:33 Thrive Assessment: Date of Thrive Assessment Date Thrive assessed 05/04/23 08/04/23 11:33 Const General: healthy appearing, no acute distress, alert and awake Nutritional Appearance: well nourished Orientation/consciousness: oriented to person, oriented to place and oriented to time HENMT Ears: TM's normal bilaterally General nose exam: Normal nasal mucous membranes and turbinates present Eyes Conjunctivae: conjunctivae normal Sclerae: sclerae normal Pupils: Equal, round and reactive pupils present Neck Neck: Yes no lymphadenopathy and Yes no JVD Thyroid: Thyroid normal Carotids: no bruits Resp Effort & Inspection: normal respiratory effort and not tachypneic Auscultation: no crackles, no rales, no rhonchi and no wheezes Cardio Rate: regular rate Rhythm: regular rhythm Heart sounds: no murmurs and normal S1 and S2 GI Palpation (GI): Soft to palpation, nontender, no hepatomegaly and no splenomegaly Auscultation: normal bowel sounds Skin General skin exam: no rashes or lesions noted and dry skin Neuro General: oriented to person, oriented to place and oriented to time Cranial nerves: Yes Equal, round and reactive pupils present Speech: No Abnormal speech present Gait exam (Neuro): Normal gait present Motor exam (neuro): no tremor noted Extrem Right upper extremity: full ROM Left upper extremity: full ROM Right lower extremity: full ROM; no edema Left lower extremity: full ROM; no edema Psych Mental Status: mental status grossly normal Speech and movement: Normal speech and movement present Affect: normal affect Attitude: cooperative Thought process: Normal thought process present Assessment and Plan Assessment & Plan (1) DMII (diabetes mellitus, type 2): Code(s): E11.9 - Type 2 diabetes mellitus without complications Qualifiers: Diabetes mellitus complication detail: with nephropathy Diabetes mellitus complication status: with kidney complications Diabetes mellitus termite exterminator insulin use: without termite exterminator use Qualified Code(s): E11.21 - Type 2 diabetes mellitus with diabetic nephropathy Plan: Patient's type 2 diabetes well controlled . Patient's A1c today at 5.4. . Also has been having intermittent dizziness and lightheadedness and wonders if this is low blood sugars. We have reduced his metformin metformin to 500 b.i.d.. Goal A1c to be below 7.0 (2) Obese: Code(s): E66.9 - Obesity, unspecified Qualifiers: Body mass index: BMI 45.0-49.9 Obesity classification: adult class 3 (BMI >= 40) Obesity type: due to excess calories Serious obesity comorbidity presence: with serious comorbidity Qualified Code(s): E66.01 - Morbid (severe) obesity due to excess calories; Z68.42 - Body mass index [BMI] 45.0-49.9, adult Plan: Has been able to reduce his weight. Patient's BMI remains above 30 will work on being more physically active and adapting to better eating habits to reduce his weight (3) Hypertriglyceridemia: Code(s): E78.1 - Pure hyperglyceridemia Plan: Continues on statin therapy, most recent lipid panel showing elevated triglycerides though have been better since fibrate. LDL still remains suboptimally high (110). He will continue working on lifestyle and dietary modifications. Goal LDL to remain below 100 (4) HTN (hypertension): Code(s): I10 - Essential (primary) hypertension Qualifiers: Hypertension type: essential hypertension Qualified Code(s): I10 - Essential (primary) hypertension Plan: Patient's blood pressure acceptable today in office. Advised to continue monitoring blood pressure at home. Goal blood pressure be below 140/90 (5) Hypothyroidism: Code(s): E03.9 - Hypothyroidism, unspecified Qualifiers: Hypothyroidism type: unspecified Qualified Code(s): E03.9 - Hypothyroidism, unspecified Plan: Patient continues on levothyroxine 125 mcg. Most recent TSH has been stable. Will continue following TSH to assure normal. Orders: Orders CT NG by PCR 08/04/23 Z20.2 - Contact with and (suspected) exposure to infections with a predominantly sexual mode of transmission AMB Hemoglobin A1c 08/04/23 E11.21 - Type 2 diabetes mellitus with diabetic nephropathy Syphilis Screen 08/04/23 M54.16 - Radiculopathy, lumbar region, Z11.3 - Encounter for screening for infections with a predominantly sexual mode of transmission HIV Ab/Ag 08/04/23 M54.16 - Radiculopathy, lumbar region, Z11.3 - Encounter for screening for infections with a predominantly sexual mode of transmission TSH reflex Free T4 6 Weeks E03.9 - Hypothyroidism, unspecified Referrals Pain Management Referral M54.16 - Radiculopathy, lumbar region Medications: New levothyroxine 150 mcg PO DAILY 30 days 30 tabs 3RF E03.9 - Hypothyroidism, unspecified Changed From meclizine 12.5 mg PO BID 30 days PRN 60 tabs 0RF Dizziness M54.16 - Radiculopathy, lumbar region To meclizine 12.5 mg PO BID 90 days 180 tabs 1RF Dizziness M54.16 - Radiculopathy, lumbar region Discontinued levothyroxine Discontinued Reason: Doctor's Order 125 mcg PO DAILY 90 days 90 tabs 1RF E03.9 - Hypothyroidism, unspecified Patient Instructions: Goal: A1c to remain below 7.0 Barrier: Adherence to physical activity and healthy eating habits. Coding Level of Care Code Est Pt Level 4 (87702) Diagnoses Type 2 diabetes mellitus with diabetic nephropathy, without long-term current use of insulin E11.21 Diabetes mellitus complication detail: with nephropathy Diabetes mellitus complication status: with kidney complications Diabetes mellitus termite exterminator insulin use: without termite exterminator use Class 3 severe obesity due to excess calories with serious comorbidity and body mass index (BMI) of 45.0 to 49.9 in adult E66.01; Z68.42 Body mass index: BMI 45.0-49.9 Obesity classification: adult class 3 (BMI >= 40) Obesity type: due to excess calories Serious obesity comorbidity presence: with serious comorbidity Hypertriglyceridemia E78.1 Essential hypertension I10 Hypertension type: essential hypertension Hypothyroidism, unspecified type E03.9 Hypothyroidism type: unspecified
== END 2023-08-04 12:02 | disposition home or self-care (01) ==
PROVIDERS: PCP Physician Assistant; Visit Provider Physician Assistant
DX: E11.21 Type 2 diabetes mellitus with diabetic nephropathy (principal); E66.01 Morbid (severe) obesity due to excess calories; Z68.42 Body mass index [BMI] 45.0-49.9, adult; E78.1 Pure hyperglyceridemia; I10 Essential (primary) hypertension; E03.9 Hypothyroidism, unspecified
CPT/HCPCS: 99214

== ENCOUNTER 2023-09-10 09:25 | Outpatient (REF) | payer MEDICARE, MEDICAID, SELFPAY ==
[2023-09-10 10:44] LABS: PSA,Total (Free>4and<10) 2.75 ng/mL (0.00-4.00)
== END 2023-09-10 09:26 | disposition home or self-care (01) ==
LOC: HO.LAB 09:25
PROVIDERS: PCP Physician Assistant; Visit Provider Urology
DX: Z12.5 Encounter for screening for malignant neoplasm of prostate (principal)
CPT/HCPCS: 36415; 84153

== ENCOUNTER 2023-09-24 11:19 | Outpatient (AMB) | payer MEDICARE, MEDICAID, SELFPAY ==
--- NOTE | 2023-09-24 11:25 | A.OFFVIS_ITS ---
Vital Signs 09/24/23 11:30 Height 5 ft 5 in Weight 256 lb 6 oz BMI 42.7 BP 119/68 Blood Pressure Location Lt brachial Position Sitting Pulse 76 Pulse Source Pulse Oximeter Pulse Oximetry (%) 99 Oxygen Delivery Method Room Air Intake Visit Reasons: CHRONIC LOW BACK PAIN Intake Note: Pain today 10/06 Cnc Operator Machinist Required: Yes Cnc Operator Machinist Language: Clamshell Operator Name: Maximino # [id number] Accompanied by: Self / Same As Patient Allergies Penicillins Allergy (Unknown, Verified 09/24/23 11:31) Rash hydrochlorothiazide Adverse Reaction (Intermediate, Verified 09/24/23 11:31) Dizziness HPI Comments Details: Patient is a pleasant 53 years old presents today with low back pain which has been long standing for more than 10-12 years for him. He reports axial low back pain with most movements and also pain radiating into left anterior thigh and lateral [place]or[place] and inner calf with numbness and tingling in both feet. Patient was initially seen in our office in March 2021 by Renetta MUSA with plans for left L4-L5 TFESI injection but was no show. [facility] patient underwent Bilateral L4 TFESI on 10/29/[address] Martinez. Patient reports this injection provided him good pain relief for over 3 months. He is interested to proceed with interventional treatments to address his axial and radicular symptoms. Pain affects his daily activities and functioning, mobility, sleep, mood, and social interactions. Patient states pain increases with walking, bending, movements and prolonged sitting. Pain is partially relieved with rest, heat therapy, stretching, gabapentin, muscle relaxant, NSAIDs and lidocaine patches. Denies any fever, abdominal or groin pain, weakness, foot drop, bladder or bowel dysfunction or saddle anesthesia. PRIOR 04/02/21 Renetta MUSA: Juan is a pleasant 51-year-old male presents to the office with complaints of low back pain. He states his pain has been present for many years, without any inciting events, and has been more exacerbated over the past 2 months. He states the pain travels across the low back and radiates down the left leg to the ankle with associated weakness. He reports numbness from the knee to the ankle. He reports pain onset was gradual, constant and rates the pain a 6-8/10. He states the pain is interfering with sleep, activities of daily living and they cannot function normally. The patient reports the pain in terms of tissue damage as stabbing and sore. He has tried flexeril, gabapentin, cymbalta, NSAIDS as well as lidocaine patches with minimal effect. His pain is exacerbated by prolonged standing as well as transitioning from a bending to standing position. He recently completed 10 sessions of physical therapy and was discharged due to non progression. He denies any lumbar surgery but has undergone multiple injections in [place] and reports receiving an injection at [place]. He believes he had five nerve blocks for lumbar pain and two injections for cervical pain which provided relief for about 2-3 months. He states his last injection was about 3 years ago. He had a recent MRI, this report is dictated below. His past medical history is significant for diabetes with reported A1c of 7.2%. He also has upcoming surgery with Dr. Hinkle and to repair an umbilical hernia next week. [facility] History Tendinopathy of right shoulder Post viral syndrome BPPV (benign paroxysmal positional vertigo) Hypothyroidism Hx of appendicitis Supraumbilical hernia Umbilical hernia Umbilical hernia DM2 (diabetes mellitus, type 2) Abdominal pain Pre-diabetes Sleep apnea with use of continuous positive airway pressure (CPAP) HLD (hyperlipidemia) HTN (hypertension) Hypothyroidism Surgical History Hx of endoscopy History of colonoscopy History of hemorrhoidectomy History of cholecystectomy Family History Mother Diabetes Hypertension Father Diabetes Hypertension Maternal Uncle Cancer Maternal Grandmother Stroke Social History Household Members: Spouse and Children Housing: Apartment Alcohol intake: unknown Patient Tobacco Use Status: Never used Tobacco e-Cigarette/Vaping Use: Never Used Second Hand Smoke Exposure: No Advance Directives Date on File: 02/03/22 service: No Current occupational status: disabled Current occupation: rt handed Cognitive needs: No Hearing needs: No Vision needs: Yes Review of Systems Const All systems reviewed & are unremarkable except as noted in HPI and below Physical Exam Vital Signs: Last Vital Signs Pulse 76 09/24/23 11:30 BP 119/68 09/24/23 11:30 Pulse Ox 99 09/24/23 11:30 Oxygen Delivery Method Room Air 09/24/23 11:30 BMI result Body Mass Index 42.7 General: Appears afebrile. Alert and oriented. Mood and affect appropriate. Follows and participates in conversation appropriately. Respiratory effort is unlabored. No cough. Able to transition from sit to stand unassisted. Ambulates with cane. Ambulates with bilaterally normal heel strike and toe off. Cardio Peripheral pulses: Peripheral pulses 2+ throughout (no appreciable rhythmic abnormalities) General: Yes no CVA tenderness Back/Spine/Pelvis Other: Limited lumbar spine ROM. Can flex forward to 65-70 degrees and extend to 10 degrees before experiencing lumbar pain. Demonstrates 5/5 strength of quadriceps bilaterally as well as flexion/dorsiflexion of bilateral feet against resistance. 2+ pedal pulses bilaterally. Straight leg rise with dorsiflexion + left, equivocal on the right. DTR intact and symmetrical. Rashi test negative. Facet loading test + bilaterally. No groin pain with I/E hip rotations bilaterally. Decreased sensation throughout anterior thigh and lateral aspect of the LLE. Valsalva maneuver is negative. Back: no CVA tenderness Cervical Spine: cervical ROM normal, cervical muscular tenderness and No Cervical spine tenderness Thoracic/Lumbar Spine: thoracic and lumbar spine normal to inspection, No Thoracic/lumbar spine scar(s), Lasegue's sign positive on the left and localized, pain with thoraco-lumbar ROM, No paraspinal muscle tenderness, thoraco-lumbar ROM limited, No thoracic spinal tenderness and lumbar spinal tenderness Pelvis: no buttock tenderness Sacroiliac joints: bilaterally nontender Extrem General: Yes capillary refill normal, Yes no clubbing, cyanosis or edema and Yes no calf tenderness Results Reviewed Results Reviewed: XR LUMBOSACRAL SPINE 01/05/23 CLINICAL INFORMATION: Lower back pain. COMPARISON: Lumbar spine MRI from 01/04/2021 FINDINGS: Mild dextrocurvature of the lumbar spine and approximately 0.3 cm of degenerative right lateral listhesis of L4 on L5. Otherwise, lumbar vertebra have normal height and alignment. Findings include degenerative narrowing of disc space and small vertebral osteophytes at L4-L5. Also, osteophyte formation is present at other levels of the visualized lower thoracic and lumbar spine. There appears to be mild facet arthropathy at L3-4, L4-5 and L5-S1. Sacrum and sacroiliac joints are unremarkable. No evidence of focal lytic or osteoblastic lesion. Cholecystectomy clips in the right upper quadrant of the abdomen. Metallic tacks from mesh placement seen over right abdominal wall. IMPRESSION: * No acute abnormality. No evidence of lumbar vertebral compression fracture. * [id number]-ah-[id number] discovertebral degenerative change with mild right lateral listhesis at L4-L5. Otherwise, lumbar vertebra have normal alignment. XR THORACIC SPINE 01/05/23 CLINICAL INFORMATION: Upper back pain FINDINGS: Vertebral body height and alignment are maintained. Hypertrophic spondylotic changes are evident throughout the thoracic spine, with multilevel bridging osteophyte formation. No fracture or subluxation is detected. The paraspinal soft tissues image normally. IMPRESSION: 1. Hypertrophic and spondylotic changes throughout the thoracic spine but no fracture or bone lesion. MR LUMBAR SPINE WITHOUT CONTRAST 01/04/21 CLINICAL INFORMATION: Left leg pain, numbness, weakness. Low back pain. COMPARISON: Lumbar spine radiographs dated 12/10/[address] abdomen/pelvis dated 11/14/2020. TECHNIQUE: MRI of the lumbar spine was obtained using routine sequences without contrast. FINDINGS: VERTEBRAL BODIES AND PARASPINAL STRUCTURES: Normal vertebral body alignment. The lumbar lordosis is maintained. No acute fracture or subluxation. No loss of vertebral body height. Mild loss of intervertebral disc height with disc desiccation at L3-L4 and L4-L5. The remaining intervertebral disks are well hydrated. Tiny endplate osteophytes at L2-L3 through L4-L5. No abnormal marrow signal. No evidence of acute osseous injury. The visualized paraspinal soft tissues are unremarkable. CONUS MEDULLARIS AND CAUDA EQUINA: Normal, terminating at the level of L1. SPINAL LEVELS: T12-L1: No significant disc bulge. No central canal or neural foraminal stenosis. L1-L2: No significant disc bulge. No central canal or neural foraminal stenosis. L2-L3: No significant disc bulge. Bilateral facet arthropathy. No central canal or neural foraminal stenosis. L3-L4: Minimal disc bulge with a shallow right subarticular/extraforaminal disc protrusion with annular fissuring. The protrusion abuts the exiting right L3 nerve root. Bilateral facet arthropathy and thickening of the ligamentum flavum with minimal central canal stenosis as well as mild bilateral neural foraminal stenosis. L4-L5: Shallow disc bulge with a superimposed left subarticular/extraforaminal disc protrusion which contacts and displaces the exiting left L4 nerve root in the neural foramen and extraforaminal space. Associated annular fissuring. Bilateral facet arthropathy and thickening of the ligamentum flavum with mild central canal stenosis as well as [id number] left and mild right neural foraminal stenosis. L5-S1: Minimal disc bulge with bilateral facet arthropathy causing minimal bilateral neural foraminal stenosis. IMPRESSION: 1. Shallow disc bulge at L4-L5 with a left subarticular/extraforaminal disc protrusion which contacts and displaces the exiting left L4 nerve root. Bilateral facet arthropathy and thickening of the ligamentum flavum causing [id number] left and mild right neural foraminal stenosis as well as mild central canal stenosis. 2. Minimal disc bulge at L3-L4 with a shallow right subarticular/extraforaminal disc protrusion abutting the exiting right L3 nerve root. Bilateral facet arthropathy and thickening of the ligamentum flavum with minimal central canal stenosis as well as mild bilateral neural foraminal stenosis. 3. Minimal disc bulge at L5-S1 with bilateral facet arthropathy causing minimal bilateral neural foraminal stenosis. Assessment & Plan Assessment & Plan (1) Left lumbar radiculopathy: Code(s): M54.16 - Radiculopathy, lumbar region Category: Medical (2) Lumbar disc disease: Code(s): M51.9 - Unspecified thoracic, thoracolumbar and lumbosacral intervertebral disc disorder Category: Medical (3) Chronic low back pain: Code(s): M54.50 - Low back pain, unspecified; G89.29 - Other chronic pain Category: Medical (4) Lumbar spondylosis: Code(s): M47.816 - Spondylosis without myelopathy or radiculopathy, lumbar region Category: Medical Plan Patient's symptoms are persistent with left lumbar radiculopathies and axial low back pain. Patient is interested to address both symptoms with diagnostic and therapeutic injections. Patient reports left leg pain is more bothersome at this time than axial low back pain. We will proceed with left L4-L5 transforaminal epidural steroid with local and fluoroscopy as initial steps for radicular pain. Expectations, risks and benefits were reviewed. Most recent A1C=5.2 (5.8 on 05/04/23). Patient is aware of hyperglycemic effects of steroids and is aware to monitor blood sugars closely after the injection. For ongoing axial low back pain will tentatively plan for diagnostic bilateral L3-L4 DR L5 medial branch blocks with local and fluoroscopy. If he has significant relief from the diagnostic blocks for her axial low back pain, will consider either Sprint PNS or RFA depending on his preference. All questions were answered and patient is in agreement of plan. Follow-up after injections and sooner as needed. Coding Level of Care Code Est Pt Level 4 (22880) Diagnoses Left lumbar radiculopathy M54.16 Lumbar disc disease M51.9 Chronic low back pain M54.50; G89.29 Lumbar spondylosis M47.816
[2023-09-24 11:30] VITALS: BP 119/68; PULSE 76; O2SAT 99; BMI 42.7
== END 2023-09-24 11:50 | disposition home or self-care (01) ==
PROVIDERS: PCP Physician Assistant; Referring Provider Physician Assistant; Visit Provider Nurse Practitioner Family
DX: M54.16 Radiculopathy, lumbar region (principal); M51.9 Unspecified thoracic, thoracolumbar and lumbosacral intervertebral disc disorder; M54.50 Low back pain, unspecified; G89.29 Other chronic pain; M47.816 Spondylosis without myelopathy or radiculopathy, lumbar region
CPT/HCPCS: 99214

== ENCOUNTER → 2023-09-24 11:19 | Outpatient (BNVA) | payer MEDICARE, MEDICAID, SELFPAY | PROVIDERS: PCP Physician Assistant; Referring Provider Physician Assistant; Visit Provider Nurse Practitioner Family | DX: M54.16 Radiculopathy, lumbar region (principal); M51.9 Unspecified thoracic, thoracolumbar and lumbosacral intervertebral disc disorder; M54.50 Low back pain, unspecified; M47.816 Spondylosis without myelopathy or radiculopathy, lumbar region; G89.29 Other chronic pain | CPT/HCPCS: 99212 ==

== ENCOUNTER 2023-10-08 12:54 | Outpatient (AMB) | payer MEDICARE, MEDICAID, SELFPAY ==
--- NOTE | 2023-10-08 13:14 | A.OFFVIS_ITS ---
Intake Visit Reasons: lab results Intake Note: Patient is present for lab results Urology Medication:tamsulosin Antibiotic Allergy:penicillin Blood Thinner:none Today's PVR: 22ML'S Multiple Drum Sander Helper Required: Yes Multiple Drum Sander Helper Name: [id number]--Rsyks Information Interpreted: non-clinical & clinical Allergies Penicillins Allergy (Unknown, Verified 10/08/23 13:16) Rash hydrochlorothiazide Adverse Reaction (Intermediate, Verified 10/08/23 13:16) Dizziness Medication List - Last Reconciled 10/08/23 by Jimy Armenta MD atorvastatin 80 mg PO DAILY baclofen 10 mg PO BEDTIME 14 days blood sugar diagnostic (OneTouch Ultra Test strips) Testing once a day as needed blood-glucose meter (centroseTouch Ultra2 Meter) As directed clotrimazole 1% 1 appl topical BID 30 days fenofibrate 54 mg PO DAILY 90 days gabapentin 600 mg PO BID 90 days hydrocortisone 2.5% (Proctosol HC) 1 appl MO DAILY lancets (FreeStyle Lancets) As directed levothyroxine 150 mcg PO DAILY 30 days lidocaine 5% (Lidoderm) 1 patch topical DAILY losartan 50 mg PO DAILY 90 days meclizine 12.5 mg PO BID 90 days metformin 500 mg (1/2 x 1,000 mg) PO BID 90 days naproxen 500 mg PO BID PRN 10 days polyethylene glycol 3350 (Miralax) 17 grams PO DAILY sertraline 50 mg PO DAILY 90 days tadalafil (Cialis) 5 mg PO DAILY tamsulosin (Flomax) 0.4 mg PO BEDTIME tramadol 50 mg PO Q8H PRN 5 days HPI Comments Details: 10/08/23--here for follow-up prescribed tamsulosin for weak urinary stream. Had PSA screening reviewed results with him. He is complaining of erectile dysfunction. Comorbidity diabetes. Generic Cialis sent to pharmacy 5 mg daily. Will check testosterone and pertinent labs. PSA--08/03/2023--2.71 ng/mL Urinalysis negative. Review of chart: 06/08/23--53-year-old male with history of diabetes. Here as a new patient evaluation with complaints Poor urinary stream. He denies dysuria or gross hematuria. Up 2-3 times at night to urinate. Urinalysis negative leukocytes negative blood. Bladder scan PVR [address] imaging 07/17/2022 kidneys within normal limits. Plan tamsulosin 0.4 mg daily. PSA screening. [facility] Medical History Tendinopathy of right shoulder Post viral syndrome BPPV (benign paroxysmal positional vertigo) Hypothyroidism Hx of appendicitis Supraumbilical hernia Umbilical hernia Umbilical hernia DM2 (diabetes mellitus, type 2) Abdominal pain Pre-diabetes Sleep apnea with use of continuous positive airway pressure (CPAP) HLD (hyperlipidemia) HTN (hypertension) Hypothyroidism Surgical History Hx of endoscopy History of colonoscopy History of hemorrhoidectomy History of cholecystectomy Family History Mother Diabetes Hypertension Father Diabetes Hypertension Maternal Uncle Cancer Maternal Grandmother Stroke Social History Household Members: Spouse and Children Housing: Apartment Alcohol intake: unknown Patient Tobacco Use Status: Never used Tobacco e-Cigarette/Vaping Use: Never Used Second Hand Smoke Exposure: No Advance Directives Date on File: 02/03/22 service: No Current occupational status: disabled Current occupation: rt handed Cognitive needs: No Hearing needs: No Vision needs: Yes Review of Systems Const All systems reviewed & are unremarkable except as noted in HPI and below Reports no additional complaints Eyes Reports no additional complaints ENT Reports no additional complaints Card Reports no additional complaints Resp Reports no additional complaints GI Reports no additional complaints Reports as per HPI Musc Reports no additional complaints Skin/Breast Reports system reviewed and no additional complaints, except as documented Neuro Reports no additional complaints Psych Reports no additional complaints Endo Reports no additional complaints Luis/Lymph Reports no additional complaints Aller/Immun Reports no additional complaints Results AMB Urinalysis, Automated UA Leukoctes 0 Tatiana/uL Last Edit by FREDDY Garza on 10/08/23 13:30 UA Nitrite Negative Last Edit by FREDDY Garza on 10/08/23 13:30 UA Urobilinogen 0.2 mg/dL Last Edit by FREDDY Garza on 10/08/23 13:3 0 UA Protein 15 mg/dL Last Edit by FREDDY Garza on 10/08/23 13:30 UA pH 6.0 Last Edit by FREDDY Garza on 10/08/23 13:30 UA Blood 0 Cesar/uL Last Edit by FREDDY Garza on 10/08/23 13:30 UA Specific [place] 1.020 Last Edit by FREDDY Garza on 10/08/23 13: 30 UA Ketone Negative Last Edit by FREDDY Garza on 10/08/23 13:30 UA Bilirubin 0 mg/dL Last Edit by FREDDY Garza on 10/08/23 13:30 UA Glucose 0 mg/dL Last Edit by FREDDY Garza on 10/08/23 13:30 Results Reviewed Results Reviewed: Laboratory Last Values Urine pH (Auto) 6.0 10/08/23 13:29 Specific [place] (Auto) 1.020 10/08/23 13:29 Urine Protein (Auto) 15 mg/dL 10/08/23 13:29 Glucose (UA)(Auto) 0 mg/dL 10/08/23 13:29 Urine Ketones (Auto) Negative 10/08/23 13:29 Urine Blood (Auto) 0 Cesar/uL 10/08/23 13:29 Urine Nitrite (Auto) Negative 10/08/23 13:29 Urine Bilirubin (Auto) 0 mg/dL 10/08/23 13:29 Urine Urobilinogen (Auto) 0.2 mg/dL 10/08/23 13:29 Leukocyte Esterase (Auto) 0 Tatiana/uL 10/08/23 13:29 Date of Service: 07/17/22 EXAMINATION: CT ABDOMEN AND PELVIS WITH CONTRAST CLINICAL INFORMATION: Three-week history of right lower quadrant pain and diarrhea COMPARISON: Previous CT of the abdomen and pelvis most recent January 2022 and x-ray May 2022 TECHNIQUE: Multidetector volumetric images were obtained from the superior aspect of the liver through the pubic symphysis following administration 85 mL of Omnipaque 350 intravenous contrast. Sagittal and coronal reformatted images were obtained on the technologist's workstation. Oral contrast: Yes This CT examination was performed using dose optimization techniques as appropriate, variously including the following: *Automated exposure control *Adjustment of mA and/or kV according to patient size (this includes techniques or standardized protocols for targeted exams where dose is matched to indication/reason for exam; i.e. extremities or head) *Use of iterative reconstruction technique DLP: 1120 mGy-cm FINDINGS: LUNG BASES: The visualized lung bases are unremarkable. LIVER, GALLBLADDER, AND BILIARY TREE: Fatty liver. The gallbladder is been removed. No biliary duct dilatation. PANCREAS: Unremarkable. SPLEEN: Unremarkable. ADRENAL GLANDS: 1 cm enhancing right adrenal nodule. This is stable going back to October 2020 and therefore probably benign. The left adrenal gland is normal. KIDNEYS AND URETERS: The kidneys are normal in size, shape, and attenuation. No hydronephrosis, hydroureter, or calculi seen. No perinephric stranding. BLADDER: Unremarkable. GASTROINTESTINAL TRACT: There is stool throughout the colon questionable for mild constipation. No evidence of obstruction. The small and large bowel are otherwise unremarkable. The appendix is unremarkable. ABDOMINAL WALL: Adjacent umbilical and supraumbilical hernias containing fat. Together these measure 7 cm in sagittal AP and transverse dimension. Evidence of previous right lateral abdominal wall hernia repair with mesh. No recurrent right lateral abdominal wall hernia or fluid collection. LYMPH NODES: Normal. VASCULAR: Unremarkable. PELVIC VISCERA: Slightly enlarged prostate gland measuring 4.7 x 4.7 cm. OSSEOUS STRUCTURES: Degenerative changes of the spine. IMPRESSION: Normal-appearing appendix. Mild constipation. Umbilical and supraumbilical hernias containing fat. Postoperative changes following right lateral abdominal wall hernia with mesh. Fatty liver. Assessment & Plan Assessment & Plan (1) BPH loc w urin obs/LUTS: Code(s): N40.1 - Benign prostatic hyperplasia with lower urinary tract symptoms Category: Medical (2) Weak urine stream: Code(s): R39.12 - Poor urinary stream Category: Medical (3) Low testosterone: Code(s): R79.89 - Other specified abnormal findings of blood chemistry Category: Medical (4) Erectile dysfunction: Code(s): N52.9 - Male erectile dysfunction, unspecified Category: Medical (5) Diabetes: Code(s): E11.9 - Type 2 diabetes mellitus without complications Category: Medical Plan Tamsulosin 0.4 mg at bedtime, Cialis 5 mg daily, Testosterone, and pertinent labs FU telehealth to review labs otherwise 6 month fu. Orders: Orders Testosterone, Free/Total Today R79.89 - Other specified abnormal findings of blood chemistry Estradiol Ultra Sensitive Today R79.89 - Other specified abnormal findings of blood chemistry AMB Urinalysis Automated Today Z13.9 - Encounter for screening, unspecified Follicle Stimulating Hormone Today R7. - Other specified abnormal findings of blood chemistry Lutenizing Hormone Today R79. - Other specified abnormal findings of blood chemistry Glucose Fasting Today R79.89 - Other specified abnormal findings of blood chemistry Prolactin Today R79. - Other specified abnormal findings of blood chemistry Medications: New tadalafil (Cialis) [id number] [facility] [id number] Member [id number] 5 mg PO DAILY 30 tabs 5RF Patient Instructions: The patient had an opportunity to ask questions regarding treatment plan. The patient expressed understanding and agreement with the above treatment plan. The patient is aware they should contact our office by phone for worsening of their current condition or the appearance of new symptoms. Compliance is encouraged with any medications and followup testing that is ordered. It is a privilege to be allowed the opportunity to participate in the urologic care of your patient. If you have any questions or concerns regarding treatment for the above conditions please do not hesitate to contact me. The office telephone contact is [phone]. This note is constructed in part using voice recognition software. While every effort has been made to ensure accuracy archaeologist errors may have been included. Yours sincerely, Jimy Armenta MD Coding Level of Care Code Est Pt Level 4 (09805) Diagnoses BPH loc w urin obs/LUTS N40.1 Weak urine stream R39.12 Low testosterone R79.89 Erectile dysfunction N52.9 Diabetes E11.9
== END 2023-10-08 14:18 | disposition home or self-care (01) ==
PROVIDERS: PCP Physician Assistant; Visit Provider Urology
DX: N40.1 Benign prostatic hyperplasia with lower urinary tract symptoms (principal); R39.12 Poor urinary stream; R79.89 Other specified abnormal findings of blood chemistry; N52.9 Male erectile dysfunction, unspecified; E11.9 Type 2 diabetes mellitus without complications; Z13.9 Encounter for screening, unspecified
CPT/HCPCS: 99214

== ENCOUNTER → 2023-10-08 12:54 | Outpatient (BNVA) | payer MEDICARE, MEDICAID, SELFPAY | PROVIDERS: PCP Physician Assistant; Visit Provider Urology | DX: N40.1 Benign prostatic hyperplasia with lower urinary tract symptoms (principal); N52.9 Male erectile dysfunction, unspecified; R39.12 Poor urinary stream; R79.89 Other specified abnormal findings of blood chemistry; E11.9 Type 2 diabetes mellitus without complications | CPT/HCPCS: 81003; 99212 ==

== ENCOUNTER 2023-10-14 08:37 | Outpatient (REF) | payer MEDICARE, MEDICAID, SELFPAY ==
[2023-10-14 09:56] LABS: Glucose Fasting 127 mg/dL (60-99)
[2023-10-15 18:23] LABS: Follicle Stimulating Hormone 5.7 mIU/mL (1.4-12.8); Lutenizing Hormone 3.9 mIU/mL (1.5-9.3); Prolactin 7.7 ng/mL (2.0-18.0)
[2023-10-20 19:43] LABS: Testosterone, Free 67.1 pg/mL (35.0-155.0); Testosterone, Total 414 ng/dL (250-1100)
[2023-10-20 22:34] LABS: Estradiol Ultra Sensitive 32 pg/mL (< OR = 29)
== END 2023-10-14 08:38 | disposition home or self-care (01) ==
LOC: HO.LAB 08:37
PROVIDERS: Absent Provider Physician Assistant; PCP Physician Assistant; Visit Provider Urology
DX: R79.89 Other specified abnormal findings of blood chemistry (principal)
CPT/HCPCS: 36415; 82670; 82947; 83001; 83002; 84146; 84402; 84403

== ENCOUNTER 2023-10-31 00:48 | Emergency (ER) | payer MEDICARE, MEDICAID, SELFPAY ==
--- NOTE | ~2023-10-31 | XR_ITS ---
EXAMINATION: XR CHEST CLINICAL INFORMATION: Chest pain, dyspnea COMPARISON: 01/04/2023 TECHNIQUE: 2 views of the chest were obtained. FINDINGS: Lung volumes are symmetric. No focal consolidation is seen. No evidence of pneumothorax, pleural effusion, or pulmonary edema. The cardiomediastinal contour is unremarkable. XR/XR chest 2V IMPRESSION: No acute cardiopulmonary findings.
--- NOTE | 2023-10-31 00:49 | ECG_ITS ---
Test Reason : chest pain Blood Pressure : / mmHG Vent. Rate : 066 BPM Atrial Rate : 066 BPM P-R Int : 130 ms QRS Dur : 076 ms QT Int : 396 ms P-R-T Axes : 030 017 023 degrees QTc Int : 415 ms Normal sinus rhythm Low voltage QRS Borderline ECG When compared with ECG of 04-JAN-2023 21:02, No significant change was found Referred By: Generic ED Physician Electronically Signed By:Rodger Covington
[2023-10-31 00:58] VITALS: BP 125/73; PULSE 70; RESP 16; TEMP 36.1; O2SAT 96; BMI 40.7
[2023-10-31 01:08] LABS: MANUAL DIFF FLAG NO
[2023-10-31 01:09] LABS: Glucose, Whole Blood 139 mg/dL (60-115)
[2023-10-31 01:09] LABS: Basophils Absolute Auto 0.1 X10*3/uL (0.0-0.2); Eosinophils Absolute Auto 0.1 X10*3/uL (0.0-0.4); Eosinophils Percent Auto 1.3 % (0-4); Hematocrit 45.1 % (42.0-52.0); Hemoglobin 15.2 g/dl (14.0-18.0); Imm Gran Abs Auto 0.02 X10*3/uL (0.00-0.03); Imm Gran Pct Auto 0.2 % (0.0-0.4); Lymphocytes Absolute Auto 3.4 X10*3/uL (1.2-4.9); Lymphocytes Percent Auto 34.1 % (20-40); Mean Corpuscular HGB Conc 33.7 g/dl (31.0-36.0); Mean Corpuscular Hemoglobin 26.2 pg (27.0-33.0); Mean Corpuscular Volume 77.8 fL (80.0-98.0); Mean Platelet Volume 11.8 fL (9.4-12.4); Monocytes Absolute Auto 0.8 X10*3/uL (0.1-1.2); Monocytes Percent Auto 8.1 % (2-11); Neutrophils Absolute Auto 5.5 x10*3/uL (2.0-8.3); Neutrophils Percent Auto 55.3 % (45-73); Platelet Count 159 X10*3/uL (160-400); Red Cell Distribution Width 14.4 % (11.0-16.0); White Blood Count 9.9 X10*3/uL (4.8-10.8)
[2023-10-31 01:23] LABS: Alanine Aminotransferase 24 U/L (0-40); Albumin Level 3.9 g/dL (3.5-5.0); Alkaline Phosphatase 88 U/L (39-117); Anion Gap 15 (12-20); Aspartate Amino Transferase 25 U/L (5-37); Bilirubin Total 0.4 mg/dL (0.0-1.0); Blood Urea Nitrogen 27 mg/dL (9-16); Calcium 9.8 mg/dL (8.4-10.2); Carbon Dioxide 24 mmol/L (22-29); Chloride 106 mmol/L (96-108); Creatinine Clr Calc Pharmacy 69.6; Estimated Glomerular Filt Rate 49; Glucose Random 123 mg/dL (60-115); Potassium 4.2 mmol/L (3.3-5.1); Sodium 141 mmol/L (135-145); Total Protein 7.9 g/dL (6.5-8.0)
[2023-10-31 01:27] LABS: Troponin-I High Sensitivity 3.8 ng/L (<3.5-35.0)
[2023-10-31 02:26] LABS: Thyroid Stimulating Hormone 1.47 uIU/mL (0.32-4.0)
--- NOTE | 2023-10-31 05:14 | ED.CHESTPAIN ---
HPI - Chest Pain General Chief Complaint: Chest Pain Stated Complaint: palpitations/? high sugar-diabetic Time Seen by Provider: 10/31/23 05:13 History of Present Illness ED Provider: Gelacio VALLE narrative: The patient is a 53-year-old male with type 2 diabetes and other medical issues who comes to the emergency room for evaluation of chest symptoms began on , a day and a half ago. He says that on he started to have a sense of intermittent racing of his heart associated with intermittent shortness of breath. He continued to have these symptoms on Thursday until finally coming to the emergency room very early this morning on Thursday. He has had no fever, sweats, chills. No cough or sputum. He currently has only minimal chest pain. No significant shortness of breath at the moment. No pain with breathing. No abdominal pain. No vomiting. Related Data Previous Rx's ?Medication ?Instructions ?Recorded naproxen 500 mg tablet 500 mg PO BID PRN Pain 10 days #20 03/13/22 tabs lidocaine 5 % topical patch 1 patch topical DAILY #15 ea 01/05/23 (Lidoderm) hydrocortisone 2.5 % topical cream 1 appl AR DAILY #30 grams 01/24/23 with perineal applicator (Proctosol HC) polyethylene glycol 3350 17 17 g PO DAILY #119 grams 01/24/23 gram/dose oral powder (Miralax) tramadol 50 mg tablet 50 mg PO Q8H PRN pain 5 days #15 01/29/23 tabs baclofen 10 mg tablet 10 mg PO BEDTIME 14 days #14 tabs 05/04/23 blood sugar diagnostic (OneTouch #100 ea 05/04/23 Ultra Test strips) blood-glucose meter (OneTouch #1 ea 05/04/23 Ultra2 Meter) clotrimazole 1 % topical cream 1 appl topical BID 30 days #30 05/04/23 grams lancets 28 gauge (FreeStyle #100 ea 05/04/23 Lancets) losartan 50 mg tablet 50 mg PO DAILY 90 days #90 tabs 05/04/23 sertraline 50 mg tablet 50 mg PO DAILY 90 days #90 tabs 05/04/23 tamsulosin 0.4 mg capsule (Flomax) 0.4 mg PO BEDTIME #90 caps 07/06/23 gabapentin 600 mg tablet 600 mg PO BID 90 days #180 tabs 07/09/23 metformin 1,000 mg tablet 500 mg (1/2 x 1,000 mg) PO BID 90 07/15/23 days #90 tabs atorvastatin 80 mg tablet 80 mg PO DAILY #100 tabs 07/27/23 levothyroxine 150 mcg tablet 150 mcg PO DAILY 30 days #30 tabs 08/04/23 meclizine 12.5 mg tablet 12.5 mg PO BID Dizziness 90 days 08/04/23 #180 tabs fenofibrate 54 mg tablet 54 mg PO DAILY 90 days #90 tabs 09/11/23 tadalafil 5 mg tablet (Cialis) 5 mg PO DAILY #30 tabs 10/08/23 Allergies Allergy/AdvReac Type Severity Reaction Status Date / Time Penicillins Allergy Unknown Rash Verified 10/31/23 00:59 hydrochlorothiazide AdvReac Intermediate Dizziness Verified 10/31/23 00:59 Review of Systems Review of Systems: Yes all other systems are reviewed and are negative PMFSH Past Medical History Medical History Tendinopathy of right shoulder Post viral syndrome BPPV (benign paroxysmal positional vertigo) Hypothyroidism Hx of appendicitis Supraumbilical hernia Umbilical hernia Umbilical hernia DM2 (diabetes mellitus, type 2) Abdominal pain Pre-diabetes Sleep apnea with use of continuous positive airway pressure (CPAP) HLD (hyperlipidemia) HTN (hypertension) Hypothyroidism Surgical History Hx of endoscopy History of colonoscopy History of hemorrhoidectomy History of cholecystectomy Family History Family History Mother Diabetes Hypertension Father Diabetes Hypertension Maternal Uncle Cancer Maternal Grandmother Stroke Social History Social History Household Members: Spouse and Children Housing: Apartment Alcohol intake: unknown Patient Tobacco Use Status: Never used Tobacco Smoked in Last 30 Days: No e-Cigarette/Vaping Use: Never Used Second Hand Smoke Exposure: No Use of substances other than those prescribed or required for medical reasons: No Advance Directives: Yes Advance Directives on File: Yes Advance Directives Date on File: 02/03/22 Do you have a plan to hurt others: No Plan service: No Current occupational status: disabled Current occupation: rt handed Cognitive needs: No Hearing needs: No Vision needs: Yes Physical Exam Vital Signs: Vital Signs: Last Vital Signs Temp 98.4 F 10/31/23 06:44 Pulse 68 10/31/23 06:44 Resp 13 10/31/23 06:44 BP 139/81 10/31/23 06:44 Pulse Ox 94 10/31/23 06:44 O2 Del Method Room Air 10/31/23 06:44 BMI result Body Mass Index 40.7 Const: Other: The patient is awake, alert, pleasant, cooperative. He is a elena 53-year-old. He does not appear in any distress. HEENT: Other: Face is symmetrical. Mucous membranes moist. Eyes: Other: Pupils are round equal, conjunctivae clear Neck: Neck: Yes no JVD Resp: Effort & Inspection: normal respiratory effort Auscultation: clear to auscultation bilaterally Cardio: Rate: regular rate Rhythm: regular rhythm Heart sounds: S1 normal heart sound present and S2 normal heart sound present GI: Other: Abdomen is soft and nontender Skin: Other: Skin is dry and unremarkable Neuro: Other: The patient is awake and alert, pleasant and cooperative. Mental status is normal. Cranial nerves are grossly intact. He moves his extremities normally and appropriately. He seems grossly neurologically intact. Extrem: Other: No calf swelling or tenderness, no asymmetry, no edema Medical Decision Making Medical Decision Making MDM Narrative: The patient is a 53-year-old male with type 2 diabetes who presents with approximately 36 hours of chest pains and shortness of breath and palpitations. He has an unremarkable EKG. He has a negative chest x-ray. He has 2 negative troponins. Undetectable D-dimer. Other labs are unremarkable. I do not think there is any evidence of an acute coronary syndrome or a pulmonary embolism. Clinically the patient looks well. I do not have a suspicion for any other significantly dangerous process. I suspect he may be somewhat deconditioned. I think he may be discharged to follow up with his regular doctor. Lab Data 10/31/23 01:03 10/31/23 01:03 Labs: Lab Results 10/31/23 10/31/23 10/31/23 Range/Units 00:56 01:03 05:46 WBC 9.9 (4.8-10.8) X10*3/uL RBC 5.80 (4.60-5.80) X10*6/uL Hgb 15.2 (14.0-18.0) g/dl Hct 45.1 (42.0-52.0) % MCV 77.8 L (80.0-98.0) fL MCH 26.2 L (27.0-33.0) pg MCHC 33.7 (31.0-36.0) g/dl RDW 14.4 (11.0-16.0) % Plt Count 159 L (160-400) X10*3/uL MPV 11.8 (9.4-12.4) fL Immature Gran % (Auto) 0.2 (0.0-0.4) % Neut % (Auto) 55.3 (45-73) % Lymph % (Auto) 34.1 (20-40) % [place] % (Auto) 8.1 (2-11) % Eos % (Auto) 1.3 (0-4) % Baso % (Auto) 1.0 (0-2) % Lymph # (Auto) 3.4 (1.2-4.9) X10*3/uL [place] # (Auto) 0.8 (0.1-1.2) X10*3/uL Eos # (Auto) 0.1 (0.0-0.4) X10*3/uL Baso # (Auto) 0.1 (0.0-0.2) X10*3/uL Abs Immat Gran (auto) 0.02 (0.00-0.03) X10*3/uL Absolute Neuts (auto) 5.5 (2.0-8.3) x10*3/uL Absolute Nucleated RBC 0.000 (0.0-0.012) X10*3/uL Nucleated RBC % (auto) 0.0 (0.0-0.2) /100WBC D-Dimer High Sensitivty < 150 NG/ML Sodium 141 (135-145) mmol/L Potassium 4.2 (3.3-5.1) mmol/L Chloride 106 (96-108) mmol/L Carbon Dioxide 24 (22-29) mmol/L Anion Gap 15 (12-20) BUN 27 H (9-16) mg/dL Creatinine 1.49 H (0.5-1.4) mg/dL Estim Creat Clear Calc 69.6 Estimated GFR 49 POC Glucose 139 H (60-115) mg/dL Random Glucose 123 H (60-115) mg/dL Calcium 9.8 (8.4-10.2) mg/dL Magnesium 2.0 (1.6-2.6) mg/dL Total Bilirubin 0.4 (0.0-1.0) mg/dL AST 25 (5-37) U/L ALT 24 (0-40) U/L Alkaline Phosphatase 88 (39-117) U/L Troponin I High Sens 3.8 3.4 (<3.5-35.0) ng/L B-Natriuretic Peptide < 10 (<100) pg/mL Total Protein 7.9 (6.5-8.0) g/dL Albumin 3.9 (3.5-5.0) g/dL TSH 1.47 (0.32-4.0) uIU/mL Independent Interpretation I performed an independent interpretation of an: EKG Interpretation: EKG at 00:50 shows normal sinus rhythm at 66 beats per minute. No definite acute ischemic changes. Discharge Plan Discharge Clinical Impression: Palpitations, Chest pain Patient Disposition: Home, Self-Care Additional Instructions: Your testing in the emergency room today is very reassuring. There is no sign of a heart attack. There is no sign of heart failure. There is no sign of a blood clot in your lungs. Please continue your regular medications. Please follow up soon with your regular doctor to discuss these symptoms further. Return to the emergency room if you feel significantly worse. Prescriptions: No Action naproxen 500 mg tablet 500 mg PO BID PRN (Reason: Pain) 10 Days Qty: 20 1RF Hold Instructions: Doctor's Order (DME) blood-glucose meter [OneTouch Ultra2 Meter] Misc See Rx Instructions .Route Qty: 1 0RF Rx Instructions: As directed (DME) OneTouch Ultra Test Strip See Rx Instructions .Route Qty: 100 3RF Rx Instructions: Testing once a day as needed gabapentin 600 mg tablet 600 mg PO BID 90 Days Qty: 180 2RF metformin 1,000 mg tablet 500 mg PO BID 90 Days Qty: 90 2RF atorvastatin 80 mg tablet 80 mg PO DAILY Qty: 100 2RF fenofibrate 54 mg tablet 54 mg PO DAILY 90 Days Qty: 90 2RF lidocaine [Lidoderm] 5 % adhesive patch,medicated 1 patch topical DAILY Qty: 15 0RF Rx Instructions: leave on most painful area for up to 12 hrs hydrocortisone [Proctosol HC] 2.5 % cream with perineal applicator 1 appl AR DAILY Qty: 30 0RF polyethylene glycol 3350 [Miralax] 17 gram/dose powder 17 g PO DAILY Qty: 119 0RF levothyroxine 150 mcg tablet 150 mcg PO DAILY 30 Days Qty: 30 3RF meclizine 12.5 mg tablet 12.5 mg PO BID 90 Days Qty: 180 1RF tramadol 50 mg tablet 50 mg PO Q8H PRN (Reason: pain) 5 Days Qty: 15 0RF losartan 50 mg tablet 50 mg PO DAILY 90 Days Qty: 90 1RF clotrimazole 1 % cream 1 appl topical BID 30 Days Qty: 30 0RF sertraline 50 mg tablet 50 mg PO DAILY 90 Days Qty: 90 2RF baclofen 10 mg tablet 10 mg PO BEDTIME 14 Days Qty: 14 0RF (DME) lancets [FreeStyle Lancets] 28 gauge misc See Rx Instructions .ROUTE .MEDSUPPLY Qty: 100 3RF Rx Instructions: As directed tamsulosin [Flomax] 0.4 mg capsule 0.4 mg PO BEDTIME Qty: 90 1RF tadalafil [Cialis] 5 mg tablet 5 mg PO DAILY Qty: 30 5RF Rx Instructions: [id number] [facility] [id number] Member [id number] Referrals: Gurdeep Bruce PA-C [Primary Care Provider] - (Palpitations, chest pain, exertional dyspnea) Print Language: Afghan
[2023-10-31 06:13] LABS: B Type Natriuretic Peptide < 10 pg/mL (<100)
[2023-10-31 06:14] LABS: Troponin-I High Sensitivity 3.4 ng/L (<3.5-35.0)
[2023-10-31 06:22] LABS: D Dimer High Sensitivity < 150 NG/ML
[2023-10-31 06:44] VITALS: BP 139/81; PULSE 68; RESP 13; TEMP 36.9; O2SAT 94
[2023-10-31 07:10] VITALS: BP 139/81; PULSE 68; RESP 13; TEMP 36.9; O2SAT 94
== END 2023-10-31 07:11 | disposition home or self-care (01) ==
PROVIDERS: Physician Assistant Medical; Emergency Provider Emergency Medicine; PCP Physician Assistant
DX: R00.2 Palpitations (principal); R07.9 Chest pain, unspecified; R06.02 Shortness of breath; E11.9 Type 2 diabetes mellitus without complications; I10 Essential (primary) hypertension; E78.5 Hyperlipidemia, unspecified; Z79.02 Long term (current) use of antithrombotics/antiplatelets; Z79.899 Other long term (current) drug therapy; Z79.84 Long term (current) use of oral hypoglycemic drugs
CPT/HCPCS: 36415; 71046; 80053; 82947; 83735; 83880; 84443; 84484; 85025; 85379; 93005; 99283; 99285

== ENCOUNTER → 2023-10-31 00:49 | Outpatient (BNV) | payer MEDICARE, MEDICAID, SELFPAY | PROVIDERS: Emergency Provider Emergency Medicine; PCP Physician Assistant; Visit Provider Internal Medicine Cardiovascular Disease | DX: R07.9 Chest pain, unspecified (principal); R94.31 Abnormal electrocardiogram [ECG] [EKG] | CPT/HCPCS: 93010 ==

== ENCOUNTER 2023-11-03 06:25 | Outpatient (REF) | payer MEDICARE, MEDICAID, SELFPAY ==
--- NOTE | ~2023-11-03 | FL_ITS ---
EXAMINATION: XR FLUOROSCOPY WITH IMAGES CLINICAL INFORMATION: Radiculopathy, lumbar region. COMPARISON: Lumbar spine radiographs 01/05/2023. TECHNIQUE: Fluoroscopy provided to: Dr. Portillo Fluoroscopy time: 0.8 minutes DAP: 0.0871 mGycm2 Images: 3 FINDINGS: 3 images demonstrate sequential injection of the left nerve root sleeve of L4. FL/FL guidance in treatment room IMPRESSION: Fluoroscopic guidance. Please refer to the full operative report for details. Electronically signed by: Juliocesar Greene MD 01/01/2024 02:16 PM EDT
== END 2023-11-03 06:26 | disposition home or self-care (01) ==
LOC: CF 06:25
PROVIDERS: Visit Provider Anesthesiology
DX: M51.16 Intervertebral disc disorders with radiculopathy, lumbar region (principal)
CPT/HCPCS: 64483; J3301; Q9967

== ENCOUNTER 2023-11-03 10:21 | Outpatient (AMB) | payer MEDICARE, MEDICAID, SELFPAY ==
--- NOTE | 2023-11-03 10:22 | A.OFFVIS_ITS ---
Vital Signs 11/03/23 10:35 11/03/23 11:26 Height 5 ft 7 in Weight 260 lb BMI 40.7 BP 142/86 H 147/83 H Blood Pressure Location Rt brachial Lt brachial Position Sitting Sitting Respiration 16 16 Pulse 66 61 Pulse Source Pulse Oximeter Pulse Oximeter Pulse Oximetry (%) 97 98 Oxygen Delivery Method Room Air Room Air Comment pre-op Post-Op Intake Visit Reasons: (L) L4-L5 TFESI Design Director Required: Yes Design Director Language: Infectious Disease Technician Name: Spouse Accompanied by: Spouse Allergies Penicillins Allergy (Unknown, Verified 11/03/23 11:26) Rash hydrochlorothiazide Adverse Reaction (Intermediate, Verified 11/03/23 11:26) Dizziness PFSH Medical History Tendinopathy of right shoulder Post viral syndrome BPPV (benign paroxysmal positional vertigo) Hypothyroidism Hx of appendicitis Supraumbilical hernia Umbilical hernia Umbilical hernia DM2 (diabetes mellitus, type 2) Abdominal pain Pre-diabetes Sleep apnea with use of continuous positive airway pressure (CPAP) HLD (hyperlipidemia) HTN (hypertension) Hypothyroidism Surgical History Hx of endoscopy History of colonoscopy History of hemorrhoidectomy History of cholecystectomy Family History Mother Diabetes Hypertension Father Diabetes Hypertension Maternal Uncle Cancer Maternal Grandmother Stroke Social History Household Members: Spouse and Children Housing: Apartment Alcohol intake: unknown Patient Tobacco Use Status: Never used Tobacco e-Cigarette/Vaping Use: Never Used Second Hand Smoke Exposure: No Advance Directives Date on File: 02/03/22 service: No Current occupational status: disabled Current occupation: rt handed Cognitive needs: No Hearing needs: No Vision needs: Yes Physical Exam Vital Signs: Last Vital Signs Pulse 61 11/03/23 11:26 Resp 16 11/03/23 11:26 BP 147/83 H 11/03/23 11:26 Pulse Ox 98 11/03/23 11:26 Oxygen Delivery Method Room Air 11/03/23 11:26 BMI result Body Mass Index 40.7 Assessment & Plan Assessment & Plan (1) Radiculopathy due to lumbar intervertebral disc disorder: Code(s): M51.16 - Intervertebral disc disorders with radiculopathy, lumbar region Category: Medical Plan Transforaminal left L4-5 epidural steroid injection Informed consent was thoroughly explained to the patient before the procedure.? The patient came to the operating room.? He was positioned prone on operating table with a pillow under his abdomen.? Time-out was performed delineating correct site and side of the procedure, nature of the injection, name and date of of the patient. The lower back of the patient was prepped with ChloraPrep and draped with sterile utility towels.? C-arm was brought over the operating field and sq picture of L4 vertebra was demonstrated on the screen.? The left side was chosen as the side of the injection.? Tilting machine ipsilateral to the left at the level of L4 the most prominent picture of the left pedicle was obtained on the screen.? 3 mm below the level of the lowest point of the pedicle projection to the skin small amount of lidocaine 1% 3-4 cc was injected to anesthetize the skin.? After that 5 in 22 gauge [place]ke point needle was inserted through the skin wheal and was advanced to were the L4-5 foramina on anterior posterior , lateral and oblique views intermittently.? When tip of the needle entered foramina projection on AP view injection of the contrast was performed demonstrating epidural and perineural spread of the contrast.? On the lateral view contrast was spread in the epidural fashion. Injection of the life contrast was performed 1st and after that - injection of the treatment medicine 4 cc of lidocaine 1% mixed with Kenalog 40 mg was injected into the foramina.? Injection of the contrast and injection of the treatment medicine was observed live on the screen.? No intrathecal and no intravascular spread of the contrast was noted. After that the procedure was performed in the same very fashion on L4-5 level. Upon completion of the procedure sterile Band-Aids were applied. Patient tolerated procedure well he was taken outside of the operating room where he recovered uneventfully.? He went home without immediate complications. Orders: Orders FL guidance in treatment room Today M54.16 - Radiculopathy, lumbar region Coding Level of Care Code Procedure Only Diagnoses Radiculopathy due to lumbar intervertebral disc disorder M51.16
[2023-11-03 10:35] VITALS: BP 142/86; PULSE 66; RESP 16; O2SAT 97; BMI 40.7
[2023-11-03 11:26] VITALS: BP 147/83; PULSE 61; RESP 16; O2SAT 98
== END 2023-11-03 11:26 | disposition home or self-care (01) ==
LOC: HO.PMCPRC 10:21
PROVIDERS: PCP Physician Assistant; Visit Provider Anesthesiology
DX: M51.16 Intervertebral disc disorders with radiculopathy, lumbar region (principal)
CPT/HCPCS: 64483

== ENCOUNTER 2023-12-04 10:53 | Outpatient (AMB) | payer MEDICARE, MEDICAID, SELFPAY ==
--- NOTE | 2023-12-04 10:54 | MHC.OFFVIS ---
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 Portillo. Patient reports 50% ongoing pain relief for low back and 30-40% left leg pain since procedure with partial improvement in his daily activities, functioning, mobility and sleep. Patient reports increased pain with flexing forward or partial bending and axial rotations. He reports left leg numbness with occasional weakness. Previous lumbar MRI was completed in 2020, we will update his lumbar spine MRI. Patient is also interested to proceed with diagnostic lumbar medial branch blocks to address his axial low back pain. Denies any fever or chills, abdominal or groin pain, bladder or bowel dysfunction or saddle anesthesia. Past Procedures: 11/03/23: Left L4-L5 TFESI-50% back pain relief, 30-40% left leg pain relief PRIOR: Patient is a pleasant 53 years old presents today with low back pain which has been long standing for more than 10-12 years for him. He reports axial low back pain with most movements and also pain radiating into left anterior thigh and lateral [place] and inner calf with numbness and tingling in both feet. Patient was initially seen in our office in March 2021 by Renetta MUSA with plans for left L4-L5 TFESI injection but was no show. [facility] show patient underwent Bilateral L4 TFESI on 10/29/[address] Martinez. Patient reports this injection provided him good pain relief for over 3 months. He is interested to proceed with interventional treatments to address his axial and radicular symptoms. Pain affects his daily activities and functioning, mobility, sleep, mood, and social interactions. Patient states pain increases with walking, bending, movements and prolonged sitting. Pain is partially relieved with rest, heat therapy, stretching, gabapentin, muscle relaxant, NSAIDs and lidocaine patches. Denies any fever, abdominal or groin pain, weakness, foot drop, bladder or bowel dysfunction or saddle anesthesia. PRIOR 04/02/21 Renetta MUSA: Juan is a pleasant 51-year-old male presents to the office with complaints of low back pain. He states his pain has been present for many years, without any inciting events, and has been more exacerbated over the past 2 months. He states the pain travels across the low back and radiates down the left leg to the ankle with associated weakness. He reports numbness from the knee to the ankle. He reports pain onset was gradual, constant and rates the pain a 6-8/10. He states the pain is interfering with sleep, activities of daily living and they cannot function normally. The patient reports the pain in terms of tissue damage as stabbing and sore. He has tried flexeril, gabapentin, cymbalta, NSAIDS as well as lidocaine patches with minimal effect. His pain is exacerbated by prolonged standing as well as transitioning from a bending to standing position. He recently completed 10 sessions of physical therapy and was discharged due to non progression. He denies any lumbar surgery but has undergone multiple injections in [place] and reports receiving an injection at [place] [facility]. He believes he had five nerve blocks for lumbar pain and two injections for cervical pain which provided relief for about 2-3 months. He states his last injection was about 3 years ago. He had a recent MRI, this report is dictated below. His past medical history is significant for diabetes with reported A1c of 7.2%. He also has upcoming surgery with Dr. Hinkle and to repair an umbilical hernia next week. [facility] Medical History Tendinopathy of right shoulder Post viral syndrome BPPV (benign paroxysmal positional vertigo) Hypothyroidism Hx of appendicitis Supraumbilical hernia Umbilical hernia Umbilical hernia DM2 (diabetes mellitus, type 2) Abdominal pain Pre-diabetes Sleep apnea with use of continuous positive airway pressure (CPAP) HLD (hyperlipidemia) HTN (hypertension) Hypothyroidism Surgical History Hx of endoscopy History of colonoscopy History of hemorrhoidectomy History of cholecystectomy Family History Mother Diabetes Hypertension Father Diabetes Hypertension Maternal Uncle Cancer Maternal Grandmother Stroke Social History Household Members: Spouse and Children Housing: Apartment Alcohol intake: unknown Patient Tobacco Use Status: Never used Tobacco e-Cigarette/Vaping Use: Never Used Second Hand Smoke Exposure: No Advance Directives Date on File: 02/03/22 service: No Current occupational status: disabled Current occupation: rt handed Cognitive needs: No Hearing needs: No Vision needs: Yes Review of Systems Const All systems reviewed & are unremarkable except as noted in HPI and below Physical Exam General: Appears afebrile. Alert and oriented. Mood and affect appropriate. Follows and participates in conversation appropriately. Respiratory effort is unlabored. No cough. Able to transition from sit to stand unassisted. Ambulates with bilaterally normal heel strike and toe off, reports unsteady gait on the left due to pain and chronic numbness. General: Yes no CVA tenderness Back/Spine/Pelvis Other: Limited lumbar spine ROM. Can flex forward to 60-70 degrees and extend to 5-10 degrees before experiencing lumbar pain, worse pain with flexion forward and bending. Demonstrates 5/5 right and 4/5 left strength of quadriceps bilaterally as well as flexion/dorsiflexion of bilateral feet against resistance. 2+ pedal pulses bilaterally. Straight leg rise with dorsiflexion + left. Diminished DTRs, symmetrical. Rashi test negative. Facet loading test + bilaterally. No groin pain with I/E hip rotations bilaterally. Decreased sensation throughout anterior thigh and lateral aspect of the LLE. Valsalva maneuver is negative. Back: no CVA tenderness Cervical Spine: cervical ROM normal, cervical muscular tenderness and No Cervical spine tenderness Thoracic/Lumbar Spine: thoracic and lumbar spine normal to inspection, No Thoracic/lumbar spine scar(s), Lasegue's sign positive on the left and diffuse, pain with thoraco-lumbar ROM, paraspinal muscle tenderness, thoraco-lumbar ROM limited, No thoracic spinal tenderness and lumbar spinal tenderness (L4-S1) Pelvis: no buttock tenderness Sacroiliac joints: bilaterally tender to palpation (mild) Extrem General: Yes capillary refill normal, Yes no clubbing, cyanosis or edema and Yes no calf tenderness Results Reviewed Results Reviewed: XR LUMBOSACRAL SPINE 01/05/23 CLINICAL INFORMATION: Lower back pain. COMPARISON: Lumbar spine MRI from 01/04/2021 FINDINGS: Mild dextrocurvature of the lumbar spine and approximately 0.3 cm of degenerative right lateral listhesis of L4 on L5. Otherwise, lumbar vertebra have normal height and alignment. Findings include degenerative narrowing of disc space and small vertebral osteophytes at L4-L5. Also, osteophyte formation is present at other levels of the visualized lower thoracic and lumbar spine. There appears to be mild facet arthropathy at L3-4, L4-5 and L5-S1. Sacrum and sacroiliac joints are unremarkable. No evidence of focal lytic or osteoblastic lesion. Cholecystectomy clips in the right upper quadrant of the abdomen. Metallic tacks from mesh placement seen over right abdominal wall. IMPRESSION: * No acute abnormality. No evidence of lumbar vertebral compression fracture. * [id number] discovertebral degenerative change with mild right lateral listhesis at L4-L5. Otherwise, lumbar vertebra have normal alignment. XR THORACIC SPINE 01/05/23 CLINICAL INFORMATION: Upper back pain FINDINGS: Vertebral body height and alignment are maintained. Hypertrophic spondylotic changes are evident throughout the thoracic spine, with multilevel bridging osteophyte formation. No fracture or subluxation is detected. The paraspinal soft tissues image normally. IMPRESSION: 1. Hypertrophic and spondylotic changes throughout the thoracic spine but no fracture or bone lesion. MR LUMBAR SPINE WITHOUT CONTRAST 01/04/21 CLINICAL INFORMATION: Left leg pain, numbness, weakness. Low back pain. COMPARISON: Lumbar spine radiographs dated 12/10/[address] abdomen/pelvis dated 11/14/2020. TECHNIQUE: MRI of the lumbar spine was obtained using routine sequences without contrast. FINDINGS: VERTEBRAL BODIES AND PARASPINAL STRUCTURES: Normal vertebral body alignment. The lumbar lordosis is maintained. No acute fracture or subluxation. No loss of vertebral body height. Mild loss of intervertebral disc height with disc desiccation at L3-L4 and L4-L5. The remaining intervertebral disks are well hydrated. Tiny endplate osteophytes at L2-L3 through L4-L5. No abnormal marrow signal. No evidence of acute osseous injury. The visualized paraspinal soft tissues are unremarkable. CONUS MEDULLARIS AND CAUDA EQUINA: Normal, terminating at the level of L1. SPINAL LEVELS: T12-L1: No significant disc bulge. No central canal or neural foraminal stenosis. L1-L2: No significant disc bulge. No central canal or neural foraminal stenosis. L2-L3: No significant disc bulge. Bilateral facet arthropathy. No central canal or neural foraminal stenosis. L3-L4: Minimal disc bulge with a shallow right subarticular/extraforaminal disc protrusion with annular fissuring. The protrusion abuts the exiting right L3 nerve root. Bilateral facet arthropathy and thickening of the ligamentum flavum with minimal central canal stenosis as well as mild bilateral neural foraminal stenosis. L4-L5: Shallow disc bulge with a superimposed left subarticular/extraforaminal disc protrusion which contacts and displaces the exiting left L4 nerve root in the neural foramen and extraforaminal space. Associated annular fissuring. Bilateral facet arthropathy and thickening of the ligamentum flavum with mild central canal stenosis as well as [id number] left and mild right neural foraminal stenosis. L5-S1: Minimal disc bulge with bilateral facet arthropathy causing minimal bilateral neural foraminal stenosis. IMPRESSION: 1. Shallow disc bulge at L4-L5 with a left subarticular/extraforaminal disc protrusion which contacts and displaces the exiting left L4 nerve root. Bilateral facet arthropathy and thickening of the ligamentum flavum causing [id number] left and mild right neural foraminal stenosis as well as mild central canal stenosis. 2. Minimal disc bulge at L3-L4 with a shallow right subarticular/extraforaminal disc protrusion abutting the exiting right L3 nerve root. Bilateral facet arthropathy and thickening of the ligamentum flavum with minimal central canal stenosis as well as mild bilateral neural foraminal stenosis. 3. Minimal disc bulge at L5-S1 with bilateral facet arthropathy causing minimal bilateral neural foraminal stenosis. Assessment & Plan Assessment & Plan (1) Left lumbar radiculopathy: Code(s): M54.16 - Radiculopathy, lumbar region Category: Medical (2) Lumbar disc disease: Code(s): M51.9 - Unspecified thoracic, thoracolumbar and lumbosacral intervertebral disc disorder Category: Medical (3) Chronic low back pain: Code(s): M54.50 - Low back pain, unspecified; G89.29 - Other chronic pain Category: Medical (4) Lumbar spondylosis: Code(s): M47.816 - Spondylosis without myelopathy or radiculopathy, lumbar region Category: Medical (5) Degenerative joint disease (DJD) of lumbar spine: Code(s): M47.816 - Spondylosis without myelopathy or radiculopathy, lumbar region Category: Medical Qualifiers: Spinal osteoarthritis complication: with radiculopathy Qualified Code(s): M47.26 - Other spondylosis with radiculopathy, lumbar region (6) Radiculopathy due to lumbar intervertebral disc disorder: Code(s): M51.16 - Intervertebral disc disorders with radiculopathy, lumbar region Category: Medical Plan Patient is one month status post left L4-L5 TFESI with partial leg and back pain improvement. He continues to endorse significant left leg pain with numbness, occasional weakness and discogenic and axial low back pain. Will update his lumbar spine MRI to assess for neural integrity and compression and follow up on previous MRI findings. For ongoing axial low back pain will plan for diagnostic bilateral L3-L4 DR L5 medial branch blocks with local and fluoroscopy. If he has significant relief from the diagnostic blocks for her axial low back pain, will consider either Sprint PNS or RFA depending on his preference. All questions were answered and patient is in agreement of plan. Follow-up after injections/MRI results and sooner as needed. Orders: Orders MR lumbar spine wo con Today M47.26 - Other spondylosis with radiculopathy, lumbar region, M47.816 - Spondylosis without myelopathy or radiculopathy, lumbar region, M51.16 - Intervertebral disc disorders with radiculopathy, lumbar region, M54.16 - Radiculopathy, lumbar region Coding Level of Care Code Est Pt Level 4 (38783) Complex EM visit Add On G2211 Diagnoses Left lumbar radiculopathy M54.16 Lumbar disc disease M51.9 Chronic low back pain M54.50; G89.29 Lumbar spondylosis M47.816 Osteoarthritis of spine with radiculopathy, lumbar region M47.26 Spinal osteoarthritis complication: with radiculopathy Radiculopathy due to lumbar intervertebral disc disorder M51.16
[2023-12-04 11:01] VITALS: BP 135/75; PULSE 77; O2SAT 96; BMI 41.7
== END 2023-12-04 11:12 | disposition home or self-care (01) ==
PROVIDERS: PCP Physician Assistant; Visit Provider Nurse Practitioner Family
DX: M54.16 Radiculopathy, lumbar region (principal); M51.9 Unspecified thoracic, thoracolumbar and lumbosacral intervertebral disc disorder; M54.50 Low back pain, unspecified; G89.29 Other chronic pain; M47.816 Spondylosis without myelopathy or radiculopathy, lumbar region; M47.26 Other spondylosis with radiculopathy, lumbar region; M51.16 Intervertebral disc disorders with radiculopathy, lumbar region
CPT/HCPCS: 99214; G2211

== ENCOUNTER → 2023-12-04 10:53 | Outpatient (BNVA) | payer MEDICARE, MEDICAID, SELFPAY | PROVIDERS: PCP Physician Assistant; Visit Provider Nurse Practitioner Family | DX: M54.50 Low back pain, unspecified (principal); G89.29 Other chronic pain; M47.26 Other spondylosis with radiculopathy, lumbar region; M51.16 Intervertebral disc disorders with radiculopathy, lumbar region; M51.9 Unspecified thoracic, thoracolumbar and lumbosacral intervertebral disc disorder; M79.662 Pain in left lower leg | CPT/HCPCS: 99212 ==

== ENCOUNTER 2023-12-28 10:50 | Outpatient (REF) | payer MEDICARE, MEDICAID, SELFPAY ==
--- NOTE | ~2023-12-28 | MR_ITS ---
EXAMINATION: MR LUMBAR SPINE WITHOUT CONTRAST CLINICAL INFORMATION: Low back pain COMPARISON: MRI lumbar spine January 04, 2021 , CT abdomen pelvis July 17, 2022 TECHNIQUE: MRI of the lumbar spine was obtained using routine sequences without contrast. FINDINGS: Normal lumbar lordosis is preserved. Trace retrolisthesis at L4-L5 greater than L5-S1. Vertebral body heights are maintained. There is no suspicious osseous lesion. Multilevel disc desiccation with new minimal disc height loss at L4-L5. Level by level detail as follows: L1-L2: Mild bilateral facet arthrosis. No spinal canal or neural foraminal stenosis. L2-L3: Trace annular disc bulge with mild bilateral facet arthrosis. No spinal canal or significant neural foraminal stenosis. L3-L4: Annular disc bulge with increased size of left foraminal disc protrusion and new associated annular fissure. Decreased size of right foraminal/extraforaminal disc protrusion. Mild bilateral facet arthrosis. No spinal canal stenosis. Mild bilateral neural foraminal stenosis, increased on the left. L4-L5: Annular disc bulge with decreased size of superiorly migrated left foraminal disc extrusion and mild bilateral facet arthrosis. No spinal canal stenosis. Decreased moderate left neural foraminal stenosis with decreased mass effect along the exiting left L4 nerve. Patent right neural foramen. L5-S1: Annular disc bulge and mild facet arthrosis. No spinal canal stenosis. Stable minimal neural foraminal encroachment. The conus medullaris terminates at the level of L1-L2. The distal spinal cord is normal in appearance. No epidural fluid collection, hematoma, or mass. No significant abnormalities of the paraspinal musculature. Redemonstrated partially imaged right adrenal nodule, as seen on multiple prior abdominopelvic CTs and thought to be benign given multiyear stability. The abdominal aorta is of normal contour and caliber. MR/MR lumbar spine wo con IMPRESSION: 1. At L4-L5, decreased size of superiorly migrated left foraminal disc extrusion resulting in decreased moderate left neural foraminal stenosis and decreased mass effect along the exiting left L4 nerve. 2. At L3-L4, increased size of left foraminal disc protrusion and new associated annular fissure. Decreased size of right foraminal/extraforaminal disc protrusion. Mild bilateral neural foraminal stenosis, increased on the left. 3. Redemonstrated partially imaged right adrenal nodule, as seen on multiple prior abdominopelvic CTs and thought to be benign given multiyear stability. Electronically signed by: Елена Cervantes MD 12/28/2023 01:11 PM EDT RP
== END 2023-12-28 10:51 | disposition home or self-care (01) ==
LOC: HO.MRI 10:50
PROVIDERS: PCP Physician Assistant; Visit Provider Nurse Practitioner Family
DX: M51.16 Intervertebral disc disorders with radiculopathy, lumbar region (principal); M47.816 Spondylosis without myelopathy or radiculopathy, lumbar region; M47.26 Other spondylosis with radiculopathy, lumbar region
CPT/HCPCS: 72148

== ENCOUNTER 2024-01-08 10:55 | Outpatient (AMB) | payer MEDICARE, MEDICAID, SELFPAY ==
--- NOTE | 2024-01-08 10:56 | MHC.OFFVIS ---
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 Denies any recent cough, cold, infection, fever or other significant changes in medical history since last office visit. PRIOR: Patient presents today to assess response to left L4-L5 TFESI on 11/03/[address] Portillo. Patient reports 50% ongoing pain relief for low back and 30-40% left leg pain since procedure with partial improvement in his daily activities, functioning, mobility and sleep. Patient reports increased pain with flexing forward or partial bending and axial rotations. He reports left leg numbness with occasional weakness. Previous lumbar MRI was completed in 2020, we will update his lumbar spine MRI. Patient is also interested to proceed with diagnostic lumbar medial branch blocks to address his axial low back pain. Denies any fever or chills, abdominal or groin pain, bladder or bowel dysfunction or saddle anesthesia. Past Procedures: 11/03/23: Left L4-L5 TFESI-50% back pain relief, 30-40% left leg pain relief PRIOR: Patient is a pleasant 53 years old presents today with low back pain which has been long standing for more than 10-12 years for him. He reports axial low back pain with most movements and also pain radiating into left anterior thigh and lateral enamorado and inner calf with numbness and tingling in both feet. Patient was initially seen in our office in March 2021 by Renetta MUSA with plans for left L4-L5 TFESI injection but was no show. [facility] show patient underwent Bilateral L4 TFESI on 10/29/[address] Martinez. Patient reports this injection provided him good pain relief for over 3 months. He is interested to proceed with interventional treatments to address his axial and radicular symptoms. Pain affects his daily activities and functioning, mobility, sleep, mood, and social interactions. Patient states pain increases with walking, bending, movements and prolonged sitting. Pain is partially relieved with rest, heat therapy, stretching, gabapentin, muscle relaxant, NSAIDs and lidocaine patches. Denies any fever, abdominal or groin pain, weakness, foot drop, bladder or bowel dysfunction or saddle anesthesia. PRIOR 04/02/21 Renetta MUSA: Juan is a pleasant 51-year-old male presents to the office with complaints of low back pain. He states his pain has been present for many years, without any inciting events, and has been more exacerbated over the past 2 months. He states the pain travels across the low back and radiates down the left leg to the ankle with associated weakness. He reports numbness from the knee to the ankle. He reports pain onset was gradual, constant and rates the pain a 6-8/10. He states the pain is interfering with sleep, activities of daily living and they cannot function normally. The patient reports the pain in terms of tissue damage as stabbing and sore. He has tried flexeril, gabapentin, cymbalta, NSAIDS as well as lidocaine patches with minimal effect. His pain is exacerbated by prolonged standing as well as transitioning from a bending to standing position. He recently completed 10 sessions of physical therapy and was discharged due to non progression. He denies any lumbar surgery but has undergone multiple injections in [place] and reports receiving an injection at [place]. He believes he had five nerve blocks for lumbar pain and two injections for cervical pain which provided relief for about 2-3 months. He states his last injection was about 3 years ago. He had a recent MRI, this report is dictated below. His past medical history is significant for diabetes with reported A1c of 7.2%. He also has upcoming surgery with Dr. Hinkle and to repair an umbilical hernia next week. [facility] Medical History Tendinopathy of right shoulder Post viral syndrome BPPV (benign paroxysmal positional vertigo) Hypothyroidism Hx of appendicitis Supraumbilical hernia Umbilical hernia Umbilical hernia DM2 (diabetes mellitus, type 2) Abdominal pain Pre-diabetes Sleep apnea with use of continuous positive airway pressure (CPAP) HLD (hyperlipidemia) HTN (hypertension) Hypothyroidism Surgical History Hx of endoscopy History of colonoscopy History of hemorrhoidectomy History of cholecystectomy Family History Mother Diabetes Hypertension Father Diabetes Hypertension Maternal Uncle Cancer Maternal Grandmother Stroke Social History Household Members: Spouse and Children Housing: Apartment Alcohol intake: unknown Patient Tobacco Use Status: Never used Tobacco e-Cigarette/Vaping Use: Never Used Second Hand Smoke Exposure: No Advance Directives Date on File: 02/03/22 service: No Current occupational status: disabled Current occupation: rt handed Cognitive needs: No Hearing needs: No Vision needs: Yes Review of Systems Const All systems reviewed & are unremarkable except as noted in HPI and below Physical Exam Vital Signs: Last Vital Signs Pulse 61 01/08/24 10:59 BP 134/81 01/08/24 10:59 Pulse Ox 98 01/08/24 10:59 Oxygen Delivery Method Room Air 01/08/24 10:59 BMI result Body Mass Index 41.8 General: Appears afebrile. Morbidly obese. Alert and oriented. Mood and affect appropriate. Follows and participates in conversation appropriately. Respiratory effort is unlabored. No cough. Able to transition from sit to stand unassisted. Ambulates with bilaterally normal heel strike and toe off, reports unsteady gait on the left due to pain and chronic numbness. General: Yes no CVA tenderness Back/Spine/Pelvis Other: Limited lumbar spine ROM. Can flex forward to 65-70 degrees and extend to 5-10 degrees before experiencing lumbar pain, worse pain with flexion forward and bending. Demonstrates 5/5 right and 4/5 left strength of quadriceps bilaterally as well as flexion/dorsiflexion of bilateral feet against resistance. 2+ pedal pulses bilaterally. Straight leg rise with dorsiflexion + left. Diminished DTRs, symmetrical. Rashi test reproduces left lateral hip pain, not back pain. Facet loading test + bilaterally. No groin pain with I/E hip rotations bilaterally. Decreased sensation throughout anterior thigh and lateral aspect of the LLE. Valsalva maneuver is negative. Back: no CVA tenderness Cervical Spine: cervical ROM normal, cervical muscular tenderness and No Cervical spine tenderness Thoracic/Lumbar Spine: thoracic and lumbar spine normal to inspection, No Thoracic/lumbar spine scar(s), Lasegue's sign positive on the left and diffuse, pain with thoraco-lumbar ROM, paraspinal muscle tenderness, thoraco-lumbar ROM limited, No thoracic spinal tenderness and lumbar spinal tenderness (L4-S1) Pelvis: no buttock tenderness Sacroiliac joints: bilaterally tender to palpation (mild) Extrem General: Yes capillary refill normal, Yes no clubbing, cyanosis or edema and Yes no calf tenderness Results Reviewed Results Reviewed: XR LUMBOSACRAL SPINE 01/05/23 CLINICAL INFORMATION: Lower back pain. COMPARISON: Lumbar spine MRI from 01/04/2021 FINDINGS: Mild dextrocurvature of the lumbar spine and approximately 0.3 cm of degenerative right lateral listhesis of L4 on L5. Otherwise, lumbar vertebra have normal height and alignment. Findings include degenerative narrowing of disc space and small vertebral osteophytes at L4-L5. Also, osteophyte formation is present at other levels of the visualized lower thoracic and lumbar spine. There appears to be mild facet arthropathy at L3-4, L4-5 and L5-S1. Sacrum and sacroiliac joints are unremarkable. No evidence of focal lytic or osteoblastic lesion. Cholecystectomy clips in the right upper quadrant of the abdomen. Metallic tacks from mesh placement seen over right abdominal wall. IMPRESSION: * No acute abnormality. No evidence of lumbar vertebral compression fracture. * [id number] discovertebral degenerative change with mild right lateral listhesis at L4-L5. Otherwise, lumbar vertebra have normal alignment. XR THORACIC SPINE 01/05/23 CLINICAL INFORMATION: Upper back pain FINDINGS: Vertebral body height and alignment are maintained. Hypertrophic spondylotic changes are evident throughout the thoracic spine, with multilevel bridging osteophyte formation. No fracture or subluxation is detected. The paraspinal soft tissues image normally. IMPRESSION: 1. Hypertrophic and spondylotic changes throughout the thoracic spine but no fracture or bone lesion. MR LUMBAR SPINE WITHOUT CONTRAST 12/28/23 CLINICAL INFORMATION: Low back pain COMPARISON: MRI lumbar spine January 04, 2021 , CT abdomen pelvis July 17, 2022 TECHNIQUE: MRI of the lumbar spine was obtained using routine sequences without contrast. FINDINGS: Normal lumbar lordosis is preserved. Trace retrolisthesis at L4-L5 greater than L5-S1. Vertebral body heights are maintained. There is no suspicious osseous lesion. Multilevel disc desiccation with new minimal disc height loss at L4-L5. Level by level detail as follows: L1-L2: Mild bilateral facet arthrosis. No spinal canal or neural foraminal stenosis. L2-L3: Trace annular disc bulge with mild bilateral facet arthrosis. No spinal canal or significant neural foraminal stenosis. L3-L4: Annular disc bulge with increased size of left foraminal disc protrusion and new associated annular fissure. Decreased size of right foraminal/extraforaminal disc protrusion. Mild bilateral facet arthrosis. No spinal canal stenosis. Mild bilateral neural foraminal stenosis, increased on the left. L4-L5: Annular disc bulge with decreased size of superiorly migrated left foraminal disc extrusion and mild bilateral facet arthrosis. No spinal canal stenosis. Decreased moderate left neural foraminal stenosis with decreased mass effect along the exiting left L4 nerve. Patent right neural foramen. L5-S1: Annular disc bulge and mild facet arthrosis. No spinal canal stenosis. Stable minimal neural foraminal encroachment. The conus medullaris terminates at the level of L1-L2. The distal spinal cord is normal in appearance. No epidural fluid collection, hematoma, or mass. No significant abnormalities of the paraspinal musculature. Redemonstrated partially imaged right adrenal nodule, as seen on multiple prior abdominopelvic CTs and thought to be benign given multiyear stability. The abdominal aorta is of normal contour and caliber. IMPRESSION: 1. At L4-L5, decreased size of superiorly migrated left foraminal disc extrusion resulting in decreased moderate left neural foraminal stenosis and decreased mass effect along the exiting left L4 nerve. 2. At L3-L4, increased size of left foraminal disc protrusion and new associated annular fissure. Decreased size of right foraminal/extraforaminal disc protrusion. Mild bilateral neural foraminal stenosis, increased on the left. 3. Redemonstrated partially imaged right adrenal nodule, as seen on multiple prior abdominopelvic CTs and thought to be benign given multiyear stability. Assessment & Plan Assessment & Plan (1) Left lumbar radiculopathy: Code(s): M54.16 - Radiculopathy, lumbar region Category: Medical (2) Lumbar disc disease: Code(s): M51.9 - Unspecified thoracic, thoracolumbar and lumbosacral intervertebral disc disorder Category: Medical (3) Chronic low back pain: Code(s): M54.50 - Low back pain, unspecified; G89.29 - Other chronic pain Category: Medical (4) Lumbar spondylosis: Code(s): M47.816 - Spondylosis without myelopathy or radiculopathy, lumbar region Category: Medical Plan Lumbar spine MRI results were discussed with patient and his who assisted with translation today per patient's request. 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 Patient's symptoms are persistent with left lumbar radicular and axial low back pain. He is scheduled for diagnostic lumbar medial branch blocks on 01/19/24. Patient underwent left L4-L5 TFESI previously with minimal pain relief. Given new MRI findings, consistent with patient's exam, we will proceed with left L3-L4 TFESI with local and fluoroscopy for left sided radicular pain. Expectations, risks and benefits were reviewed. Patient is aware of hyperglycemic effects of steroids and is aware to monitor blood sugars closely after the injection. All questions were answered and patient is in agreement of plan. Follow-up after injections and sooner as needed. Coding Level of Care Code Est Pt Level 4 (90588) Complex EM visit Add On G2211 Diagnoses Left lumbar radiculopathy M54.16 Lumbar disc disease M51.9 Chronic low back pain M54.50; G89.29 Lumbar spondylosis M47.816
[2024-01-08 10:59] VITALS: BP 134/81; PULSE 61; O2SAT 98; BMI 41.8
== END 2024-01-08 11:13 | disposition home or self-care (01) ==
PROVIDERS: PCP Physician Assistant; Visit Provider Nurse Practitioner Family
DX: M54.16 Radiculopathy, lumbar region (principal); M51.9 Unspecified thoracic, thoracolumbar and lumbosacral intervertebral disc disorder; M54.50 Low back pain, unspecified; G89.29 Other chronic pain; M47.816 Spondylosis without myelopathy or radiculopathy, lumbar region
CPT/HCPCS: 99214; G2211

== ENCOUNTER → 2024-01-08 10:55 | Outpatient (BNVA) | payer MEDICARE, MEDICAID, SELFPAY | PROVIDERS: PCP Physician Assistant; Visit Provider Nurse Practitioner Family | DX: M54.16 Radiculopathy, lumbar region (principal); M51.9 Unspecified thoracic, thoracolumbar and lumbosacral intervertebral disc disorder; M47.816 Spondylosis without myelopathy or radiculopathy, lumbar region; G89.29 Other chronic pain; Z71.2 Person consulting for explanation of examination or test findings | CPT/HCPCS: 99212 ==

== ENCOUNTER 2024-01-19 06:11 | Outpatient (REF) | payer MEDICARE, MEDICAID, SELFPAY | END 2024-01-19 06:12 | disposition home or self-care (01) | LOC: CF 06:11 | PROVIDERS: Visit Provider Anesthesiology | DX: M47.816 Spondylosis without myelopathy or radiculopathy, lumbar region (principal) | CPT/HCPCS: 64493; 64494; J2003; J2795; Q9967 ==

== ENCOUNTER 2024-01-19 13:34 | Outpatient (AMB) | payer MEDICARE, MEDICAID, SELFPAY ==
--- NOTE | 2024-01-19 13:48 | A.OFFVIS_ITS ---
Vital Signs 01/19/24 14:45 01/19/24 14:46 Height 5 ft 7 in 5 ft 7 in Weight 267 lb 267 lb BMI 41.8 41.8 BP 140/93 H 134/88 Blood Pressure Location Lt brachial Lt brachial Position Sitting Sitting Respiration 17 17 Pulse 76 71 Pulse Source Pulse Oximeter Pulse Oximeter Pulse Oximetry (%) 95 98 Oxygen Delivery Method Room Air Room Air Comment pre-op post-op Intake Visit Reasons: BILATERAL DIAGNOSTIC L3, L4, DRL5 MBB Circular Knitter Helper Required: Yes Circular Knitter Helper Services: Circular Knitter Helper Offered & Declined Allergies Penicillins Allergy (Unknown, Verified 01/19/24 14:47) Rash hydrochlorothiazide Adverse Reaction (Intermediate, Verified 01/19/24 14:47) Dizziness PFSH Medical History Tendinopathy of right shoulder Post viral syndrome BPPV (benign paroxysmal positional vertigo) Hypothyroidism Hx of appendicitis Supraumbilical hernia Umbilical hernia Umbilical hernia DM2 (diabetes mellitus, type 2) Abdominal pain Pre-diabetes Sleep apnea with use of continuous positive airway pressure (CPAP) HLD (hyperlipidemia) HTN (hypertension) Hypothyroidism Surgical History Hx of endoscopy History of colonoscopy History of hemorrhoidectomy History of cholecystectomy Family History Mother Diabetes Hypertension Father Diabetes Hypertension Maternal Uncle Cancer Maternal Grandmother Stroke Social History Household Members: Spouse and Children Housing: Apartment Alcohol intake: unknown Patient Tobacco Use Status: Never used Tobacco e-Cigarette/Vaping Use: Never Used Second Hand Smoke Exposure: No Advance Directives Date on File: 02/03/22 service: No Current occupational status: disabled Current occupation: rt handed Cognitive needs: No Hearing needs: No Vision needs: Yes Physical Exam Vital Signs: Last Vital Signs Pulse 71 01/19/24 14:46 Resp 17 01/19/24 14:46 BP 134/88 01/19/24 14:46 Pulse Ox 98 01/19/24 14:46 Oxygen Delivery Method Room Air 01/19/24 14:46 BMI result Body Mass Index 41.8 Assessment & Plan Assessment & Plan (1) Spondylosis of lumbar region without myelopathy or radiculopathy: Code(s): M47.816 - Spondylosis without myelopathy or radiculopathy, lumbar region Category: Medical Plan Diagnostic medial branch block L3,L4 dorsal ramus L5 bilateral.? ? ?Informed consent was explained to the patient. All questions were explained and? answered.? The patient was taken inside the operating room where she was positioned prone on the operating table. Time-out was performed delineating correct site, side, the nature of the procedure, patient's allergy, . All operating room staff was participating in OR time-out procedure. ? ? The lower back was prepped with ChloraPrep and draped with sterile towels.? C- arm was brought over the operating field and sq picture of L4-, L5 vertebra and S1 AREA were delineated on the screen.? Point of interest were delineated as confluence of superior articular process of L4 and L5 vertebra bilaterally with corresponding transverse processes as well as confluence of the sacral alae bilaterally with superior articular process of S1.? The projection of the point of interest to the skin were injected with the small amount of local anesthetic lidocaine 2% mixed with ropivacaine 0.5% 1-1 approcimately 1 cc.? After that 22 gauge 5 inch spinal needle was driven sequentially to the points of interest in tunnel vision fashion. After needles gently contacted the bone at the point of interests the needle was injected with small amount of the contrast.? The injection of the contrast did not demonstrate any intravascular or intrathecal spread of the contrast.? After that injection of the? ropivacaine 0.5%-1cc was performed at each needle location.??after that the needles were removed and Bandaids were applied. ? Upon completion of the injections? needle was? removed and sterile Band-Aids were applied.? The patient tolerated procedure very well. Orders: Orders FL guidance in treatment room Today M47.816 - Spondylosis without myelopathy or radiculopathy, lumbar region Coding Level of Care Code Procedure Only Diagnoses Spondylosis of lumbar region without myelopathy or radiculopathy M47.816
[2024-01-19 14:45] VITALS: BP 140/93; PULSE 76; RESP 17; O2SAT 95; BMI 41.8
[2024-01-19 14:46] VITALS: BP 134/88; PULSE 71; RESP 17; O2SAT 98; BMI 41.8
== END 2024-01-19 14:38 | disposition home or self-care (01) ==
LOC: HO.PMCPRC 13:34
PROVIDERS: PCP Physician Assistant; Visit Provider Anesthesiology
DX: M47.816 Spondylosis without myelopathy or radiculopathy, lumbar region (principal)
CPT/HCPCS: 64493; 64494

== ENCOUNTER 2024-03-10 08:58 | Outpatient (REF) | payer MEDICARE, MEDICAID, SELFPAY ==
--- NOTE | ~2024-03-10 | XR_ITS ---
EXAMINATION: XR CHEST CLINICAL INFORMATION: R05.9 - Cough, unspecified COMPARISON: October 2023. TECHNIQUE: 2 views of the chest were obtained. FINDINGS: No dominant consolidations or pneumothorax seen. There is a small patchy opacity at the peripheral left base which may reflect a small infiltrate or atelectatic change. Hilar regions and pulmonary vascularity stable. Pleural surfaces are clear. Multilevel thoracic spondylosis. XR/XR chest 2V IMPRESSION: Small patchy opacity at the peripheral left base may reflect a small infiltrate or atelectatic change. Electronically signed by: Harish Valencia MD 03/10/2024 03:25 PM [facility]
[2024-03-10 09:44] LABS: Hematocrit 45.9 % (42.0-52.0); Hemoglobin 14.9 g/dl (14.0-18.0); Mean Corpuscular HGB Conc 32.5 g/dl (31.0-36.0); Mean Corpuscular Hemoglobin 25.3 pg (27.0-33.0); Mean Corpuscular Volume 78.1 fL (80.0-98.0); Mean Platelet Volume 11.3 fL (9.4-12.4); Platelet Count 160 X10*3/uL (160-400); Red Blood Count 5.88 X10*6/uL (4.60-5.80); Red Cell Distribution Width 14.1 % (11.0-16.0)
[2024-03-10 09:51] LABS: Estimated Average Glucose 126 mg/dL; Hemoglobin A1C 154.1947 umol/L
[2024-03-10 10:51] LABS: Syphilis Screen Nonreactive (Nonreactive)
[2024-03-10 11:16] LABS: Alanine Aminotransferase 44 U/L (0-40); Albumin Level 3.8 g/dL (3.5-5.0); Alkaline Phosphatase 73 U/L (39-117); Anion Gap 11 (12-20); Aspartate Amino Transferase 20 U/L (5-37); Bilirubin Total 0.4 mg/dL (0.0-1.0); Blood Urea Nitrogen 21 mg/dL (9-16); Calcium 9.1 mg/dL (8.4-10.2); Carbon Dioxide 27 mmol/L (22-29); Chloride 108 mmol/L (96-108); Estimated Glomerular Filt Rate 54; Glucose Fasting 125 mg/dL (60-99); Sodium 142 mmol/L (135-145); Total Protein 7.2 g/dL (6.5-8.0)
[2024-03-10 11:18] LABS: HIV AB/AG Nonreactive (Nonreactive); HIV Num 1 0.05 S/CO (0.00-0.99)
[2024-03-10 11:33] LABS: TSH reflex Free T4 11.36 uIU/mL (0.32-4.0)
[2024-03-10 12:21] LABS: Free T4 (Free Thyroxine) 0.75 ng/dL (0.71-1.85)
[2024-03-10 15:19] LABS: CT PCR NOT DETECTED (Not Detect.); NG PCR NOT DETECTED (Not Detect.)
== END 2024-03-10 08:59 | disposition home or self-care (01) ==
LOC: HO.LAB 08:58
PROVIDERS: PCP Physician Assistant; Visit Provider Physician Assistant
DX: E11.21 Type 2 diabetes mellitus with diabetic nephropathy (principal); R05.3 Chronic cough; I10 Essential (primary) hypertension; R07.81 Pleurodynia; M54.6 Pain in thoracic spine; E03.9 Hypothyroidism, unspecified; E78.1 Pure hyperglyceridemia; M54.16 Radiculopathy, lumbar region; M51.9 Unspecified thoracic, thoracolumbar and lumbosacral intervertebral disc disorder; G89.29 Other chronic pain; M54.50 Low back pain, unspecified; M47.816 Spondylosis without myelopathy or radiculopathy, lumbar region; R05.9 Cough, unspecified; Z20.2 Contact with and (suspected) exposure to infections with a predominantly sexual mode of transmission
CPT/HCPCS: 71046; 80053; 83036; 84439; 84443; 85027; 86780; 87389; 87491; 87591; 99212

== ENCOUNTER 2024-03-10 09:26 | Outpatient (AMB) | payer MEDICARE, MEDICAID, SELFPAY ==
[2024-03-10 09:39] VITALS: BP 124/88; PULSE 72; O2SAT 96; BMI 43.1
--- NOTE | 2024-03-10 09:39 | MHC.PC.OV ---
Vital Signs 03/10/24 09:39 Height 5 ft 7 in Weight 275 lb 4 oz BMI 43.1 BP 124/88 Blood Pressure Location Lt brachial Position Sitting Pulse 72 Pulse Source Pulse Oximeter Pulse Oximetry (%) 96 Oxygen Delivery Method Room Air Intake Visit Reasons: ED f/U Palpitations, dizziness Intake Note: Patient is here for a routine follow-up for Type 2 Diabetes Mellitus. The patient reports experiencing chest pain radiating to the back over the past two months, which has progressively worsened. The pain is now accompanied by shortness of breath. Chainstitch Elastic Attacher Required: Yes Chainstitch Elastic Attacher Language: Kyrgyz Accompanied by: Self / Same As Patient Allergies Penicillins Allergy (Unknown, Verified 03/10/24 10:40) Rash hydrochlorothiazide Adverse Reaction (Intermediate, Verified 03/10/24 10:40) Dizziness Medication List - Last Reconciled 03/10/24 by Gurdeep Bruce PA-C atorvastatin 80 mg PO DAILY baclofen 10 mg PO BEDTIME 14 days blood sugar diagnostic (OneTouch Ultra Test strips) Testing once a day as needed blood-glucose meter (SamplesaintTouch Ultra2 Meter) As directed clotrimazole 1% 1 appl topical BID 30 days fenofibrate 54 mg PO DAILY 90 days gabapentin 600 mg PO BID 90 days hydrocortisone 2.5% (Proctosol HC) 1 appl MI DAILY lancets (FreeStyle Lancets) As directed levothyroxine 150 mcg PO DAILY 30 days lidocaine 5% (Lidoderm) 1 patch topical DAILY losartan 50 mg PO DAILY 90 days meclizine 12.5 mg PO BID 90 days metformin 500 mg (1/2 x 1,000 mg) PO BID 90 days naproxen 500 mg PO BID PRN 10 days polyethylene glycol 3350 (Miralax) 17 grams PO DAILY sertraline 50 mg PO DAILY 90 days tadalafil (Cialis) 5 mg PO DAILY tamsulosin (Flomax) 0.4 mg PO BEDTIME terbinafine HCl 250 mg PO DAILY 8 weeks tramadol 50 mg PO Q8H PRN 5 days Tobacco use date assessed: 05/04/23 Dental Screening Dental Screen Date: 05/04/23 HPI ED f/U Palpitations, dizziness HPI Details Patient is a 53-year-old male here today follow-up visit. 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 Past medical history significant for type 2 diabetes, obesity, lumbar disc disease. . Concern--> report having chest pain and cough over the last several weeks. He reports it has gotten better recently using [id number] cough cold medication. PLAN: Will send for chest x-ray to evaluate for walking pneumonia .. CHRONIC MEDICAL CONDITIONS--> CKD stage 3:? Noted a decrease in GFR and elevation in creatinine since hospitalization? for dehydration. Advised to increase his water intake and avoid all nephrotoxins especially NSAIDs, patient agrees and understands.?? Will consider Nephrology evaluation. Diabetes:? Today's A1c of 6.0. We have reduced his metformin to 500 b.i.d.. He denies any hypoglycemic events... Has been more active going to the gym several times a week. .. Obesity:? Has been able to lose weight since being more physically active at the gym. He does understand his BMI is well over 40..? . Fatty liver disease: Noted elevations in his liver enzymes likely related to his fatty liver disease. He denies any excessive aspirin use or excessive drinking. Will continue to follow consider decreasing atorvastatin if elevations in his liver enzymes continue. Hypertension:? Blood pressure acceptable today in office.? He reports that home blood pressures have been stable.? [facility] Medical History Tendinopathy of right shoulder Post viral syndrome BPPV (benign paroxysmal positional vertigo) Hypothyroidism Hx of appendicitis Supraumbilical hernia Umbilical hernia Umbilical hernia DM2 (diabetes mellitus, type 2) Abdominal pain Pre-diabetes Sleep apnea with use of continuous positive airway pressure (CPAP) HLD (hyperlipidemia) HTN (hypertension) Hypothyroidism Surgical History Hx of endoscopy History of colonoscopy History of hemorrhoidectomy History of cholecystectomy Family History Mother Diabetes Hypertension Father Diabetes Hypertension Maternal Uncle Cancer Maternal Grandmother Stroke Social History Household Members: Spouse and Children Housing: Apartment Alcohol intake: unknown Patient Tobacco Use Status: Never used Tobacco e-Cigarette/Vaping Use: Never Used Second Hand Smoke Exposure: No Advance Directives Date on File: 02/03/22 service: No Current occupational status: disabled Current occupation: rt handed Cognitive needs: No Hearing needs: No Vision needs: Yes Questionnaire Thrive Questionnaire Date Thrive assessed: 05/04/23 ZACHERY-7 AMB Questionnaire ZACHERY-7 Date ZACHERY - 7 assessed: 05/04/23 Source: Developed by Drs. Josue Arndt, Sneha Elias, Tarun Umana and colleagues, with an educational marissa from [employer]. Review of Systems Const Denies headache(s) Eyes Denies loss of vision ENT Denies vertigo, Denies dizziness, Denies headache(s) and Denies sore throat Card Reports chest pain, Denies leg edema and Denies lightheadedness Resp Reports cough, Denies hemoptysis and Denies wheezing GI Denies abdominal pain, Denies melena, Denies constipation, Denies diarrhea and Denies vomiting Denies dysuria, Denies urinary frequency and Denies urinary urgency Musc Denies arthralgias, Denies joint swelling, Denies numbness and Denies tingling Neuro Denies Abnormal speech present, Denies behavioral changes, Denies vertigo, Denies dizziness, Denies headache(s), Denies loss of vision, Denies memory loss, Denies numbness and Denies tingling Psych Denies anxiety, Denies behavioral changes, Denies depression, Denies memory loss and Denies panic attacks Luis/Lymph Denies easy bleeding and Denies easy bruising Aller/Immun Denies wheezing Physical exam (Primary Care) Vital Signs: Last Vital Signs Pulse 72 03/10/24 09:39 BP 124/88 03/10/24 09:39 Pulse Ox 96 03/10/24 09:39 Oxygen Delivery Method Room Air 03/10/24 09:39 BMI result Body Mass Index 43.1 Tobacco/Smoking Status: Tobacco use Status Tobacco use date assessed 05/04/23 03/10/24 09:44 Patient Tobacco Use Status Never used Tobacco 03/10/24 09:44 e-Cigarette/Vaping Use Never Used 03/10/24 09:44 Thrive Assessment: Date of Thrive Assessment Date Thrive assessed 05/04/23 03/10/24 09:44 Const General: healthy appearing, no acute distress, alert and awake Nutritional Appearance: well nourished Orientation/consciousness: oriented to person, oriented to place and oriented to time HENCT Ears: TM's normal bilaterally General nose exam: Normal nasal mucous membranes and turbinates present Eyes Conjunctivae: conjunctivae normal Sclerae: sclerae normal Pupils: Equal, round and reactive pupils present Neck Neck: Yes no lymphadenopathy and Yes no JVD Thyroid: Thyroid normal Carotids: no bruits Resp Effort & Inspection: normal respiratory effort and not tachypneic Auscultation: no crackles, no rales, no rhonchi and no wheezes Cardio Rate: regular rate Rhythm: regular rhythm Heart sounds: no murmurs and normal S1 and S2 GI Palpation (GI): Soft to palpation, nontender, no hepatomegaly and no splenomegaly Auscultation: normal bowel sounds Skin General skin exam: no rashes or lesions noted and dry skin Neuro General: oriented to person, oriented to place and oriented to time Cranial nerves: Yes Equal, round and reactive pupils present Speech: No Abnormal speech present Gait exam (Neuro): Normal gait present Motor exam (neuro): no tremor noted Extrem Right upper extremity: full ROM Left upper extremity: full ROM Right lower extremity: full ROM; no edema Left lower extremity: full ROM; no edema Psych Mental Status: mental status grossly normal Speech and movement: Normal speech and movement present Affect: normal affect Attitude: cooperative Thought process: Normal thought process present Coding Level of Care Code Est Pt Level 4 (63639) Diagnoses Type 2 diabetes mellitus with diabetic nephropathy, without long-term current use of insulin E11.21 Diabetes mellitus complication detail: with nephropathy Diabetes mellitus complication status: with kidney complications 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 insulin use: without intermodal owner operator truck driver use Chronic cough R05.3 Cough type: chronic Essential hypertension I10 Hypertension type: essential hypertension Pleurodynia R07.81 Chest pain type: pleurodynia Assessment & Plan Assessment & Plan (1) DMII (diabetes mellitus, type 2): Code(s): E11.9 - Type 2 diabetes mellitus without complications Category: Medical Qualifiers: Diabetes mellitus complication detail: with nephropathy Diabetes mellitus complication status: with kidney complications 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 insulin use: without intermodal owner operator truck driver use Qualified Code(s): E11.21 - Type 2 diabetes mellitus with diabetic nephropathy Plan: Patient's type 2 diabetes has been well managed with his current medication regime. Goal A1c to remain below 100 (2) Cough: Code(s): R05.9 - Cough, unspecified Category: Medical Qualifiers: Cough type: chronic Qualified Code(s): R05.3 - Chronic cough Plan: Patient reporting a several week cough and some chest pain. Will check an chest x-ray to evaluate for walking pneumonia (3) HTN (hypertension): Code(s): I10 - Essential (primary) hypertension Category: Medical Qualifiers: Hypertension type: essential hypertension Qualified Code(s): I10 - Essential (primary) hypertension Plan: Patient's blood pressure acceptable today in office, will continues current antihypertensive medication with goal blood pressure to remain below 140/90 (4) Chest pain: Code(s): R07.9 - Chest pain, unspecified Category: Medical Qualifiers: Chest pain type: pleurodynia Qualified Code(s): R07.81 - Pleurodynia Plan: As per HPI patient has noted some chest discomforts over the last several weeks that came along with the cough. Will send for chest x-ray to evaluate for pneumonia. Will also send for cardiac stress testing any cardiac ischemia due to patient's risk for coronary artery disease. Orders: Orders CA stress test 03/10/24 R07.81 - Pleurodynia XR chest 2V 03/10/24 R05.9 - Cough, unspecified Medications: New lancets (Nuvolauch UltraSoft 2 Lancet) As directed 100 ea 2RF E11.9 - Type 2 diabetes mellitus without complications blood pressure monitor As directed 1 ea 0RF I10 - Essential (primary) hypertension Refilled baclofen 10 mg PO BEDTIME 14 tabs 0RF 14 days M54.6 - Pain in thoracic spine levothyroxine 150 mcg PO DAILY 30 tabs 3RF 30 days E03.9 - Hypothyroidism, unspecified blood-glucose meter (SamplesaintTouch Ultra2 Meter) As directed 1 ea 0RF E11.21 - Type 2 diabetes mellitus with diabetic nephropathy atorvastatin 80 mg PO DAILY 100 tabs 2RF E78.1 - Pure hyperglyceridemia losartan 50 mg PO DAILY 90 tabs 3RF 90 days I10 - Essential (primary) hypertension blood sugar diagnostic (SamplesaintTouch Ultra Test strips) Testing once a day as needed 100 ea 3RF E11.21 - Type 2 diabetes mellitus with diabetic nephropathy
== END 2024-03-10 10:38 | disposition home or self-care (01) ==
PROVIDERS: PCP Physician Assistant; Visit Provider Physician Assistant
DX: E11.21 Type 2 diabetes mellitus with diabetic nephropathy (principal); R05.3 Chronic cough; I10 Essential (primary) hypertension; R07.81 Pleurodynia

== ENCOUNTER 2024-03-10 10:25 | Outpatient (AMB) | payer MEDICARE, MEDICAID, SELFPAY ==
--- NOTE | 2024-03-10 10:33 | A.OFFVIS_ITS ---
Vital Signs 03/10/24 10:39 Height 5 ft 7 in Weight 275 lb 2 oz BMI 43.1 BP 153/93 H Blood Pressure Location Lt brachial Position Sitting Pulse 76 Pulse Source Pulse Oximeter Pulse Oximetry (%) 96 Oxygen Delivery Method Room Air Intake Visit Reasons: BILATERAL DIAGNOSTIC L3, L4, DRL5 MBB Intake Note: Pain today 09/06 Heating And Ventilation Engineer Required: Yes Heating And Ventilation Engineer Language: Plastic Surgery Specialist Name: Margaret- #[id number] Accompanied by: Self / Same As Patient Allergies Penicillins Allergy (Unknown, Verified 03/10/24 10:40) Rash hydrochlorothiazide Adverse Reaction (Intermediate, Verified 03/10/24 10:40) Dizziness HPI Comments Details: Patient presents today to assess response to bilateral diagnostic L3-L4 DR L5 MBB on 01/19/[address] Portillo. Patient reports 80% pain relief for 7-8 hours after injections for axial low back pain with partial improvement in his ROM and daily functioning. He continues to endorse left sided radicular pain with radiation into his anterior thigh and partially into his enamorado. We were attempting to reaching out to patient to schedule Left L3-L4 TFESI but were not able to reach him due to phone issues. This will be scheduled today. Denies any recent cough, cold, infection, fever, bladder or bowel dysfunction, saddle anesthesia or other significant changes in medical history since last office visit. Past Procedures: 01/19/24: Diagnostic Bilateral L3-L4 DR L5 MBB-80% pain relief for 7-8 hours 11/03/23: Left L4-L5 TFESI-50% back pain relief, 30-40% left leg pain relief PRIOR: Patient is a pleasant 53 years old presents today with low back pain which has been long standing for more than 10-12 years for him. He reports axial low back pain with most movements and also pain radiating into left anterior thigh and lateral enamorado and inner calf with numbness and tingling in both feet. Patient was initially seen in our office in March 2021 by Renetta MUSA with plans for left L4-L5 TFESI injection but was no show. [facility] underwent Bilateral L4 TFESI on 10/29/[address] Martinez. Patient reports this injection provided him good pain relief for over 3 months. He is interested to proceed with interventional treatments to address his axial and radicular symptoms. Pain affects his daily activities and functioning, mobility, sleep, mood, and social interactions. Patient states pain increases with walking, bending, movements and prolonged sitting. Pain is partially relieved with rest, heat therapy, stretching, gabapentin, muscle relaxant, NSAIDs and lidocaine patches. Denies any fever, abdominal or groin pain, weakness, foot drop, bladder or bowel dysfunction or saddle anesthesia. PRIOR 04/02/21 Renetta MUSA: Juan is a pleasant 51-year-old male presents to the office with complaints of low back pain. He states his pain has been present for many years, without any inciting events, and has been more exacerbated over the past 2 months. He states the pain travels across the low back and radiates down the left leg to the ankle with associated weakness. He reports numbness from the knee to the ankle. He reports pain onset was gradual, constant and rates the pain a 6-8/10. He states the pain is interfering with sleep, activities of daily living and they cannot function normally. The patient reports the pain in terms of tissue damage as stabbing and sore. He has tried flexeril, gabapentin, cymbalta, NSAIDS as well as lidocaine patches with minimal effect. His pain is exacerbated by prolonged standing as well as transitioning from a bending to standing position. He recently completed 10 sessions of physical therapy and was discharged due to non progression. He denies any lumbar surgery but has undergone multiple injections in [place] and reports receiving an injection at [place]. He believes he had five nerve blocks for lumbar pain and two injections for cervical pain which provided relief for about 2-3 months. He states his last injection was about 3 years ago. He had a recent MRI, this report is dictated below. His past medical history is significant for diabetes with reported A1c of 7.2%. He also has upcoming surgery with Dr. Hinkle and to repair an umbilical hernia next week. [facility] Medical History Tendinopathy of right shoulder Post viral syndrome BPPV (benign paroxysmal positional vertigo) Hypothyroidism Hx of appendicitis Supraumbilical hernia Umbilical hernia Umbilical hernia DM2 (diabetes mellitus, type 2) Abdominal pain Pre-diabetes Sleep apnea with use of continuous positive airway pressure (CPAP) HLD (hyperlipidemia) HTN (hypertension) Hypothyroidism Surgical History Hx of endoscopy History of colonoscopy History of hemorrhoidectomy History of cholecystectomy Family History Mother Diabetes Hypertension Father Diabetes Hypertension Maternal Uncle Cancer Maternal Grandmother Stroke Social History Household Members: Spouse and Children Housing: Apartment Alcohol intake: unknown Patient Tobacco Use Status: Never used Tobacco e-Cigarette/Vaping Use: Never Used Second Hand Smoke Exposure: No Advance Directives Date on File: 02/03/22 service: No Current occupational status: disabled Current occupation: rt handed Cognitive needs: No Hearing needs: No Vision needs: Yes Review of Systems Const All systems reviewed & are unremarkable except as noted in HPI and below Physical Exam Vital Signs: Last Vital Signs Pulse 76 03/10/24 10:39 BP 153/93 H 03/10/24 10:39 Pulse Ox 96 03/10/24 10:39 Oxygen Delivery Method Room Air 03/10/24 10:39 BMI result Body Mass Index 43.1 General: Appears afebrile. Morbidly obese. Alert and oriented. Mood and affect appropriate. Follows and participates in conversation appropriately. Respiratory effort is unlabored. No cough. Able to transition from sit to stand unassisted. Ambulates with bilaterally normal heel strike and toe off, reports unsteady gait on the left due to pain and chronic numbness. General: Yes no CVA tenderness Back/Spine/Pelvis Other: Limited lumbar spine ROM. Can flex forward to 65-70 degrees and extend to 5-10 degrees before experiencing lumbar pain, worse pain with flexion forward and bending. Demonstrates 5/5 right and 4/5 left strength of quadriceps bilaterally as well as flexion/dorsiflexion of bilateral feet against resistance. 2+ pedal pulses bilaterally. Straight leg rise with dorsiflexion + left. Diminished DTRs, symmetrical. Rashi test reproduces left lateral hip pain, not back pain. Facet loading test + bilaterally. No groin pain with I/E hip rotations bilaterally. Decreased sensation throughout anterior thigh and lateral aspect of the LLE. Valsalva maneuver is negative. Back: no CVA tenderness Cervical Spine: cervical ROM normal, cervical muscular tenderness, No Cervical spine tenderness and No step off deformity Thoracic/Lumbar Spine: thoracic and lumbar spine normal to inspection, No Thoracic/lumbar spine scar(s), Lasegue's sign positive on the left and localized, pain with thoraco-lumbar ROM, paraspinal muscle tenderness, thoraco- lumbar ROM limited, No thoracic spinal tenderness and lumbar spinal tenderness (L4-S1) Pelvis: no buttock tenderness and no sciatic notch tenderness Sacroiliac joints: bilaterally tender to palpation (mild) Extrem General: Yes capillary refill normal, Yes no clubbing, cyanosis or edema and Yes no calf tenderness Results Reviewed Results Reviewed: XR LUMBOSACRAL SPINE 01/05/23 CLINICAL INFORMATION: Lower back pain. COMPARISON: Lumbar spine MRI from 01/04/2021 FINDINGS: Mild dextrocurvature of the lumbar spine and approximately 0.3 cm of degenerative right lateral listhesis of L4 on L5. Otherwise, lumbar vertebra have normal height and alignment. Findings include degenerative narrowing of disc space and small vertebral osteophytes at L4-L5. Also, osteophyte formation is present at other levels of the visualized lower thoracic and lumbar spine. There appears to be mild facet arthropathy at L3-4, L4-5 and L5-S1. Sacrum and sacroiliac joints are unremarkable. No evidence of focal lytic or osteoblastic lesion. Cholecystectomy clips in the right upper quadrant of the abdomen. Metallic tacks from mesh placement seen over right abdominal wall. IMPRESSION: * No acute abnormality. No evidence of lumbar vertebral compression fracture. * [id number] discovertebral degenerative change with mild right lateral listhesis at L4-L5. Otherwise, lumbar vertebra have normal alignment. XR THORACIC SPINE 01/05/23 CLINICAL INFORMATION: Upper back pain FINDINGS: Vertebral body height and alignment are maintained. Hypertrophic spondylotic changes are evident throughout the thoracic spine, with multilevel bridging osteophyte formation. No fracture or subluxation is detected. The paraspinal soft tissues image normally. IMPRESSION: 1. Hypertrophic and spondylotic changes throughout the thoracic spine but no fracture or bone lesion. MR LUMBAR SPINE WITHOUT CONTRAST 12/28/23 CLINICAL INFORMATION: Low back pain COMPARISON: MRI lumbar spine January 04, 2021 , CT abdomen pelvis July 17, 2022 TECHNIQUE: MRI of the lumbar spine was obtained using routine sequences without contrast. FINDINGS: Normal lumbar lordosis is preserved. Trace retrolisthesis at L4-L5 greater than L5-S1. Vertebral body heights are maintained. There is no suspicious osseous lesion. Multilevel disc desiccation with new minimal disc height loss at L4-L5. Level by level detail as follows: L1-L2: Mild bilateral facet arthrosis. No spinal canal or neural foraminal stenosis. L2-L3: Trace annular disc bulge with mild bilateral facet arthrosis. No spinal canal or significant neural foraminal stenosis. L3-L4: Annular disc bulge with increased size of left foraminal disc protrusion and new associated annular fissure. Decreased size of right foraminal/extraforaminal disc protrusion. Mild bilateral facet arthrosis. No spinal canal stenosis. Mild bilateral neural foraminal stenosis, increased on the left. L4-L5: Annular disc bulge with decreased size of superiorly migrated left foraminal disc extrusion and mild bilateral facet arthrosis. No spinal canal stenosis. Decreased moderate left neural foraminal stenosis with decreased mass effect along the exiting left L4 nerve. Patent right neural foramen. L5-S1: Annular disc bulge and mild facet arthrosis. No spinal canal stenosis. Stable minimal neural foraminal encroachment. The conus medullaris terminates at the level of L1-L2. The distal spinal cord is normal in appearance. No epidural fluid collection, hematoma, or mass. No significant abnormalities of the paraspinal musculature. Redemonstrated partially imaged right adrenal nodule, as seen on multiple prior abdominopelvic CTs and thought to be benign given multiyear stability. The abdominal aorta is of normal contour and caliber. IMPRESSION: 1. At L4-L5, decreased size of superiorly migrated left foraminal disc extrusion resulting in decreased moderate left neural foraminal stenosis and decreased mass effect along the exiting left L4 nerve. 2. At L3-L4, increased size of left foraminal disc protrusion and new associated annular fissure. Decreased size of right foraminal/extraforaminal disc protrusion. Mild bilateral neural foraminal stenosis, increased on the left. 3. Redemonstrated partially imaged right adrenal nodule, as seen on multiple prior abdominopelvic CTs and thought to be benign given multiyear stability. Assessment & Plan Assessment & Plan (1) Left lumbar radiculopathy: Code(s): M54.16 - Radiculopathy, lumbar region Category: Medical (2) Lumbar disc disease: Code(s): M51.9 - Unspecified thoracic, thoracolumbar and lumbosacral intervertebral disc disorder Category: Medical (3) Chronic low back pain: Code(s): M54.50 - Low back pain, unspecified; G89.29 - Other chronic pain Category: Medical (4) Lumbar spondylosis: Code(s): M47.816 - Spondylosis without myelopathy or radiculopathy, lumbar region Category: Medical Plan Patient reports good response to bilateral diagnostic lumbar medial branch blocks on 01/19/24 with 80% pain relief for 7-8 hours. We reviewed [employer] PNS and RFA procedures as next steps. Patient reports his current concerns are ongoing left sided radiculopathy. He is being scheduled for left L3-L4 TFESI with local and fluoroscopy for left sided radicular pain. Expectations, risks and benefits were reviewed with patient today with assistance of Business Computers Teacher. Patient is aware of hyperglycemic effects of steroids and is aware to monitor blood sugars closely after the injection. His recent A1C was 6.0. All questions were answered and patient is in agreement of plan. Follow-up after injections and sooner as needed. Coding Level of Care Code Est Pt Level 3 (44672) Complex EM visit Add On G2211 Diagnoses Left lumbar radiculopathy M54.16 Lumbar disc disease M51.9 Chronic low back pain M54.50; G89.29 Lumbar spondylosis M47.816
[2024-03-10 10:39] VITALS: BP 153/93; PULSE 76; O2SAT 96; BMI 43.1
== END 2024-03-10 10:59 | disposition home or self-care (01) ==
PROVIDERS: PCP Physician Assistant; Visit Provider Nurse Practitioner Family
DX: M54.16 Radiculopathy, lumbar region (principal); M51.9 Unspecified thoracic, thoracolumbar and lumbosacral intervertebral disc disorder; M54.50 Low back pain, unspecified; G89.29 Other chronic pain; M47.816 Spondylosis without myelopathy or radiculopathy, lumbar region
CPT/HCPCS: 99213; G2211

== ENCOUNTER 2024-04-06 08:50 | Outpatient (REF) | payer MEDICARE, MEDICAID, SELFPAY ==
--- NOTE | ~2024-04-06 | XR_ITS ---
EXAMINATION: XR CHEST 2 VIEWS HISTORY: R05.9 - Cough, unspecified COMPARISON: Comparison is made with the prior examination dated 03/10/2024. FINDINGS: PA and lateral views of the chest are submitted. There are low lung volumes. The lungs are clear. The previously seen opacity at the left lung base has resolved. There is no pleural effusion, pneumothorax, or pulmonary vascular congestion. The heart is normal in size. There is degenerative disc disease of the spine. XR/XR chest 2V IMPRESSION: Low lung volumes. No acute cardiopulmonary abnormality. The previously seen left basilar opacity has resolved. Electronically signed by: Josue Bejarano MD 04/08/2024 09:02 AM [facility] [place]
== END 2024-04-06 08:51 | disposition home or self-care (01) ==
LOC: HO.LAB 08:50
PROVIDERS: PCP Physician Assistant; Visit Provider Physician Assistant
DX: E03.9 Hypothyroidism, unspecified (principal); R05.9 Cough, unspecified
CPT/HCPCS: 36415; 71046; 84443

== ENCOUNTER → 2024-04-06 09:14 | Outpatient (BNV) | payer MEDICARE, MEDICAID, SELFPAY | PROVIDERS: PCP Physician Assistant; Visit Provider Radiology Diagnostic Radiology | DX: R05.9 Cough, unspecified (principal) | CPT/HCPCS: 71046 ==

== ENCOUNTER → 2024-04-07 08:45 | Outpatient (REF) | payer MEDICARE, MEDICAID, SELFPAY ==
--- NOTE | 2024-04-07 08:49 | CA_ITS ---
Acquisition Time: 2024-04-07 09:35:40 Total Exercise Time: 00:07:19 Test Indications: CHEST PAIN Medications: ATROVASTATIN Insulin METFORMIN LOSARTAN Protocol: GIANA Max HR: 151 BPM 91% of Pred: 165 BPM Max BP: 148/90 mmHG Max Work Load: 9.0 METS Exercise Stress Test with exercise 7 mins 19 secs of Giana Protocol, achieving 91% MPHR, with reports of moderate SOB, no chest discomfort, without any arrythmias, with normotensive response to exercise. Without EKG changes meeting criteria for ischemia. In recovery, breathing returned to baseline. Test reviewed with Dr. Evans. Referred By: Gurdeep Bruce Electronically Signed By: Aureliano Alonzo
== END ==
LOC: HO.CARD 08:45
PROVIDERS: PCP Physician Assistant; Visit Provider Physician Assistant
DX: R07.81 Pleurodynia (principal)
CPT/HCPCS: 93017

== ENCOUNTER → 2024-04-07 08:49 | Outpatient (BNV) | payer MEDICARE, MEDICAID, SELFPAY | PROVIDERS: PCP Physician Assistant | DX: R06.02 Shortness of breath (principal) | CPT/HCPCS: 93016; 93018 ==

== ENCOUNTER 2024-04-08 10:03 | Outpatient (AMB) | payer MEDICARE, MEDICAID, SELFPAY ==
--- NOTE | 2024-04-08 10:04 | MHC.OFFVIS ---
Intake Visit Reasons: 6m follow up Intake Note: Patient is present for 6M F/U Urology Medication:TAMSULOSIN,TADALAFIL Antibiotic Allergy:PENICILLIN Blood Thinner:NONE Auto Locator Required: No Allergies Penicillins Allergy (Unknown, Verified 04/08/24 10:05) Rash hydrochlorothiazide Adverse Reaction (Intermediate, Verified 04/08/24 10:05) Dizziness HPI Comments Details: 04/07/24-cialis working well, will refil fu one year, PSA testorone prior 10/08/23--here for follow-up prescribed tamsulosin for weak urinary stream. Had PSA screening reviewed results with him. He is complaining of erectile dysfunction. Comorbidity diabetes. Generic Cialis sent to pharmacy 5 mg daily. Will check testosterone and pertinent labs. PSA--08/03/2023--2.71 ng/mL Urinalysis negative. Review of chart: 06/08/23--53-year-old male with history of diabetes. Here as a new patient evaluation with complaints Poor urinary stream. He denies dysuria or gross hematuria. Up 2-3 times at night to urinate. Urinalysis negative leukocytes negative blood. Bladder scan PVR [address] imaging 07/17/2022 kidneys within normal limits. Plan tamsulosin 0.4 mg daily. PSA screening. [facility] Medical History Tendinopathy of right shoulder Post viral syndrome BPPV (benign paroxysmal positional vertigo) Hypothyroidism Hx of appendicitis Supraumbilical hernia Umbilical hernia Umbilical hernia DM2 (diabetes mellitus, type 2) Abdominal pain Pre-diabetes Sleep apnea with use of continuous positive airway pressure (CPAP) HLD (hyperlipidemia) HTN (hypertension) Hypothyroidism Surgical History Hx of endoscopy History of colonoscopy History of hemorrhoidectomy History of cholecystectomy Family History Mother Diabetes Hypertension Father Diabetes Hypertension Maternal Uncle Cancer Maternal Grandmother Stroke Social History Household Members: Spouse and Children Housing: Apartment Alcohol intake: unknown Patient Tobacco Use Status: Never used Tobacco e-Cigarette/Vaping Use: Never Used Second Hand Smoke Exposure: No Advance Directives Date on File: 02/03/22 service: No Current occupational status: disabled Current occupation: rt handed Cognitive needs: No Hearing needs: No Vision needs: Yes Results AMB Urinalysis, Automated UA Leukoctes 0 Tatiana/uL Last Edit by FREDDY Garza on 04/08/24 10:15 UA Nitrite Negative Last Edit by Antione Goins [facility] on 04/08/24 10:15 UA Urobilinogen 0.2 mg/dL Last Edit by Antione Goins [facility] on 04/08/24 10:15 UA Protein 0 mg/dL Last Edit by Antione Goins [facility] on 04/08/24 10:15 UA pH 6.0 Last Edit by Antione Goins [facility] on 04/08/24 10:15 UA Blood 0 Cesar/uL Last Edit by Antione Goins [facility] on 04/08/24 10:15 UA Specific [place] 1.015 Last Edit by Antione Goins [facility] on 04/08/24 10:15 UA Ketone Negative Last Edit by Antione Goins [facility] on 04/08/24 10:15 UA Bilirubin 0 mg/dL Last Edit by Antione Goins [facility] on 04/08/24 10:15 UA Glucose 0 mg/dL Last Edit by Antione Goins [facility] on 04/08/24 10:15 Results Reviewed Results Reviewed: Laboratory Last Values Urine pH (Auto) 6.0 04/08/24 10:14 Specific [place] (Auto) 1.015 04/08/24 10:14 Urine Protein (Auto) 0 mg/dL 04/08/24 10:14 Glucose (UA)(Auto) 0 mg/dL 04/08/24 10:14 Urine Ketones (Auto) Negative 04/08/24 10:14 Urine Blood (Auto) 0 Cesar/uL 04/08/24 10:14 Urine Nitrite (Auto) Negative 04/08/24 10:14 Urine Bilirubin (Auto) 0 mg/dL 04/08/24 10:14 Urine Urobilinogen (Auto) 0.2 mg/dL 04/08/24 10:14 Leukocyte Esterase (Auto) 0 Tatiana/uL 04/08/24 10:14 Assessment & Plan Assessment & Plan (1) Screening PSA (prostate specific antigen): Code(s): Z12.5 - Encounter for screening for malignant neoplasm of prostate Category: Medical (2) Low testosterone: Code(s): R79.89 - Other specified abnormal findings of blood chemistry Category: Medical Orders: Orders AMB Urinalysis Automated Today Z13.9 - Encounter for screening, unspecified PSA,Total (Free>4and<10) Today Z12.5 - Encounter for screening for malignant neoplasm of prostate Testosterone, Free/Total Today R79.89 - Other specified abnormal findings of blood chemistry Medications: Refilled tadalafil (Cialis) [id number] [facility] [id number] Member [id number] 5 mg PO DAILY 30 tabs 9RF Coding Diagnoses Screening PSA (prostate specific antigen) Z12.5 Low testosterone R79.89
== END 2024-04-08 11:11 | disposition home or self-care (01) ==
LOC: HO.HUSH 10:03
PROVIDERS: PCP Physician Assistant; Visit Provider Urology
DX: Z13.9 Encounter for screening, unspecified (principal)

== ENCOUNTER → 2024-04-08 10:03 | Outpatient (BNVA) | payer MEDICARE, MEDICAID, SELFPAY | PROVIDERS: PCP Physician Assistant; Visit Provider Urology | DX: Z12.5 Encounter for screening for malignant neoplasm of prostate (principal); R79.89 Other specified abnormal findings of blood chemistry | CPT/HCPCS: 81003; 99212 ==

== ENCOUNTER → 2024-04-27 14:52 | Outpatient (BNVA) | payer MEDICARE, MEDICAID, SELFPAY | PROVIDERS: PCP Physician Assistant; Visit Provider Physician Assistant | DX: Z00.00 Encounter for general adult medical examination without abnormal findings (principal); E11.22 Type 2 diabetes mellitus with diabetic chronic kidney disease; E11.21 Type 2 diabetes mellitus with diabetic nephropathy; I12.9 Hypertensive chronic kidney disease with stage 1 through stage 4 chronic kidney disease, or unspecified chronic kidney disease; N18.30 Chronic kidney disease, stage 3 unspecified; K76.0 Fatty (change of) liver, not elsewhere classified; E78.1 Pure hyperglyceridemia; E03.9 Hypothyroidism, unspecified; M47.816 Spondylosis without myelopathy or radiculopathy, lumbar region; E66.813 Obesity, class 3; Z79.84 Long term (current) use of oral hypoglycemic drugs | CPT/HCPCS: 96127; 99396 ==

== ENCOUNTER 2024-04-28 10:08 | Outpatient (RCR) | payer MEDICARE, MEDICAID, SELFPAY ==
--- NOTE | 2024-04-19 12:01 | MHC.PT.EP ---
[facility] [place] [facility] [place] [facility] [place] [facility] [address] Megan Joel [address] [phone] F: [phone] F: [phone] F: [phone] F: [phone] Physical Therapy Plan of Care Date of Evaluation: 04/19/24 Date of Surgery: N/A Diagnosis: lumbar spondylosis, chronic low back pain (RL) Assessment: pt is a 54 y/o male presenting to physical therapy w/ referring diagnosis of lumbar spondylosis, chronic low back pain. Impairments include pain, decreased range of motion, decreased strength, impaired functional mobility, impaired postural awareness, and altered ambulation mechanics. pt is a good candidate for skilled PT due to age, potential remediation of impairments, typical disease/condition progression and prognosis, comorbidities, and motivation. pt would benefit from skilled PT intervention to provide a tailored strengthening and stretching exercise program, functional training, gait training, postural re-training, neuromuscular re-education, modalities as needed for pain, equipment safety demonstration. Frequency and Duration: The patient will be seen 2x/wk for 4 wks Short Term Goals: pt will be I w/ HEP to promote self-management of condition. pt will demo proper sitting posture w/ lumbar roll to promote neutral spine w/ seated ADLs. Milking Worker Goals: pt will improve lumbar flexion to at least 75% to promote ease in lower body dressing. pt will demo proper lifting mechanics of 30# x3 reps to promote neutral spine w/ lifting. Treatment Plan: Modalities to reduce pain, spasms and effusion. Manual therapy to restore motion and function. Therapeutic exercise to improve strength and flexibility. Neuromuscular re-education for posture and balance. Therapeutic activities to return to functional activities of daily living. Electronically signed by: Helga Jones PT, DPT Please sign and return to therapist. Thank you for your referral.
--- NOTE | 2024-05-05 10:36 | MHC.PT.DC ---
[facility] [place] Office [place] Office [place] [facility] [address] Megan Joel [address] [phone] F: [phone] F: [phone] F: [phone] F: [phone] Physical Therapy Discharge Report Diagnosis: lumbar spondylosis, chronic low back pain (RL) Date of Surgery: N/A Date of Evaluation: 04/19/24 Date of Discharge: 05/05/24 Treatments to Date: 3 Cancellations to Date: 0 No Shows to Date: 3 Discharge Status: Visit Non-compliance Discharge Summary: The patient arrived with mostly complaints of back pain with radicular symptoms. Upon objective assessment he demonstrated severe deficits in hip range of motion and strength most likely causing compensatory patterns to his spine. He was educated on the relationship of his hips to his spine. He attended 3 visits and then proceeded to no show 3 visits. He is discharged from this plan of care for non-compliance. Electronically signed by: Helga Jones PT, DPT Please sign and return to therapist. Thank you for your referral.
== END 2024-05-05 10:36 | disposition home or self-care (01) ==
LOC: HO.PT 10:08
PROVIDERS: PCP Physician Assistant; Visit Provider Nurse Practitioner Family
DX: M47.816 Spondylosis without myelopathy or radiculopathy, lumbar region (principal); M51.16 Intervertebral disc disorders with radiculopathy, lumbar region; M54.50 Low back pain, unspecified
CPT/HCPCS: 97110; 97162

== ENCOUNTER 2024-05-04 10:53 | Emergency (ER) | payer MEDICARE, MEDICAID, SELFPAY ==
[2024-05-04 11:24] VITALS: BP 114/77; PULSE 82; RESP 20; TEMP 36.5; O2SAT 98; BMI 45.9
--- NOTE | 2024-05-04 11:29 | ED.GENADULT ---
HPI - General Adult General Chief complaint: Abdominal Pain Stated complaint: n/v/d Time Seen by Provider: 05/04/24 13:46 Source: patient and community facilitator (tajik) Mode of arrival: ambulatory Limitations: language barrier (tajik) History of Present Illness ED Provider: JESUSITA MOSHER PA-C HPI narrative: 54 year old male with pmhx significant for T2DM, HTN, hypothyroidism, GERD, BPH presents to the ED today for evaluation of sore throat, nausea, nonbloody vomiting/diarrhea, and generalized abdominal pain which began after vomiting x4 days. He has been able to tolerate PO intake today. No known sick contacts. No recent abx or travel outside the [place]. Denies fever, chills, dysphagia, chest pain, sob, urinary sx, flank pain. Related Data Previous Rx's ?Medication ?Instructions ?Recorded naproxen 500 mg tablet 500 mg PO BID PRN Pain 10 days #20 03/13/22 tabs lidocaine 5 % topical patch 1 patch topical DAILY #15 ea 01/05/23 (Lidoderm) hydrocortisone 2.5 % topical cream 1 appl [place] DAILY #30 grams 01/24/23 with perineal applicator (Proctosol HC) polyethylene glycol 3350 17 17 g PO DAILY #119 grams 01/24/23 gram/dose oral powder (Miralax) lancets 28 gauge (FreeStyle #100 ea 05/04/23 Lancets) tamsulosin 0.4 mg capsule (Flomax) 0.4 mg PO BEDTIME #90 caps 07/06/23 meclizine 12.5 mg tablet 12.5 mg PO BID Dizziness 90 days 08/04/23 #180 tabs gabapentin 600 mg tablet 600 mg PO BID 90 days #180 tabs 12/22/23 metformin 1,000 mg tablet 500 mg (1/2 x 1,000 mg) PO BID 90 12/28/23 days #90 tabs sertraline 50 mg tablet 50 mg PO DAILY 90 days #90 tabs 01/25/24 clotrimazole 1 % topical cream 1 appl topical BID 30 days #30 02/15/24 grams fenofibrate 54 mg tablet 54 mg PO DAILY 90 days #100 tabs 02/24/24 terbinafine HCl 250 mg tablet 250 mg PO DAILY 8 weeks #56 tabs 03/08/24 atorvastatin 80 mg tablet 80 mg PO DAILY #100 tabs 03/10/24 azithromycin 250 mg tablet See Rx Instructions PO .COMPLEX #6 03/10/24 tabs blood pressure monitor #1 ea 03/10/24 blood sugar diagnostic (OneTouch #100 ea 03/10/24 Ultra Test strips) blood-glucose meter (OneTouch #1 ea 03/10/24 Ultra2 Meter) lancets 30 gauge (OneTouch #100 ea 03/10/24 UltraSoft 2 Lancet) levothyroxine 150 mcg tablet 150 mcg PO DAILY 30 days #30 tabs 03/10/24 losartan 50 mg tablet 50 mg PO DAILY 90 days #90 tabs 03/10/24 tadalafil 5 mg tablet (Cialis) 5 mg PO DAILY #30 tabs 04/08/24 cyclobenzaprine 10 mg tablet 10 mg PO BID PRN muscle spasm 5 04/27/24 days #10 tabs tirzepatide 2.5 mg/0.5 mL 2.5 mg (0.5 mL) subcut QWEEK 4 04/27/24 subcutaneous pen injector weeks #2 mL benzocaine 15 mg-menthol 2.6 mg 1 braden mucous membrane Q2-4H PRN 05/04/24 lozenges (Cepacol Sore Throat sore throat #16 ea (benzocaine-menthol)) ondansetron 4 mg disintegrating 4 mg PO DAILY PRN nausea and 05/04/24 tablet vomiting 5 days #10 tabs Allergies Allergy/AdvReac Type Severity Reaction Status Date / Time Penicillins Allergy Unknown Rash Verified 05/04/24 11:26 hydrochlorothiazide AdvReac Intermediate Dizziness Verified 05/04/24 11:26 Review of Systems Review of Systems: Constitutional: No fever, chills, fatigue, night sweats, weight changes ENT/Mouth: No ear pain, hearing loss, nasal congestion, sinus pain, rhinorrhea, +sore throat Eyes: No eye pain, swelling, redness, vision changes, discharge Cardio: No chest pain, palpitations, GARCIA, orthopnea, peripheral edema Pulm: No SOB, cough, sputum, wheezing, dyspnea, hemoptysis GI: No hematemesis, constipation, hematochezia, melena, +N/V/D, +abd pain : No irregular bleeding, dysuria, frequency, urgency, hesitancy, hematuria, flank pain, urinary flow changes, urinary incontinence or retention MSK: No back pain, neck pain, joint pain, myalgias Skin: No lesions, rashes Neuro: No weakness, numbness, paresthesias, LOC, dizziness, headache Psych: No anxiety/panic, depression, SI/HI, AH/VH All other systems reviewed and are negative. [facility] Past Medical History Attestation statement: The following information was validated with the patient. Source: old records reviewed and nursing notes reviewed Medical History Tendinopathy of right shoulder Post viral syndrome BPPV (benign paroxysmal positional vertigo) Hypothyroidism Hx of appendicitis Supraumbilical hernia Umbilical hernia Umbilical hernia DM2 (diabetes mellitus, type 2) Abdominal pain Pre-diabetes Sleep apnea with use of continuous positive airway pressure (CPAP) HLD (hyperlipidemia) HTN (hypertension) Hypothyroidism Surgical History Hx of endoscopy History of colonoscopy History of hemorrhoidectomy History of cholecystectomy Family History Family History Mother Diabetes Hypertension Father Diabetes Hypertension Maternal Uncle Cancer Maternal Grandmother Stroke Social History Social History Household Members: Spouse and Children Housing: Apartment Alcohol intake: unknown Patient Tobacco Use Status: Never used Tobacco e-Cigarette/Vaping Use: Never Used Second Hand Smoke Exposure: No Advance Directives: Yes Advance Directives on File: Yes Advance Directives Date on File: 02/03/22 Do you have a plan to hurt others: No Plan service: No Current occupational status: disabled Current occupation: rt handed Cognitive needs: No Hearing needs: No Vision needs: Yes Physical Exam ED Vital Signs: Vital Signs - 24 hr 05/04/24 11:24 05/04/24 13:44 05/04/24 13:55 Temperature 97.7 F 98.1 F 98.1 F Pulse Rate 82 82 82 Respiratory Rate 20 20 20 Blood Pressure 114/77 128/78 128/78 Pulse Oximetry 98 97 97 Oxygen Delivery Method Room Air Room Air Room Air BMI result Body Mass Index 45.9 vital signs stable, afebrile General: Well appearing, in no acute distress. Skin: Warm, dry, intact. No rashes or lesions. Head: Normocephalic, atraumatic. EENT: Hearing is intact b/l. Conjunctiva clear. PERRLA. EOM intact. Moist mucous membranes.?posterior oropharynx wnl. controlling secretions, speaking in complete sentences. Neck: Supple without LAD Cardiac: Chest wall symmetric. Lungs: Normal respiratory effort without accessory muscle use. CTA bilaterally. No rales, rhonchi, or wheezes.? Abdomen: obese abd, soft, non-tender, non-distended. No rebound tenderness or guarding. Positive BS x4. no cvat. Back: No midline spinous or paraspinal tenderness. No step off deformity. Ext: Upper and lower extremities atraumatic, without tenderness, deformity, swelling or erythema Neuro: AOx3. Normal speech. Ambulating with steady gait. Psych: Appropriate mood and affect. Responds appropriately to questions. Course Course Course Narrative: This is a Rapid Medical Examination (RME) performed by Saul Mosher PA-C in triage. Full HPI, ROS, assessment and treatment plan per primary provider in the Main ED. 54 yo male here for eval of N/V/D, abd pain, and sore throat x4 days. Plan: labs, viral/strep swabs Reevaluation(s) Reevaluation #1: patient tested positive for influenza a. negative for covid, rsv, and strep throat. cbc without leukocytosis or left shift. no anemia. h&h stable. chemistry without acute electrolyte abnormality requiring intervention. no nacho. glucose wnl. liver function and lipase wnl. > discussed results w/ patient. educated on symptomatic treatment. Patient has remained stable throughout ED visit today. Discussed worrisome signs and symptoms and when to return to the ED. All questions answered at this time. Patient is agreeable with disposition and stable for discharge. Medical Decision Making Medical Decision Making MDM Narrative: 54 year old male with pmhx significant for T2DM, HTN, hypothyroidism, GERD, BPH presents to the ED today for evaluation of sore throat, nausea, nonbloody vomiting/diarrhea, and generalized abdominal pain which began after vomiting x4 days. he is well appearing and in NAD. tolerating PO. refer to exam portion for findings. exam reassuring. Differential diagnosis includes. viral syndrome, gastroenteritis, gastritis, anemia, electrolyte abnormality, dehydration, NACHO, strep throat, colitis/enteritis, diverticulitis Unlikely DKA, HHS, pancreatitis, bowel obstruction, acute abdomen. Unlikely [employer], retropharyngeal abscess, epiglottitis. Plan for labs, viral/strep swabs, and re-evaluation. Differential Diagnosis Differential Diagnoses: The differential diagnosis associated with the presentation includes as above Admission/Observation not indicated. Lab Data MDM Lab Attestation statement: I reviewed the patient's lab results. as above. 05/04/24 12:37 05/04/24 12:37 Labs: Lab Results 05/04/24 05/04/24 Range/Units 12:36 12:37 WBC 10.4 (4.8-10.8) X10*3/uL RBC 5.87 H (4.60-5.80) X10*6/uL Hgb 14.8 (14.0-18.0) g/dl Hct 46.3 (42.0-52.0) % MCV 78.9 L (80.0-98.0) fL MCH 25.2 L (27.0-33.0) pg MCHC 32.0 (31.0-36.0) g/dl RDW 14.4 (11.0-16.0) % Plt Count 183 (160-400) X10*3/uL MPV 11.7 (9.4-12.4) fL Immature Gran % (Auto) 0.2 (0.0-0.4) % Neut % (Auto) 71.6 (45-73) % Lymph % (Auto) 18.2 L (20-40) % [place] % (Auto) 8.5 (2-11) % Eos % (Auto) 0.7 (0-4) % Baso % (Auto) 0.8 (0-2) % Lymph # (Auto) 1.9 (1.2-4.9) X10*3/uL [place] # (Auto) 0.9 (0.1-1.2) X10*3/uL Eos # (Auto) 0.1 (0.0-0.4) X10*3/uL Baso # (Auto) 0.1 (0.0-0.2) X10*3/uL Abs Immat Gran (auto) 0.02 (0.00-0.03) X10*3/uL Absolute Neuts (auto) 7.4 (2.0-8.3) x10*3/uL Absolute Nucleated RBC 0.000 (0.0-0.012) X10*3/uL Nucleated RBC % (auto) 0.0 (0.0-0.2) /100WBC Sodium 136 (135-145) mmol/L Potassium 4.6 (3.3-5.1) mmol/L Chloride 110 H (96-108) mmol/L Carbon Dioxide 23 (22-29) mmol/L Anion Gap 8 L (12-20) BUN 24 H (9-16) mg/dL Creatinine 1.35 (0.5-1.4) mg/dL Estim Creat Clear Calc 76.0 Estimated GFR 55 Random Glucose 90 (60-115) mg/dL Calcium 8.7 (8.4-10.2) mg/dL Magnesium 1.9 (1.6-2.6) mg/dL Total Bilirubin 0.7 (0.0-1.0) mg/dL AST 23 (5-37) U/L ALT 24 (0-40) U/L Alkaline Phosphatase 73 (39-117) U/L Total Protein 7.7 (6.5-8.0) g/dL Albumin 4.0 (3.5-5.0) g/dL Lipase 19 (8-78) U/L Influenza Type A (PCR) POSITIVE A (Negative) Influenza Type B (PCR) NEGATIVE (Negative) RSV RNA Qual (PCR) NEGATIVE (Negative) SARS-CoV-2 RNA (RT-PCR) NEGATIVE (Negative) S. pyogenes GrpA MATTHEW Negative (Negative) External Record Review External record reviewed: Inpatient record Prescription Management I considered prescription management with: Other (zofran) Chronic Conditions Patient?s care impacted by: Diabetes Social Determinants Patient?s care significantly limited by Social Determinants of Health including: Other Social Determinant of Health Critical Care Time Critical Care Time Critical Care Time: No Discharge Plan Discharge Clinical Impression: Influenza A Patient Disposition: Home, Self-Care Instructions: Influenza (ED) Additional Instructions: You tested positive for influenza A. Your blood work is reassuring. Take Ibuprofen or Tylenol as needed for fevers or body aches.? Practice social distancing and good hand hygiene. Drink plenty of fluids. Zofran is an antinausea medication that has been sent to your pharmacy. You can purchase [id number] Pepto-Bismol or Imodium for your diarrhea. Cepacol throat lozenges have been sent to your pharmacy for your sore throat. Follow-up with your primary care provider this week. Return to the emergency department with new or worsening symptoms. In case of emergency call 911 Prescriptions: New ondansetron 4 mg tablet,disintegrating 4 mg PO DAILY PRN (Reason: nausea and vomiting) 5 Days Qty: 10 0RF Cepacol Sore Throat (tiny-men) 15-2.6 mg lozenge 1 braden mucous membrane Q2-4H PRN (Reason: sore throat) Qty: 16 0RF No Action naproxen 500 mg tablet 500 mg PO BID PRN (Reason: Pain) 10 Days Qty: 20 1RF gabapentin 600 mg tablet 600 mg PO BID 90 Days Qty: 180 2RF metformin 1,000 mg tablet 500 mg PO BID 90 Days Qty: 90 3RF sertraline 50 mg tablet 50 mg PO DAILY 90 Days Qty: 90 3RF clotrimazole 1 % cream 1 appl topical BID 30 Days Qty: 30 3RF fenofibrate 54 mg tablet 54 mg PO DAILY 90 Days Qty: 100 2RF terbinafine HCl 250 mg tablet 250 mg PO DAILY 56 Days Qty: 56 1RF azithromycin 250 mg tablet See Rx Instructions PO .COMPLEX Qty: 6 0RF Rx Instructions: For 250 mg dose pack: take 500 mg today (day 1), then 250 mg for 4 days (days 2-5) PO lidocaine [Lidoderm] 5 % adhesive patch,medicated 1 patch topical DAILY Qty: 15 0RF Rx Instructions: leave on most painful area for up to 12 hrs hydrocortisone [Proctosol HC] 2.5 % cream with perineal applicator 1 appl [place] DAILY Qty: 30 0RF polyethylene glycol 3350 [Miralax] 17 gram/dose powder 17 g PO DAILY Qty: 119 0RF meclizine 12.5 mg tablet 12.5 mg PO BID 90 Days Qty: 180 1RF (DME) lancets [FreeStyle Lancets] 28 gauge misc See Rx Instructions .ROUTE .MEDSUPPLY Qty: 100 3RF Rx Instructions: As directed tamsulosin [Flomax] 0.4 mg capsule 0.4 mg PO BEDTIME Qty: 90 1RF cyclobenzaprine 10 mg tablet 10 mg PO BID PRN (Reason: muscle spasm) 5 Days Qty: 10 0RF tirzepatide 2.5 mg/0.5 mL pen injector 2.5 mg subcut QWEEK 28 Days Qty: 2 0RF Rx Instructions: for 4 weeks tadalafil [Cialis] 5 mg tablet 5 mg PO DAILY Qty: 30 9RF Rx Instructions: [id number] [facility] [id number] Member [id number] atorvastatin 80 mg tablet 80 mg PO DAILY Qty: 100 2RF levothyroxine 150 mcg tablet 150 mcg PO DAILY 30 Days Qty: 30 3RF losartan 50 mg tablet 50 mg PO DAILY 90 Days Qty: 90 3RF (DME) blood pressure monitor Kit See Rx Instructions .Route Qty: 1 0RF Rx Instructions: As directed (DME) OneTouch Ultra Test Strip See Rx Instructions .Route Qty: 100 3RF Rx Instructions: Testing once a day as needed (DME) blood-glucose meter [OneTouch Ultra2 Meter] Misc See Rx Instructions .Route Qty: 1 0RF Rx Instructions: As directed (DME) lancets [OneTouch UltraSoft 2 Lancet] 30 gauge misc See Rx Instructions .Route Qty: 100 2RF Rx Instructions: As directed Referrals: Gurdeep Bruce PA-C [Primary Care Provider] - Interventions: ED Discharge Assessment Last Done: 05/04/24 13:55 Discharge Date/Time: 05/04/24 13:55 Print Language: Ukrainian
[2024-05-04 12:50] LABS: MANUAL DIFF FLAG NO
[2024-05-04 12:52] LABS: Basophils Absolute Auto 0.1 X10*3/uL (0.0-0.2); Basophils Percent Auto 0.8 % (0-2); Eosinophils Absolute Auto 0.1 X10*3/uL (0.0-0.4); Eosinophils Percent Auto 0.7 % (0-4); Hematocrit 46.3 % (42.0-52.0); Hemoglobin 14.8 g/dl (14.0-18.0); Imm Gran Abs Auto 0.02 X10*3/uL (0.00-0.03); Imm Gran Pct Auto 0.2 % (0.0-0.4); Lymphocytes Absolute Auto 1.9 X10*3/uL (1.2-4.9); Lymphocytes Percent Auto 18.2 % (20-40); Mean Corpuscular Hemoglobin 25.2 pg (27.0-33.0); Mean Corpuscular Volume 78.9 fL (80.0-98.0); Mean Platelet Volume 11.7 fL (9.4-12.4); Monocytes Absolute Auto 0.9 X10*3/uL (0.1-1.2); Monocytes Percent Auto 8.5 % (2-11); Neutrophils Absolute Auto 7.4 x10*3/uL (2.0-8.3); Neutrophils Percent Auto 71.6 % (45-73); Platelet Count 183 X10*3/uL (160-400); Red Blood Count 5.87 X10*6/uL (4.60-5.80); Red Cell Distribution Width 14.4 % (11.0-16.0); White Blood Count 10.4 X10*3/uL (4.8-10.8)
[2024-05-04 13:01] LABS: IDNOW Serial# 58CA691E; Strep A Nucleic Acid Negative (Negative)
[2024-05-04 13:10] LABS: Alanine Aminotransferase 24 U/L (0-40); Alkaline Phosphatase 73 U/L (39-117); Anion Gap 8 (12-20); Aspartate Amino Transferase 23 U/L (5-37); Bilirubin Total 0.7 mg/dL (0.0-1.0); Blood Urea Nitrogen 24 mg/dL (9-16); Calcium 8.7 mg/dL (8.4-10.2); Carbon Dioxide 23 mmol/L (22-29); Chloride 110 mmol/L (96-108); Estimated Glomerular Filt Rate 55; Glucose Random 90 mg/dL (60-115); Lipase 19 U/L (8-78); Magnesium 1.9 mg/dL (1.6-2.6); Potassium 4.6 mmol/L (3.3-5.1); Sodium 136 mmol/L (135-145); Total Protein 7.7 g/dL (6.5-8.0)
[2024-05-04 13:29] LABS: Influenza A PCR POSITIVE (Negative); Influenza B PCR NEGATIVE (Negative); Resp Syncy Virus RNA Qual PCR NEGATIVE (Negative); SARS COV2 PCR INHOUSE NEGATIVE (Negative)
[2024-05-04 13:44] VITALS: BP 128/78; PULSE 82; RESP 20; TEMP 36.7; O2SAT 97
[2024-05-04 13:55] VITALS: BP 128/78; PULSE 82; RESP 20; TEMP 36.7; O2SAT 97
--- OUTSIDE RECORDS SUMMARY | 2024-05-04 15:10 | XMS_ITS | Clinical Summary ---
Author Organization [facility] Address [address] [place] [address] Care Team Providers Care Cracker Sprayer Name Role Phone Unavailable Primary Care Provider Unavailabl e Surgical History Surgery Date Site/Laterality Comments VENTRAL HERNIA REPAIR PROCEDURE: HISTORICAL VTRL WALL HERNIA RE CHOLECYSTECTOMY PROCEDURE: HISTORICAL CHOLECYSTECTOMY INCISIONAL HERNIA REPAIR 07/2018 PROCEDURE: ME IMPLANT MESH OPN HERNIA RPR/DEBRIDEMENT CLOSURE; COMMENT: Dr. Elias Medical History Medical History Date Comments JORGE (obstructive sleep apnea) 05/12/2017 DX :JORGE (obstructive sleep apnea); COMMENT: RBM Split Night Polysomnogram Date 07/17/2017. SE 74 % SM 76 %. Without PAP: in REM for 0 % of this phase. RDI 149 (AHI 143), Central apneas 0; Obstructive apneas 77; Mixed apneas 0; hypopneas 26; RERAs 4; average oxygen saturation 95% (lowest 83%); PLMs 47. With PAP: in REM for 22% of this phase. On CPAP @ 11; RDI 3.6 (AHI 1.4), Central apneas 4; Obstr* PLMD (periodic limb movement disorder) 07/21/2017 DX:PLMD (periodic limb movement disorder) Obesities, morbid (CMS/HCC) 04/27/2017 DX:O besities, morbid (HCC) Hypothyroidism 04/27/2017 DX:Hypothyroidis m Hypertriglyceridemia 04/27/2017 DX:Hypertri glyceridemia Essential hypertension 04/27/2017 DX:Essent ial hypertension Stage 3 chronic kidney disease (CMS/HCC) 018 DX:Stage 3 chronic kidney disease (HCC) Family history of breast cancer in male 9 DX:Family history of breast cancer in male Adrenal incidentaloma (CMS/HCC) 08/03/2018 DX:Adrenal incidentaloma (HCC); COMMENT: 1.2x1.3cm right adrenal mass, likely adenoma Family History Medical History Relation Name Comments Arthritis Brother Arthritis Father Arthritis Maternal Grandmother Breast cancer Uncle maternal Relation Name Status Comments Brother Father Maternal Grandmother Uncle Social History Tobacco Use Types Packs/Day Years Used Date Smoking Tobacco: Never Smokeless Tobacco: Never Alcohol Use Standard Drinks/Week Comments No 0 (1 standard drink = 0.6 oz pur e alcohol) Sex and Gender Information Value Date Recorded Sex Assigned at Not on file Gender Identity Not on file Sexual Orientation Not on file Obstetrics History Plan of Treatment Health Maintenance Due Date Last Done Comments Hepatitis B Vaccines (1 of 3 - 19+ 3-dose series) 1988 Zoster Vaccines (1 of 2) 2019 COVID-19 Vaccine (2023-2 5 season) 2023 Influenza Vaccine (#1) 2023 0, 05/18/2018 DTaP,Tdap,and Td Vaccines (2 - Td or Tdap) 05/18/2028 05/18/2018 HIB Vaccines Aged Out No longer eligi ble based on patient's age to complete this topic HPV Vaccines Aged Out No longer eligi ble based on patient's age to complete this topic Hepatitis A Vaccines Aged Out No long er eligible based on patient's age to complete this topic IPV Vaccines Aged Out No longer eligi ble based on patient's age to complete this topic MMR Vaccines Aged Out No longer eligi ble based on patient's age to complete this topic Meningococcal ACWY Vaccine Aged Out N o longer eligible based on patient's age to complete this topic Pneumococcal Vaccine: Pediatrics (0 to 5 Years) and At-Risk Patients (6 to 64 Years) Aged Out No longer eligible b ased on patient's age to complete this topic RSV Immunization Patients Under 20 months Aged Out No longer eligible b ased on patient's age to complete this topic Varicella Vaccines Aged Out No longer eligible based on patient's age to complete this topic
== END 2024-05-04 13:55 | disposition home or self-care (01) ==
PROVIDERS: Physician Assistant Medical; Emergency Provider Emergency Medicine; PCP Physician Assistant
DX: J10.1 Influenza due to other identified influenza virus with other respiratory manifestations (principal); R10.9 Unspecified abdominal pain; R11.2 Nausea with vomiting, unspecified
CPT/HCPCS: 0241U; 80053; 83690; 83735; 85025; 87651; 99282; 99283

== ENCOUNTER 2024-05-10 06:26 | Outpatient (REF) | payer MEDICARE, MEDICAID, SELFPAY ==
--- NOTE | ~2024-05-10 | FL_ITS ---
EXAMINATION: FL GUIDANCE ONLY HISTORY: M51.16 - Intervertebral disc disorders with radiculopathy, lumbar region COMPARISON: None available. TECHNIQUE: Fluoroscopy time: 0.5 minutes. Cumulative Dose: 17.8 mGy. DAP: 0.208 mGym2 Images: 2. FINDINGS: AP and lateral fluoroscopic spot films of the lumbar spine demonstrate a needle and contrast material within the disc space. FL/FL guidance in treatment room IMPRESSION: Fluoroscopy during procedure. Please see procedure report for additional information. Electronically signed by: Josue Bejarano MD 05/10/2024 02:49 PM EST
== END 2024-05-10 06:27 | disposition home or self-care (01) ==
LOC: CF 06:26
PROVIDERS: Visit Provider Anesthesiology
DX: M51.16 Intervertebral disc disorders with radiculopathy, lumbar region (principal)
CPT/HCPCS: 64483; 64484; J2003; J3301; Q9967

== ENCOUNTER 2024-05-10 13:06 | Outpatient (AMB) | payer MEDICARE, MEDICAID, SELFPAY ==
[2024-05-10 13:16] VITALS: BP 139/71; PULSE 92; O2SAT 97
--- NOTE | 2024-05-10 13:16 | A.OFFVIS_ITS ---
Vital Signs 05/10/24 13:16 05/10/24 13:48 BP 139/71 132/88 Blood Pressure Location Lt brachial Rt brachial Position Sitting Sitting Pulse 92 81 Pulse Source Pulse Oximeter Pulse Oximeter Pulse Oximetry (%) 97 96 Oxygen Delivery Method Room Air Room Air Comment Pre-op Post-op Intake Visit Reasons: LEFT L3-L4 TFESI Allergies Penicillins Allergy (Unknown, Verified 05/04/24 11:26) Rash hydrochlorothiazide Adverse Reaction (Intermediate, Verified 05/04/24 11:26) Dizziness PFSH Medical History Tendinopathy of right shoulder Post viral syndrome BPPV (benign paroxysmal positional vertigo) Hypothyroidism Hx of appendicitis Supraumbilical hernia Umbilical hernia Umbilical hernia DM2 (diabetes mellitus, type 2) Abdominal pain Pre-diabetes Sleep apnea with use of continuous positive airway pressure (CPAP) HLD (hyperlipidemia) HTN (hypertension) Hypothyroidism Surgical History Hx of endoscopy History of colonoscopy History of hemorrhoidectomy History of cholecystectomy Family History Mother Diabetes Hypertension Father Diabetes Hypertension Maternal Uncle Cancer Maternal Grandmother Stroke Social History Household Members: Spouse and Children Housing: Apartment Alcohol intake: unknown Patient Tobacco Use Status: Never used Tobacco e-Cigarette/Vaping Use: Never Used Second Hand Smoke Exposure: No Advance Directives Date on File: 02/03/22 service: No Current occupational status: disabled Current occupation: rt handed Cognitive needs: No Hearing needs: No Vision needs: Yes Physical Exam Vital Signs: Last Vital Signs Pulse 81 05/10/24 13:48 BP 132/88 05/10/24 13:48 Pulse Ox 96 05/10/24 13:48 Oxygen Delivery Method Room Air 05/10/24 13:48 Assessment & Plan Assessment & Plan (1) Radiculopathy due to lumbar intervertebral disc disorder: Code(s): M51.16 - Intervertebral disc disorders with radiculopathy, lumbar region Category: Medical Plan Transforaminal epidural steroid injection L3-L4 L4-5 on the right. The patient came to the operating room after obtaining informed consent. The risks of the procedure were delineated as risk of bleeding, infection, peripheral nerve damage, spinal cord damage, epidural hematoma, epidural abscess, headache. The patient was taken to the operating room where he was positioned prone on the operating table. Time-out was obtained delineating correct side and site of the procedure name and date of of the patient . Lower back of the patient was prepped with ChloraPrep and draped with sterile utility towels C-arm was brought over the operating field and sq picture of C3 vertebra was delineated on the screen. C-arm was tilted 30 degrees to the left side and the most prominent picture of the left pedicle of C3 vertebra on the left was demonstrated on the screen. Injection of the local anesthetic lidocaine 1% was performed into the skin in the projection of the 3 mm below the lowest point of the pedicle silhouette. After that 22 gauge 5 in needle was inserted through the skin and it was to were the foramina L3-L4 on the left under anterior posterior, lateral, and oblique views. When tip of the needle just past the silhouette of the spinal column the anterior posterior view injection of the contrast was performed however this point we detected the blood coming out of the hub of the needle. Decision was made to withdraw the needle and perform procedure in the ?low in the whole fashion ?. The L4 superior a rticular process on the left was delineated on the screen again at the oblique view. Lateral border of the superior articular process was chosen as the target of the local anesthetic injection. After that 22 gauge 5 in needle was inserted to the screen and started to advanced to were the lateral border of the L4 superior articular process in tunnel vision fashion. When tip of the needle gently contacted lateral border of superior articular process of L4 the needle was deviated to the lateral and immediately after that advanced to 3 mm and deviated to the medial direction. Injection of the contrast performed and it demonstrated diskogram. The needle is withdrawn 1 mm, and injection of the contrast repeated.epidurogram was demonstrated. Injection of the treatment medicine containing lidocaine preservative-free 1% mixed with Kenalog 40 mg was performed in this area. Upon completion of the injection the needle was withdrawn Band-Aid was applied. Patient tolerated procedure well. He was taken outside of the operating room to recovery room where he recovered uneventfully. ? Orders: Orders FL guidance in treatment room 05/10/24 M51.16 - Intervertebral disc disorders with radiculopathy, lumbar region Coding Level of Care Code Procedure Only Diagnoses Radiculopathy due to lumbar intervertebral disc disorder M51.16
[2024-05-10 13:48] VITALS: BP 132/88; PULSE 81; O2SAT 96
--- OUTSIDE RECORDS SUMMARY | 2024-05-10 14:13 | XMS_ITS | Clinical Summary ---
[facility] Organization [facility] Address [address] [place] [address] Care Team Providers Care Change Advisor Name Role Phone Unavailable Primary Care Provider Unavailabl e Surgical History Surgery Date Site/Laterality Comments VENTRAL HERNIA REPAIR PROCEDURE: HISTORICAL VTRL WALL HERNIA RE CHOLECYSTECTOMY PROCEDURE: HISTORICAL CHOLECYSTECTOMY INCISIONAL HERNIA REPAIR 07/2018 PROCEDURE: [place] IMPLANT MESH OPN HERNIA RPR/DEBRIDEMENT CLOSURE; COMMENT: [...] Recorded Sex Assigned at Not on file Legal Sex Male 9:55 AM EST Gender Identity Not on file Sexual Orientation Not on file Obstetrics History Plan of Treatment Health Maintenance Due Date Last Done Comments Hepatitis B Vaccines (1 of 3 - 19+ 3-dose series) 1988 DTaP,Tdap,and Td Vaccines (2 - Td or Tdap) 06/15/2018 05/18/2018 Pneumococcal Vaccine: 50+ Years (1 of 1 - PCV) 2019 Zoster Vaccines (1 of 2) 2019 COVID-19 Vaccine (2023-2 5 season) 2023 Influenza Vaccine (#1) 2023 0, 05/18/2018 HIB Vaccines Aged Out No longer [...] patient's age to complete this topic Meningococcal B Vacine Aged Out No lo nger eligible based on patient's age to complete [...]
== END 2024-05-10 13:55 | disposition home or self-care (01) ==
LOC: HO.PMCPRC 13:06
PROVIDERS: PCP Physician Assistant; Visit Provider Anesthesiology
DX: M51.16 Intervertebral disc disorders with radiculopathy, lumbar region (principal)
CPT/HCPCS: 64483; 64484

== ENCOUNTER 2024-05-27 13:17 | Outpatient (AMB) | payer MEDICARE, MEDICAID, SELFPAY ==
--- NOTE | 2024-05-27 13:22 | MHC.OFFVIS ---
Vital Signs 05/27/24 13:26 Height 5 ft 5 in Weight 268 lb BMI 44.6 BP 143/94 H Blood Pressure Location Rt brachial Position Sitting Pulse 78 Pulse Source Pulse Oximeter Pulse Oximetry (%) 98 Oxygen Delivery Method Room Air Intake Visit Reasons: LEFT L3, L4 TFESI/freedom from 05/23 Intake Note: Pain today 09/06 Cut Out Operator Required: Yes Cut Out Operator Language: Documentation Writer Services: Cut Out Operator Present Cut Out Operator Name: Shaye Accompanied by: Self / Same As Patient Allergies Penicillins Allergy (Unknown, Verified 05/27/24 13:27) Rash hydrochlorothiazide Adverse Reaction (Intermediate, Verified 05/27/24 13:27) Dizziness HPI Comments Details: Patient presents today to assess response to Left L3-L4 TFESI on 05/10/[address] Portillo. Patient reports 50% pain relief since procedure with partial improvement in his daily activities and functioning, mobility, sleep and social interactions. He continues to endorse left sided radicular pain with radiation into his anterior thigh and partially into his enamorado. Patient also reports intermittent mild right leg pain anteriorly and into his calf. We discussed neuromodulation with SCS trial vs Neurosurgical evaluation. He is interested to see [facility] [place] [place] [facility] prior to SCS trial. Denies any recent cough, cold, infection, fever, bladder or bowel dysfunction, saddle anesthesia or other significant changes in medical history since last office visit. Past Procedures: 05/10/24: Left L3-L4 TFESI-50% ongoing pain relief 01/19/24: Diagnostic Bilateral L3-L4 DR L5 MBB-80% pain relief for 7-8 hours 11/03/23: Left L4-L5 TFESI-50% back pain relief, 30-40% left leg pain relief PRIOR: Patient is a pleasant 53 years old presents today with low back pain which has been long standing for more than 10-12 years for him. He reports axial low back pain with most movements and also pain radiating into left anterior thigh and lateral enamorado and inner calf with numbness and tingling in both feet. Patient was initially seen in our office in March 2021 by Renetat MUSA with plans for left L4-L5 TFESI injection but was no show. [facility] show patient underwent Bilateral L4 TFESI on 10/29/[address] Martinez. Patient reports this injection provided him good pain relief for over 3 months. He is interested to proceed with interventional treatments to address his axial and radicular symptoms. Pain affects his daily activities and functioning, mobility, sleep, mood, and social interactions. Patient states pain increases with walking, bending, movements and prolonged sitting. Pain is partially relieved with rest, heat therapy, stretching, gabapentin, muscle relaxant, NSAIDs and lidocaine patches. Denies any fever, abdominal or groin pain, weakness, foot drop, bladder or bowel dysfunction or saddle anesthesia. PRIOR 04/02/21 Renetta MUSA: uJan is a pleasant 51-year-old male presents to the office with complaints of low back pain. He states his pain has been present for many years, without any inciting events, and has been more exacerbated over the past 2 months. He states the pain travels across the low back and radiates down the left leg to the ankle with associated weakness. He reports numbness from the knee to the ankle. He reports pain onset was gradual, constant and rates the pain a 6-8/10. He states the pain is interfering with sleep, activities of daily living and they cannot function normally. The patient reports the pain in terms of tissue damage as stabbing and sore. He has tried flexeril, gabapentin, cymbalta, NSAIDS as well as lidocaine patches with minimal effect. His pain is exacerbated by prolonged standing as well as transitioning from a bending to standing position. He recently completed 10 sessions of physical therapy and was discharged due to non progression. He denies any lumbar surgery but has undergone multiple injections in [place] and reports receiving an injection at [place]. He believes he had five nerve blocks for lumbar pain and two injections for cervical pain which provided relief for about 2-3 months. He states his last injection was about 3 years ago. He had a recent MRI, this report is dictated below. His past medical history is significant for diabetes with reported A1c of 7.2%. He also has upcoming surgery with Dr. Hinkle and to repair an umbilical hernia next week. [facility] Medical History Tendinopathy of right shoulder Post viral syndrome BPPV (benign paroxysmal positional vertigo) Hypothyroidism Hx of appendicitis Supraumbilical hernia Umbilical hernia Umbilical hernia DM2 (diabetes mellitus, type 2) Abdominal pain Pre-diabetes Sleep apnea with use of continuous positive airway pressure (CPAP) HLD (hyperlipidemia) HTN (hypertension) Hypothyroidism Surgical History Hx of endoscopy History of colonoscopy History of hemorrhoidectomy History of cholecystectomy Family History Mother Diabetes Hypertension Father Diabetes Hypertension Maternal Uncle Cancer Maternal Grandmother Stroke Social History Household Members: Spouse and Children Housing: Apartment Alcohol intake: unknown Patient Tobacco Use Status: Never used Tobacco e-Cigarette/Vaping Use: Never Used Second Hand Smoke Exposure: No Advance Directives Date on File: 02/03/22 service: No Current occupational status: disabled Current occupation: rt handed Cognitive needs: No Hearing needs: No Vision needs: Yes Review of Systems Const All systems reviewed & are unremarkable except as noted in HPI and below Physical Exam Vital Signs: Last Vital Signs Pulse 78 05/27/24 13:26 BP 143/94 H 05/27/24 13:26 Pulse Ox 98 05/27/24 13:26 Oxygen Delivery Method Room Air 05/27/24 13:26 BMI result Body Mass Index 44.6 General: Appears afebrile. Morbidly obese. Alert and oriented. Mood and affect appropriate. Follows and participates in conversation appropriately. Respiratory effort is unlabored. No cough. Able to transition from sit to stand unassisted. Ambulates with bilaterally normal heel strike and toe off, reports unsteady gait on the left due to pain and chronic numbness. General: Yes no CVA tenderness Back/Spine/Pelvis Other: Limited lumbar spine ROM. Lumbar flexion and extension reproduces mild to moderate pain. Demonstrates 5/5 right and 4/5 left strength of quadriceps bilaterally as well as flexion/dorsiflexion of bilateral feet against resistance. 2+ pedal pulses bilaterally. Straight leg rise with dorsiflexion + left. Diminished DTRs, symmetrical. Rashi test reproduces left lateral hip pain, not back pain. Facet loading test + bilaterally. No groin pain with I/E hip rotations bilaterally. Decreased sensation throughout anterior thigh and lateral aspect of the LLE. Valsalva maneuver is negative. No clonus. Back: no CVA tenderness Cervical Spine: cervical ROM normal, cervical muscular tenderness, No Cervical spine tenderness and No step off deformity Thoracic/Lumbar Spine: thoracic and lumbar spine normal to inspection, No Thoracic/lumbar spine scar(s), Lasegue's sign positive on the left and diffuse, pain with thoraco-lumbar ROM, paraspinal muscle tenderness, thoraco-lumbar ROM limited, No thoracic spinal tenderness and lumbar spinal tenderness (L4-S1) Pelvis: no buttock tenderness and no sciatic notch tenderness Sacroiliac joints: bilaterally tender to palpation (mild) Extrem General: Yes capillary refill normal, Yes no clubbing, cyanosis or edema and Yes no calf tenderness Results Reviewed Results Reviewed: XR LUMBOSACRAL SPINE 01/05/23 CLINICAL INFORMATION: Lower back pain. COMPARISON: Lumbar spine MRI from 01/04/2021 FINDINGS: Mild dextrocurvature of the lumbar spine and approximately 0.3 cm of degenerative right lateral listhesis of L4 on L5. Otherwise, lumbar vertebra have normal height and alignment. Findings include degenerative narrowing of disc space and small vertebral osteophytes at L4-L5. Also, osteophyte formation is present at other levels of the visualized lower thoracic and lumbar spine. There appears to be mild facet arthropathy at L3-4, L4-5 and L5-S1. Sacrum and sacroiliac joints are unremarkable. No evidence of focal lytic or osteoblastic lesion. Cholecystectomy clips in the right upper quadrant of the abdomen. Metallic tacks from mesh placement seen over right abdominal wall. IMPRESSION: * No acute abnormality. No evidence of lumbar vertebral compression fracture. * [id number] discovertebral degenerative change with mild right lateral listhesis at L4-L5. Otherwise, lumbar vertebra have normal alignment. XR THORACIC SPINE 01/05/23 CLINICAL INFORMATION: Upper back pain FINDINGS: Vertebral body height and alignment are maintained. Hypertrophic spondylotic changes are evident throughout the thoracic spine, with multilevel bridging osteophyte formation. No fracture or subluxation is detected. The paraspinal soft tissues image normally. IMPRESSION: 1. Hypertrophic and spondylotic changes throughout the thoracic spine but no fracture or bone lesion. MR LUMBAR SPINE WITHOUT CONTRAST 12/28/23 CLINICAL INFORMATION: Low back pain COMPARISON: MRI lumbar spine January 04, 2021 , CT abdomen pelvis July 17, 2022 TECHNIQUE: MRI of the lumbar spine was obtained using routine sequences without contrast. FINDINGS: Normal lumbar lordosis is preserved. Trace retrolisthesis at L4-L5 greater than L5-S1. Vertebral body heights are maintained. There is no suspicious osseous lesion. Multilevel disc desiccation with new minimal disc height loss at L4-L5. Level by level detail as follows: L1-L2: Mild bilateral facet arthrosis. No spinal canal or neural foraminal stenosis. L2-L3: Trace annular disc bulge with mild bilateral facet arthrosis. No spinal canal or significant neural foraminal stenosis. L3-L4: Annular disc bulge with increased size of left foraminal disc protrusion and new associated annular fissure. Decreased size of right foraminal/extraforaminal disc protrusion. Mild bilateral facet arthrosis. No spinal canal stenosis. Mild bilateral neural foraminal stenosis, increased on the left. L4-L5: Annular disc bulge with decreased size of superiorly migrated left foraminal disc extrusion and mild bilateral facet arthrosis. No spinal canal stenosis. Decreased moderate left neural foraminal stenosis with decreased mass effect along the exiting left L4 nerve. Patent right neural foramen. L5-S1: Annular disc bulge and mild facet arthrosis. No spinal canal stenosis. Stable minimal neural foraminal encroachment. The conus medullaris terminates at the level of L1-L2. The distal spinal cord is normal in appearance. No epidural fluid collection, hematoma, or mass. No significant abnormalities of the paraspinal musculature. Redemonstrated partially imaged right adrenal nodule, as seen on multiple prior abdominopelvic CTs and thought to be benign given multiyear stability. The abdominal aorta is of normal contour and caliber. IMPRESSION: 1. At L4-L5, decreased size of superiorly migrated left foraminal disc extrusion resulting in decreased moderate left neural foraminal stenosis and decreased mass effect along the exiting left L4 nerve. 2. At L3-L4, increased size of left foraminal disc protrusion and new associated annular fissure. Decreased size of right foraminal/extraforaminal disc protrusion. Mild bilateral neural foraminal stenosis, increased on the left. 3. Redemonstrated partially imaged right adrenal nodule, as seen on multiple prior abdominopelvic CTs and thought to be benign given multiyear stability. Assessment & Plan Assessment & Plan (1) Left lumbar radiculopathy: Code(s): M54.16 - Radiculopathy, lumbar region Category: Medical (2) Lumbar disc disease: Code(s): M51.9 - Unspecified thoracic, thoracolumbar and lumbosacral intervertebral disc disorder Category: Medical (3) Chronic low back pain: Code(s): M54.50 - Low back pain, unspecified; G89.29 - Other chronic pain Category: Medical (4) Lumbar spondylosis: Code(s): M47.816 - Spondylosis without myelopathy or radiculopathy, lumbar region Category: Medical Plan Patient is 3 weeks status post Left L3-L4 TFESI with partial pain relief. He had good response with bilateral diagnostic lumbar medial branch blocks on 01/19/24 with 80% pain relief for 7-8 hours. We reviewed Sprint PNS, RFA and SCS trial vs implant. Patient reports his current concerns are ongoing left sided radiculopathy. He is interested to undergo Neurosurgical evaluation as initial steps prior to consideration of SCS trial for longer term pain relief for axial and chronic radicular low back pain. Patient was referred to [facility] [place] [place] [facility] last December but was not able to attend. He is scheduled to see them next week. All questions were answered and patient is in agreement of plan. Follow-up after injections and sooner as needed. Coding Level of Care Code Est Pt Level 3 (29023) Complex EM visit Add On G2211 Diagnoses Left lumbar radiculopathy M54.16 Lumbar disc disease M51.9 Chronic low back pain M54.50; G89.29 Lumbar spondylosis M47.816
[2024-05-27 13:26] VITALS: BP 143/94; PULSE 78; O2SAT 98; BMI 44.6
--- OUTSIDE RECORDS SUMMARY | 2024-05-27 15:22 | XMS_ITS | Clinical Summary ---
Author Organization [facility] Address [address] [place] [address] Care Team Providers Care Data Communications Technician Name Role Phone Unavailable Primary Care Provider [...] of 3 - 19+ 3-dose series) 1988 Pneumococcal Vaccine: 50+ Years (1 of 1 - PCV) 2019 Zoster Vaccines (1 of 2) 2019 COVID-19 Vaccine (1 - 2023-2 5 season) 2023 Influenza Vaccine (#1) 2023 [...]
== END 2024-05-27 13:49 | disposition home or self-care (01) ==
PROVIDERS: PCP Physician Assistant; Visit Provider Nurse Practitioner Family
DX: M54.16 Radiculopathy, lumbar region (principal); M51.9 Unspecified thoracic, thoracolumbar and lumbosacral intervertebral disc disorder; M54.50 Low back pain, unspecified; G89.29 Other chronic pain; M47.816 Spondylosis without myelopathy or radiculopathy, lumbar region
CPT/HCPCS: 99213; G2211

== ENCOUNTER → 2024-05-27 13:17 | Outpatient (BNVA) | payer MEDICARE, MEDICAID, SELFPAY | PROVIDERS: PCP Physician Assistant; Visit Provider Nurse Practitioner Family | DX: M54.50 Low back pain, unspecified (principal); G89.29 Other chronic pain; M47.26 Other spondylosis with radiculopathy, lumbar region; M51.9 Unspecified thoracic, thoracolumbar and lumbosacral intervertebral disc disorder; Z98.890 Other specified postprocedural states | CPT/HCPCS: 99212 ==

== ENCOUNTER 2024-06-24 14:10 | Outpatient (AMB) | payer MEDICARE, MEDICAID, SELFPAY ==
[2024-06-24 14:24] VITALS: BMI 43.4
--- NOTE | 2024-06-24 14:24 | A.SPINEOV_ITS ---
Vital Signs 06/24/24 14:24 Height 5 ft 5 in Weight 261 lb BMI 43.4 Intake Visit Reasons: LBP Intake Note: Mr. Yris Hall is here today c/o Low back pain that radiates down to the waist and legs. Electronic Console Display Operator Required: Yes Electronic Console Display Operator Name: Tablet Allergies Penicillins Allergy (Unknown, Verified 06/24/24 14:25) Rash hydrochlorothiazide Adverse Reaction (Intermediate, Verified 06/24/24 14:25) Dizziness Physical Exam Vital Signs: BMI result Body Mass Index 43.4 Assessment & Plan Assessment & Plan (1) Spondylosis of lumbar region without myelopathy or radiculopathy: Code(s): M47.816 - Spondylosis without myelopathy or radiculopathy, lumbar region Category: Medical Plan Dear Radhika, Thank you for referring Mr Yris Hall to our office today. This visit was done with help of wall crane operator [id number]. He is a very nice 54-year-old gentleman presents to the office today for evaluation of chronic low back pain radiating into both legs. He has had this now for 6 or 7 years. He has been through multiple rounds of conservative treatment including physical therapy many many times as well as cortisone injections. Neither of these things gave him significant meaningful relief. He takes gabapentin every day to try to help with the pain and tramadol. He has tried [id number] medications. Things like Tylenol and Motrin have not been successful either. Sudden movements in particular give him the pain in his back. When he is up standing and walking around it is also very difficult. He is here today with an MRI showing degenerative disc disease. PMH: He is a diabetic but his A1c is very well controlled at 5.7 on metformin, history of hypertension, sleep apnea, cholecystectomy with an open procedure when he was 17 years old with a large right upper quadrant incision, double hernia repair via laparoscopic incisions. Denies any history of heart attack, stroke, major pulmonary issues, kidney disorders, liver disease, blood clots or bleeding disorders. Social hx: He does not smoke, drink or use any recreational drugs Medications: Lipitor, levothyroxine, losartan, metformin, gabapentin, tramadol Allergies: Penicillin gives him a rash Physical exam: Awake alert oriented no acute distress, BMI 43, has a well healed large scar in his right upper quadrant with multiple small laparoscopic incisions which are well healed. He has full strength of bilateral lower extremities with diminished reflexes at the patella and Achilles bilaterally. Imaging review: Lumbar MRI done at [facility] in November 2023 shows multilevel mild degenerative disc disease, particularly at L3-4 and L4-5. There is some very subtle lateral recess stenosis at L4-5 on the left but other than that nothing that looks like there is any compression of the nerves. Impression: 54-year-old gentleman presents for evaluation of chronic low back pain and bilateral lower extremity pain with activity and movements that has been going on for 6 or 7 years, refractory to conservative management. He is being considered for spinal cord stimulator up in your office. I reviewed his MRI with Dr. Trevino, at this point we do not see enough degeneration or compression that we think he would benefit from the typical treatments for back pain and bilateral lower extremity pain which would be lumbar fusion. His discs are just not degenerative enough to justify it. Therefore we agree with you that the spinal cord stimulator would be reasonable to try. We would be happy to see him back down the road if anything changes. Thank you for allowing us to care for your patient. The total time spent with this visit with this patient was 45 minutes reviewing history, physical exam, lumbar imaging review, and implementation of treatment plan or further diagnostic testing Tyler Trevino MD,PhD [facility] Coding Level of Care Code New Pt Level 4 (53544) Diagnoses Spondylosis of lumbar region without myelopathy or radiculopathy M47.816
== END 2024-06-24 14:47 | disposition home or self-care (01) ==
LOC: HO.HNS 14:11
PROVIDERS: PCP Physician Assistant; Referring Provider Nurse Practitioner Family; Visit Provider Physician Assistant
DX: M47.816 Spondylosis without myelopathy or radiculopathy, lumbar region (principal)
CPT/HCPCS: 99204

== ENCOUNTER → 2024-06-24 14:10 | Outpatient (BNVA) | payer MEDICARE, MEDICAID, SELFPAY | PROVIDERS: PCP Physician Assistant; Referring Provider Nurse Practitioner Family; Visit Provider Physician Assistant | DX: M47.816 Spondylosis without myelopathy or radiculopathy, lumbar region (principal) | CPT/HCPCS: 99202 ==

== ENCOUNTER 2024-06-28 10:21 | Outpatient (AMB) | payer MEDICARE, MEDICAID, SELFPAY ==
--- NOTE | 2024-06-28 10:28 | MHC.PC.OV ---
Vital Signs 06/28/24 10:58 Height 5 ft 5 in Weight 266 lb 6 oz BMI 44.3 BP 120/84 Blood Pressure Location Lt brachial Position Sitting Pulse 80 Pulse Source Pulse Oximeter Pulse Oximetry (%) 97 Oxygen Delivery Method Room Air Intake Visit Reasons: f/u DMII/ Weight check Dance Historian Required: Yes Dance Historian Language: Plumbing Engineering Draftsperson Name: used Tablet-ID # [id number] Accompanied by: Self / Same As Patient Allergies Penicillins Allergy (Unknown, Verified 06/28/24 11:09) Rash hydrochlorothiazide Adverse Reaction (Intermediate, Verified 06/28/24 11:09) Dizziness Medication List - Last Reconciled 06/28/24 by Gurdeep Bruce PA-C atorvastatin 80 mg PO DAILY benzocaine-menthol 15-2.6 mg (Cepacol Sore Throat (benzocaine-menthol)) 1 braden mucous membrane Q2-4H PRN blood pressure monitor As directed blood sugar diagnostic (Co.ImportTouch Ultra Test strips) Testing once a day as needed blood-glucose meter (Co.ImportTouch Ultra2 Meter) As directed clotrimazole 1% 1 appl topical BID 30 days cyclobenzaprine 10 mg PO BID PRN 5 days duloxetine mg PO DAILY fenofibrate 54 mg PO DAILY 90 days gabapentin 600 mg PO BID 90 days hydrocortisone 2.5% (Proctosol HC) 1 appl [place] DAILY lancets (FreeStyle Lancets) As directed lancets (OneTouch UltraSoft 2 Lancet) As directed levothyroxine 150 mcg PO DAILY lidocaine 5% (Lidoderm) 1 patch topical DAILY losartan 50 mg PO DAILY 90 days meclizine 12.5 mg PO BID 90 days metformin 500 mg (1/2 x 1,000 mg) PO BID 90 days naproxen 500 mg PO BID PRN 10 days ondansetron 4 mg PO DAILY PRN 5 days polyethylene glycol 3350 (Miralax) 17 grams PO DAILY sertraline 50 mg PO DAILY 90 days tadalafil (Cialis) 5 mg PO DAILY tamsulosin (Flomax) 0.4 mg PO BEDTIME terbinafine HCl 250 mg PO DAILY 8 weeks Tobacco use date assessed: 04/27/24 Dental Screening Dental Screen Date: 04/27/24 HPI f/u DMII/ Weight check HPI Details Patient is a 54-year-old male here today for a follow-up visit. Patient is Somali-speaking only thus used a remote paraprofessional interpreter. Past medical history significant for type 2 diabetes, obesity, lumbar disc disease. . Concern--> recently seen [facility] and underwent injection procedure for chronic low back pain which has helped reduce his pain a bit. He is considering a neurostimulator in his back. .. CHRONIC MEDICAL CONDITIONS--> CKD stage 3:? Noted a decrease in GFR and elevation in creatinine since hospitalization? for dehydration. Advised to increase his water intake and avoid all nephrotoxins especially NSAIDs, patient agrees and understands.?? Will consider Nephrology evaluation. Diabetes type 2: We have reduced his metformin to 500 b.i.d.. He denies any hypoglycemic events. Today's A1c of 5.5 He reports Has been more active going to the gym several times a week. PLAN: Will try alternative Trulicity again to help with weight loss and diabetes control. .. Obesity:? Has not been able to be physically active due to his back and leg pain per Unfortunately has gained weight since last office visit. He does understand his BMI is well over 40..? . Fatty liver disease: Noted elevations in his liver enzymes likely related to his fatty liver disease. He denies any excessive aspirin use or excessive drinking. Will continue to follow consider decreasing atorvastatin if elevations in his liver enzymes continue. Hypertension:? Blood pressure acceptable today in office.? He reports that home blood pressures have been stable.? Currently in pain due to his mid back pain. Laboratory Tests 03/10/24 04/06/24 05/04/24 09:16 09:12 12:37 RBC 5.88 H 5.87 H Hgb 14.9 14.8 Creatinine 1.35 TSH 11.36 H 0.50 PFSH Medical History Tendinopathy of right shoulder Post viral syndrome BPPV (benign paroxysmal positional vertigo) Hypothyroidism Hx of appendicitis Supraumbilical hernia Umbilical hernia Umbilical hernia DM2 (diabetes mellitus, type 2) Abdominal pain Pre-diabetes Sleep apnea with use of continuous positive airway pressure (CPAP) HLD (hyperlipidemia) HTN (hypertension) Hypothyroidism Surgical History Hx of endoscopy History of colonoscopy History of hemorrhoidectomy History of cholecystectomy Family History Mother Diabetes Hypertension Father Diabetes Hypertension Maternal Uncle Cancer Maternal Grandmother Stroke Social History Household Members: Spouse and Children Housing: Apartment Alcohol intake: unknown Patient Tobacco Use Status: Never used Tobacco e-Cigarette/Vaping Use: Never Used Second Hand Smoke Exposure: No Advance Directives Date on File: 02/03/22 service: No Current occupational status: disabled Current occupation: rt handed Cognitive needs: No Hearing needs: No Vision needs: Yes Questionnaire Thrive Questionnaire Date Thrive assessed: 04/27/24 ZACHERY-7 AMB Questionnaire ZACHERY-7 Date ZACHERY - 7 assessed: 04/27/24 Source: Developed by Drs. Josue Arndt, Sneha Elias, Tarun Umana and colleagues, with an educational marissa from [employer]. Review of Systems Const Denies headache(s) Eyes Denies loss of vision ENT Denies vertigo, Denies dizziness, Denies headache(s) and Denies sore throat Card Denies chest pain, Denies leg edema and Denies lightheadedness Resp Denies cough, Denies hemoptysis and Denies wheezing GI Denies abdominal pain, Denies melena, Denies constipation, Denies diarrhea and Denies vomiting Denies dysuria, Denies urinary frequency and Denies urinary urgency Musc Denies arthralgias, Denies joint swelling, Denies numbness and Denies tingling Neuro Denies Abnormal speech present, Denies behavioral changes, Denies vertigo, Denies dizziness, Denies headache(s), Denies loss of vision, Denies memory loss, Denies numbness and Denies tingling Psych Denies anxiety, Denies behavioral changes, Denies depression, Denies memory loss and Denies panic attacks Luis/Lymph Denies easy bleeding and Denies easy bruising Aller/Immun Denies wheezing Physical exam (Primary Care) Vital Signs: Last Vital Signs Pulse 80 06/28/24 10:58 BP 120/84 06/28/24 10:58 Pulse Ox 97 06/28/24 10:58 Oxygen Delivery Method Room Air 06/28/24 10:58 BMI result Body Mass Index 44.3 Tobacco/Smoking Status: Tobacco use Status Tobacco use date assessed 04/27/24 06/28/24 10:28 Patient Tobacco Use Status Never used Tobacco 06/28/24 10:28 e-Cigarette/Vaping Use Never Used 06/28/24 10:28 Thrive Assessment: Date of Thrive Assessment Date Thrive assessed 04/27/24 06/28/24 10:28 Const General: healthy appearing, no acute distress, alert and awake Nutritional Appearance: well nourished Orientation/consciousness: oriented to person, oriented to place and oriented to time HENMT Ears: TM's normal bilaterally General nose exam: Normal nasal mucous membranes and turbinates present Eyes Conjunctivae: conjunctivae normal Sclerae: sclerae normal Pupils: Equal, round and reactive pupils present Neck Neck: Yes no lymphadenopathy and Yes no JVD Thyroid: Thyroid normal Carotids: no bruits Resp Effort & Inspection: normal respiratory effort and not tachypneic Auscultation: no crackles, no rales, no rhonchi and no wheezes Cardio Rate: regular rate Rhythm: regular rhythm Heart sounds: no murmurs and normal S1 and S2 GI Palpation (GI): Soft to palpation, nontender, no hepatomegaly and no splenomegaly Auscultation: normal bowel sounds Skin General skin exam: no rashes or lesions noted and dry skin Neuro General: oriented to person, oriented to place and oriented to time Cranial nerves: Yes Equal, round and reactive pupils present Speech: No Abnormal speech present Gait exam (Neuro): Normal gait present Motor exam (neuro): no tremor noted Extrem Right upper extremity: full ROM Left upper extremity: full ROM Right lower extremity: full ROM; no edema Left lower extremity: full ROM; no edema Psych Mental Status: mental status grossly normal Speech and movement: Normal speech and movement present Affect: normal affect Attitude: cooperative Thought process: Normal thought process present Coding Level of Care Code Est Pt Level 4 (27508) Diagnoses Type 2 diabetes mellitus with diabetic nephropathy, without long-term current use of insulin E11.21 Diabetes mellitus complication detail: with nephropathy Diabetes mellitus complication status: with kidney complications Diabetes mellitus senior living insulin use: without senior living use Essential hypertension I10 Hypertension type: essential hypertension Hypertriglyceridemia E78.1 Hypothyroidism, unspecified type E03.9 Hypothyroidism type: unspecified Spondylosis of lumbar region without myelopathy or radiculopathy M47.816 Class 3 obesity E66.813 Assessment & Plan Assessment & Plan (1) DMII (diabetes mellitus, type 2): Code(s): E11.9 - Type 2 diabetes mellitus without complications Category: Medical Qualifiers: Diabetes mellitus complication detail: with nephropathy Diabetes mellitus complication status: with kidney complications Diabetes mellitus senior living insulin use: without senior living use Qualified Code(s): E11.21 - Type 2 diabetes mellitus with diabetic nephropathy Plan: Today's A1c at 5.5. Patient's type 2 diabetes has been fairly well controlled with current regime. Like to start Trulicity again to help him with glycemic control and losing weight.. Goal A1c is to remain below 7.0. (2) HTN (hypertension): Code(s): I10 - Essential (primary) hypertension Category: Medical Qualifiers: Hypertension type: essential hypertension Qualified Code(s): I10 - Essential (primary) hypertension Plan: Patient's blood pressure acceptable today. He continues on losartan 50 mg with good effect. Otherwise continue on current antihypertensive medication (3) Hypertriglyceridemia: Code(s): E78.1 - Pure hyperglyceridemia Category: Medical Plan: Patient will continue with high-dose statin therapy with goal LDL to be below 100 (4) Hypothyroidism: Code(s): E03.9 - Hypothyroidism, unspecified Category: Medical Qualifiers: Hypothyroidism type: unspecified Qualified Code(s): E03.9 - Hypothyroidism, unspecified Plan: Patient's most recent TSH showing appropriate thyroid function. He will continue on levothyroxine 150 mcg per (5) Spondylosis of lumbar region without myelopathy or radiculopathy: Code(s): M47.816 - Spondylosis without myelopathy or radiculopathy, lumbar region Category: Medical Plan: As above patient seems to be having a muscular issue in his mid back. He is now followed by [facility] and underwent a injection. He is considering a spinal stimulator. Has seen pain management in the past due to his lumbar disc disease and gotten injections which helped temporarily. (6) Class 3 obesity: Code(s): E66.813 - Obesity, class 3 Category: Medical Plan: Patient does understand his BMI is over 40. Has gained weight since last office visit. W he is interested in restarting GLP 1 to help him with weight reduction as he does have comorbidity of type 2 diabetes and hypertension. Orders: Orders Comprehensive [place]. Panel Fast Today I10 - Essential (primary) hypertension TSH reflex Free T4 Today E03.9 - Hypothyroidism, unspecified Prostate Specific Antigen Scr Today I10 - Essential (primary) hypertension, Z12.5 - Encounter for screening for malignant neoplasm of prostate Complete Blood Count no Diff Today I10 - Essential (primary) hypertension Medications: New dulaglutide (Trulicity) 0.75 mg (0.5 mL) subcut QWEEK 2 mL 3RF 4 weeks E11.21 - Type 2 diabetes mellitus with diabetic nephropathy Changed From atorvastatin 80 mg PO DAILY 100 tabs 2RF E78.1 - Pure hyperglyceridemia To atorvastatin 80 mg PO DAILY 90 tabs 1RF 90 days E78.1 - Pure hyperglyceridemia Patient Instructions: Goal: A1c to remain below 7.0, LDL to be below 100, blood pressure to remain below 140/90 Barriers: Adherence to physical activity and healthy eating habits
[2024-06-28 10:58] VITALS: BP 120/84; PULSE 80; O2SAT 97; BMI 44.3
--- OUTSIDE RECORDS SUMMARY | 2024-06-28 12:14 | XMS_ITS | Clinical Summary ---
[facility] Address [address] [place] [address] Care Team Providers Care Bait Maker Name Role Phone Unavailable Primary Care Provider Unavailabl e Surgical History Surgery Date Site/Laterality Comments VENTRAL HERNIA REPAIR PROCEDURE: HISTORICAL VTRL WALL HERNIA RE CHOLECYSTECTOMY PROCEDURE: HISTORICAL CHOLECYSTECTOMY INCISIONAL HERNIA REPAIR 07/2018 PROCEDURE: WI IMPLANT MESH OPN HERNIA RPR/DEBRIDEMENT CLOSURE; COMMENT: Dr. Elias Medical History Medical History Date Comments JORGE (obstructive sleep apnea) 05/12/2017 DX :JORGE (obstructive sleep apnea); COMMENT: [facility] Split Night Polysomnogram Date 07/17/2017. SE [address] [...]
== END 2024-06-28 11:29 | disposition home or self-care (01) ==
LOC: HO.HMCH 10:22
PROVIDERS: PCP Physician Assistant; Visit Provider Physician Assistant
DX: E11.21 Type 2 diabetes mellitus with diabetic nephropathy (principal); I10 Essential (primary) hypertension; E66.813 Obesity, class 3; Z68.41 Body mass index [BMI] 40.0-44.9, adult; E78.1 Pure hyperglyceridemia; E03.9 Hypothyroidism, unspecified; M47.816 Spondylosis without myelopathy or radiculopathy, lumbar region

== ENCOUNTER → 2024-06-28 10:21 | Outpatient (BNVA) | payer MEDICARE, MEDICAID, SELFPAY | PROVIDERS: PCP Physician Assistant; Visit Provider Physician Assistant | DX: E11.21 Type 2 diabetes mellitus with diabetic nephropathy (principal); I10 Essential (primary) hypertension; E78.1 Pure hyperglyceridemia; E03.9 Hypothyroidism, unspecified; M47.816 Spondylosis without myelopathy or radiculopathy, lumbar region; E66.813 Obesity, class 3 | CPT/HCPCS: 99212 ==

== ENCOUNTER 2024-06-29 08:53 | Outpatient (REF) | payer MEDICARE, MEDICAID, SELFPAY ==
--- OUTSIDE RECORDS SUMMARY | 2024-06-29 09:35 | XMS_ITS | Clinical Summary ---
[facility] Address [address] [place] [address] Care Team Providers Care Captain/Airline Pilot Name Role Phone Unavailable Primary Care Provider Unavailabl e Surgical History Surgery Date Site/Laterality Comments VENTRAL HERNIA REPAIR PROCEDURE: HISTORICAL VTRL WALL HERNIA RE CHOLECYSTECTOMY PROCEDURE: HISTORICAL CHOLECYSTECTOMY INCISIONAL HERNIA REPAIR 07/2018 PROCEDURE: [place] IMPLANT MESH OPN HERNIA RPR/DEBRIDEMENT CLOSURE; COMMENT: [...]
[2024-06-29 09:37] LABS: Hematocrit 47.7 % (42.0-52.0); Hemoglobin 15.3 g/dl (14.0-18.0); Mean Corpuscular HGB Conc 32.1 g/dl (31.0-36.0); Mean Corpuscular Hemoglobin 24.9 pg (27.0-33.0); Mean Corpuscular Volume 77.6 fL (80.0-98.0); Mean Platelet Volume 12.6 fL (9.4-12.4); Platelet Count 163 X10*3/uL (160-400); Red Blood Count 6.15 X10*6/uL (4.60-5.80); Red Cell Distribution Width 14.3 % (11.0-16.0); White Blood Count 8.6 X10*3/uL (4.8-10.8)
[2024-06-29 09:52] LABS: Estimated Average Glucose 120 mg/dL; Hemoglobin A1C 161.7276 umol/L; Hemoglobin A1c % 5.8 % (<6.0); Total Hemoglobin (HGBA1C) 4021.4773 umol/L
[2024-06-29 10:17] LABS: Prostate Specific Antigen Scr 3.07 ng/mL (<0.05-4.0)
[2024-06-29 10:20] LABS: Alanine Aminotransferase 32 U/L (0-40); Alkaline Phosphatase 82 U/L (39-117); Anion Gap 14 (12-20); Aspartate Amino Transferase 21 U/L (5-37); Bilirubin Total 0.3 mg/dL (0.0-1.0); Blood Urea Nitrogen 21 mg/dL (9-16); Calcium 9.1 mg/dL (8.4-10.2); Carbon Dioxide 22 mmol/L (22-29); Chloride 109 mmol/L (96-108); Estimated Glomerular Filt Rate 57; Glucose Fasting 109 mg/dL (60-99); Potassium 4.5 mmol/L (3.3-5.1); Sodium 140 mmol/L (135-145); Total Protein 7.7 g/dL (6.5-8.0)
[2024-06-29 11:50] LABS: Free T4 (Free Thyroxine) 0.98 ng/dL (0.71-1.85)
[2024-07-11 14:34] LABS: Testosterone, Total 391 ng/dL (250-1100)
== END 2024-06-29 08:54 | disposition home or self-care (01) ==
LOC: HO.LAB 08:53
PROVIDERS: Urology; PCP Physician Assistant; Visit Provider Physician Assistant
DX: R79.89 Other specified abnormal findings of blood chemistry (principal); Z12.5 Encounter for screening for malignant neoplasm of prostate; I10 Essential (primary) hypertension; E03.9 Hypothyroidism, unspecified; E11.21 Type 2 diabetes mellitus with diabetic nephropathy
CPT/HCPCS: 36415; 80053; 83036; 84153; 84402; 84403; 84439; 84443; 85027

== ENCOUNTER 2024-08-11 10:12 | Outpatient (AMB) | payer MEDICARE, MEDICAID, SELFPAY ==
--- NOTE | 2024-08-11 10:17 | MHC.OFFVIS ---
Vital Signs 08/11/24 10:21 Height 5 ft 5 in Weight 266 lb 6 oz BMI 44.3 BP 138/93 H Blood Pressure Location Rt brachial Position Sitting Pulse 74 Pulse Source Pulse Oximeter Pulse Oximetry (%) 98 Oxygen Delivery Method Room Air Intake Visit Reasons: FU after Nerosurgery visit Intake Note: Pain today 11/06 Recreational Assistant Required: Yes Recreational Assistant Language: [employer] Trader Name: Es Accompanied by: Self / Same As Patient Allergies Penicillins Allergy (Unknown, Verified 08/11/24 10:22) Rash hydrochlorothiazide Adverse Reaction (Intermediate, Verified 08/11/24 10:22) Dizziness HPI Comments Details: The patient is a 54-year-old male presenting with a follow-up after recent Neurosurgical consultation for chronic low back pain, which has persisted despite various treatments. Previously evaluated by [facility] in May, the patient has been identified as not suitable for surgical intervention at this time and is now considered for a spinal cord stimulator trial. The low back pain radiates to the left knee and leg, characterized by a burning sensation. Denies any recent cough, cold, infection, fever, bladder or bowel dysfunction, saddle anesthesia or other significant changes in medical history since last office visit. - Onset and Timing: Chronic pain - Quality and Character: Burning sensation - Primary Location: Low back - Areas of Radiation: Radiates to the left knee and leg - Exacerbating Factors: Physical activity, walking, prolonged standing or sitting, lifting, ADLs - Relieving Factors: Previous temporary relief from steroidal injections - Interference with Activities: Affects daily activities due to partial relief from prior treatments - Affect: Pain persists, impacting daily life activities - Analgesia: Partial relief from past steroidal injections; cyclobenzaprine used as needed, duloxetine and gabapentin daily - Adverse Effects: Not discussed - Activities of Daily Living: Limited due to persistent pain and partial response to medication - Aberrant Drug Related Behaviors: None reported Past Procedures: 05/10/24: Left L3-L4 TFESI-50% ongoing pain relief 01/19/24: Diagnostic Bilateral L3-L4 DR L5 MBB-80% pain relief for 7-8 hours 11/03/23: Left L4-L5 TFESI-50% back pain relief, 30-40% left leg pain relief PRIOR: Patient is a pleasant 53 years old presents today with low back pain which has been long standing for more than 10-12 years for him. He reports axial low back pain with most movements and also pain radiating into left anterior thigh and lateral [place]amor[place] and inner calf with numbness and tingling in both feet. Patient was initially seen in our office in March 2021 by Renetta MUSA with plans for left L4-L5 TFESI injection but was no show. Review of [facility] records show patient underwent Bilateral L4 TFESI on 10/29/[address] Martinez. Patient reports this injection provided him good pain relief for over 3 months. He is interested to proceed with interventional treatments to address his axial and radicular symptoms. Pain affects his daily activities and functioning, mobility, sleep, mood, and social interactions. Patient states pain increases with walking, bending, movements and prolonged sitting. Pain is partially relieved with rest, heat therapy, stretching, gabapentin, muscle relaxant, NSAIDs and lidocaine patches. Denies any fever, abdominal or groin pain, weakness, foot drop, bladder or bowel dysfunction or saddle anesthesia. PRIOR 04/02/21 Renetta MUSA: Juan is a pleasant 51-year-old male presents to the office with complaints of low back pain. He states his pain has been present for many years, without any inciting events, and has been more exacerbated over the past 2 months. He states the pain travels across the low back and radiates down the left leg to the ankle with associated weakness. He reports numbness from the knee to the ankle. He reports pain onset was gradual, constant and rates the pain a 6-8/10. He states the pain is interfering with sleep, activities of daily living and they cannot function normally. The patient reports the pain in terms of tissue damage as stabbing and sore. He has tried flexeril, gabapentin, cymbalta, NSAIDS as well as lidocaine patches with minimal effect. His pain is exacerbated by prolonged standing as well as transitioning from a bending to standing position. He recently completed 10 sessions of physical therapy and was discharged due to non progression. He denies any lumbar surgery but has undergone multiple injections in [place] and reports receiving an injection at [place]. He believes he had five nerve blocks for lumbar pain and two injections for cervical pain which provided relief for about 2-3 months. He states his last injection was about 3 years ago. He had a recent MRI, this report is dictated below. His past medical history is significant for diabetes with reported A1c of 7.2%. He also has upcoming surgery with Dr. Hinkle and to repair an umbilical hernia next week. REPLACED BY [facility] Medical History Tendinopathy of right shoulder Post viral syndrome BPPV (benign paroxysmal positional vertigo) Hypothyroidism Hx of appendicitis Supraumbilical hernia Umbilical hernia Umbilical hernia DM2 (diabetes mellitus, type 2) Abdominal pain Pre-diabetes Sleep apnea with use of continuous positive airway pressure (CPAP) HLD (hyperlipidemia) HTN (hypertension) Hypothyroidism Surgical History Hx of endoscopy History of colonoscopy History of hemorrhoidectomy History of cholecystectomy Family History Mother Diabetes Hypertension Father Diabetes Hypertension Maternal Uncle Cancer Maternal Grandmother Stroke Social History Household Members: Spouse and Children Housing: Apartment Alcohol intake: unknown Patient Tobacco Use Status: Never used Tobacco e-Cigarette/Vaping Use: Never Used Second Hand Smoke Exposure: No Advance Directives Date on File: 02/03/22 service: No Current occupational status: disabled Current occupation: rt handed Cognitive needs: No Hearing needs: No Vision needs: Yes Review of Systems Const All systems reviewed & are unremarkable except as noted in HPI and below Physical Exam Vital Signs: Last Vital Signs Pulse 74 08/11/24 10:21 BP 138/93 H 08/11/24 10:21 Pulse Ox 98 08/11/24 10:21 Oxygen Delivery Method Room Air 08/11/24 10:21 BMI result Body Mass Index 44.3 General: Appears afebrile.. Alert and oriented. Mood and affect appropriate. Follows and participates in conversation appropriately. Respiratory effort is unlabored. No cough. Able to transition from sit to stand unassisted. Ambulates with bilaterally normal heel strike and toe off, reports LLE chronic numbness. General: Yes no CVA tenderness Back/Spine/Pelvis Other: Limited lumbar spine ROM. Lumbar flexion and extension reproduces moderate pain. Demonstrates 5/5 right and 4/5 left due to pain strength of quadriceps bilaterally as well as flexion/dorsiflexion of bilateral feet against resistance. 2+ pedal pulses bilaterally. Straight leg rise with dorsiflexion + left. Diminished DTRs, symmetrical. Rashi test reproduces left lateral hip pain, not back pain. Facet loading test + bilaterally. No groin pain with I/E hip rotations bilaterally. Decreased sensation throughout anterior thigh and lateral aspect of the LLE. Valsalva maneuver is negative. Back: no CVA tenderness Cervical Spine: cervical ROM normal, cervical muscular tenderness, No Cervical spine tenderness and No step off deformity Thoracic/Lumbar Spine: thoracic and lumbar spine normal to inspection, No Thoracic/lumbar spine scar(s), Lasegue's sign positive on the left and diffuse, pain with thoraco-lumbar ROM, paraspinal muscle tenderness, thoraco-lumbar ROM limited, No thoracic spinal tenderness and lumbar spinal tenderness (L4-S1) Pelvis: no buttock tenderness and no sciatic notch tenderness Sacroiliac joints: bilaterally tender to palpation (mild) Extrem General: Yes capillary refill normal, Yes no clubbing, cyanosis or edema and Yes no calf tenderness Results Reviewed Results Reviewed: XR LUMBOSACRAL SPINE 01/05/23 CLINICAL INFORMATION: Lower back pain. COMPARISON: Lumbar spine MRI from 01/04/2021 FINDINGS: Mild dextrocurvature of the lumbar spine and approximately 0.3 cm of degenerative right lateral listhesis of L4 on L5. Otherwise, lumbar vertebra have normal height and alignment. Findings include degenerative narrowing of disc space and small vertebral osteophytes at L4-L5. Also, osteophyte formation is present at other levels of the visualized lower thoracic and lumbar spine. There appears to be mild facet arthropathy at L3-4, L4-5 and L5-S1. Sacrum and sacroiliac joints are unremarkable. No evidence of focal lytic or osteoblastic lesion. Cholecystectomy clips in the right upper quadrant of the abdomen. Metallic tacks from mesh placement seen over right abdominal wall. IMPRESSION: * No acute abnormality. No evidence of lumbar vertebral compression fracture. * [id number] discovertebral degenerative change with mild right lateral listhesis at L4-L5. Otherwise, lumbar vertebra have normal alignment. XR THORACIC SPINE 01/05/23 CLINICAL INFORMATION: Upper back pain FINDINGS: Vertebral body height and alignment are maintained. Hypertrophic spondylotic changes are evident throughout the thoracic spine, with multilevel bridging osteophyte formation. No fracture or subluxation is detected. The paraspinal soft tissues image normally. IMPRESSION: 1. Hypertrophic and spondylotic changes throughout the thoracic spine but no fracture or bone lesion. MR LUMBAR SPINE WITHOUT CONTRAST 12/28/23 CLINICAL INFORMATION: Low back pain COMPARISON: MRI lumbar spine January 04, 2021 , CT abdomen pelvis July 17, 2022 TECHNIQUE: MRI of the lumbar spine was obtained using routine sequences without contrast. FINDINGS: Normal lumbar lordosis is preserved. Trace retrolisthesis at L4-L5 greater than L5-S1. Vertebral body heights are maintained. There is no suspicious osseous lesion. Multilevel disc desiccation with new minimal disc height loss at L4-L5. Level by level detail as follows: L1-L2: Mild bilateral facet arthrosis. No spinal canal or neural foraminal stenosis. L2-L3: Trace annular disc bulge with mild bilateral facet arthrosis. No spinal canal or significant neural foraminal stenosis. L3-L4: Annular disc bulge with increased size of left foraminal disc protrusion and new associated annular fissure. Decreased size of right foraminal/extraforaminal disc protrusion. Mild bilateral facet arthrosis. No spinal canal stenosis. Mild bilateral neural foraminal stenosis, increased on the left. L4-L5: Annular disc bulge with decreased size of superiorly migrated left foraminal disc extrusion and mild bilateral facet arthrosis. No spinal canal stenosis. Decreased moderate left neural foraminal stenosis with decreased mass effect along the exiting left L4 nerve. Patent right neural foramen. L5-S1: Annular disc bulge and mild facet arthrosis. No spinal canal stenosis. Stable minimal neural foraminal encroachment. The conus medullaris terminates at the level of L1-L2. The distal spinal cord is normal in appearance. No epidural fluid collection, hematoma, or mass. No significant abnormalities of the paraspinal musculature. Redemonstrated partially imaged right adrenal nodule, as seen on multiple prior abdominopelvic CTs and thought to be benign given multiyear stability. The abdominal aorta is of normal contour and caliber. IMPRESSION: 1. At L4-L5, decreased size of superiorly migrated left foraminal disc extrusion resulting in decreased moderate left neural foraminal stenosis and decreased mass effect along the exiting left L4 nerve. 2. At L3-L4, increased size of left foraminal disc protrusion and new associated annular fissure. Decreased size of right foraminal/extraforaminal disc protrusion. Mild bilateral neural foraminal stenosis, increased on the left. 3. Redemonstrated partially imaged right adrenal nodule, as seen on multiple prior abdominopelvic CTs and thought to be benign given multiyear stability. Assessment & Plan Assessment & Plan (1) Degenerative lumbar spinal stenosis: Code(s): M48.061 - Spinal stenosis, lumbar region without neurogenic claudication Category: Social Hx (2) Chronic low back pain: Code(s): M54.50 - Low back pain, unspecified; G89.29 - Other chronic pain Category: Medical (3) Muscle spasm of back: Code(s): M62.830 - Muscle spasm of back Category: Medical (4) Degenerative joint disease (DJD) of lumbar spine: Code(s): M47.816 - Spondylosis without myelopathy or radiculopathy, lumbar region Category: Medical Qualifiers: Spinal osteoarthritis complication: with radiculopathy Qualified Code(s): M47.26 - Other spondylosis with radiculopathy, lumbar region (5) Lumbar radiculopathy: Code(s): M54.16 - Radiculopathy, lumbar region Category: Medical (6) Lumbosacral spondylosis: Code(s): M47.817 - Spondylosis without myelopathy or radiculopathy, lumbosacral region Category: Medical (7) Chronic pain syndrome: Code(s): G89.4 - Chronic pain syndrome Category: Medical Plan We have decided to initiate a spinal cord stimulator trial for the patient's chronic low back pain with left radiculopathy following a non-surgical recommendation. The trial process involves a psychological evaluation for clearance, followed by a temporary implant under sedation and fluoroscopy. The trialed and failed therapy has been reviewed with the patient. The risks, consequences, alternatives, and benefits of various treatment options were discussed with the patient in great detail, including conservative management, injections and procedures and all questions were answered to patient satisfaction. Placed referral for psychology clearance in anticipation of SCS trial via [employer]. Should the trial prove beneficial, permanent implantation will follow, with post-operative adjustments to ensure optimal pain modulation. Refill provided for cyclobenzaprine as this has been effective for patient. Side effects and precautions were reviewed with patient. All questions and concerns have been answered and patient agreed with the plan. Follow up as needed. Patient was informed and verbally consented to the use of an ambient scribe for clinic note documentation during this visit. Medications: Changed From cyclobenzaprine 10 mg PO BID 5 days PRN 10 tabs 0RF muscle spasm G89.29 - Other chronic pain, M48.061 - Spinal stenosis, lumbar region without neurogenic claudication, M54.50 - Low back pain, unspecified, M62.830 - Muscle spasm of back To cyclobenzaprine 10 mg PO BEDTIME PRN 30 tabs 0RF muscle spasm 30 days G89.29 - Other chronic pain, M48.061 - Spinal stenosis, lumbar region without neurogenic claudication, M54.50 - Low back pain, unspecified, M62.830 - Muscle spasm of back Coding Level of Care Code Est Pt Level 4 (42825) Complex EM visit Add On G2211 Diagnoses Degenerative lumbar spinal stenosis M48.061 Chronic low back pain M54.50; G89.29 Muscle spasm of back M62.830 Osteoarthritis of spine with radiculopathy, lumbar region M47.26 Spinal osteoarthritis complication: with radiculopathy Lumbar radiculopathy M54.16 Lumbosacral spondylosis M47.817 Chronic pain syndrome G89.4
[2024-08-11 10:21] VITALS: BP 138/93; PULSE 74; O2SAT 98; BMI 44.3
--- OUTSIDE RECORDS SUMMARY | 2024-08-11 11:12 | XMS_ITS | Clinical Summary ---
Author Organization [facility] Address [address] [place] [address] Care Team Providers Care Banquet Lead Name Role Phone Unavailable Primary Care Provider Unavailabl e Surgical History Surgery Date Site/Laterality Comments VENTRAL HERNIA REPAIR PROCEDURE: HISTORICAL VTRL WALL HERNIA RE CHOLECYSTECTOMY PROCEDURE: HISTORICAL CHOLECYSTECTOMY INCISIONAL HERNIA REPAIR 07/2018 PROCEDURE: HI IMPLANT MESH OPN HERNIA RPR/DEBRIDEMENT CLOSURE; COMMENT: [...] DX:PLMD (periodic limb movement disorder) Obesities, morbid (CMS/HCC V 24, CMS/HCC V28) 04/27/2017 DX:Obesities, morbid (HCC) Hypothyroidism 04/27/2017 DX:Hypothyroidis m Hypertriglyceridemia 04/27/2017 DX:Hypertri glyceridemia Essential hypertension 04/27/2017 DX:Essent ial hypertension Stage 3 chronic kidney disea se (CMS/HCC V24, CMS/HCC V28) 03/17/2018 DX:Stage 3 chronic kidney di sease (HCC) Family history of breast cancer in male 9 DX:Family history of breast cancer in male Adrenal incidentaloma (CMS/HCC V24) 08/03/2018 DX:Adrenal incidentaloma (HCC); COMMENT: 1.2x1.3cm right [...] Vaccine (2023-2 5 season) 2023 Influenza Vaccine (Season Ended) 2024 05/23/2019, 05/18/2018 DTaP,Tdap,and Td Vaccines (2 - Td [...] age to complete this topic Meningococcal B Vaccine Aged Out No l onger eligible based on patient's age to complete [...]
== END 2024-08-11 10:41 | disposition home or self-care (01) ==
LOC: HO.PMC 10:13
PROVIDERS: PCP Physician Assistant; Visit Provider Nurse Practitioner Family
DX: M48.061 Spinal stenosis, lumbar region without neurogenic claudication (principal); M54.50 Low back pain, unspecified; G89.29 Other chronic pain; M62.830 Muscle spasm of back; M47.26 Other spondylosis with radiculopathy, lumbar region; M54.16 Radiculopathy, lumbar region; M47.817 Spondylosis without myelopathy or radiculopathy, lumbosacral region; G89.4 Chronic pain syndrome
CPT/HCPCS: 99214; G2211

== ENCOUNTER → 2024-08-11 10:12 | Outpatient (BNVA) | payer MEDICARE, MEDICAID, SELFPAY | PROVIDERS: PCP Physician Assistant; Visit Provider Nurse Practitioner Family | DX: M48.061 Spinal stenosis, lumbar region without neurogenic claudication (principal); M54.50 Low back pain, unspecified; M62.830 Muscle spasm of back; M47.26 Other spondylosis with radiculopathy, lumbar region; M47.817 Spondylosis without myelopathy or radiculopathy, lumbosacral region; G89.29 Other chronic pain | CPT/HCPCS: 99212 ==

== ENCOUNTER 2024-09-28 10:52 | Outpatient (AMB) | payer MEDICARE, MEDICAID, SELFPAY ==
--- NOTE | 2024-09-28 10:57 | A.OFFPC_ITS ---
Vital Signs 09/28/24 10:59 Height 5 ft 5 in Weight 269 lb 8 oz BMI 44.8 BP 136/88 Blood Pressure Location Lt brachial Position Sitting Pulse 71 Pulse Source Pulse Oximeter Temp Source Temporal Artery Scan Pulse Oximetry (%) 96 Intake Visit Reasons: 3 mo follow up f/u DMII - see comments Printer Repair Technician Required: Yes Printer Repair Technician Language: Body Straightener Name: tablet ID # [id number] Accompanied by: Self / Same As Patient Allergies Penicillins Allergy (Unknown, Verified 09/28/24 11:20) Rash hydrochlorothiazide Adverse Reaction (Intermediate, Verified 09/28/24 11:20) Dizziness Medication List - Last Reconciled 09/28/24 by Gurdeep Bruce PA-C atorvastatin 80 mg PO DAILY 90 days atorvastatin 80 mg PO DAILY 90 days blood pressure monitor As directed blood sugar diagnostic (OneTouch Ultra Test strips) Testing once a day as needed blood-glucose meter (EntrecTouch Ultra2 Meter) As directed clotrimazole 1% 1 appl topical BID 30 days cyclobenzaprine 10 mg PO BEDTIME PRN 30 days cyclobenzaprine 10 mg PO BEDTIME PRN 30 days dulaglutide (Trulicity) 1.5 mg (0.5 mL) subcut QWEEK 4 weeks duloxetine 30 mg PO DAILY 90 days fenofibrate 54 mg PO DAILY 90 days gabapentin 600 mg PO BID 90 days hydrocortisone 2.5% (Proctosol HC) 1 appl [place] DAILY lancets (FreeStyle Lancets) As directed lancets (OneTouch UltraSoft 2 Lancet) As directed levothyroxine 125 mcg PO DAILY 30 days lidocaine 5% (Lidoderm) 1 patch topical DAILY losartan 50 mg PO DAILY 90 days losartan 50 mg PO DAILY 90 days metformin 500 mg (1/2 x 1,000 mg) PO BID 90 days naproxen 500 mg PO BID PRN 10 days Held on 03/20/22. Instructions: Doctor's Order polyethylene glycol 3350 (Miralax) 17 grams PO DAILY sertraline 50 mg PO DAILY 90 days tadalafil (Cialis) 5 mg PO DAILY tadalafil (Cialis) 5 mg PO DAILY tamsulosin (Flomax) 0.4 mg PO BEDTIME terbinafine HCl 250 mg PO DAILY 8 weeks Tobacco use date assessed: 04/27/24 Dental Screening Dental Screen Date: 04/27/24 HPI 3 mo follow up f/u DMII - see comments HPI Details Patient is a 54-year-old male here today for a follow-up visit. Patient is Tongan-speaking only thus used a remote automotive parts interpreter. Past medical history significant for type 2 diabetes, obesity, lumbar disc disease. . Concern--> recently seen [place] pain management and underwent injection procedure for chronic low back pain which has helped reduce his pain a bit. He is considering a neurostimulator in his back at this time. He is interested in returning back to physical therapy as it has helped him in his lower back and hip pains in the past. .. CHRONIC MEDICAL CONDITIONS--> CKD stage 3:? Noted a decrease in GFR and elevation in creatinine since hospitalization? for dehydration. Advised to increase his water intake and avoid all nephrotoxins especially NSAIDs, patient agrees and understands.?? Will consider Nephrology evaluation. Diabetes type 2: We have reduced his metformin to 500 b.i.d and Trulicity weekly.. He denies any hypoglycemic events. Today's A1c acceptable. he has unfortunately gained some weight since last office visit. .. Class 3 Obesity:? Has not been able to be physically active due to his back and leg pain pain. Unfortunately has gained weight since last office visit. He does understand his BMI is well over 40..? . Fatty liver disease: Noted elevations in his liver enzymes likely related to his fatty liver disease. He denies any excessive aspirin use or excessive drinking. Will continue to follow consider decreasing atorvastatin if elevations in his liver enzymes continue. Hypertension:? Blood pressure acceptable today in office.? He reports that home blood pressures have been stable.? Currently in pain due to his mid back pain. Laboratory Tests 04/06/24 06/29/24 09:12 09:09 Hemoglobin A1c % 5.8 TSH 0.50 0.20 L Total Testosterone 391 Laboratory Tests 09/28/24 10:48 Hgb A1c (Clinic) 5.6 PFSH Medical History Tendinopathy of right shoulder Post viral syndrome BPPV (benign paroxysmal positional vertigo) Hypothyroidism Hx of appendicitis Supraumbilical hernia Umbilical hernia Umbilical hernia DM2 (diabetes mellitus, type 2) Abdominal pain Pre-diabetes Sleep apnea with use of continuous positive airway pressure (CPAP) HLD (hyperlipidemia) HTN (hypertension) Hypothyroidism Surgical History Hx of endoscopy History of colonoscopy History of hemorrhoidectomy History of cholecystectomy Family History Mother Diabetes Hypertension Father Diabetes Hypertension Maternal Uncle Cancer Maternal Grandmother Stroke Social History Household Members: Spouse and Children Housing: Apartment Alcohol intake: unknown Patient Tobacco Use Status: Never used Tobacco e-Cigarette/Vaping Use: Never Used Second Hand Smoke Exposure: No Advance Directives Date on File: 02/03/22 service: No Current occupational status: disabled Current occupation: rt handed Cognitive needs: No Hearing needs: No Vision needs: Yes Questionnaire PHQ-9 Over the last 2 weeks, how often have you been bothered by any of the following problems? 1. Little interest or pleasure in doing things: not at all 2. Feeling down, depressed, or hopeless: not at all 3. Trouble falling or staying asleep, or sleeping too much: several days 4. Feeling tired or having little energy: several days 5. Poor appetite or overeating: several days 6. Feeling bad about yourself - or that you are a failure or have let yourself or your family down: several days 7. Trouble concentrating on things, such as reading the newspaper or watching television: several days 8. Moving or speaking so slowly that other people could have noticed. Or the opposite - being so fidgety or restless that you have been moving around a lot more than usual: several days 9. Thoughts that you would be better off or of hurting yourself in some way: not at all Total score: 6 Depression Screening Interpretation: Positive Depression Screening Follow-up: Existing condition Depression Screening Done: Yes 92691 - PHQ-9 Billing: Yes Source: Developed by Drs. Josue Arndt, Sneha Elias, Tarun Uamna and colleagues, with an educational marissa from [employer]. Thrive Questionnaire Date Thrive assessed: 09/28/24 I am a: Patient What is your living situation today?: I have a steady place to live Within the past 12 months, did the food you bought not last and you didn't have the money to get more?: Sometimes True Within the past 12 months, did you worry whether your food would run out before you got money to buy more?: Sometimes True Do you have trouble paying for medicines?: No Do you have trouble getting transportation to medical appointments?: No Do you have trouble paying your heating and electricity bill?: No Do you have trouble taking care of your child, family member or friend?: No Do you have trouble with day-to-day activities such as bathing, preparing meals, shopping, managing finances, etc.?: I choose not to answer this question Are you currently unemployed and looking for a job?: No Are you interested in more education?: Yes Please select the resources that you would like help with: Utilities and Care for elder or disabled Currently or been in a relationship where the following occur: No concerns reported THRIVE Score: 2 AUDIT C Alcohol Use Questionnaire (AUDIT-C) 1. How often do you have a drink containing alcohol?: Never 3. How often do you have six or more drinks on one occasion?: Never Total Score: 0 ZACHERY-7 AMB Questionnaire ZACHERY-7 Date ZACHERY - 7 assessed: 09/28/24 Feeling nervous, anxious, or on edge: 0 = Not at all Not being able to stop or control worryin = Not at all Worrying too much about different things: 1 = Several days Trouble relaxin = Not at all Being so restless that it is hard to sit still: 0 = Not at all Becoming easily annoyed or irritable: 0 = Not at all Feeling afraid as if something awful might happen: 0 = Not at all Total ZACHERY-7 score (0-4 normal; 5-9 mild; 10-14 moderate; 15-21 severe): 1 Source: Developed by Drs. Josue Arndt, Sneha Elias, Tarun Umana and colleagues, with an educational marissa from [employer]. ZACHERY-7 Assessment Billing ZACHERY-7 Assessment Tool: ZACHERY-7 Assessment 90496 Review of Systems Const Denies headache(s) Eyes Denies loss of vision ENT Denies vertigo, Denies dizziness, Denies headache(s) and Denies sore throat Card Denies chest pain, Denies leg edema and Denies lightheadedness Resp Denies cough, Denies hemoptysis and Denies wheezing GI Denies abdominal pain, Denies melena, Denies constipation, Denies diarrhea and Denies vomiting Denies dysuria, Denies urinary frequency and Denies urinary urgency Musc Denies arthralgias, Denies joint swelling, Denies numbness and Denies tingling Neuro Denies Abnormal speech present, Denies behavioral changes, Denies vertigo, Denies dizziness, Denies headache(s), Denies loss of vision, Denies memory loss, Denies numbness and Denies tingling Psych Denies anxiety, Denies behavioral changes, Denies depression, Denies memory loss and Denies panic attacks Luis/Lymph Denies easy bleeding and Denies easy bruising Aller/Immun Denies wheezing Physical exam (Primary Care) Vital Signs: Last Vital Signs Pulse 71 09/28/24 10:59 BP 136/88 09/28/24 10:59 Pulse Ox 96 09/28/24 10:59 BMI result Body Mass Index 44.8 BMI Assessment/Plan discussion: High BMI High, discussed plan: lifestyle, weight reduction, dietary and physical activity Tobacco/Smoking Status: Tobacco use Status Tobacco use date assessed 04/27/24 09/28/24 11:03 Patient Tobacco Use Status Never used Tobacco 09/28/24 11:03 e-Cigarette/Vaping Use Never Used 09/28/24 11:03 PHQ-9: PHQ-9 Score PHQ-9: Total score 6 09/28/24 11:24 Depression Screening Interpretation: Positive Depression Screening Follow-up: Existing condition Thrive Assessment: Date of Thrive Assessment Date Thrive assessed 09/28/24 09/28/24 11:03 Currently or been in a relationship where the following occur: No concerns reported Const General: healthy appearing, no acute distress, alert and awake Nutritional Appearance: well nourished Orientation/consciousness: oriented to person, oriented to place and oriented to time HENMT Ears: TM's normal bilaterally General nose exam: Normal nasal mucous membranes and turbinates present Eyes Conjunctivae: conjunctivae normal Sclerae: sclerae normal Pupils: Equal, round and reactive pupils present Neck Neck: Yes no lymphadenopathy and Yes no JVD Thyroid: Thyroid normal Carotids: no bruits Resp Effort & Inspection: normal respiratory effort and not tachypneic Auscultation: no crackles, no rales, no rhonchi and no wheezes Cardio Rate: regular rate Rhythm: regular rhythm Heart sounds: no murmurs and normal S1 and S2 GI Palpation (GI): Soft to palpation, nontender, no hepatomegaly and no splenomegaly Auscultation: normal bowel sounds Skin General skin exam: no rashes or lesions noted and dry skin Neuro General: oriented to person, oriented to place and oriented to time Cranial nerves: Yes Equal, round and reactive pupils present Speech: No Abnormal speech present Gait exam (Neuro): Normal gait present Motor exam (neuro): no tremor noted Extrem Right upper extremity: full ROM Left upper extremity: full ROM Right lower extremity: full ROM; no edema Left lower extremity: full ROM; no edema Psych Mental Status: mental status grossly normal Speech and movement: Normal speech and movement present Affect: normal affect Attitude: cooperative Thought process: Normal thought process present Results AMB Hemoglobin A1c AMB Hemoglobin A1c 5.6 % Last Edit by Papo Chavez MA on 09/28/24 11:17 Results Reviewed Results Reviewed: Laboratory Last Values Hgb A1c (Clinic) 5.6 % (4.0-6.0) 09/28/24 10:48 Coding Level of Care Code Est Pt Level 4 (62963) Diagnoses Type 2 diabetes mellitus with diabetic nephropathy, without long-term current use of insulin E11.21 Diabetes mellitus complication detail: with nephropathy Diabetes mellitus complication status: with kidney complications Diabetes mellitus retirement insulin use: without termite treater use Essential hypertension I10 Hypertension type: essential hypertension Hypertriglyceridemia E78.1 Hypothyroidism, unspecified type E03.9 Hypothyroidism type: unspecified Spondylosis of lumbar region without myelopathy or radiculopathy M47.816 Class 3 obesity E66.813 Additional Codes ZACHERY-7 Assessment Billing - ZACHERY-7 Assessment Tool: ZACHERY-7 Assessment 01346 ([id number]) PHQ-9 - 52290 - PHQ-9 Billing: Yes ([id number]) Assessment & Plan Assessment & Plan (1) DMII (diabetes mellitus, type 2): Code(s): E11.9 - Type 2 diabetes mellitus without complications Category: Medical Qualifiers: Diabetes mellitus complication detail: with nephropathy Diabetes mellitus complication status: with kidney complications Diabetes mellitus retirement insulin use: without retirement use Qualified Code(s): E11.21 - Type 2 diabetes mellitus with diabetic nephropathy Plan: Today's A1c acceptable,. Patient's type 2 diabetes has been fairly well controlled with current regime. . Goal A1c is to remain below 7.0. (2) HTN (hypertension): Code(s): I10 - Essential (primary) hypertension Category: Medical Qualifiers: Hypertension type: essential hypertension Qualified Code(s): I10 - Essential (primary) hypertension Plan: Patient's blood pressure acceptable today. He continues on losartan 50 mg with good effect. Otherwise continue on current antihypertensive medication (3) Hypertriglyceridemia: Code(s): E78.1 - Pure hyperglyceridemia Category: Medical Plan: Patient will continue with high-dose statin therapy with goal LDL to be below 100 (4) Hypothyroidism: Code(s): E03.9 - Hypothyroidism, unspecified Category: Medical Qualifiers: Hypothyroidism type: unspecified Qualified Code(s): E03.9 - Hypothyroidism, unspecified Plan: Patient's most recent TSH showing appropriate thyroid function. He will continue on levothyroxine 150 mcg per (5) Spondylosis of lumbar region without myelopathy or radiculopathy: Code(s): M47.816 - Spondylosis without myelopathy or radiculopathy, lumbar region Category: Medical Plan: As above patient seems to be having a muscular issue in his mid back. He is now followed by [place] pain management and underwent a injection. He is considering a spinal stimulator. Has seen pain management in the past due to his lumbar disc disease and gotten injections which helped temporarily. He is interested in returning back to physical therapy as it has helped him with his lower back pain in the past. (6) Class 3 obesity: Code(s): E66.813 - Obesity, class 3 Category: Medical Plan: Patient does understand his BMI is over 40. Has gained weight since last office visit. Has not been able to be physically active due to his lower back and hip pains. W he is interested in restarting GLP 1 to help him with weight reduction as he does have comorbidity of type 2 diabetes and hypertension. Orders: Orders AMB Hemoglobin A1c Today E11.21 - Type 2 diabetes mellitus with diabetic nephropathy Complete Blood Count no Diff Today I10 - Essential (primary) hypertension Comprehensive [place]. Panel Fast Today I10 - Essential (primary) hypertension PT Evaluation and Treatment Today M51.9 - Unspecified thoracic, thoracolumbar and lumbosacral intervertebral disc disorder, M54.16 - Radiculopathy, lumbar region Medications: Refilled cyclobenzaprine 10 mg PO BEDTIME PRN 30 tabs 0RF muscle spasm 30 days G89.29 - Other chronic pain, M48.061 - Spinal stenosis, lumbar region without neurogenic claudication, M54.50 - Low back pain, unspecified, M62.830 - Muscle spasm of back hydrocortisone 2.5% (Proctosol HC) 1 appl LA DAILY 30 grams 0RF polyethylene glycol 3350 (Miralax) 17 grams PO DAILY 119 grams 0RF sertraline 50 mg PO DAILY 90 tabs 3RF 90 days F41.9 - Anxiety disorder, unspecified atorvastatin 80 mg PO DAILY 90 tabs 1RF 90 days E78.1 - Pure hyperglyceridemia fenofibrate 54 mg PO DAILY 100 tabs 2RF 90 days E78.1 - Pure hyperglyceridemia gabapentin 600 mg PO BID 180 tabs 2RF 90 days M54.16 - Radiculopathy, lumbar region lidocaine 5% (Lidoderm) leave on most painful area for up to 12 hrs 1 patch topical DAILY 15 ea 0RF losartan 50 mg PO DAILY 90 tabs 3RF 90 days I10 - Essential (primary) hypertension tadalafil (Cialis) [id number] [facility] [id number] Member [id number] 5 mg PO DAILY 30 tabs 9RF terbinafine HCl 250 mg PO DAILY 56 tabs 1RF 8 weeks B37.2 - Candidiasis of skin and nail
[2024-09-28 10:59] VITALS: BP 136/88; PULSE 71; O2SAT 96; BMI 44.8
--- OUTSIDE RECORDS SUMMARY | 2024-09-28 11:35 | XMS_ITS | Clinical Summary ---
Author Organization [facility] it Address [address] [place] [address] Care Team Providers Care Incubator Tender Name Role Phone Unavailable Primary Care Provider Unavailabl e Surgical History Surgery Date Site/Laterality Comments VENTRAL HERNIA REPAIR PROCEDURE: HISTORICAL VTRL WALL HERNIA RE CHOLECYSTECTOMY PROCEDURE: HISTORICAL CHOLECYSTECTOMY INCISIONAL HERNIA REPAIR 07/2018 PROCEDURE: [place] IMPLANT MESH OPN HERNIA RPR/DEBRIDEMENT CLOSURE; COMMENT: [...]
== END 2024-09-28 11:34 | disposition home or self-care (01) ==
LOC: HO.HMCH 10:52
PROVIDERS: PCP Physician Assistant; Visit Provider Physician Assistant
DX: E11.21 Type 2 diabetes mellitus with diabetic nephropathy (principal); I10 Essential (primary) hypertension; E66.813 Obesity, class 3; Z68.41 Body mass index [BMI] 40.0-44.9, adult; E78.1 Pure hyperglyceridemia; E03.9 Hypothyroidism, unspecified; M47.816 Spondylosis without myelopathy or radiculopathy, lumbar region

== ENCOUNTER 2024-09-28 10:52 | Outpatient (REF) | payer MEDICARE, MEDICAID, SELFPAY ==
[2024-09-28 12:12] LABS: Hematocrit 44.4 % (42.0-52.0); Hemoglobin 14.7 g/dl (14.0-18.0); Mean Corpuscular HGB Conc 33.1 g/dl (31.0-36.0); Mean Corpuscular Hemoglobin 25.2 pg (27.0-33.0); Mean Corpuscular Volume 76.0 fL (80.0-98.0); NRBC Abs Auto 0.000 X10*3/uL (0.0-0.012); NRBC Pct Auto 0.0 /100WBC (0.0-0.2); Platelet Count 149 X10*3/uL (160-400); Red Blood Count 5.84 X10*6/uL (4.60-5.80); White Blood Count 8.8 X10*3/uL (4.8-10.8)
[2024-09-28 12:57] LABS: Alanine Aminotransferase 24 U/L (0-40); Albumin Level 4.0 g/dL (3.5-5.0); Alkaline Phosphatase 71 U/L (39-117); Anion Gap 12 (12-20); Aspartate Amino Transferase 22 U/L (5-37); Blood Urea Nitrogen 15 mg/dL (9-16); Calcium 8.7 mg/dL (8.4-10.2); Carbon Dioxide 25 mmol/L (22-29); Chloride 107 mmol/L (96-108); Estimated Glomerular Filt Rate 53; Potassium 4.0 mmol/L (3.3-5.1); Sodium 140 mmol/L (135-145); Total Protein 6.8 g/dL (6.5-8.0)
[2024-09-28 13:36] LABS: Free T4 (Free Thyroxine) 1.02 ng/dL (0.71-1.85)
== END 2024-09-28 10:53 | disposition home or self-care (01) ==
LOC: HO.LAB 10:52
PROVIDERS: PCP Physician Assistant; Visit Provider Physician Assistant
DX: E11.21 Type 2 diabetes mellitus with diabetic nephropathy (principal); I10 Essential (primary) hypertension; E78.1 Pure hyperglyceridemia; E03.9 Hypothyroidism, unspecified; M47.26 Other spondylosis with radiculopathy, lumbar region; M51.9 Unspecified thoracic, thoracolumbar and lumbosacral intervertebral disc disorder; M48.061 Spinal stenosis, lumbar region without neurogenic claudication; M62.830 Muscle spasm of back; E66.813 Obesity, class 3; Z68.41 Body mass index [BMI] 40.0-44.9, adult; G89.29 Other chronic pain; F41.9 Anxiety disorder, unspecified; B37.2 Candidiasis of skin and nail; Z79.899 Other long term (current) drug therapy; Z13.31 Encounter for screening for depression; Z13.39 Encounter for screening examination for other mental health and behavioral disorders
CPT/HCPCS: 36415; 80053; 83036; 84439; 84443; 85027; 96127; 99212

== ENCOUNTER 2024-10-20 16:34 | Emergency (ER) | payer MEDICARE, MEDICAID, SELFPAY ==
--- NOTE | ~2024-10-20 | CT_ITS ---
CLINICAL HISTORY: ?strangulated umbilical hernia CT abdomen and pelvis with IV contrast Comparison: CT/SR - CT ABDOMEN PELVIS WITH IV CONTRAST - 07/17/22 08:31 EDT Findings: Lung bases show no active disease. No dependent layering pleural effusions. The heart is not enlarged. Coronary artery calcifications: None. Hepatic steatosis. No focal hepatic lesions. Patent hepatic and portal veins. Post cholecystectomy. Homogeneous enhancement of the pancreas. No splenomegaly. Stable 13 mm right adrenal nodule. Normal left adrenal gland. Symmetrical renal excretion with no segmental or diffuse renal parenchymal disease or evidence of obstructive uropathy/hydroureteronephrosis. Normal caliber abdominal aorta. Right-sided anterior abdominal wall mesh present. The fat containing umbilical and supraumbilical hernia relatively stable in size. Neck of the hernia at the level of the umbilicus measures 1.4 cm in the body 7.4 cm. The supraumbilical hernia neck measures 8 mm body measures 21 mm. Fat stranding within the umbilical hernia sac may be slightly more pronounced compared to previous study omental infarction can be correlated with palpation or targeted ultrasound. No free air. Normal appendix and terminal ileum. Diverticulosis coli without CT evidence of acute diverticulitis. No intraperitoneal, retroperitoneal, pelvic or inguinal masses lymphadenopathy or abnormal fluid collections. Prostatomegaly. Normal distention of the urinary bladder. No vertebral body compression fractures or spondylolisthesis. No bony destructive lesions. Impression: 1. Fat containing umbilical and adjacent smaller supraumbilical hernia were demonstrated on 06/2022 CT. Overall dimensions are relatively stable of both hernia sacs on current exam. internal fat stranding equivocally more pronounced omental infarction can be correlate with palpation or targeted ultrasound. 2. Right lateral abdominal wall mesh intact. 3. Stable ancillary findings. This document has been electronically signed by: Naif Enciso MD on 10/20/2024 19:56:08
[2024-10-20 16:56] VITALS: BP 147/80; PULSE 83; RESP 18; TEMP 36.8; O2SAT 100; BMI 43.2
--- NOTE | 2024-10-20 16:56 | ED.ABDPAIN ---
HPI - Abdominal Pain General Stated Complaint: abd pain Related Data Previous Rx's ?Medication ?Instructions ?Recorded naproxen 500 mg tablet 500 mg PO BID PRN Pain 10 days #20 03/13/22 Held on 03/20/22. tabs Instructions: Doctor's Order lancets 28 gauge (FreeStyle #100 ea 05/04/23 Lancets) tamsulosin 0.4 mg capsule (Flomax) 0.4 mg PO BEDTIME #90 caps 07/06/23 clotrimazole 1 % topical cream 1 appl topical BID 30 days #30 02/15/24 grams blood pressure monitor #1 ea 03/10/24 blood sugar diagnostic (OneTouch #100 ea 03/10/24 Ultra Test strips) blood-glucose meter (OneTouch #1 ea 03/10/24 Ultra2 Meter) lancets 30 gauge (OneTouch #100 ea 03/10/24 UltraSoft 2 Lancet) duloxetine 30 mg capsule,delayed 30 mg PO DAILY 90 days #90 caps 07/04/24 release dulaglutide 1.5 mg/0.5 mL 1.5 mg (0.5 mL) subcut QWEEK 4 08/11/24 subcutaneous pen injector weeks #2 mL (Trulicity) metformin 1,000 mg tablet 500 mg (1/2 x 1,000 mg) PO BID 90 08/31/24 days #90 tabs atorvastatin 80 mg tablet 80 mg PO DAILY 90 days #90 tabs 09/28/24 cyclobenzaprine 10 mg tablet 10 mg PO BEDTIME PRN muscle spasm 09/28/24 30 days #30 tabs fenofibrate 54 mg tablet 54 mg PO DAILY 90 days #100 tabs 09/28/24 gabapentin 600 mg tablet 600 mg PO BID 90 days #180 tabs 09/28/24 hydrocortisone 2.5 % topical cream 1 appl [place] DAILY #30 grams 09/28/24 with perineal applicator (Proctosol HC) lidocaine 5 % topical patch 1 patch topical DAILY #15 ea 09/28/24 (Lidoderm) losartan 50 mg tablet 50 mg PO DAILY 90 days #90 tabs 09/28/24 polyethylene glycol 3350 17 17 g PO DAILY #119 grams 09/28/24 gram/dose oral powder (Miralax) sertraline 50 mg tablet 50 mg PO DAILY 90 days #90 tabs 09/28/24 tadalafil 5 mg tablet (Cialis) 5 mg PO DAILY #30 tabs 09/28/24 terbinafine HCl 250 mg tablet 250 mg PO DAILY 8 weeks #56 tabs 09/28/24 levothyroxine 125 mcg tablet 125 mcg PO DAILY 30 days #30 tabs 09/29/24 Allergies Allergy/AdvReac Type Severity Reaction Status Date / Time Penicillins Allergy Unknown Rash Verified 10/20/24 16:59 hydrochlorothiazide AdvReac Intermediate Dizziness Verified 10/20/24 16:59 [facility] Past Medical History Medical History Tendinopathy of right shoulder Post viral syndrome BPPV (benign paroxysmal positional vertigo) Hypothyroidism Hx of appendicitis Supraumbilical hernia Umbilical hernia Umbilical hernia DM2 (diabetes mellitus, type 2) Abdominal pain Pre-diabetes Sleep apnea with use of continuous positive airway pressure (CPAP) HLD (hyperlipidemia) HTN (hypertension) Hypothyroidism Surgical History Hx of endoscopy History of colonoscopy History of hemorrhoidectomy History of cholecystectomy Family History Family History Mother Diabetes Hypertension Father Diabetes Hypertension Maternal Uncle Cancer Maternal Grandmother Stroke Social History Social History Household Members: Spouse and Children Housing: Apartment Alcohol intake: unknown Patient Tobacco Use Status: Never used Tobacco e-Cigarette/Vaping Use: Never Used Second Hand Smoke Exposure: No Advance Directives Date on File: 02/03/22 service: No Current occupational status: disabled Current occupation: rt handed Cognitive needs: No Hearing needs: No Vision needs: Yes Course Course Course Narrative: This is an RME: Additional HPI, ROS, PE not included below will be deferred to primary provider. RME assessment and note performed by: Sanjuana Guillory PA-C This is a 89-nxtd-gkt-male, with a hx of T2DM, HTN, hypothyroidism, GERD, BPH, who presents to the ER with complaints of abdominal pain. Diagnosed with a hernia and lifted a box of meat (50lbs +). umbilical hernia felt, indurated, very TTP, nonreducible. advised charge nurse to bring pt back martin. pt very uncomfortable. Plan: labs, ct abd w/ iv contrast ordered. Discharge Plan Discharge Prescriptions: No Action naproxen 500 mg tablet 500 mg PO BID PRN (Reason: Pain) 10 Days Qty: 20 1RF clotrimazole 1 % cream 1 appl topical BID 30 Days Qty: 30 3RF duloxetine 30 mg capsule,delayed release(DR/EC) 30 mg PO DAILY 90 Days Qty: 90 3RF Trulicity 1.5 mg/0.5 mL pen injector 1.5 mg subcut QWEEK 28 Days Qty: 2 3RF metformin 1,000 mg tablet 500 mg PO BID 90 Days Qty: 90 2RF levothyroxine 125 mcg tablet 125 mcg PO DAILY 30 Days Qty: 30 2RF (DME) lancets [FreeStyle Lancets] 28 gauge misc See Rx Instructions .ROUTE .MEDSUPPLY Qty: 100 3RF Rx Instructions: As directed tamsulosin [Flomax] 0.4 mg capsule 0.4 mg PO BEDTIME Qty: 90 1RF atorvastatin 80 mg tablet 80 mg PO DAILY 90 Days Qty: 90 1RF cyclobenzaprine 10 mg tablet 10 mg PO BEDTIME PRN (Reason: muscle spasm) 30 Days Qty: 30 0RF fenofibrate 54 mg tablet 54 mg PO DAILY 90 Days Qty: 100 2RF gabapentin 600 mg tablet 600 mg PO BID 90 Days Qty: 180 2RF hydrocortisone [Proctosol HC] 2.5 % cream with perineal applicator 1 appl [place] DAILY Qty: 30 0RF lidocaine [Lidoderm] 5 % adhesive patch,medicated 1 patch topical DAILY Qty: 15 0RF Rx Instructions: leave on most painful area for up to 12 hrs losartan 50 mg tablet 50 mg PO DAILY 90 Days Qty: 90 3RF polyethylene glycol 3350 [Miralax] 17 gram/dose powder 17 g PO DAILY Qty: 119 0RF sertraline 50 mg tablet 50 mg PO DAILY 90 Days Qty: 90 3RF tadalafil [Cialis] 5 mg tablet 5 mg PO DAILY Qty: 30 9RF Rx Instructions: [id number] [facility] [id number] Member [id number] terbinafine HCl 250 mg tablet 250 mg PO DAILY 56 Days Qty: 56 1RF (DME) blood pressure monitor Kit See Rx Instructions .Route Qty: 1 0RF Rx Instructions: As directed ([facility]) OneTouch Ultra Test Strip See Rx Instructions .Route Qty: 100 3RF Rx Instructions: Testing once a day as needed (DME) blood-glucose meter [OneTouch Ultra2 Meter] Misc See Rx Instructions .Route Qty: 1 0RF Rx Instructions: As directed ([facility]) lancets [OneTouch UltraSoft 2 Lancet] 30 gauge misc See Rx Instructions .Route Qty: 100 2RF Rx Instructions: As directed Print Language: Setswana
[2024-10-20 17:11] VITALS: BP 171/93; PULSE 81; RESP 20; TEMP 36.6; O2SAT 100
--- NOTE | 2024-10-20 17:24 | ED.ABDPAIN ---
HPI - Abdominal Pain General Chief Complaint: Abdominal Pain Stated Complaint: abd pain Time Seen by Provider: 10/20/24 17:12 Source: patient Mode of arrival: ambulatory Limitations: no limitations History of Present Illness ED Provider: HPI narrative: Patient is 49 years old with history of hypertension umbilical hernia apparently was lifting 50 lb about 2 hour prior to arrival notice severe pain in his mid abdomen at the site of hernia feels nauseated no vomiting Related Data Previous Rx's ?Medication ?Instructions ?Recorded naproxen 500 mg tablet 500 mg PO BID PRN Pain 10 days #20 03/13/22 Held on 03/20/22. tabs Instructions: Doctor's Order lancets 28 gauge (FreeStyle #100 ea 05/04/23 Lancets) tamsulosin 0.4 mg capsule (Flomax) 0.4 mg PO BEDTIME #90 caps 07/06/23 clotrimazole 1 % topical cream 1 appl topical BID 30 days #30 02/15/24 grams blood pressure monitor #1 ea 03/10/24 blood sugar diagnostic (OneTouch #100 ea 03/10/24 Ultra Test strips) blood-glucose meter (OneTouch #1 ea 03/10/24 Ultra2 Meter) lancets 30 gauge (OneTouch #100 ea 03/10/24 UltraSoft 2 Lancet) duloxetine 30 mg capsule,delayed 30 mg PO DAILY 90 days #90 caps 07/04/24 release dulaglutide 1.5 mg/0.5 mL 1.5 mg (0.5 mL) subcut QWEEK 4 08/11/24 subcutaneous pen injector weeks #2 mL (Trulicity) metformin 1,000 mg tablet 500 mg (1/2 x 1,000 mg) PO BID 90 08/31/24 days #90 tabs atorvastatin 80 mg tablet 80 mg PO DAILY 90 days #90 tabs 09/28/24 cyclobenzaprine 10 mg tablet 10 mg PO BEDTIME PRN muscle spasm 09/28/24 30 days #30 tabs fenofibrate 54 mg tablet 54 mg PO DAILY 90 days #100 tabs 09/28/24 gabapentin 600 mg tablet 600 mg PO BID 90 days #180 tabs 09/28/24 hydrocortisone 2.5 % topical cream 1 appl [place] DAILY #30 grams 09/28/24 with perineal applicator (Proctosol HC) lidocaine 5 % topical patch 1 patch topical DAILY #15 ea 09/28/24 (Lidoderm) losartan 50 mg tablet 50 mg PO DAILY 90 days #90 tabs 09/28/24 polyethylene glycol 3350 17 17 g PO DAILY #119 grams 09/28/24 gram/dose oral powder (Miralax) sertraline 50 mg tablet 50 mg PO DAILY 90 days #90 tabs 09/28/24 tadalafil 5 mg tablet (Cialis) 5 mg PO DAILY #30 tabs 09/28/24 terbinafine HCl 250 mg tablet 250 mg PO DAILY 8 weeks #56 tabs 09/28/24 levothyroxine 125 mcg tablet 125 mcg PO DAILY 30 days #30 tabs 09/29/24 Allergies Allergy/AdvReac Type Severity Reaction Status Date / Time Penicillins Allergy Unknown Rash Verified 10/20/24 16:59 hydrochlorothiazide AdvReac Intermediate Dizziness Verified 10/20/24 16:59 Review of Systems Review of Systems Yes all other systems are reviewed and are negative PMFSH Past Medical History Medical History Tendinopathy of right shoulder Post viral syndrome BPPV (benign paroxysmal positional vertigo) Hypothyroidism Hx of appendicitis Supraumbilical hernia Umbilical hernia Umbilical hernia DM2 (diabetes mellitus, type 2) Abdominal pain Pre-diabetes Sleep apnea with use of continuous positive airway pressure (CPAP) HLD (hyperlipidemia) HTN (hypertension) Hypothyroidism Surgical History Hx of endoscopy History of colonoscopy History of hemorrhoidectomy History of cholecystectomy Family History Family History Mother Diabetes Hypertension Father Diabetes Hypertension Maternal Uncle Cancer Maternal Grandmother Stroke Social History Social History Household Members: Spouse and Children Housing: Apartment Alcohol intake: unknown Patient Tobacco Use Status: Never used Tobacco e-Cigarette/Vaping Use: Never Used Second Hand Smoke Exposure: No Advance Directives: Yes Advance Directives on File: Yes Advance Directives Date on File: 02/03/22 Do you have a plan to hurt others: No Plan service: No Current occupational status: disabled Current occupation: rt handed Cognitive needs: No Hearing needs: No Vision needs: Yes Physical Exam ED Vital Signs: Vital Signs - 24 hr 10/20/24 16:56 10/20/24 17:11 10/20/24 19:28 Temperature 98.3 F 97.9 F 98.5 F Pulse Rate 83 81 82 Respiratory Rate 18 20 16 Blood Pressure 147/80 H 171/93 H 129/70 Pulse Oximetry 100 100 96 Oxygen Delivery Method Room Air Room Air Room Air 10/20/24 20:17 10/20/24 20:37 Temperature 98.5 F 98.5 F Pulse Rate 82 82 Respiratory Rate 16 16 Blood Pressure 129/70 129/70 Pulse Oximetry 96 96 Oxygen Delivery Method Room Air Room Air BMI result Body Mass Index 43.2 Appearance: Alert. Oriented X3. In moderate distress Eyes: No pallor or icterus ENT: Pharynx normal. Oral Mucosa moist Neck: Normal inspection. Neck supple. CVS: Normal heart rate and rhythm. Pulses normal. Respiratory: No respiratory distress. Equal air entry bilateral, no wheezing/rales/rhonchi Abdomen: Soft and paraumbilical hernia tender. Bowel sounds are present, no mass palpable, no CVA tenderness Skin: Skin warm and dry. Normal skin color. Normal skin turgor. Extremities: No lower extremity edema. No calf tenderness Neuro: Oriented X 3. No motor deficit. Medical Decision Making Medical Decision Making [facility] Narrative: Patient with paraumbilical which is reduced Gabonese and felt much better will check the labs CT scan Lab Data [facility] Lab Attestation statement: I reviewed the patient's lab results. 10/20/24 17:21 10/20/24 17:21 Labs: Lab Results 10/20/24 10/20/24 Range/Units 17:21 17:23 WBC 13.2 H (4.8-10.8) X10*3/uL RBC 6.52 H (4.60-5.80) X10*6/uL Hgb 16.2 (14.0-18.0) g/dl Hct 48.9 (42.0-52.0) % MCV 75.0 L (80.0-98.0) fL MCH 24.8 L (27.0-33.0) pg MCHC 33.1 (31.0-36.0) g/dl RDW 16.5 H (11.0-16.0) % Plt Count 173 (160-400) X10*3/uL MPV 11.0 (9.4-12.4) fL Immature Gran % (Auto) 0.3 (0.0-0.4) % Neut % (Auto) 78.0 H (45-73) % Lymph % (Auto) 13.5 L (20-40) % [place] % (Auto) 7.0 (2-11) % Eos % (Auto) 0.4 (0-4) % Baso % (Auto) 0.8 (0-2) % Lymph # (Auto) 1.8 (1.2-4.9) X10*3/uL [place] # (Auto) 0.9 (0.1-1.2) X10*3/uL Eos # (Auto) 0.1 (0.0-0.4) X10*3/uL Baso # (Auto) 0.1 (0.0-0.2) X10*3/uL Abs Immat Gran (auto) 0.04 H (0.00-0.03) X10*3/uL Absolute Neuts (auto) 10.3 H (2.0-8.3) x10*3/uL Absolute Nucleated RBC 0.000 (0.0-0.012) X10*3/uL Nucleated RBC % (auto) 0.0 (0.0-0.2) /100WBC Sodium 141 (135-145) mmol/L Potassium 4.0 (3.3-5.1) mmol/L Chloride 111 H (96-108) mmol/L Carbon Dioxide 23 (22-29) mmol/L Anion Gap 11 L (12-20) BUN 22 H (9-16) mg/dL Creatinine 1.50 H (0.5-1.4) mg/dL Estim Creat Clear Calc 66.1 Estimated GFR 49 Random Glucose 127 H (60-115) mg/dL Lactic Acid 2.0 (0.5-2.0) mmol/L Calcium 9.9 D (8.4-10.2) mg/dL Magnesium 1.7 (1.6-2.6) mg/dL Total Bilirubin 0.7 (0.0-1.0) mg/dL Direct Bilirubin 0.2 (0.0-0.5) mg/dL AST 24 (5-37) U/L ALT 35 (0-40) U/L Alkaline Phosphatase 86 (39-117) U/L Total Creatine Kinase 129 (38-174) U/L Total Protein 8.0 (6.5-8.0) g/dL Albumin 4.5 (3.5-5.0) g/dL Lipase 33 (8-78) U/L Independent Interpretation I performed an independent interpretation of an: CT Scan Radiology Impression Discussion of test interpretation with radiology: I have reviewed the radiologist's reading. Medications Administered Discontinued Medications Generic Name Dose Route Start Last Admin Trade Name Freq PRN Reason Stop Dose Admin Sodium Chloride 1,000 mls @ 999 mls/hr 10/20/24 17:21 10/20/24 17:27 Ns IV 10/20/24 18:21 999 mls/hr .Q1H1M ONE Administration Iohexol 100 ml 10/20/24 18:41 10/20/24 18:42 Iohexol 350 Mg/Ml 100 Ml Infus..Btl IV 10/20/24 18:42 85 ml ONCE ONE Administration Morphine Sulfate 4 mg 10/20/24 17:21 10/20/24 17:26 Morphine Sulfate 4 Mg/Ml Cartridge IVPUSH 10/20/24 17:22 4 mg ONCE ONE Administration Protocol Ondansetron HCl 4 mg 10/20/24 17:21 10/20/24 17:26 Ondansetron Hcl 4 Mg/2 Ml Vial IVPUSH 10/20/24 17:22 4 mg ONCE ONE Administration Discharge Plan Discharge Clinical Impression: Supraumbilical hernia Patient Disposition: Home, Self-Care Instructions: Ventral Hernia (ED) Additional Instructions: Avoid lifting any heavy stuffs Follow up with surgeon for elective surgery for your large ventral hernia Report to the ER if recurrence of the pain in hernia Prescriptions: No Action naproxen 500 mg tablet 500 mg PO BID PRN (Reason: Pain) 10 Days Qty: 20 1RF clotrimazole 1 % cream 1 appl topical BID 30 Days Qty: 30 3RF duloxetine 30 mg capsule,delayed release(DR/EC) 30 mg PO DAILY 90 Days Qty: 90 3RF Trulicity 1.5 mg/0.5 mL pen injector 1.5 mg subcut QWEEK 28 Days Qty: 2 3RF metformin 1,000 mg tablet 500 mg PO BID 90 Days Qty: 90 2RF levothyroxine 125 mcg tablet 125 mcg PO DAILY 30 Days Qty: 30 2RF (DME) lancets [FreeStyle Lancets] 28 gauge misc See Rx Instructions .ROUTE .MEDSUPPLY Qty: 100 3RF Rx Instructions: As directed tamsulosin [Flomax] 0.4 mg capsule 0.4 mg PO BEDTIME Qty: 90 1RF atorvastatin 80 mg tablet 80 mg PO DAILY 90 Days Qty: 90 1RF cyclobenzaprine 10 mg tablet 10 mg PO BEDTIME PRN (Reason: muscle spasm) 30 Days Qty: 30 0RF fenofibrate 54 mg tablet 54 mg PO DAILY 90 Days Qty: 100 2RF gabapentin 600 mg tablet 600 mg PO BID 90 Days Qty: 180 2RF hydrocortisone [Proctosol HC] 2.5 % cream with perineal applicator 1 appl PA DAILY Qty: 30 0RF lidocaine [Lidoderm] 5 % adhesive patch,medicated 1 patch topical DAILY Qty: 15 0RF Rx Instructions: leave on most painful area for up to 12 hrs losartan 50 mg tablet 50 mg PO DAILY 90 Days Qty: 90 3RF polyethylene glycol 3350 [Miralax] 17 gram/dose powder 17 g PO DAILY Qty: 119 0RF sertraline 50 mg tablet 50 mg PO DAILY 90 Days Qty: 90 3RF tadalafil [Cialis] 5 mg tablet 5 mg PO DAILY Qty: 30 9RF Rx Instructions: [id number] [facility] [id number] Member [id number] terbinafine HCl 250 mg tablet 250 mg PO DAILY 56 Days Qty: 56 1RF (DME) blood pressure monitor Kit See Rx Instructions .Route Qty: 1 0RF Rx Instructions: As directed (DME) OneTouch Ultra Test Strip See Rx Instructions .Route Qty: 100 3RF Rx Instructions: Testing once a day as needed (DME) blood-glucose meter [OneTouch Ultra2 Meter] Misc See Rx Instructions .Route Qty: 1 0RF Rx Instructions: As directed (DME) lancets [OneTouch UltraSoft 2 Lancet] 30 gauge misc See Rx Instructions .Route Qty: 100 2RF Rx Instructions: As directed Referrals: Larry Jiménez MD [Physician, General Surgery] Referral Note: Ventral hernia Interventions: ED Discharge Assessment Last Done: 10/20/24 20:37 Discharge Date/Time: 10/20/24 20:38 Print Language: English
[2024-10-20 17:25] LABS: MANUAL DIFF FLAG NO
[2024-10-20 17:28] LABS: Hematocrit 48.9 % (42.0-52.0); Hemoglobin 16.2 g/dl (14.0-18.0); Imm Gran Abs Auto 0.04 X10*3/uL (0.00-0.03); Imm Gran Pct Auto 0.3 % (0.0-0.4); Lymphocytes Absolute Auto 1.8 X10*3/uL (1.2-4.9); Mean Corpuscular HGB Conc 33.1 g/dl (31.0-36.0); Mean Corpuscular Hemoglobin 24.8 pg (27.0-33.0); Mean Corpuscular Volume 75.0 fL (80.0-98.0); NRBC Abs Auto 0.000 X10*3/uL (0.0-0.012); NRBC Pct Auto 0.0 /100WBC (0.0-0.2); Platelet Count 173 X10*3/uL (160-400); Red Blood Count 6.52 X10*6/uL (4.60-5.80); White Blood Count 13.2 X10*3/uL (4.8-10.8)
[2024-10-20 17:44] LABS: Alanine Aminotransferase 35 U/L (0-40); Albumin Level 4.5 g/dL (3.5-5.0); Alkaline Phosphatase 86 U/L (39-117); Anion Gap 11 (12-20); Aspartate Amino Transferase 24 U/L (5-37); Blood Urea Nitrogen 22 mg/dL (9-16); Calcium 9.9 mg/dL (8.4-10.2); Carbon Dioxide 23 mmol/L (22-29); Chloride 111 mmol/L (96-108); Creatinine Clr Calc Pharmacy 66.1; Estimated Glomerular Filt Rate 49; Lipase 33 U/L (8-78); Magnesium 1.7 mg/dL (1.6-2.6); Potassium 4.0 mmol/L (3.3-5.1); Sodium 141 mmol/L (135-145); Total Protein 8.0 g/dL (6.5-8.0)
[2024-10-20] MEDS: iohexoL 350 MG/ML 100 ML INFUS..BTL IV (18:42)
[2024-10-20 19:28] VITALS: BP 129/70; PULSE 82; RESP 16; TEMP 36.9; O2SAT 96
[2024-10-20 20:17] VITALS: BP 129/70; PULSE 82; RESP 16; TEMP 36.9; O2SAT 96
[2024-10-20 20:37] VITALS: BP 129/70; PULSE 82; RESP 16; TEMP 36.9; O2SAT 96
== END 2024-10-20 20:38 | disposition home or self-care (01) ==
PROVIDERS: Physician Assistant Medical; Emergency Provider Internal Medicine; PCP Physician Assistant
DX: K42.9 Umbilical hernia without obstruction or gangrene (principal); Z79.899 Other long term (current) drug therapy
CPT/HCPCS: 36415; 74177; 80048; 80076; 82550; 83605; 83690; 83735; 85025; 96374; 96375; 99283; 99284; J2270; J2405; Q9967

== ENCOUNTER → 2024-10-20 17:00 | Outpatient (BNV) | payer MEDICARE, MEDICAID, SELFPAY | PROVIDERS: Emergency Provider Internal Medicine; PCP Physician Assistant; Visit Provider Radiology Diagnostic Radiology | DX: K42.9 Umbilical hernia without obstruction or gangrene (principal) | CPT/HCPCS: 74177 ==

== ENCOUNTER 2024-11-12 21:55 | Emergency (ER) | payer MEDICARE, MEDICAID, SELFPAY ==
--- NOTE | 2024-11-12 | ECG_ITS ---
Test Reason : PALPITATIONS Blood Pressure : */* mmHG Vent. Rate : 63 BPM Atrial Rate : 63 BPM P-R Int : 134 ms QRS Dur : 76 ms QT Int : 406 ms P-R-T Axes : 21 13 43 degrees QTcB Int : 415 ms Normal sinus rhythm Low voltage QRS Borderline ECG When compared with ECG of 31-Oct-2023 00:50, No significant change was found Referred By: Generic ED Physician Electronically Signed By: Rodger Covington
[2024-11-12 23:09] VITALS: BP 138/75; PULSE 67; RESP 20; TEMP 36.3; O2SAT 99; BMI 45.4
[2024-11-12 23:53] LABS: MANUAL DIFF FLAG NO
[2024-11-12 23:54] LABS: Hematocrit 42.7 % (42.0-52.0); Hemoglobin 14.5 g/dl (14.0-18.0); Imm Gran Abs Auto 0.03 X10*3/uL (0.00-0.03); Imm Gran Pct Auto 0.3 % (0.0-0.4); Lymphocytes Absolute Auto 2.6 X10*3/uL (1.2-4.9); Mean Corpuscular HGB Conc 34.0 g/dl (31.0-36.0); Mean Corpuscular Hemoglobin 25.7 pg (27.0-33.0); Mean Corpuscular Volume 75.6 fL (80.0-98.0); NRBC Abs Auto 0.000 X10*3/uL (0.0-0.012); NRBC Pct Auto 0.0 /100WBC (0.0-0.2); Platelet Count 153 X10*3/uL (160-400); Red Blood Count 5.65 X10*6/uL (4.60-5.80); White Blood Count 9.5 X10*3/uL (4.8-10.8)
[2024-11-13 00:14] LABS: Alanine Aminotransferase 23 U/L (0-40); Albumin Level 4.1 g/dL (3.5-5.0); Alkaline Phosphatase 92 U/L (39-117); Anion Gap 16 (12-20); Aspartate Amino Transferase 22 U/L (5-37); Blood Urea Nitrogen 18 mg/dL (9-16); Calcium 8.9 mg/dL (8.4-10.2); Carbon Dioxide 23 mmol/L (22-29); Chloride 108 mmol/L (96-108); Creatinine Clr Calc Pharmacy 79.0; Estimated Glomerular Filt Rate 58; Potassium 4.1 mmol/L (3.3-5.1); Sodium 143 mmol/L (135-145); Total Protein 7.7 g/dL (6.5-8.0)
[2024-11-13 00:17] LABS: Troponin-I High Sensitivity 7.3 ng/L (<3.5-35.0)
--- OUTSIDE RECORDS SUMMARY | 2024-11-13 00:58 | XMS_ITS | Clinical Summary ---
Author Organization [facility] it Address [address] [place] [address] Care Team Providers Care Workers Compensation Administrator Name Role Phone Unavailable Primary Care Provider Unavailabl e Surgical History Surgery Date Site/Laterality Comments VENTRAL HERNIA REPAIR PROCEDURE: HISTORICAL VTRL WALL HERNIA RE CHOLECYSTECTOMY PROCEDURE: HISTORICAL CHOLECYSTECTOMY INCISIONAL HERNIA REPAIR 07/2018 PROCEDURE: MA IMPLANT MESH OPN HERNIA RPR/DEBRIDEMENT CLOSURE; COMMENT: [...] Vaccines (1 of 2) 2019 COVID-19 Vaccine ( - 2023-2 5 season) 2023 Depression Screening 03/30/2024 Influenza Vaccine (#1) 2024 0, 05/18/2018 DTaP,Tdap,and Td Vaccines (2 - [...]
== END 2024-11-13 00:59 | disposition left against medical advice (07) ==
PROVIDERS: Emergency Medicine; Emergency Provider Emergency Medicine; PCP Physician Assistant
DX: R00.2 Palpitations (principal); Z53.21 Procedure and treatment not carried out due to patient leaving prior to being seen by health care provider
CPT/HCPCS: 36415; 80053; 84484; 85025; 93005; 99281; 99283

== ENCOUNTER → 2024-11-12 23:38 | Outpatient (BNV) | payer MEDICARE, MEDICAID, SELFPAY | PROVIDERS: Emergency Provider Emergency Medicine; PCP Physician Assistant; Visit Provider Internal Medicine Cardiovascular Disease | DX: R00.2 Palpitations (principal) | CPT/HCPCS: 93010 ==

== ENCOUNTER 2025-01-24 13:45 | Outpatient (AMB) | payer MEDICARE, MEDICAID, SELFPAY ==
--- NOTE | 2025-01-24 13:55 | MHC.PC.OV ---
Vital Signs 01/24/25 13:56 Height 5 ft 5 in Weight 269 lb 6 oz BMI 44.8 BP 110/70 Blood Pressure Location Lt brachial Position Sitting Pulse 75 Pulse Source Pulse Oximeter Temp 97.1 F Temp Source Temporal Artery Scan Pulse Oximetry (%) 97 Oxygen Delivery Method Room Air Intake Visit Reasons: swelling to hands and feet general malaise Intake Note: Patient is here to follow up on swelling to hands and feet general malaise. Exercise Physiology Professor Required: Yes Exercise Physiology Professor Language: Croatian Information Interpreted: non-clinical & clinical Registered Sales Assistant: Not Required per policy Accompanied by: Self / Same As Patient Allergies Penicillins Allergy (Unknown, Verified 01/24/25 13:56) Rash dulaglutide (From [facility]) Adverse Reaction (Intermediate, Verified 01/24/25 13:56) Rash hydrochlorothiazide Adverse Reaction (Intermediate, Verified 01/24/25 13:56) Dizziness Medication List - Last Reconciled 01/24/25 by Zoran Auguste MD atorvastatin 80 mg PO DAILY 90 days blood pressure monitor As directed blood sugar diagnostic (Accu-Chek Guide test strips) As directed- once daily blood-glucose meter (Accu-Chek Guide Me Glucose Meter) As directed- once daily clotrimazole 1% 1 appl topical BID 30 days cyclobenzaprine 10 mg PO BEDTIME PRN 30 days duloxetine 30 mg PO DAILY 90 days fenofibrate 54 mg PO DAILY 90 days gabapentin 600 mg PO BID 90 days hydrocortisone 2.5% (Proctosol HC) 1 appl [place] DAILY lancets (Accu-Chek Softclix Lancets) As directed- once daily levothyroxine 125 mcg PO DAILY 30 days lidocaine 5% (Lidoderm) 1 patch topical DAILY losartan 50 mg PO DAILY 90 days metformin 500 mg (1/2 x 1,000 mg) PO BID 90 days naproxen 500 mg PO BID PRN 10 days Held on 03/20/22. Instructions: Doctor's Order polyethylene glycol 3350 (Miralax) 17 grams PO DAILY sertraline 50 mg PO DAILY 90 days tadalafil (Cialis) 5 mg PO DAILY tamsulosin (Flomax) 0.4 mg PO BEDTIME terbinafine HCl 250 mg PO DAILY 8 weeks Tobacco use date assessed: 01/24/25 Dental Screening Dental Screen Date: 04/27/24 HPI HPI Comments History of Present Illness Details The patient is a 54-year-old male presenting with worsening chronic pain. He reports a long-standing history of right-sided back pain, pain in his feet and hands, and tingling with numbness in his hands and feet, which has recently worsened. The patient questions whether his right-sided pain is due to his kidney or the sciatic nerve. His current medications include gabapentin 600 mg and sertraline 50 mg. The patient does not recall being prescribed duloxetine. The patient was on Trulicity and Munjaro in the past which helped him lose weight but they were stopped due to allergic reaction. [facility] Medical History Tendinopathy of right shoulder Post viral syndrome BPPV (benign paroxysmal positional vertigo) Hypothyroidism Hx of appendicitis Supraumbilical hernia Umbilical hernia Umbilical hernia DM2 (diabetes mellitus, type 2) Abdominal pain Pre-diabetes Sleep apnea with use of continuous positive airway pressure (CPAP) HLD (hyperlipidemia) HTN (hypertension) Hypothyroidism Surgical History Hx of endoscopy History of colonoscopy History of hemorrhoidectomy History of cholecystectomy Family History Mother Diabetes Hypertension Father Diabetes Hypertension Maternal Uncle Cancer Maternal Grandmother Stroke Social History Household Members: Spouse and Children Housing: Apartment Alcohol intake: unknown Patient Tobacco Use Status: Never used Tobacco e-Cigarette/Vaping Use: Never Used Second Hand Smoke Exposure: No Advance Directives Date on File: 02/03/22 service: No Current occupational status: disabled Current occupation: rt handed Cognitive needs: No Hearing needs: No Vision needs: Yes Questionnaire Thrive Questionnaire Date Thrive assessed: 09/23/24 I am a: Patient What is your living situation today?: I have a steady place to live Within the past 12 months, did the food you bought not last and you didn't have the money to get more?: Sometimes True Within the past 12 months, did you worry whether your food would run out before you got money to buy more?: Sometimes True Do you have trouble paying for medicines?: No Do you have trouble getting transportation to medical appointments?: No Do you have trouble paying your heating and electricity bill?: No Do you have trouble taking care of your child, family member or friend?: No Do you have trouble with day-to-day activities such as bathing, preparing meals, shopping, managing finances, etc.?: I choose not to answer this question Are you currently unemployed and looking for a job?: No Are you interested in more education?: Yes Currently or been in a relationship where the following occur: No concerns reported THRIVE Score: 2 ZACHERY-7 AMB Questionnaire ZACHERY-7 Date ZACHERY - 7 assessed: 09/28/24 Source: Developed by Drs. Josue Arndt, Sneha Elias, Tarun Umana and colleagues, with an educational marissa from [employer] Review of Systems Const Details: As per HPI. Physical exam (Primary Care) Vital Signs: Last Vital Signs Temp 97.1 F 01/24/25 13:56 Pulse 75 01/24/25 13:56 BP 110/70 01/24/25 13:56 Pulse Ox 97 01/24/25 13:56 Oxygen Delivery Method Room Air 01/24/25 13:56 BMI result Body Mass Index 44.8 Tobacco/Smoking Status: Tobacco use Status Tobacco use date assessed 01/24/25 01/24/25 14:01 Patient Tobacco Use Status Never used Tobacco 01/24/25 14:01 e-Cigarette/Vaping Use Never Used 01/24/25 14:01 Thrive Assessment: Date of Thrive Assessment Date Thrive assessed 09/23/24 01/24/25 14:01 Currently or been in a relationship where the following occur: No concerns reported Const Other: Pertinent findings are in BOLD GENERAL APPEARANCE NAD, activity normal for age, well developed/ well nourished, no cyanosis, pallor, or diaphoresis. EYES lids/conjunctiva normal. EARS/NOSE/THROAT Mucous membranes moist, nares normal, lips/teeth normal uvula midline without oral pharyngeal erythema, exudate or swelling TMs normal bilaterally. No lymphangitis/lymphedema. HEAD/NECK normocephalic atraumatic, no facial trauma, neck is supple. RESPIRATORY respiratory effort normal, speaks in full sentences, no tripod position, no accessory muscle use. Lungs clear to auscultation without rhonchi, wheezes, rales CARDIAC Regular rate and rhythm, no edema. ABDOMINAL Soft, ND/NT. No evidence of fluid wave. No pulsatile masses on exam, rebound tenderness, Domínguez sign or pain over Mcburney's point. MUSCLES/EXTREMITIES No abnormal range of motion, no swelling. SKIN Warm, pink and dry. No rashes, dermatoses, petechiae or lesions. NEUROLOGICAL Speech is clear and appropriate. Normal level of consciousness. Gait and coordination are normal. 5/5 strength in all extremities. PSYCH Normal mood and affect. Judgement/competence is appropriate Coding Level of Care Code Est Pt Level 4 (41611) Diagnoses Class 3 severe obesity due to excess calories with serious comorbidity and body mass index (BMI) of 45.0 to 49.9 in adult E66.01; Z68.42 Obesity type: due to excess calories Obesity classification: adult class 3 (BMI >= 40) Serious obesity comorbidity presence: with serious comorbidity Body mass index: BMI 45.0-49.9 Lumbar disc disease M51.9 Neuropathy G62.9 Time Spent (min) 30 Assessment & Plan Assessment & Plan (1) Obese: Code(s): E66.9 - Obesity, unspecified Category: Medical Qualifiers: Obesity type: due to excess calories Obesity classification: adult class 3 (BMI >= 40) Serious obesity comorbidity presence: with serious comorbidity Body mass index: BMI 45.0-49.9 Qualified Code(s): E66.01 - Morbid (severe) obesity due to excess calories; Z68.42 - Body mass index [BMI] 45.0-49.9, adult Plan: I told the patient that his symptoms are exacerbated by Obesity and that weight loss is crucial to improve his health in general and his chronic pain problems specifically. Had allergic reaction to Trulicity and Munjaro in the past. Weight management referral placed to help with other options of weight management medications. (2) Lumbar disc disease: Code(s): M51.9 - Unspecified thoracic, thoracolumbar and lumbosacral intervertebral disc disorder Category: Medical Plan: - The right-sided back pain is considered most likely nerve pain rather than renal pain based on its description. - This will be managed with the increase in the sertraline dosage. - Patient is iterested in seeing pain management again. Referral ordered. (3) Neuropathy: Code(s): G62.9 - Polyneuropathy, unspecified Category: Medical Plan: - The patient's symptoms of tingling, numbness, and pain are assessed as likely being neuropathic in origin. - The sertraline dose will be increased from 50 mg to 75 mg. Plan I explained to the patient that based on his description, the pain he is experiencing sounds more like nerve pain rather than an issue with his kidneys. To address this, I have increased his sertraline dose to 75 mg. I advised him to continue with his scheduled follow-up with [facility] in April, but he can always call to schedule an earlier appointment if his symptoms persist or worsen. Orders: Referrals Medical Weight Management Referral E66.01 - Morbid (severe) obesity due to excess calories, Z68.42 - Body mass index [BMI] 45.0-49.9, adult Pain Management Referral M51.9 - Unspecified thoracic, thoracolumbar and lumbosacral intervertebral disc disorder Medications: Changed From sertraline 50 mg PO DAILY 90 days 90 tabs 3RF F41.9 - Anxiety disorder, unspecified To sertraline 75 mg (1.5 x 50 mg) PO DAILY 135 tabs 3RF 90 days F41.9 - Anxiety disorder, unspecified Discontinued duloxetine Discontinued Reason: Duplicate 30 mg PO DAILY 90 days 90 caps 3RF F41.9 - Anxiety disorder, unspecified, M51.9 - Unspecified thoracic, thoracolumbar and lumbosacral intervertebral disc disorder
[2025-01-24 13:56] VITALS: BP 110/70; PULSE 75; TEMP 36.2; O2SAT 97; BMI 44.8
== END 2025-01-24 14:36 | disposition home or self-care (01) ==
LOC: HO.HMCH 13:47
PROVIDERS: PCP Physician Assistant; Visit Provider Internal Medicine
DX: E66.01 Morbid (severe) obesity due to excess calories (principal); Z68.42 Body mass index [BMI] 45.0-49.9, adult; M51.9 Unspecified thoracic, thoracolumbar and lumbosacral intervertebral disc disorder; G62.9 Polyneuropathy, unspecified

== ENCOUNTER → 2025-01-24 13:45 | Outpatient (BNVA) | payer MEDICARE, SELFPAY | PROVIDERS: PCP Physician Assistant; Visit Provider Internal Medicine | DX: E66.01 Morbid (severe) obesity due to excess calories (principal); Z68.42 Body mass index [BMI] 45.0-49.9, adult; M51.9 Unspecified thoracic, thoracolumbar and lumbosacral intervertebral disc disorder; G62.9 Polyneuropathy, unspecified; Z71.3 Dietary counseling and surveillance | CPT/HCPCS: 99212 ==

== ENCOUNTER 2025-01-29 17:08 | Emergency (ER) | payer MEDICARE, SELFPAY ==
[2025-01-29 17:14] VITALS: BP 165/79; PULSE 70; RESP 20; TEMP 36.3; O2SAT 97; BMI 46.0
--- NOTE | 2025-01-29 17:15 | ED.ABDPAIN ---
HPI - Abdominal Pain General Chief Complaint: General Medical Stated Complaint: rt side back pain Time Seen by Provider: 01/29/25 21:02 Source: patient Limitations: language barrier History of Present Illness ED Provider: Angelita Patino PA-C HPI narrative: 54-year-old male with a history of known lumbar degenerative changes, morbid obesity, hypertension, hypothyroidism, diabetes, hyperlipidemia, fatty liver disease who presents with low back pain times 5-6 days. Patient states he performs a great deal of heavy lifting on a regular basis. Patient developed pain in the right lower back, worse with movement. He also developed pain radiating down left lower extremity, with the cramping at times, he describes the pain as a burning sensation. Denies urinary retention, bowel incontinence or paresthesia. No weakness of lower extremities. Related Data Previous Rx's ?Medication ?Instructions ?Recorded naproxen 500 mg tablet 500 mg PO BID PRN Pain 10 days #20 03/13/22 Held on 03/20/22. tabs Instructions: Doctor's Order tamsulosin 0.4 mg capsule (Flomax) 0.4 mg PO BEDTIME #90 caps 07/06/23 clotrimazole 1 % topical cream 1 appl topical BID 30 days #30 02/15/24 grams blood pressure monitor #1 ea 03/10/24 atorvastatin 80 mg tablet 80 mg PO DAILY 90 days #90 tabs 09/28/24 cyclobenzaprine 10 mg tablet 10 mg PO BEDTIME PRN muscle spasm 09/28/24 30 days #30 tabs fenofibrate 54 mg tablet 54 mg PO DAILY 90 days #100 tabs 09/28/24 gabapentin 600 mg tablet 600 mg PO BID 90 days #180 tabs 09/28/24 hydrocortisone 2.5 % topical cream 1 appl AL DAILY #30 grams 09/28/24 with perineal applicator (Proctosol HC) lidocaine 5 % topical patch 1 patch topical DAILY #15 ea 09/28/24 (Lidoderm) losartan 50 mg tablet 50 mg PO DAILY 90 days #90 tabs 09/28/24 polyethylene glycol 3350 17 17 g PO DAILY #119 grams 09/28/24 gram/dose oral powder (Miralax) tadalafil 5 mg tablet (Cialis) 5 mg PO DAILY #30 tabs 09/28/24 terbinafine HCl 250 mg tablet 250 mg PO DAILY 8 weeks #56 tabs 09/28/24 levothyroxine 125 mcg tablet 125 mcg PO DAILY 30 days #30 tabs 09/29/24 metformin 1,000 mg tablet 500 mg (1/2 x 1,000 mg) PO BID 90 11/11/24 days #90 tabs blood sugar diagnostic (Accu-Chek #100 ea 12/21/24 Guide test strips) blood-glucose meter (Accu-Chek #1 ea 12/21/24 Guide Me Glucose Meter) lancets (Accu-Chek Softclix #200 ea 12/21/24 Lancets) sertraline 50 mg tablet 75 mg (1.5 x 50 mg) PO DAILY 90 01/24/25 days #135 tabs meloxicam 15 mg tablet 15 mg PO DAILY #7 tabs 01/29/25 methocarbamol 750 mg tablet 1,500 mg (2 x 750 mg) PO Q8H PRN 01/29/25 pain, moderate #24 tabs methylprednisolone 4 mg tablets in 4 mg PO QAM #21 ea 01/29/25 a dose pack (Medrol (Janusz)) Allergies Allergy/AdvReac Type Severity Reaction Status Date / Time Penicillins Allergy Unknown Rash Verified 01/29/25 17:19 dulaglutide (From [place]) AdvReac Intermediate Rash Verified 01/29/25 17:19 hydrochlorothiazide AdvReac Intermediate Dizziness Verified 01/29/25 17:19 Review of Systems Review of Systems Yes all other systems are reviewed and are negative Constitutional: Denies fatigue and Denies fever(s) Cardiovascular: Denies chest pain and Denies dyspnea Respiratory: Denies dyspnea Gastrointestinal: Denies abdominal pain, Denies nausea and Denies vomiting Genitourinary: Denies dysuria and Denies flank pain Musculoskeletal: Reports back pain, Reports muscle cramps, Denies muscle weakness, Denies numbness, Reports radiating pain into limb and Denies tingling Denies numbness and Denies tingling Endocrine: Denies fatigue PMFSH Past Medical History Attestation statement: The following information was validated with the patient. Medical History Tendinopathy of right shoulder Post viral syndrome BPPV (benign paroxysmal positional vertigo) Hypothyroidism Hx of appendicitis Supraumbilical hernia Umbilical hernia Umbilical hernia DM2 (diabetes mellitus, type 2) Abdominal pain Pre-diabetes Sleep apnea with use of continuous positive airway pressure (CPAP) HLD (hyperlipidemia) HTN (hypertension) Hypothyroidism Surgical History Hx of endoscopy History of colonoscopy History of hemorrhoidectomy History of cholecystectomy Family History Family History Mother Diabetes Hypertension Father Diabetes Hypertension Maternal Uncle Cancer Maternal Grandmother Stroke Social History Social History Household Members: Spouse and Children Housing: Apartment Alcohol intake: unknown Patient Tobacco Use Status: Never used Tobacco e-Cigarette/Vaping Use: Never Used Second Hand Smoke Exposure: No Advance Directives: Yes Advance Directives on File: Yes Advance Directives Date on File: 02/03/22 service: No Current occupational status: disabled Current occupation: rt handed Cognitive needs: No Hearing needs: No Vision needs: Yes Physical Exam ED Vital Signs: Vital Signs - 24 hr 01/29/25 17:14 Temperature 97.4 F Pulse Rate 70 Respiratory Rate 20 Blood Pressure 165/79 H Pulse Oximetry 97 Oxygen Delivery Method Room Air BMI result Body Mass Index 46.0 Const Other: Alert well-appearing Orientation/consciousness: patient oriented x3 Resp Effort & Inspection: normal respiratory effort Cardio Other: Normal peripheral perfusion Skin Other: Warm dry no rash Neuro General: patient oriented x3, gait normal, no focal motor deficits and CN's II-XI intact bilaterally Extrem Other: Strength 5/5 bilateral lower extremities, straight leg raise greater than 30? bilaterally Psych Other: Cooperative Course Course Course Narrative: This is a Rapid Medical Exam performed in triage by June Pace PA-C. Full HPI, ROS and PE to be performed by primary ED provider. 54yo Afghan speaking male w/pmhx HLD, HTN, Hypothyroid, sleep apnea presenting to the ED c/o right sided back pain x5-6 days, non-radiating. Also reports LLE pain. denies injury/fall. Also reports hand & leg swelling. denies urinary sx PE: 1+ b/l LE pitting edema, lumbar paraspinal reproducible tenderness. Ambulating with steady gait Plan: Labs, UA Medical Decision Making Medical Decision Making MDM Narrative: 54-year-old male with a history of known lumbar degenerative changes, morbid obesity, hypertension, hypothyroidism, diabetes, hyperlipidemia, fatty liver disease who presents with low back pain times 5-6 days. Patient states he performs a great deal of heavy lifting on a regular basis. Patient developed pain in the right lower back, worse with movement. He also developed pain radiating down left lower extremity, with the cramping at times, he describes the pain as a burning sensation. Denies urinary retention, bowel incontinence or paresthesia. No weakness of lower extremities. Problem: Known lumbar disc disease, morbid obesity, diabetes History: Per patient I have considered the following differential diagnoses: Lumbar strain, lumbar radiculopathy, cauda equina, compression fracture, peripheral neuropathy, Plan: Screening labs obtained from triage including a urinalysis. The patient is having lumbar strain, with a radicular symptoms. In regard to the burning sensation in the left lower extremity on the unaffected side, he is likely developing neuropathy from his diabetes. To note he has no red flag signs symptoms concerning for cord compression. We will treat accordingly. Imaging not warranted. I have independently reviewed the following tests: Labs: No leukocytosis, not anemic, no electrolyte abnormality urine not infected Differential Diagnosis Differential Diagnoses: The differential diagnosis associated with the presentation includes See [facility] Admission/Observation Consideration of admission/observation: Escalation of care including admission/observation considered Not applicable Lab Data [facility] Lab Attestation statement: I reviewed the patient's lab results. 01/29/25 17:50 01/29/25 17:50 Labs: Lab Results 01/29/25 Range/Units 17:50 WBC 8.9 (4.8-10.8) X10*3/uL RBC 6.14 H (4.60-5.80) X10*6/uL Hgb 15.2 (14.0-18.0) g/dl Hct 47.5 (42.0-52.0) % MCV 77.4 L (80.0-98.0) fL MCH 24.8 L (27.0-33.0) pg MCHC 32.0 (31.0-36.0) g/dl RDW 15.1 (11.0-16.0) % Plt Count 168 (160-400) X10*3/uL MPV 11.4 (9.4-12.4) fL Immature Gran % (Auto) 0.3 (0.0-0.4) % Neut % (Auto) 65.4 (45-73) % Lymph % (Auto) 25.4 (20-40) % [place] % (Auto) 6.6 (2-11) % Eos % (Auto) 1.3 (0-4) % Baso % (Auto) 1.0 (0-2) % Lymph # (Auto) 2.3 (1.2-4.9) X10*3/uL [place] # (Auto) 0.6 (0.1-1.2) X10*3/uL Eos # (Auto) 0.1 (0.0-0.4) X10*3/uL Baso # (Auto) 0.1 (0.0-0.2) X10*3/uL Abs Immat Gran (auto) 0.03 (0.00-0.03) X10*3/uL Absolute Neuts (auto) 5.8 (2.0-8.3) x10*3/uL Absolute Nucleated RBC 0.000 (0.0-0.012) X10*3/uL Nucleated RBC % (auto) 0.0 (0.0-0.2) /100WBC Sodium 141 (135-145) mmol/L Potassium 3.9 (3.3-5.1) mmol/L Chloride 109 H (96-108) mmol/L Carbon Dioxide 25 (22-29) mmol/L Anion Gap 11 L (12-20) BUN 13 (9-16) mg/dL Creatinine 1.23 (0.5-1.4) mg/dL Estim Creat Clear Calc 83.5 Estimated GFR > 60 Random Glucose 140 H (60-115) mg/dL Calcium 8.7 (8.4-10.2) mg/dL Magnesium 1.9 (1.6-2.6) mg/dL Total Bilirubin 0.6 (0.0-1.0) mg/dL Direct Bilirubin 0.1 (0.0-0.5) mg/dL AST 19 (5-37) U/L ALT 20 (0-40) U/L Alkaline Phosphatase 78 (39-117) U/L NT-Pro-B Natriuret Pep 122.8 (<300) pg/mL Total Protein 7.0 (6.5-8.0) g/dL Albumin 4.0 (3.5-5.0) g/dL Urine Color Yellow Urine Appearance Clear Urine pH 6.5 (5.0-9.0) Ur Specific [place] 1.015 (1.005-1.025) Urine Protein Negative (Neg-Trace) mg/dL Urine Glucose (UA) Negative (Negative) mg/dL Urine Ketones Negative (Negative) mg/dL Urine Blood Negative (Negative) Urine Nitrite Negative (Negative) Ur Leukocyte Esterase Negative (Negative) Medications Administered Discontinued Medications Generic Name Dose Route Start Last Admin Trade Name Freq PRN Reason Stop Dose Admin Ketorolac Tromethamine 15 mg 01/29/25 21:46 01/29/25 22:01 Ketorolac Tromethamine 15 Mg/Ml Vial IM 01/29/25 21:47 15 mg ONCE ONE Administration Methocarbamol 1,500 mg 01/29/25 21:46 01/29/25 22:01 Methocarbamol 750 Mg Tablet PO 01/29/25 21:47 1,500 mg ONCE ONE Administration Prednisone 10 mg 01/29/25 21:46 01/29/25 22:01 Prednisone 10 Mg Tablet PO 01/29/25 21:47 10 mg ONCE ONE Administration Discharge Plan Discharge Clinical Impression: Lumbar strain, Pain in left thigh, Muscle spasm Patient Disposition: Home, Self-Care Instructions: Low Back Strain (ED), Leg Cramps (ED), Leg Pain (ED), Lower Back Exercises (ED) Additional Instructions: All of your screening labs were normal including your kidney function, your urine is not infected. Given you have known degenerative disc disease of the lumbar spine, it sounds as if you were having exacerbation of your chronic low back pain. See home care instructions. Take the meloxicam as directed this is an anti-inflammatory, take it with food. Take the Medrol Dosepak as directed take it in the morning. This is a 2nd anti-inflammatory. Take the methocarbamol as needed, this is a muscle relaxant. It will help with your muscle spasms and cramping. It may cause drowsiness, do not drive or operate machinery while taking this medication. In addition, the burning sensation you are experiencing in your left leg maybe related to neuropathy secondary to your diabetes. You can have discussion with your primary care provider about this, they may implement another medication to help with nerve related pain. You should follow up with your primary care provider, you may require physical therapy, they can help expedite this process for you. Prescriptions: New methocarbamol 750 mg tablet 1,500 mg PO Q8H PRN (Reason: pain, moderate) Qty: 24 0RF meloxicam 15 mg tablet 15 mg PO DAILY Qty: 7 0RF methylprednisolone [Medrol (Janusz)] 4 mg tablets,dose pack 4 mg PO QAM Qty: 21 0RF Rx Instructions: Take per package instructions No Action naproxen 500 mg tablet 500 mg PO BID PRN (Reason: Pain) 10 Days Qty: 20 1RF clotrimazole 1 % cream 1 appl topical BID 30 Days Qty: 30 3RF levothyroxine 125 mcg tablet 125 mcg PO DAILY 30 Days Qty: 30 2RF metformin 1,000 mg tablet 500 mg PO BID 90 Days Qty: 90 2RF (DME) blood-glucose meter [Accu-Chek Guide Me Glucose Mtr] Misc See Rx Instructions .Route Qty: 1 0RF Rx Instructions: As directed- once daily (DME) Accu-Chek Guide test strips Strip See Rx Instructions .Route Qty: 100 4RF Rx Instructions: As directed- once daily (DME) lancets [Accu-Chek Softclix Lancets] Misc See Rx Instructions .Route Qty: 200 0RF Rx Instructions: As directed- once daily tamsulosin [Flomax] 0.4 mg capsule 0.4 mg PO BEDTIME Qty: 90 1RF atorvastatin 80 mg tablet 80 mg PO DAILY 90 Days Qty: 90 1RF cyclobenzaprine 10 mg tablet 10 mg PO BEDTIME PRN (Reason: muscle spasm) 30 Days Qty: 30 0RF fenofibrate 54 mg tablet 54 mg PO DAILY 90 Days Qty: 100 2RF gabapentin 600 mg tablet 600 mg PO BID 90 Days Qty: 180 2RF hydrocortisone [Proctosol HC] 2.5 % cream with perineal applicator 1 appl AL DAILY Qty: 30 0RF lidocaine [Lidoderm] 5 % adhesive patch,medicated 1 patch topical DAILY Qty: 15 0RF Rx Instructions: leave on most painful area for up to 12 hrs losartan 50 mg tablet 50 mg PO DAILY 90 Days Qty: 90 3RF polyethylene glycol 3350 [Miralax] 17 gram/dose powder 17 g PO DAILY Qty: 119 0RF tadalafil [Cialis] 5 mg tablet 5 mg PO DAILY Qty: 30 9RF Rx Instructions: [id number] [facility] [id number] Member [id number] terbinafine HCl 250 mg tablet 250 mg PO DAILY 56 Days Qty: 56 1RF (DME) blood pressure monitor Kit See Rx Instructions .Route Qty: 1 0RF Rx Instructions: As directed sertraline 50 mg tablet 75 mg PO DAILY 90 Days Qty: 135 3RF Interventions: ED Discharge Assessment Last Done: 01/29/25 22:18 Discharge Date/Time: 01/29/25 22:20 Print Language: Afghan
[2025-01-29 17:58] LABS: MANUAL DIFF FLAG NO
--- OUTSIDE RECORDS SUMMARY | 2025-01-29 17:59 | XMS_ITS | Clinical Summary ---
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 Name Role Phone Unavailable Primary Care Provider Unavailabl e Surgical History Surgery Date Site/Laterality Comments VENTRAL HERNIA REPAIR PROCEDURE: HISTORICAL VTRL WALL HERNIA RE CHOLECYSTECTOMY PROCEDURE: HISTORICAL CHOLECYSTECTOMY INCISIONAL HERNIA REPAIR 07/2018 PROCEDURE: NV IMPLANT MESH OPN HERNIA RPR/DEBRIDEMENT CLOSURE; COMMENT: [...] 2019 Zoster Vaccines (1 of 2) 2019 Depression Screening 03/30/2024 COVID-19 Vaccine (1 - 2023-2 5 season) 2024 Influenza Vaccine (#1) 2024 0, 05/18/2018 DTaP,Tdap,and Td Vaccines (2 - Td or Tdap) 05/18/2028 05/18/2018 RSV Immunization Adult Patients (1 - 1-dose 75+ series) 2044 HIB Vaccines Aged Out No longer eligi [...]
[2025-01-29 18:00] LABS: Appearance Urine Clear; Glucose Urine UA Negative (Negative); Hematocrit 47.5 % (42.0-52.0); Hemoglobin 15.2 g/dl (14.0-18.0); Imm Gran Abs Auto 0.03 X10*3/uL (0.00-0.03); Imm Gran Pct Auto 0.3 % (0.0-0.4); Lymphocytes Absolute Auto 2.3 X10*3/uL (1.2-4.9); Mean Corpuscular HGB Conc 32.0 g/dl (31.0-36.0); Mean Corpuscular Hemoglobin 24.8 pg (27.0-33.0); Mean Corpuscular Volume 77.4 fL (80.0-98.0); NRBC Abs Auto 0.000 X10*3/uL (0.0-0.012); NRBC Pct Auto 0.0 /100WBC (0.0-0.2); PH 6.5 (5.0-9.0); Platelet Count 168 X10*3/uL (160-400); Red Blood Count 6.14 X10*6/uL (4.60-5.80); Specific Gravity - Urine 1.015 (1.005-1.025); White Blood Count 8.9 X10*3/uL (4.8-10.8)
[2025-01-29 18:15] LABS: Alanine Aminotransferase 20 U/L (0-40); Albumin Level 4.0 g/dL (3.5-5.0); Alkaline Phosphatase 78 U/L (39-117); Anion Gap 11 (12-20); Aspartate Amino Transferase 19 U/L (5-37); Blood Urea Nitrogen 13 mg/dL (9-16); Calcium 8.7 mg/dL (8.4-10.2); Carbon Dioxide 25 mmol/L (22-29); Chloride 109 mmol/L (96-108); Creatinine Clr Calc Pharmacy 83.5; Estimated Glomerular Filt Rate > 60; Magnesium 1.9 mg/dL (1.6-2.6); Potassium 3.9 mmol/L (3.3-5.1); Sodium 141 mmol/L (135-145); Total Protein 7.0 g/dL (6.5-8.0)
[2025-01-29 18:23] LABS: NT Pro B Type Natriuretic Pept 122.8 pg/mL (<300)
[2025-01-29 22:18] VITALS: BP 165/79; PULSE 70; RESP 20; TEMP 36.3; O2SAT 97
== END 2025-01-29 22:20 | disposition home or self-care (01) ==
PROVIDERS: Physician Assistant; Emergency Provider Emergency Medicine; PCP Physician Assistant
DX: S39.012A Strain of muscle, fascia and tendon of lower back, initial encounter (principal); M79.652 Pain in left thigh; M62.838 Other muscle spasm; R10.9 Unspecified abdominal pain; I10 Essential (primary) hypertension; E11.9 Type 2 diabetes mellitus without complications; X58.XXXA Exposure to other specified factors, initial encounter; Y93.9 Activity, unspecified; Y92.9 Unspecified place or not applicable; Y99.9 Unspecified external cause status
CPT/HCPCS: 36415; 80048; 80076; 81003; 83735; 83880; 85025; 96372; 99283; 99284; J1885

== ENCOUNTER 2025-02-15 09:04 | Outpatient (REF) | payer MEDICARE, SELFPAY ==
[2025-02-15 10:08] LABS: Hematocrit 48.2 % (42.0-52.0); Hemoglobin 15.1 g/dl (14.0-18.0); Mean Corpuscular HGB Conc 31.3 g/dl (31.0-36.0); Mean Corpuscular Hemoglobin 24.8 pg (27.0-33.0); Mean Corpuscular Volume 79.1 fL (80.0-98.0); NRBC Abs Auto 0.000 X10*3/uL (0.0-0.012); NRBC Pct Auto 0.0 /100WBC (0.0-0.2); Platelet Count 173 X10*3/uL (160-400); Red Blood Count 6.09 X10*6/uL (4.60-5.80); White Blood Count 9.4 X10*3/uL (4.8-10.8)
[2025-02-15 10:33] LABS: Alanine Aminotransferase 21 U/L (0-40); Albumin Level 4.2 g/dL (3.5-5.0); Alkaline Phosphatase 86 U/L (39-117); Anion Gap 10 (12-20); Aspartate Amino Transferase 21 U/L (5-37); Blood Urea Nitrogen 21 mg/dL (9-16); Calcium 9.4 mg/dL (8.4-10.2); Carbon Dioxide 27 mmol/L (22-29); Chloride 108 mmol/L (96-108); Estimated Glomerular Filt Rate 57; Potassium 3.7 mmol/L (3.3-5.1); Sodium 141 mmol/L (135-145); Total Protein 7.3 g/dL (6.5-8.0)
--- OUTSIDE RECORDS SUMMARY | 2025-02-15 16:57 | XMS_ITS | Clinical Summary ---
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
== END 2025-02-15 09:05 | disposition home or self-care (01) ==
LOC: HO.LAB 09:04
PROVIDERS: PCP Physician Assistant; Visit Provider Physician Assistant
DX: I10 Essential (primary) hypertension (principal)
CPT/HCPCS: 36415; 80053; 85027

== ENCOUNTER 2025-02-16 10:45 | Outpatient (AMB) | payer MEDICARE, SELFPAY ==
--- NOTE | 2025-02-16 10:57 | MHC.OFFVIS ---
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 Services: Psychological Operations Present Psychological Operations Name: Pete # [id number] Information Interpreted: non-clinical & clinical Accompanied by: Self / Same As Patient Allergies Penicillins Allergy (Unknown, Verified 02/16/25 10:59) Rash dulaglutide (From Trulicity) Adverse Reaction (Intermediate, Verified 02/16/25 10:59) Rash hydrochlorothiazide Adverse Reaction (Intermediate, Verified 02/16/25 10:59) Dizziness tirzepatide (From Mounjaro) Adverse Reaction (Intermediate, Verified 02/16/25 10:59) Rash HPI Comments Details: The patient is a 54 year old Czech speaking male presenting for follow-up of chronic low back pain with radicular symptoms and a recent acute exacerbation. The patient has a history of chronic pain in the left leg with associated numbness below the knee. Recently, the patient experienced an acute exacerbation of back pain, predominantly on the right side, which prompted a visit to the [facility] Emergency Room on January 29, where a diagnosis of lumbar strain was made. The patient reports the treatment received in the ER, which included a toradol injection and medications, including NSAID, muscle relaxant and oral steroids did not provide significant help. The patient was evaluated by [facility] and was deemed not to be a surgical candidate. Previous epidural steroid injections provided only 50% pain relief. The patient's medication current regimen includes naproxen, cyclobenzaprine, gabapentin, and lidocaine patches, and the patient recently completed a Medrol dose pack for ongoing symptoms. The patient has a history of diabetes with good control, evidenced by a recent HbA1c of 5.5. A plan for a lumbar spinal cord stimulation trial was made in July, but the patient has not yet completed the required preliminary behavioral evaluation. The patient is disabled and denies performing regular heavy lifting, but has chronic back and leg symptoms with walking, most movements and light house chores. Past Procedures: 05/10/24: Left L3-L4 TFESI-50% ongoing pain relief 01/19/24: Diagnostic Bilateral L3-L4 DR L5 MBB-80% pain relief for 7-8 hours 11/03/23: Left L4-L5 TFESI-50% back pain relief, 30-40% left leg pain relief PRIOR: Patient is a pleasant 53 years old presents today with low back pain which has been long standing for more than 10-12 years for him. He reports axial low back pain with most movements and also pain radiating into left anterior thigh and lateral enamorado and inner calf with numbness and tingling in both feet. Patient was initially seen in our office in March 2021 by Renetta MUSA with plans for left L4-L5 TFESI injection but was no show. Review of [facility] records show patient underwent Bilateral L4 TFESI on 10/29/[address] Martinez. Patient reports this injection provided him good pain relief for over 3 months. He is interested to proceed with interventional treatments to address his axial and radicular symptoms. Pain affects his daily activities and functioning, mobility, sleep, mood, and social interactions. Patient states pain increases with walking, bending, movements and prolonged sitting. Pain is partially relieved with rest, heat therapy, stretching, gabapentin, muscle relaxant, NSAIDs and lidocaine patches. Denies any fever, abdominal or groin pain, weakness, foot drop, bladder or bowel dysfunction or saddle anesthesia. PRIOR 04/02/21 Renetta MUSA: Juan is a pleasant 51-year-old male presents to the office with complaints of low back pain. He states his pain has been present for many years, without any inciting events, and has been more exacerbated over the past 2 months. He states the pain travels across the low back and radiates down the left leg to the ankle with associated weakness. He reports numbness from the knee to the ankle. He reports pain onset was gradual, constant and rates the pain a 6-8/10. He states the pain is interfering with sleep, activities of daily living and they cannot function normally. The patient reports the pain in terms of tissue damage as stabbing and sore. He has tried flexeril, gabapentin, cymbalta, NSAIDS as well as lidocaine patches with minimal effect. His pain is exacerbated by prolonged standing as well as transitioning from a bending to standing position. He recently completed 10 sessions of physical therapy and was discharged due to non progression. He denies any lumbar surgery but has undergone multiple injections in [place] and reports receiving an injection at [place]. He believes he had five nerve blocks for lumbar pain and two injections for cervical pain which provided relief for about 2-3 months. He states his last injection was about 3 years ago. He had a recent MRI, this report is dictated below. His past medical history is significant for diabetes with reported A1c of 7.2%. He also has upcoming surgery with Dr. Hinkle and to repair an umbilical hernia next week. [facility] Medical History Tendinopathy of right shoulder Post viral syndrome BPPV (benign paroxysmal positional vertigo) Hypothyroidism Hx of appendicitis Supraumbilical hernia Umbilical hernia Umbilical hernia DM2 (diabetes mellitus, type 2) Abdominal pain Pre-diabetes Sleep apnea with use of continuous positive airway pressure (CPAP) HLD (hyperlipidemia) HTN (hypertension) Hypothyroidism Surgical History Hx of endoscopy History of colonoscopy History of hemorrhoidectomy History of cholecystectomy Family History Mother Diabetes Hypertension Father Diabetes Hypertension Maternal Uncle Cancer Maternal Grandmother Stroke Social History Household Members: Spouse and Children Housing: Apartment Alcohol intake: unknown Patient Tobacco Use Status: Never used Tobacco e-Cigarette/Vaping Use: Never Used Second Hand Smoke Exposure: No Advance Directives Date on File: 02/03/22 service: No Current occupational status: disabled Current occupation: rt handed Cognitive needs: No Hearing needs: No Vision needs: Yes Review of Systems Const Details: - Musculoskeletal: Reports severe low back pain, predominantly on the right side. - Neurological: Reports strong pain and numbness in the left leg, distal to the knee. Reports new pain in the right leg. Denies weakness, footdrop, bladder or bowel dysfunction or saddle anesthesia. All systems reviewed & are unremarkable except as noted in HPI and below Physical Exam Vital Signs: Last Vital Signs Pulse 70 02/16/25 10:58 BP 167/91 H 02/16/25 10:58 Pulse Ox 97 02/16/25 10:58 Oxygen Delivery Method Room Air 02/16/25 10:58 BMI result Body Mass Index 45.8 General: Appears afebrile.. Alert and oriented. Mood and affect appropriate. Follows and participates in conversation appropriately. Respiratory effort is unlabored. No cough. Able to transition from sit to stand unassisted. Ambulates with bilaterally normal heel strike and toe off, reports LLE chronic numbness and new tingling in right thigh. General: Yes no CVA tenderness Back/Spine/Pelvis Other: Limited lumbar spine ROM. Lumbar flexion and extension reproduces moderate pain. Demonstrates 5/5 right and 4/5 left due to pain strength of quadriceps bilaterally as well as flexion/dorsiflexion of bilateral feet against resistance. 2+ pedal pulses bilaterally. Straight leg rise with dorsiflexion negative bilaterally. Diminished DTRs, left>right. Rashi test reproduces left lateral hip pain, not back pain. Facet loading test + bilaterally. No groin pain with I/E hip rotations bilaterally. Decreased sensation throughout anterior thigh and lateral aspect of the LLE. Valsalva maneuver is negative. Back: no CVA tenderness Cervical Spine: cervical ROM normal, cervical muscular tenderness, No Cervical spine tenderness and No step off deformity Thoracic/Lumbar Spine: thoracic and lumbar spine normal to inspection, No Thoracic/lumbar spine scar(s), Lasegue's sign negative, straight leg raise negative bilaterally, pain with thoraco-lumbar ROM, paraspinal muscle tenderness, thoraco-lumbar ROM limited, No thoracic spinal tenderness and lumbar spinal tenderness (L4-S1) Pelvis: no buttock tenderness and no sciatic notch tenderness Sacroiliac joints: bilaterally tender to palpation (mild) Extrem General: Yes capillary refill normal, Yes no clubbing, cyanosis or edema and Yes no calf tenderness Results Reviewed Results Reviewed: XR LUMBOSACRAL SPINE 01/05/23 CLINICAL INFORMATION: Lower back pain. COMPARISON: Lumbar spine MRI from 01/04/2021 FINDINGS: Mild dextrocurvature of the lumbar spine and approximately 0.3 cm of degenerative right lateral listhesis of L4 on L5. Otherwise, lumbar vertebra have normal height and alignment. Findings include degenerative narrowing of disc space and small vertebral osteophytes at L4-L5. Also, osteophyte formation is present at other levels of the visualized lower thoracic and lumbar spine. There appears to be mild facet arthropathy at L3-4, L4-5 and L5-S1. Sacrum and sacroiliac joints are unremarkable. No evidence of focal lytic or osteoblastic lesion. Cholecystectomy clips in the right upper quadrant of the abdomen. Metallic tacks from mesh placement seen over right abdominal wall. IMPRESSION: * No acute abnormality. No evidence of lumbar vertebral compression fracture. * [id number] discovertebral degenerative change with mild right lateral listhesis at L4-L5. Otherwise, lumbar vertebra have normal alignment. XR THORACIC SPINE 01/05/23 CLINICAL INFORMATION: Upper back pain FINDINGS: Vertebral body height and alignment are maintained. Hypertrophic spondylotic changes are evident throughout the thoracic spine, with multilevel bridging osteophyte formation. No fracture or subluxation is detected. The paraspinal soft tissues image normally. IMPRESSION: 1. Hypertrophic and spondylotic changes throughout the thoracic spine but no fracture or bone lesion. MR LUMBAR SPINE WITHOUT CONTRAST 12/28/23 CLINICAL INFORMATION: Low back pain COMPARISON: MRI lumbar spine January 04, 2021 , CT abdomen pelvis July 17, 2022 TECHNIQUE: MRI of the lumbar spine was obtained using routine sequences without contrast. FINDINGS: Normal lumbar lordosis is preserved. Trace retrolisthesis at L4-L5 greater than L5-S1. Vertebral body heights are maintained. There is no suspicious osseous lesion. Multilevel disc desiccation with new minimal disc height loss at L4-L5. Level by level detail as follows: L1-L2: Mild bilateral facet arthrosis. No spinal canal or neural foraminal stenosis. L2-L3: Trace annular disc bulge with mild bilateral facet arthrosis. No spinal canal or significant neural foraminal stenosis. L3-L4: Annular disc bulge with increased size of left foraminal disc protrusion and new associated annular fissure. Decreased size of right foraminal/extraforaminal disc protrusion. Mild bilateral facet arthrosis. No spinal canal stenosis. Mild bilateral neural foraminal stenosis, increased on the left. L4-L5: Annular disc bulge with decreased size of superiorly migrated left foraminal disc extrusion and mild bilateral facet arthrosis. No spinal canal stenosis. Decreased moderate left neural foraminal stenosis with decreased mass effect along the exiting left L4 nerve. Patent right neural foramen. L5-S1: Annular disc bulge and mild facet arthrosis. No spinal canal stenosis. Stable minimal neural foraminal encroachment. The conus medullaris terminates at the level of L1-L2. The distal spinal cord is normal in appearance. No epidural fluid collection, hematoma, or mass. No significant abnormalities of the paraspinal musculature. Redemonstrated partially imaged right adrenal nodule, as seen on multiple prior abdominopelvic CTs and thought to be benign given multiyear stability. The abdominal aorta is of normal contour and caliber. IMPRESSION: 1. At L4-L5, decreased size of superiorly migrated left foraminal disc extrusion resulting in decreased moderate left neural foraminal stenosis and decreased mass effect along the exiting left L4 nerve. 2. At L3-L4, increased size of left foraminal disc protrusion and new associated annular fissure. Decreased size of right foraminal/extraforaminal disc protrusion. Mild bilateral neural foraminal stenosis, increased on the left. 3. Redemonstrated partially imaged right adrenal nodule, as seen on multiple prior abdominopelvic CTs and thought to be benign given multiyear stability. Assessment & Plan Assessment & Plan (1) Degenerative joint disease (DJD) of lumbar spine: Code(s): M47.816 - Spondylosis without myelopathy or radiculopathy, lumbar region Category: Medical Qualifiers: Spinal osteoarthritis complication: with radiculopathy Qualified Code(s): M47.26 - Other spondylosis with radiculopathy, lumbar region (2) Lumbar radiculopathy: Code(s): M54.16 - Radiculopathy, lumbar region Category: Medical (3) Degenerative lumbar spinal stenosis: Code(s): M48.061 - Spinal stenosis, lumbar region without neurogenic claudication Category: Social Hx (4) Lumbar disc disease: Code(s): M51.9 - Unspecified thoracic, thoracolumbar and lumbosacral intervertebral disc disorder Category: Medical (5) Chronic low back pain: Code(s): M54.50 - Low back pain, unspecified; G89.29 - Other chronic pain Category: Medical (6) Lumbar spondylosis: Code(s): M47.816 - Spondylosis without myelopathy or radiculopathy, lumbar region Category: Medical (7) Muscle spasm of back: Code(s): M62.830 - Muscle spasm of back Category: Medical (8) Lumbosacral spondylosis: Code(s): M47.817 - Spondylosis without myelopathy or radiculopathy, lumbosacral region Category: Medical (9) Chronic pain syndrome: Code(s): G89.4 - Chronic pain syndrome Category: Medical Plan The patient will be referred for physical therapy to manage the symptoms of acute on chronic low back pain. Script provided today. The patient has been instructed to complete the required behavioral evaluation for a lumbar spinal cord stimulation, and the necessary information was provided again. The risks, consequences, alternatives, and benefits of various treatment options were discussed with the patient in great detail, including conservative management, injections and procedures and all questions were answered to patient satisfaction. Upon successful completion of the behavioral evaluation, the patient will proceed with a one-week trial of a lumbar Nevro spinal cord stimulator. Should the trial prove beneficial, permanent implantation will follow, with post-operative adjustments to ensure optimal pain modulation. The patient will continue the current medication regimen, which includes naproxen, cyclobenzaprine, gabapentin, and lidocaine patches. He recently completed [employer]Ink Janusz. All questions and concerns have been answered and patient agreed with the plan. Follow up as needed. Patient was informed and verbally consented to the use of an ambient scribe for clinic note documentation during this visit. Orders: Orders PT Evaluation and Treatment Today G89.29 - Other chronic pain, M47.26 - Other spondylosis with radiculopathy, lumbar region, M47.816 - Spondylosis without myelopathy or radiculopathy, lumbar region, M48.061 - Spinal stenosis, lumbar region without neurogenic claudication, M51.9 - Unspecified thoracic, thoracolumbar and lumbosacral intervertebral disc disorder, M54.16 - Radiculopathy, lumbar region, M54.50 - Low back pain, unspecified Coding Level of Care Code Est Pt Level 4 (26981) Complex EM visit Add On G2211 Diagnoses Osteoarthritis of spine with radiculopathy, lumbar region M47.26 Spinal osteoarthritis complication: with radiculopathy Lumbar radiculopathy M54.16 Degenerative lumbar spinal stenosis M48.061 Lumbar disc disease M51.9 Chronic low back pain M54.50; G89.29 Lumbar spondylosis M47.816 Muscle spasm of back M62.830 Lumbosacral spondylosis M47.817 Chronic pain syndrome G89.4
[2025-02-16 10:58] VITALS: BP 167/91; PULSE 70; O2SAT 97; BMI 45.8
--- OUTSIDE RECORDS SUMMARY | 2025-02-16 16:15 | XMS_ITS | Clinical Summary ---
Author Organization Language [facility] it Address [address] [place] [address] Care Team Providers Care Engagement Lead Name Role Phone Unavailable Primary Care Provider Unavailabl e Surgical History Surgery Date Site/Laterality Comments VENTRAL HERNIA REPAIR PROCEDURE: HISTORICAL VTRL WALL HERNIA RE CHOLECYSTECTOMY PROCEDURE: HISTORICAL CHOLECYSTECTOMY INCISIONAL HERNIA REPAIR 07/2018 PROCEDURE: UT IMPLANT MESH OPN HERNIA RPR/DEBRIDEMENT CLOSURE; COMMENT: [...]
== END 2025-02-16 11:20 | disposition home or self-care (01) ==
LOC: HO.PMC 10:46
PROVIDERS: PCP Physician Assistant; Visit Provider Nurse Practitioner Family
DX: M47.26 Other spondylosis with radiculopathy, lumbar region (principal); M54.16 Radiculopathy, lumbar region; M48.061 Spinal stenosis, lumbar region without neurogenic claudication; M51.9 Unspecified thoracic, thoracolumbar and lumbosacral intervertebral disc disorder; M54.50 Low back pain, unspecified; G89.29 Other chronic pain; M47.816 Spondylosis without myelopathy or radiculopathy, lumbar region; M62.830 Muscle spasm of back; M47.817 Spondylosis without myelopathy or radiculopathy, lumbosacral region; G89.4 Chronic pain syndrome
CPT/HCPCS: 99214; G2211

== ENCOUNTER → 2025-02-16 10:45 | Outpatient (BNVA) | payer MEDICARE, SELFPAY | PROVIDERS: PCP Physician Assistant; Visit Provider Nurse Practitioner Family | DX: M54.50 Low back pain, unspecified (principal); G89.29 Other chronic pain; M47.816 Spondylosis without myelopathy or radiculopathy, lumbar region; M54.16 Radiculopathy, lumbar region; M48.061 Spinal stenosis, lumbar region without neurogenic claudication; M51.9 Unspecified thoracic, thoracolumbar and lumbosacral intervertebral disc disorder; M62.830 Muscle spasm of back; M47.817 Spondylosis without myelopathy or radiculopathy, lumbosacral region | CPT/HCPCS: 99212 ==